=== PATIENT | male | born 1940 | race Caucasian/White ===

== ENCOUNTER 2020-08-26 08:29 | Outpatient (REF) | payer MEDICARE, MEDICAID, SELFPAY ==
[2020-08-26 14:23] LABS: Alanine Aminotransferase 12 U/L (0-40); Albumin Level 4.4 g/dL (3.5-5.0); Alkaline Phosphatase 44 U/L (39-117); Anion Gap 14 (12-20); Aspartate Amino Transferase 12 U/L (5-37); Bilirubin Total 0.4 mg/dL (0.0-1.0); Blood Urea Nitrogen 13 mg/dL (9-16); Calcium 9.4 mg/dL (8.4-10.2); Carbon Dioxide 30 mmol/L (22-29); Chloride 96 mmol/L (96-108); Cholesterol 121 mg/dL; Estimated Glomerular Filt Rate > 60; Glucose Fasting 206 mg/dL (60-99); HDL Cholesterol 38 mg/dL; LDL Cholesterol Calculated 56 mg/dl; Potassium 4.4 mmol/l (3.3-5.1); Sodium 136 mmol/L (135-145); Total Protein 7.2 g/dL (6.5-8.0); Triglycerides 135 mg/dL
[2020-08-26 16:08] LABS: Vitamin B12 258 pg/mL (200-900)
[2020-08-27 18:17] LABS: LDL Cholesterol Direct 61 mg/dL (<100)
== END 2020-08-26 08:30 | disposition home or self-care (01) ==
LOC: CF 08:29
PROVIDERS: PCP Internal Medicine; Referring Provider Internal Medicine; Visit Provider Internal Medicine Endocrinology, Diabetes & Metabolism
DX: E11.65 Type 2 diabetes mellitus with hyperglycemia (principal); E11.42 Type 2 diabetes mellitus with diabetic polyneuropathy; E11.21 Type 2 diabetes mellitus with diabetic nephropathy; E66.9 Obesity, unspecified; E78.5 Hyperlipidemia, unspecified; I10 Essential (primary) hypertension; Z79.4 Long term (current) use of insulin; Z68.32 Body mass index [BMI] 32.0-32.9, adult; Z79.82 Long term (current) use of aspirin; Z79.899 Other long term (current) drug therapy; Z86.73 Personal history of transient ischemic attack (TIA), and cerebral infarction without residual deficits
CPT/HCPCS: 80053; 80061; 82607; 82947; 83721; 99214

== ENCOUNTER → 2020-11-25 08:41 | Outpatient (BNVA) | payer MEDICARE, MEDICAID, SELFPAY | PROVIDERS: PCP Internal Medicine; Visit Provider Internal Medicine Endocrinology, Diabetes & Metabolism | DX: E11.65 Type 2 diabetes mellitus with hyperglycemia (principal); E11.42 Type 2 diabetes mellitus with diabetic polyneuropathy; E11.21 Type 2 diabetes mellitus with diabetic nephropathy; Z79.4 Long term (current) use of insulin; I10 Essential (primary) hypertension; E78.5 Hyperlipidemia, unspecified; E66.9 Obesity, unspecified; B35.3 Tinea pedis | CPT/HCPCS: 82947; 99212 ==

== ENCOUNTER 2021-05-20 08:35 | Outpatient (REF) | payer MEDICARE, MEDICAID, SELFPAY ==
[2021-05-20 10:47] LABS: Creatinine Urine 104.65 mg/dL; Microalbum/Creatinine Ratio Ur 14.3 ug/mg cr
[2021-05-20 10:49] LABS: Alanine Aminotransferase 19 U/L (0-40); Albumin Level 4.1 g/dL (3.5-5.0); Alkaline Phosphatase 41 U/L (39-117); Anion Gap 13 (12-20); Aspartate Amino Transferase 16 U/L (5-37); Bilirubin Total 0.6 mg/dL (0.0-1.0); Blood Urea Nitrogen 11 mg/dL (9-16); Calcium 9.6 mg/dL (8.4-10.2); Carbon Dioxide 29 mmol/L (22-29); Chloride 99 mmol/L (96-108); Cholesterol 136 mg/dL; Estimated Glomerular Filt Rate > 60; Glucose Random 138 mg/dL (60-115); HDL Cholesterol 41 mg/dL; LDL Cholesterol Calculated 67 mg/dl; Potassium 3.5 mmol/L (3.3-5.1); Sodium 137 mmol/L (135-145); Total Protein 6.7 g/dL (6.5-8.0); Triglycerides 141 mg/dL
[2021-05-20 11:16] LABS: Vitamin B12 147 pg/mL (200-900)
[2021-05-22 08:47] LABS: LDL Cholesterol Direct 68 mg/dL (<100)
== END 2021-05-20 08:36 | disposition home or self-care (01) ==
LOC: HO.LAB 08:35
PROVIDERS: PCP Internal Medicine; Visit Provider Internal Medicine Endocrinology, Diabetes & Metabolism
DX: E11.65 Type 2 diabetes mellitus with hyperglycemia (principal); E11.42 Type 2 diabetes mellitus with diabetic polyneuropathy; E11.21 Type 2 diabetes mellitus with diabetic nephropathy; E66.9 Obesity, unspecified; E78.5 Hyperlipidemia, unspecified; I10 Essential (primary) hypertension; Z79.4 Long term (current) use of insulin
CPT/HCPCS: 36415; 80053; 80061; 82043; 82607; 82947; 83721; 99212

== ENCOUNTER → 2022-02-12 09:07 | Outpatient (BNVA) | payer MEDICARE, MEDICAID, SELFPAY | PROVIDERS: Visit Provider Nurse Practitioner Gerontology | DX: E11.65 Type 2 diabetes mellitus with hyperglycemia (principal); E11.42 Type 2 diabetes mellitus with diabetic polyneuropathy; E11.21 Type 2 diabetes mellitus with diabetic nephropathy; I10 Essential (primary) hypertension; E78.5 Hyperlipidemia, unspecified; E53.8 Deficiency of other specified B group vitamins; E66.9 Obesity, unspecified; N40.0 Benign prostatic hyperplasia without lower urinary tract symptoms; K08.109 Complete loss of teeth, unspecified cause, unspecified class; F32.A Depression, unspecified; Z68.31 Body mass index [BMI] 31.0-31.9, adult; Z86.73 Personal history of transient ischemic attack (TIA), and cerebral infarction without residual deficits; Z79.82 Long term (current) use of aspirin; Z79.4 Long term (current) use of insulin; Z79.899 Other long term (current) drug therapy | CPT/HCPCS: 82947; 83036; 95250; 99212 ==

== ENCOUNTER → 2022-03-03 07:36 | Outpatient (BNVA) | payer MEDICARE, MEDICAID, SELFPAY | PROVIDERS: Visit Provider Nurse Practitioner Gerontology | DX: E11.42 Type 2 diabetes mellitus with diabetic polyneuropathy (principal); E11.21 Type 2 diabetes mellitus with diabetic nephropathy; I10 Essential (primary) hypertension; E78.5 Hyperlipidemia, unspecified; E66.9 Obesity, unspecified; Z79.4 Long term (current) use of insulin | CPT/HCPCS: Q3014 ==

== ENCOUNTER 2022-07-02 16:01 | Inpatient (IN) | payer MEDICARE, MEDICAID, SELFPAY ==
[2022-07-02] VITALS (17 sets, daily range): BP systolic 126–187; BP diastolic 70–117; PULSE 53–103; RESP 10–20; TEMP 36.2–36.7; O2SAT 94–98; BMI 27.3; BMI 28.3
--- NOTE | ~2022-07-02 | XR_ITS ---
EXAMINATION: XR chest 1V CLINICAL INFORMATION: Shortness of breath COMPARISON: Prior chest x-ray 07/02/2022 TECHNIQUE: XR chest 1V Tubes and lines: None Lungs and pleura: Diminished lung volume, crowding of lung markings probably poor inspiration. No dense focal consolidation pneumonia. Heart and mediastinum: Prominent aortic knob probably chronic hypertension. Bones/soft tissue: Skeletal structures included are normal for patient's age. XR/XR chest 1V IMPRESSION: No acute change. Crowding of lung markings probably poor inspiration/diminished lung volume. No lobar consolidation pneumonia. No radiologic evidence of harman failure.
--- NOTE | ~2022-07-02 | CT_ITS ---
EXAMINATION: CT ANGIOGRAM HEAD CT ANGIOGRAM NECK CLINICAL INFORMATION: Reason for Exam stroke COMPARISON: Earlier same day noncontrast head CT, CT head without contrast 01/26/2020 TECHNIQUE: Initial noncontrast rag room supervisor imaging of the head and neck was performed. Comparison is made with noncontrast head CT from earlier today. Test bolus sequences followed by intravenous administration 70 mL of Omnipaque 350. Helical imaging was performed in the axial plane from the aortic arch to the skull vertex. Delayed postcontrast imaging of the head was also performed. The data was processed at the aeronautical engineering technologist's workstation for generation of MIP sequences. Angled MIPs and volume rendered reformatted images were also generated at an offline 3D workstation. Stenoses are assessed in accordance with NASCET criteria unless otherwise indicated. DLP: 1419 mGy-cm This CT examination was performed using dose optimization techniques as appropriate, variously including the following: *Automated exposure control. *Adjustment of mA and/or kV according to patient size (this includes techniques or standardized protocols for targeted exams where dose is matched to indication/reason for exam; i.e. extremities or head). *Use of iterative reconstruction technique. FINDINGS: CT Head: There is no evidence of acute intracranial hemorrhage or edematous territorial infarction. Scattered hypoattenuation in the periventricular and deep white matter are consistent with moderate microangiopathy. Chronic lacunar infarct involving the right basal ganglia. Atrophy of the left cerebellar hemisphere. Jacobsen-white matter differentiation is preserved. Proportional prominence of the ventricles and sulcal spaces. There is ex vacuo dilatation of the right frontal horn. No evidence for obstructive hydrocephalus. No abnormal mass effect or midline shift. No extra-axial fluid collections. No pathologic intra-axial enhancement or regional oligemia. No acute soft tissue or osseous abnormalities. The mastoid air cells and paranasal sinuses are clear. CT Neck: The thyroid gland and remaining cervical soft tissues are within normal limits. Multilevel cervical spondylosis. CT Upper Chest: The visualized lung apices and upper mediastinum are within normal limits. Neck CTA: Aortic Arch: Normal contour and caliber. Classic 3 vessel branching pattern of the aortic arch. Great Vessel Origins: No significant stenosis of the branch origins. Right Common Carotid Artery: No focal stenosis or occlusion. Cervical Right Internal Carotid Artery: Mild calcific atherosclerotic disease of the carotid bulb and proximal internal carotid artery without flow-limiting stenosis. Left Common Carotid Artery: No focal stenosis or occlusion. Cervical Left Internal Carotid Artery: Mild calcific atherosclerotic disease of the carotid bulb and proximal internal carotid artery without flow-limiting stenosis. Cervical Right Vertebral Artery: There is moderate to severe stenosis of the vessel origin on the basis of soft atherosclerotic plaque. There is multifocal stenosis of the cervical right vertebral artery which is worst and moderate at the level of the C5 foramen transversarium. Cervical Left Vertebral Artery: No focal stenosis or occlusion. Brain CTA: Intracranial Internal Carotid Arteries: Calcific atherosclerotic disease of the intracranial internal carotid arteries without occlusion or flow-limiting stenosis. Right Anterior Cerebral Artery: Normal A1 segment. There is a severe focal stenosis of the right pericallosal artery (series 6 image 233) with immediate vessel reconstitution. Left Anterior Cerebral Artery: Normal A1 segment. Normal opacification of the distal DINA segments. Anterior Communicating Artery: Normal. Right Middle Cerebral Artery: Normal M1 segment of the MCA without focal stenosis or occlusion. Normal arborization of the distal segments. Left Middle Cerebral Artery: Normal M1 segment of the MCA without focal stenosis or occlusion. Normal arborization of the distal segments. Right Vertebral Artery: Multifocal moderate to severe stenosis on the basis of atherosclerotic disease. Left Vertebral Artery: Normal V4 segment. Basilar Artery: Normal without focal stenosis or occlusion. Normal appearance of the proximal superior cerebellar arteries. Right Posterior Cerebral Artery: Normal P1 segment. Normal opacification of the distal LICENSED DIRECT ENTRY MIDWIFE segments. Left Posterior Cerebral Artery: Normal P1 segment. Normal opacification of the distal LICENSED DIRECT ENTRY MIDWIFE segments. Normal opacification of the superior sagittal, straight, transverse, and sigmoid sinuses. CT/CT angio head neck stroke IMPRESSION: 1. 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 There is normal filling of the basilar artery and posterior circulation via the left vertebral artery. 2. 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 No intracranial large vessel occlusion. Above impression was discussed with Dr. Rivas on 07/02/2022 at 4:55 PM
--- NOTE | ~2022-07-02 | XR_ITS ---
EXAMINATION: XR CHEST CLINICAL INFORMATION: Short of breath COMPARISON: 12/13/2019 TECHNIQUE: Frontal view of the chest was obtained. FINDINGS: Lung volumes are low. No consolidation, edema, or effusion. No pneumothorax. The cardiomediastinal silhouette is normal in size with a tortuous and calcified aorta. No acute osseous abnormality. XR/XR chest 1V IMPRESSION: Low lung volumes with no acute pulmonary finding.
--- NOTE | ~2022-07-02 | MR_ITS ---
EXAMINATION: MR BRAIN WITHOUT CONTRAST CLINICAL INFORMATION: Stroke. Post TPA. COMPARISON: CT from 07/02/2022. TECHNIQUE: Multiplanar, multisequence imaging of the brain was performed without contrast. Limited study with motion artifacts. FINDINGS: There is a small acute infarct in the left harris radiata, not well assessed due to motion artifacts. Moderate diffuse parenchymal volume loss noted with ex vacuo dilatation of the ventricles. Small vessel ischemic changes noted in the aida with moderate volume loss. No mass effect or midline shift is seen. [id number] chronic white matter microangiopathy evident. There is a chronic infarct in the lateral aspect of the left middle cerebellar peduncle and left cerebellar hemisphere in the anterior-inferior cerebellar artery territory. There are small contiguous foci of T1/T2 hyperintensity in the extra-axial fluid spaces overlying the anterior right frontal lobe and both temporal lobes which are suspected to represent areas of small late subacute blood products. No associated mass effect is seen. There is a chronic infarct in the right frontal periventricular white matter involving the right subinsular region with cystic encephalomalacia and hemosiderin staining. There is ex vacuo dilatation of the anterior body and frontal horn of the right lateral ventricle at this site. Small chronic lacunar infarcts are present in the deep alejo matter structures. Scattered punctate foci of susceptibility artifact are present throughout the brain parenchyma in the cerebellum, brainstem, deep alejo matter structures and at the alejo-white matter junction in both cerebral hemispheres, consistent with chronic microhemorrhages. The craniovertebral junction, marrow signal, and midline structures are normal. The major intracranial flow voids at the level of the [place] are preserved. The dural venous sinus flow voids are maintained. The mastoid air cells and paranasal sinuses are well aerated. MR/MR head/brain wo con IMPRESSION: 1. Limited study with extensive motion artifacts. Small acute infarct in the left harris radiata. 2. Extensive chronic white matter microangiopathy and diffuse parenchymal volume loss. Chronic infarcts in the gangliocapsular structures and right subinsular region with hemosiderin staining. Chronic left cerebellar infarct. 3. Numerous chronic microhemorrhages throughout the brain parenchyma which may be due to chronic hypertensive encephalopathy. 4. Trace late subacute subdural hematomas overlying the right frontal lobe and along the left temporal convexities. No mass effect or midline shift.
--- NOTE | ~2022-07-02 | CT_ITS ---
EXAMINATION: CT HEAD WITHOUT CONTRAST (STROKE PROTOCOL) CLINICAL INFORMATION: Stroke protocol. COMPARISON: Previous head CT January 2020 TECHNIQUE: Contiguous axial imaging was performed from the skull base to vertex without intravenous administration of contrast. This CT examination was performed using dose optimization techniques as appropriate, variously including the following: *Automated exposure control *Adjustment of mA and/or kV according to patient size (this includes techniques or standardized protocols for targeted exams where dose is matched to indication/reason for exam; i.e. extremities or head) *Use of iterative reconstruction technique DLP: 687 mGy-cm FINDINGS: There is no evidence of an extra-axial collection. There is no evidence of intra or extra-axial hemorrhage. The ventricles and extra-axial CSF spaces are prominent suggestive of generalized atrophy. There is nonspecific periventricular white matter disease. 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 There is slight ex vacuo dilatation of the frontal horn of the right lateral ventricle that appears unchanged as well. No mass, mass effect or acute infarct is seen there is evidence of atherosclerotic disease. No skull fracture. Visualized paranasal sinuses, mastoid air cells and middle ears are clear. CT/CT head for stroke IMPRESSION: No acute findings. Generalized atrophy, nonspecific periventricular white matter disease and old right basal ganglia/external capsule infarct and moderate to previous exams. This critical result was discussed with Dr Rivas at 1620 hours on 07/02/2022. It was ascertained that the content and urgency of the report was understood at the time of direct communication.
--- NOTE | 2022-07-02 16:06 | ECG_ITS ---
Test Reason : ?STROKE Blood Pressure : / mmHG Vent. Rate : 077 BPM Atrial Rate : 077 BPM P-R Int : 184 ms QRS Dur : 124 ms QT Int : 402 ms P-R-T Axes : 026 -25 058 degrees QTc Int : 454 ms Sinus rhythm with Premature supraventricular complexes and with frequent Premature ventricular complexes Left ventricular hypertrophy with QRS widening and repolarization abnormality ( R in aVL ) Cannot rule out Septal infarct , age undetermined Abnormal ECG When compared with ECG of 03-MAY-2019 13:56, Premature ventricular complexes are now Present Premature supraventricular complexes are now Present Minimal criteria for Septal infarct are now Present Referred By: Ludivina Rivas Electronically Signed By:SAGE ORTEGA
--- NOTE | 2022-07-02 16:07 | PC.NURSE ---
pt on ems stretcher, provider evaluating patient pt direct into ct scan
[2022-07-02 16:10] LABS: Glucose, Whole Blood 89 mg/dL (60-115)
[2022-07-02 16:12] LABS: Prothrombin Time Whole Bld POC 12.9 sec (11.1-13.5); ~PT, ~INR - Anti Coag Clinic 1.1 (0.9-1.1)
[2022-07-02] MEDS: iohexoL 350 MG/ML 100 ML INFUS..BTL IV (16:24)
--- NOTE | 2022-07-02 16:32 | ED_ITS ---
HPI - Neuro Symptoms/Deficit General Chief Complaint: Stroke Stated Complaint: strope alert,starring,drooling armandlkwt 1430 Time Seen by Provider: 07/02/22 16:06 History of Present Illness HPI Narrative: Patient is an 82-year-old male with a history of diabetes, hypertension, high cholesterol, multiple strokes in the past. Patient had stroke x2 which left him with question slight facial droop. Also noted to have left-sided weakness. Presented last being normal at 14:00. Patient had difficulty with saliva. Noted to be drooling. Difficulty with speech. Sent in by family for further evaluation. Patient unable to give detailed history Related Data Home Medications Medication Instructions Recorded Confirmed aspirin 81 mg tablet,delayed 81 mg PO DAILY 08/26/20 03/03/22 release (Adult Aspirin Regimen) finasteride 5 mg tablet 5 mg PO DAILY 08/26/20 03/03/22 sertraline 50 mg tablet 50 mg PO DAILY 08/26/20 03/03/22 tamsulosin 0.4 mg capsule 0.4 mg PO DAILY 08/26/20 03/03/22 alcohol swabs pad topical diabetes mellitus 05/20/21 03/03/22 blood sugar diagnostic #10 ea 05/20/21 03/03/22 lancets 28 gauge #100 ea 05/20/21 03/03/22 atorvastatin 10 mg tablet 10 mg PO BEDTIME 02/12/22 03/03/22 Previous Rx's Medication Instructions Recorded amlodipine 2.5 mg tablet 2.5 mg PO DAILY 90 days #90 tabs 08/26/20 hydrochlorothiazide 25 mg tablet 25 mg PO DAILY 90 days #90 tabs 08/26/20 clotrimazole 1 % topical cream 1 appl topical BID 14 days #30 04/14/21 grams cyanocobalamin (vitamin B-12) 500 500 mcg sublingual DAILY 90 days 05/20/21 mcg sublingual tablet #90 tabs pen needle, diabetic 32 gauge x 1 ea subcut BID 90 days #200 ea 05/20/21 (BD Ultra-Fine Ilene Pen Needle) flash glucose scanning reader #1 ea 02/12/22 (FreeStyle Kristine 2 [employer]) flash glucose sensor (FreeStyle #2 ea 02/12/22 Kristine 2 Sensor kit) metformin 1,000 mg tablet 1,000 mg PO BID #180 tabs 03/02/22 insulin aspar prot-insulin aspart See Rx Instructions subcut QAM 30 03/03/22 100 unit/mL (70-30) subcutaneous days #30 mL pen (Novolog Mix 70-30FlexPen U-100) cholecalciferol (vitamin D3) 50 50 mcg PO DAILY #90 caps 03/04/22 mcg (2,000 unit) capsule lisinopril 20 mg tablet 20 mg PO DAILY 90 days #90 tabs 06/01/22 rosuvastatin 20 mg tablet 20 mg PO DAILY 90 days #90 tabs 06/01/22 Allergies Allergy/AdvReac Type Severity Reaction Status Date / Time No Known Allergies Allergy Verified 03/03/22 07:53 Review of Systems Review of Systems: Yes Unobtainable due to mental status [facility] Past Medical History Attestation statement: The following information was validated with the patient. Medical History (Updated 07/02/22 @ 17:02 by Ludivina Rivas MD) B12 deficiency BPH (benign prostatic hyperplasia) CVA (cerebral vascular accident) Diabetes type 2, uncontrolled Diabetic nephropathy associated with type 2 diabetes mellitus Diabetic polyneuropathy associated with type 2 diabetes mellitus Dyslipidemia Hypertension intermediate (current) use of insulin Obesity (BMI 30-39.9) Tinea pedis of both feet Surgical History No pertinent past surgical history Family History Family History Father No problems noted. Mother No problems noted. Social History Social History Household Members: Family Alcohol intake: current Alcohol intake frequency: does not drink Patient Tobacco Use Status: Never used Tobacco Advance Directives: No Advance Directives Information Provided: Yes Physical Exam Vital Signs: Vital Signs: Last Vital Signs Temp 98.1 F 07/02/22 20:07 Pulse 65 07/02/22 20:07 Resp 17 07/02/22 20:07 BP 152/90 H 07/02/22 20:07 Pulse Ox 96 07/02/22 20:07 O2 Del Method 07/02/22 20:07 BMI result Body Mass Index 27.3 MDM - Neuro Symptoms/Deficit MDM Narrative Medical decision making narrative: Sudden acute onset of change in speech at 02:30. Last witness time to be normal. Patient has a long history of diabetes, hypertension, high cholesterol. Per family baseline is able to speak perfectly. Found drooling at that time unable to speak. CT scan of the head done immediately was grossly negative sugar was in the 80s range no evidence for hypoglycemia. Finding was discussed with Neurology. NIH stroke scale is approximately 5. Risk and benefit of giving tPA was discussed with granddaughter did now Ali who is the power of contract attorney. Daughter is now at bedside. Risk and benefit also discussed with daughter. Both comfortable with plan of tPA. TPA was given after repeat check of blood pressure. The last check was 170/90. TPA was given. There has been no change in patient's neurological conditions. CTA of the head results came back. There is no acute large vessel occlusion. No thrombectomy can be performed. Patient's case discussed with podiatrist assistant for admission. Medical Records Attestation: I reviewed the patient's medical records. Lab Data Attestation: I reviewed the patient's lab results. Result diagrams: 07/02/22 16:43 07/02/22 16:43 Labs: Lab Results 07/02/22 07/02/22 07/02/22 Range/Units 16:05 16:05 16:43 WBC 7.2 (4.8-10.8) X10*3/uL RBC 5.67 (4.60-5.80) X10*6/uL Hgb 12.6 L (14.0-18.0) g/dl Hct 39.1 L (42.0-52.0) % MCV 69.0 L (80.0-98.0) fL MCH 22.2 L (27.0-33.0) pg MCHC 32.2 (31.0-36.0) g/dl RDW 14.9 (11.0-16.0) % Plt Count 238 (160-400) X10*3/uL MPV 11.1 (9.4-12.4) fL Immature Gran % (Auto) 0.4 (0.0-0.4) % Neut % (Auto) 57.2 (45-73) % Lymph % (Auto) 30.5 (20-40) % Isabela % (Auto) 9.6 (2-11) % Eos % (Auto) 1.7 (0-4) % Baso % (Auto) 0.6 (0-2) % Lymph # (Auto) 2.2 (1.2-4.9) X10*3/uL Isabela # (Auto) 0.7 (0.1-1.2) X10*3/uL Eos # (Auto) 0.1 (0.0-0.4) X10*3/uL Baso # (Auto) 0.0 (0.0-0.2) X10*3/uL Abs Immat Gran (auto) 0.03 (0.00-0.03) X10*3/uL Absolute Neuts (auto) 4.1 (2.0-8.3) x10*3/uL Absolute Nucleated RBC 0.000 (0.0-0.012) X10*3/uL Nucleated RBC % (auto) 0.0 (0.0-0.2) /100WBC PT (10.0-13.1) SEC Whole Blood PT 12.9 (11.1-13.5) sec INR (0.9-1.1) Whole Blood INR 1.1 (0.9-1.1) APTT (26.0-36.4) SEC Sodium (135-145) mmol/L Potassium (3.3-5.1) mmol/L Chloride (96-108) mmol/L Carbon Dioxide (22-29) mmol/L Anion Gap (12-20) BUN (9-16) mg/dL Creatinine (0.5-1.4) mg/dL Estim Creat Clear Calc Estimated GFR POC Glucose 89 (60-115) mg/dL Random Glucose (60-115) mg/dL Calcium (8.4-10.2) mg/dL Phosphorus (2.7-4.5) mg/dL Magnesium (1.6-2.6) mg/dL Total Bilirubin (0.0-1.0) mg/dL Direct Bilirubin (0.0-0.5) mg/dL AST (5-37) U/L ALT (0-40) U/L Alkaline Phosphatase (39-117) U/L Total Creatine Kinase (38-174) U/L Troponin I High Sens (<3.5-35.0) ng/L Total Protein (6.5-8.0) g/dL Albumin (3.5-5.0) g/dL Ethyl Alcohol mg/dL COVID-19 (MARIAN) (Negative) COVID-19 Clin Com 07/02/22 07/02/22 07/02/22 Range/Units 16:43 16:43 16:43 WBC (4.8-10.8) X10*3/uL RBC (4.60-5.80) X10*6/uL Hgb (14.0-18.0) g/dl Hct (42.0-52.0) % MCV (80.0-98.0) fL MCH (27.0-33.0) pg MCHC (31.0-36.0) g/dl RDW (11.0-16.0) % Plt Count (160-400) X10*3/uL MPV (9.4-12.4) fL Immature Gran % (Auto) (0.0-0.4) % Neut % (Auto) (45-73) % Lymph % (Auto) (20-40) % Isabela % (Auto) (2-11) % Eos % (Auto) (0-4) % Baso % (Auto) (0-2) % Lymph # (Auto) (1.2-4.9) X10*3/uL Isabela # (Auto) (0.1-1.2) X10*3/uL Eos # (Auto) (0.0-0.4) X10*3/uL Baso # (Auto) (0.0-0.2) X10*3/uL Abs Immat Gran (auto) (0.00-0.03) X10*3/uL Absolute Neuts (auto) (2.0-8.3) x10*3/uL Absolute Nucleated RBC (0.0-0.012) X10*3/uL Nucleated RBC % (auto) (0.0-0.2) /100WBC PT 13.2 H (10.0-13.1) SEC Whole Blood PT (11.1-13.5) sec INR 1.1 (0.9-1.1) Whole Blood INR (0.9-1.1) APTT 30.7 (26.0-36.4) SEC Sodium 137 (135-145) mmol/L Potassium 3.5 (3.3-5.1) mmol/L Chloride 97 (96-108) mmol/L Carbon Dioxide 30 H (22-29) mmol/L Anion Gap 14 (12-20) BUN 16 (9-16) mg/dL Creatinine 0.81 (0.5-1.4) mg/dL Estim Creat Clear Calc 69.8 Estimated GFR > 60 POC Glucose (60-115) mg/dL Random Glucose 83 D (60-115) mg/dL Calcium 8.7 D (8.4-10.2) mg/dL Phosphorus 2.9 (2.7-4.5) mg/dL Magnesium 1.3 L* (1.6-2.6) mg/dL Total Bilirubin 0.6 (0.0-1.0) mg/dL Direct Bilirubin 0.3 (0.0-0.5) mg/dL AST 13 (5-37) U/L ALT 10 (0-40) U/L Alkaline Phosphatase 34 L (39-117) U/L Total Creatine Kinase 31 L (38-174) U/L Troponin I High Sens 11.5 (<3.5-35.0) ng/L Total Protein 6.0 L (6.5-8.0) g/dL Albumin 3.7 (3.5-5.0) g/dL Ethyl Alcohol < 10 mg/dL COVID-19 (MARIAN) (Negative) COVID-19 Clin Com 07/02/22 Range/Units 16:45 WBC (4.8-10.8) X10*3/uL RBC (4.60-5.80) X10*6/uL Hgb (14.0-18.0) g/dl Hct (42.0-52.0) % MCV (80.0-98.0) fL MCH (27.0-33.0) pg MCHC (31.0-36.0) g/dl RDW (11.0-16.0) % Plt Count (160-400) X10*3/uL MPV (9.4-12.4) fL Immature Gran % (Auto) (0.0-0.4) % Neut % (Auto) (45-73) % Lymph % (Auto) (20-40) % Isabela % (Auto) (2-11) % Eos % (Auto) (0-4) % Baso % (Auto) (0-2) % Lymph # (Auto) (1.2-4.9) X10*3/uL Isabela # (Auto) (0.1-1.2) X10*3/uL Eos # (Auto) (0.0-0.4) X10*3/uL Baso # (Auto) (0.0-0.2) X10*3/uL Abs Immat Gran (auto) (0.00-0.03) X10*3/uL Absolute Neuts (auto) (2.0-8.3) x10*3/uL Absolute Nucleated RBC (0.0-0.012) X10*3/uL Nucleated RBC % (auto) (0.0-0.2) /100WBC PT (10.0-13.1) SEC Whole Blood PT (11.1-13.5) sec INR (0.9-1.1) Whole Blood INR (0.9-1.1) APTT (26.0-36.4) SEC Sodium (135-145) mmol/L Potassium (3.3-5.1) mmol/L Chloride (96-108) mmol/L Carbon Dioxide (22-29) mmol/L Anion Gap (12-20) BUN (9-16) mg/dL Creatinine (0.5-1.4) mg/dL Estim Creat Clear Calc Estimated GFR POC Glucose (60-115) mg/dL Random Glucose (60-115) mg/dL Calcium (8.4-10.2) mg/dL Phosphorus (2.7-4.5) mg/dL Magnesium (1.6-2.6) mg/dL Total Bilirubin (0.0-1.0) mg/dL Direct Bilirubin (0.0-0.5) mg/dL AST (5-37) U/L ALT (0-40) U/L Alkaline Phosphatase (39-117) U/L Total Creatine Kinase (38-174) U/L Troponin I High Sens (<3.5-35.0) ng/L Total Protein (6.5-8.0) g/dL Albumin (3.5-5.0) g/dL Ethyl Alcohol mg/dL COVID-19 (MAR[facility]) Negative (Negative) COVID-19 Clin Com See Note NIH Stroke Scale Internal: Initial- Upon Arrival Time: 16:35 Level of Consciousness: Alert Level of Consciousness Questions: Answers both questions correctly Level of Consciousness Commands: Performs both tasks correctly Best Gaze: Normal Visual: No visual loss Facial Palsy: Minor paralyis Motor Arm (Right): No drift Motor Arm (Left): No drift Motor Leg (Right): No drift Motor Leg (Left): No drift Limb Ataxia: Absent Sensory: Normal Best Language: Severe aphasia Dysarthia: Severe dysarthria Extinction and Inattention: No abnormality Score: 5 Critical Care Time Critical Care Time Critical Care Time: Yes Total Critical Care Time: 40 Attestation: I have personally provided 40 minutes of critical care time exclusive of time spent on separately billable procedures. Time includes review of lab data, radiology results, discussion with consultants, and monitoring for potential decompensation. Interventions were performed as documented above Discharge Plan Discharge Clinical Impression: Cerebrovascular accident
[2022-07-02 16:48] LABS: MANUAL DIFF FLAG NO
[2022-07-02 16:50] LABS: Basophils Percent Auto 0.6 % (0-2); Eosinophils Absolute Auto 0.1 X10*3/uL (0.0-0.4); Eosinophils Percent Auto 1.7 % (0-4); Hematocrit 39.1 % (42.0-52.0); Hemoglobin 12.6 g/dl (14.0-18.0); Imm Gran Abs Auto 0.03 X10*3/uL (0.00-0.03); Imm Gran Pct Auto 0.4 % (0.0-0.4); Lymphocytes Absolute Auto 2.2 X10*3/uL (1.2-4.9); Lymphocytes Percent Auto 30.5 % (20-40); Mean Corpuscular HGB Conc 32.2 g/dl (31.0-36.0); Mean Corpuscular Hemoglobin 22.2 pg (27.0-33.0); Mean Platelet Volume 11.1 fL (9.4-12.4); Monocytes Absolute Auto 0.7 X10*3/uL (0.1-1.2); Monocytes Percent Auto 9.6 % (2-11); Neutrophils Absolute Auto 4.1 x10*3/uL (2.0-8.3); Neutrophils Percent Auto 57.2 % (45-73); Platelet Count 238 X10*3/uL (160-400); Red Blood Count 5.67 X10*6/uL (4.60-5.80); Red Cell Distribution Width 14.9 % (11.0-16.0); White Blood Count 7.2 X10*3/uL (4.8-10.8)
[2022-07-02 16:55] LABS: INTERNATIONAL NORM RATIO 1.1 (0.9-1.1); Prothrombin Time 13.2 SEC (10.0-13.1)
[2022-07-02 16:57] LABS: Partial Thromboplastin Time 30.7 SEC (26.0-36.4)
[2022-07-02 17:08] LABS: Alanine Aminotransferase 10 U/L (0-40); Albumin Level 3.7 g/dL (3.5-5.0); Alkaline Phosphatase 34 U/L (39-117); Anion Gap 14 (12-20); Aspartate Amino Transferase 13 U/L (5-37); Bilirubin Direct 0.3 mg/dL (0.0-0.5); Bilirubin Total 0.6 mg/dL (0.0-1.0); Blood Urea Nitrogen 16 mg/dL (9-16); Calcium 8.7 mg/dL (8.4-10.2); Carbon Dioxide 30 mmol/L (22-29); Chloride 97 mmol/L (96-108); Creatinine Clr Calc Pharmacy 69.8; Estimated Glomerular Filt Rate > 60; Ethanol < 10 mg/dL; Glucose Random 83 mg/dL (60-115); Magnesium 1.3 mg/dL (1.6-2.6); Phosphorus 2.9 mg/dL (2.7-4.5); Potassium 3.5 mmol/L (3.3-5.1); Sodium 137 mmol/L (135-145); Troponin-I High Sensitivity 11.5 ng/L (<3.5-35.0)
[2022-07-02 17:08] LABS: COVID-19 Test Negative (Negative); IDNOW Serial# 16C4AD1C
[2022-07-02] MEDS: ondansetron HCL 4 MG/2 ML VIAL IVPUSH (17:11)
--- NOTE | 2022-07-02 17:13 | PC.NURSE ---
patient awake, unable to follow commands, pt slurred speech, air sampling and monitoring applied, sinus mary ann 60s, pt hypertensive given [address] order, TPA bolus and IV began, second IV access obtained, pt medicated for nausea, daughter at bedside states pt has been having increased difficulty swallowing- nursing swallow failed, ekg performed, poc performed, left sided weakness noted-? from old stroke 15 yrs ago. call mensah within reach, will continue to monitor.
--- NOTE | 2022-07-02 17:22 | MHC.STROKE ---
Addendum entered by Jacqueline Wilkerson RN 07/03/22 14:21: RECOMMENDING ASPIRIN IN AFTER 1800 TODAY DUE TO NPO STATUS Addendum entered by Jacqueline Wilkerson RN 07/03/22 14:15: 0930 I MET WITH THE PATIENT AND HIS TWO DAUGHTERS IN THE ROOM WITH THE AIR EXPORT LOGISTICS MANAGER. WE DISCUSSED HIS DIAGNOSIS CVA AND THEY UNDERSTAND. HE HAD A STROKE 15 YEARS AGO IN [place] WHICH LEFT HIM WITH LEFT HEMIPARESIS, HE USES A WALKER AND DOES REQUIRE HELP WITH ADL'S AND WALKING SINCE THAT STROKE, HE IS EXHIBITING EXPRESSIVE APHASIA AND IS ABLE TO RECOGNIZE HIS DAUGHTERS BUT UNABLE TO COMMUNICATE. HE DOES NOT HAVE ANY TEETH, AND FAILED SWALLOW SCREEN, HE WILL BE FOLLOWED BY SPEECH THERAPY. I PROVIDED THEM WITH A AZERI VERSION OF THE STROKE EDUCATION BOOKLET AND OFFERED SUPPORT. I ALSO ANSWERED ALL OF THEIR QUESTIONS. MRI IS PENDING FOR 1700. SHE WAS TRANSFERRED TO TELEMETRY FLOOR. Addendum entered by Jacqueline Wilkerson RN 07/02/22 20:03: TPA ALTEPLASE BOLUS GIVEN AT 1657 VERIFIED WITH RN. Original Note: 1554 EMS PRE-NOTIFIED STROKE ALERT, STROKE TEAM NOTIFIED 1555, PATIENT ARRIVED 1601, EXAMINED BY DR GAMEZ, NIHSS = 5. DIRECT TO CT 1608 AND CTA H/N 1614, NO BLEED, NO LVO (1655). BP ELEVATED AND REQUIRED IV LABETALOL PRIOR TO TPA - ALTEPLASE, FAILED SWALLOW SCREEN. SEE ED MD NOTES. STROKE RISK FACTORS PMH: CVA'S, DM, HTN, HLD. USE TPA GIVEN ORDER SET, ADMIT TO ICU, FOLLOW STROKE TPA GIVEN ORDER SET, FREQUENT VITALS/NEURO'S PER PROTOCOL, NO BLOOD THINNERS OR INVASIVE PROCEDURES, MRI OR CT IN AM, ECHO, ASPIRIN AFTER 24 HOURS FROM TPA, KEEP NPO, IVF INDICATED, PT/OT/SPEECH. I WILL CONTINUE TO FOLLOW.
[2022-07-02] MEDS: Magnesium Sulfate/H2O 2 GM/50 ML PIGGYBACK IV ×2 (17:25→22:12)
--- NOTE | 2022-07-02 17:31 | PC.NURSE ---
iv mag started per order
[2022-07-02 18:19] LABS: Stroke Lab Use COMPLETE
[2022-07-02 19:17] LABS: Glucose, Whole Blood 91 mg/dL (60-115)
--- NOTE | 2022-07-02 19:34 | PC.NURSE ---
patient awake/alert to name, night monitor intact, vss, pt repeat swallow screen pt failed dr. jaimes notified, pt eyes perrla, denies pain/discomfort at this time, lungs clear, poc obtained 91-call mensah within reach, family at bedside, will continue to monitor
--- NOTE | 2022-07-02 20:55 | PHA.MEDREC ---
Pharmacy Consult ? Medication Reconciliation Pharmacy has completed the medication reconciliation. Patients Daughter had a list on her phone at bedside. tester waste disposal leakage used.
[2022-07-02 21:29] LABS: Iron 57 mcg/dL (45-160); Percent Iron Saturation 25 % (15-50); Total Iron Binding Capacity 228 mcg/dL (228-428); Unsaturated Iron Binding 171 ug/dL
[2022-07-02 21:49] LABS: Ferritin 308 ng/mL (20-250)
[2022-07-02] MEDS: 0.9 % Sodium Chloride Flush 3 ML SYRINGE IVFLUSH (22:15)
[2022-07-02 22:17] LABS: Glucose, Whole Blood 92 mg/dL (60-115)
--- NOTE | 2022-07-02 22:17 | PM.CCHP ---
History of Present Illness Date of Service: 07/02/22 Attending physician on admission: Dinh More Chief Complaint: Stroke Source of history: ?Patient's granddaughter who is also her healthcare proxy and caregiver, patient's chart, ED physician ? 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 According to the granddaughter, around 230 this afternoon they noted that the patient was drooling, had trouble swallowing was not able to express himself now he normally does, they also think that he was weaker on the left upper extremity therefore they called 911 and brought him to the emergency room. ?On initial evaluation the patient showed no pronator drift, no facial droop, he did have aphasia within an NIH of 5. ? The neurologist Dr. Palm was consulted and decision to administer tPA was made, this was given at 1642 pm.? Since then, according to family the patient has improved moderately but has not gone back to baseline as he is still not able to speak short sentences or words like he used to, certainly his motor skills have improved and he is perhaps as weak as he was on the left upper and left lower extremity which is his baseline from prior stroke. ?No further events, at this point the patient has been transferred to the ICU for further monitoring treatment. ? In the ER, stroke protocol was followed patient's initial evaluation showed white count 7.2, hemoglobin of 12.6 and hematocrit 39.1, MCV 69, platelets 238.? INR 1.1, sodium 137, potassium 3.5, chloride 97, carbon dioxide 30, anion gap 14, BUN 16, creatinine 0.81, glucose 91, magnesium 1.3, phos 2.9.? Troponin 11.5.? Ethyl alcohol less than 10, COVID negative. ? Head CT No acute findings. Generalized atrophy, nonspecific periventricular white matter disease and old right basal ganglia/external capsule infarct and moderate to previous exams. ?Head and neck CT angiogram 1.? 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 There is normal filling of the basilar artery and posterior circulation via the left vertebral artery. 2.? 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 No intracranial large vessel occlusion. ? ROS:? Unable to obtain ? Past Medical History:? As above Heart murmur B12 deficiency BPH ? Past Surgical History: ?None ? Family history:? Noncontributory ? Social History:? Lives at home with his daughter and granddaughter who take care of him, he is dependent on his ADLs, walks minimally with a walker.? Does have a history of significant alcohol consumption during his younger years perhaps up to 39 years old, no history of tobacco, no history of drug abuse. ? CODE STATUS: FULL CODE ? Allergies: NKDA ? Home Medications: See Med Rec ? PHYSICAL EXAM: VS: 127/77; 62; 11; 94% RA; 98 F General:? Alert oriented to person as he acknowledges when called by his name, he also knows he is in the hospital, with use and no questions but unable to phonate words which is not his baseline.; acute distress. Following basic commands. Skin: ?No facial drooping, Intact, no lesions, edema, erythema, clubbing or cyanosis.? No ulcers. HEENT:? Head is normocephalic, atraumatic, pupils equal round reactive to light accommodation bilaterally.? Extraocular movements appear intact.? Buccal mucosa is moist, Neck is supple without lymphadenopathy. Cardiac:? Clear S1-S2, 2/6 systolic murmur best heard at the left upper sternal border.? No carotid bruits. ? Pulmonary:? Clear to auscultation, no wheezes, rales or rhonchi. Abdomen:? Protuberant, positive bowel sounds in all 4 quadrants.? Soft, nontender, no rebound or guarding.? Musculoskeletal:? Patient is able to lift his arms upon request with some weakness 3+ over 5 of the left upper extremity in comparison to the right without pronator drift.? He is able to move his feet bilaterally upon request as well as flex and extend the bilateral lower extremities at the knee level, unable to lift the legs off the stretcher.? On passive range of motion of all 4 extremities cogwheeling is noted.? There is no leg edema, there is no asymmetry of the calves. Neurologic:? As above, speech difficulty, there is no facial droop, patient unable to stick his tongue out upon request, he does close his eyes upon request and with resistance.? Was not able to follow my commands upon asking him to shrug shoulders or to perform [id number] test, unable to perform [id number] test.? Motor deficits as above. According to the family however his overall status is better than when he came into the hospital and although not back to baseline he shows much improvement. Vascular:? 2+ pulses upper and lower extremities distally. ? SIGNIFICANT LABORATORY DATA:? As above ? REVIEW OF IMAGES: ?As above ? EKG REVIEW: ?To my view disease sinus rhythm with PVCs, 77 beats per minute.? There is no ST elevations, no ST depressions, nonspecific T-wave abnormalities of the septal leads, age-indeterminate changes.? QTC 402. ? ASSESSMENT : 1. Acute ischemic stroke post tPA 2. Aphasia due to the above 3. Stable permissible hypertension 4. History of diabetes appears stable 5. Acute hypomagnesemia 6. Microcytic Anemia NOS r/o Iron deficiency vs occult bleed 7. Dysphagia (new) will need speech therapy ? PLAN OF CARE: Patient will be admitted to ICU, monitor vital signs closely, low liberalized blood pressure, no NSAIDs or aspirin for the next 24 hours, will perform a swallow eval, keep the head of the bed at 45 degree angle, check lipid profile and order statin, MRI 24 hours after tPA administration. ?Insulin sliding scale and if needed will resume his basal insulin. Will give 2 more g of magnesium, order an iron profile and stool guaiac. All given an additional 2 g of magnesium for what was given in the ER I do not think he will be enough to make a full replacement. Patient is having difficulty swallowing, we will hold all p.o. meds and feedings, the patient will need speech therapy. I cannot give him any medications including no statin given that the patient has failed a swallow eval x2. ? Lengthy discussion with family members both the daughter and granddaughter who are the healthcare proxy in regard to this patient current condition as well as future goals of care took place at bedside and they decided at this point the patient will be DNR DNI, they would like to have him receive all possible medical care without invasive procedures, intubation or resuscitation in case something happens or change resulting clinical deterioration. ?Patient's nurse Kenton was at bedside as a witness for this decision. ? GI PROPHYLAXIS: HOB at 45 IV PPI DVT PROPHYLAXIS: Pneumatic stock while in bed. ? Critical care time used for critical evaluation of this patient, diagnosis, treatment and coordination of care, review her records and documentation TOTAL CRITICAL CARE TIME 90 MIN . Patient's care was discussed in detail with Dr. More.? He is aware of all the above as well as the plan of care for this patient. 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 Mother No problems noted. Surgical History Surgical History No pertinent past surgical history Social History Social History Household Members: Other Household Members Other:: daughter Housing: House Do you presently have visiting nurse or other home services: No Alcohol intake: current Alcohol intake frequency: does not drink Patient Tobacco Use Status: Never used Tobacco e-Cigarette/Vaping Use: Never Used Use of substances other than those prescribed or required for medical reasons: No Currently Displaying Signs/Symptoms of Drug Intoxication Withdrawal: No Have you been hit, kicked, punched, or otherwise hurt by someone within the past year? If so, by whom?: No Do you feel safe in your current relationship?: Yes Is there a partner from a previous relationship who is making you feel unsafe now?: No Are you made to feel afraid or neglected: No Spiritual Healthcare Practices: none [facility] Practices: none Cultural Healthcare Practices: none Advance Directives: No Advance Directives Information Provided: Yes Do you have thoughts of harming others: None Do you have a plan to hurt others: No Plan Recently lost weight without trying: Yes Eating poorly because of decreased appetite: Yes Nutrition Risks: Difficulty swallowing and On aspiration precautions Poor oral hygiene: No Meds Allergies Allergy/AdvReac Type Severity Reaction Status Date / Time No Known Allergies Allergy Verified 03/03/22 07:53 Active Medications: Current Medications Dextrose (Dextrose 50 % 25 Gm/50 Ml Syringe) 25 gm IVPUSH Q15M PRN; Protocol PRN Reason: per Hypoglycemia Standing Ord. Glucose (Glucose Gel 15 Gm Gel..Gram.) 15 gm PO Q15M PRN; Protocol PRN Reason: per Hypoglycemia Standing Ord. Insulin Human Lispro (Insulin Lispro 100 Unit/Ml 3 Ml Vial) 0 unit SUBCUT Q6H [facility]; Protocol Last Admin: 07/02/22 22:13 Dose: Not Given Sodium Chloride (0.9 % Sodium Chloride Flush 3 Ml Syringe) 3 ml IVFLUSH QSHIFT [facility] Last Admin: 07/02/22 22:15 Dose: 3 ml Home Medications Medication Instructions Recorded Confirmed Last Taken Type aspirin 81 mg tablet,delayed 81 mg PO DAILY 08/26/20 07/02/22 Unknown History release (Adult Aspirin Regimen) sertraline 50 mg tablet 50 mg PO DAILY 08/26/20 07/02/22 Unknown History tamsulosin 0.4 mg capsule 0.4 mg PO DAILY 08/26/20 07/02/22 Unknown History blood sugar diagnostic #10 ea 05/20/21 03/03/22 Unknown History lancets 28 gauge #100 ea 05/20/21 03/03/22 Unknown History atorvastatin 10 mg tablet 10 mg PO BEDTIME 02/12/22 07/02/22 Unknown History Physical Exam Vital Signs: Vital Signs: Last Vital Signs Temp 98 F 07/02/22 21:30 Pulse 62 07/02/22 21:30 Resp 11 L 07/02/22 21:30 BP 127/77 07/02/22 21:30 Pulse Ox 94 07/02/22 21:30 O2 Del Method 07/02/22 21:30 BMI result Body Mass Index 27.3 Results Labs CBC and Chem 7: 07/02/22 16:43 07/02/22 16:43 Labs: Laboratory Results - last 24 hr 07/02/22 07/02/22 07/02/22 16:05 16:05 16:43 MCV 69.0 L MCH 22.2 L MCHC 32.2 RDW 14.9 Plt Count 238 MPV 11.1 Immature Gran % (Auto) 0.4 Neut % (Auto) 57.2 Lymph % (Auto) 30.5 Maries % (Auto) 9.6 Eos % (Auto) 1.7 Baso % (Auto) 0.6 Lymph # (Auto) 2.2 Maries # (Auto) 0.7 Eos # (Auto) 0.1 Baso # (Auto) 0.0 Abs Immat Gran (auto) 0.03 Absolute Neuts (auto) 4.1 Absolute Nucleated RBC 0.000 Nucleated RBC % (auto) 0.0 PT Whole Blood PT 12.9 INR Whole Blood INR 1.1 APTT Anion Gap Estim Creat Clear Calc Estimated GFR POC Glucose 89 Random Glucose Calcium Phosphorus Magnesium Iron TIBC % Saturation Unsat Iron Binding Ferritin Total Bilirubin Direct Bilirubin AST ALT Alkaline Phosphatase Total Creatine Kinase Total Protein Albumin Ethyl Alcohol COVID-19 ([facility]) COVID-19 Clin Com 07/02/22 07/02/22 07/02/22 16:43 16:43 16:45 MCV MCH MCHC RDW Plt Count MPV Immature Gran % (Auto) Neut % (Auto) Lymph % (Auto) Maries % (Auto) Eos % (Auto) Baso % (Auto) Lymph # (Auto) Maries # (Auto) Eos # (Auto) Baso # (Auto) Abs Immat Gran (auto) Absolute Neuts (auto) Absolute Nucleated RBC Nucleated RBC % (auto) PT 13.2 H Whole Blood PT INR 1.1 Whole Blood INR APTT 30.7 Anion Gap 14 Estim Creat Clear Calc 69.8 Estimated GFR > 60 POC Glucose Random Glucose 83 D Calcium 8.7 D Phosphorus 2.9 Magnesium 1.3 L* Iron 57 TIBC 228 % Saturation 25 Unsat Iron Binding 171 Ferritin 308 H Total Bilirubin 0.6 Direct Bilirubin 0.3 AST 13 ALT 10 Alkaline Phosphatase 34 L Total Creatine Kinase 31 L Total Protein 6.0 L Albumin 3.7 Ethyl Alcohol < 10 COVID-19 ([facility]) Negative COVID-19 Clin Com See Note 07/02/22 19:12 MCV MCH MCHC RDW Plt Count MPV Immature Gran % (Auto) Neut % (Auto) Lymph % (Auto) Maries % (Auto) Eos % (Auto) Baso % (Auto) Lymph # (Auto) Maries # (Auto) Eos # (Auto) Baso # (Auto) Abs Immat Gran (auto) Absolute Neuts (auto) Absolute Nucleated RBC Nucleated RBC % (auto) PT Whole Blood PT INR Whole Blood INR APTT Anion Gap Estim Creat Clear Calc Estimated GFR POC Glucose 91 Random Glucose Calcium Phosphorus Magnesium Iron TIBC % Saturation Unsat Iron Binding Ferritin Total Bilirubin Direct Bilirubin AST ALT Alkaline Phosphatase Total Creatine Kinase Total Protein Albumin Ethyl Alcohol COVID-19 ([facility]) COVID-19 Clin Com Imaging Radiologist's Impressions: Impressions Head CT 07/02/22 16:13 IMPRESSION: No acute findings. Generalized atrophy, nonspecific periventricular white matter disease and old right basal ganglia/external capsule infarct and moderate to previous exams. This critical result was discussed with Dr Rivas at 1620 hours on 07/02/2022. It was ascertained that the content and urgency of the report was understood at the time of direct communication. Head/Neck CTA 07/02/22 16:30 IMPRESSION: 1. 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 There is normal filling of the basilar artery and posterior circulation via the left vertebral artery. 2. 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 No intracranial large vessel occlusion. Above impression was discussed with Dr. Rivas on 07/02/2022 at 4:55 PM Chest X-Ray 07/02/22 16:35 IMPRESSION: Low lung volumes with no acute pulmonary finding.
[2022-07-03] VITALS (19 sets, daily range): BP systolic 139–177; BP diastolic 55–88; PULSE 53–87; RESP 10–18; TEMP 36.6–37.6; O2SAT 82–100; BMI 28.6
[2022-07-03 02:15] LABS: Appearance Urine Clear; Color Urine Yellow; Glucose Urine UA Negative (Negative); Leukocyte Esterase Urine Negative (Negative); Nitrite Urine Negative (Negative); PH 5.5 (5.0-8.0); Specific Gravity - Urine >= 1.030 (1.005-1.025); Urine Blood Negative (Negative); Urine Ketones Negative (Negative); Urine Protein Negative (Neg-Trace)
[2022-07-03] MEDS: Pantoprazole Sodium 40 MG/10 ML VIAL IVPUSH (05:19)
[2022-07-03 05:27] LABS: MANUAL DIFF FLAG NO
[2022-07-03 05:30] LABS: Glucose, Whole Blood 109 mg/dL (60-115)
[2022-07-03 05:32] LABS: Basophils Percent Auto 0.6 % (0-2); Eosinophils Absolute Auto 0.2 X10*3/uL (0.0-0.4); Eosinophils Percent Auto 2.9 % (0-4); Hematocrit 35.7 % (42.0-52.0); Hemoglobin 11.6 g/dl (14.0-18.0); Imm Gran Abs Auto 0.02 X10*3/uL (0.00-0.03); Imm Gran Pct Auto 0.3 % (0.0-0.4); Lymphocytes Percent Auto 30.1 % (20-40); Mean Corpuscular HGB Conc 32.5 g/dl (31.0-36.0); Mean Corpuscular Hemoglobin 22.3 pg (27.0-33.0); Mean Corpuscular Volume 68.5 fL (80.0-98.0); Mean Platelet Volume 10.1 fL (9.4-12.4); Monocytes Absolute Auto 0.6 X10*3/uL (0.1-1.2); Monocytes Percent Auto 9.7 % (2-11); Neutrophils Absolute Auto 3.7 x10*3/uL (2.0-8.3); Neutrophils Percent Auto 56.4 % (45-73); Platelet Count 196 X10*3/uL (160-400); Red Blood Count 5.21 X10*6/uL (4.60-5.80); Red Cell Distribution Width 14.7 % (11.0-16.0); White Blood Count 6.5 X10*3/uL (4.8-10.8)
[2022-07-03 05:48] LABS: Anion Gap 16 (12-20); Blood Urea Nitrogen 14 mg/dL (9-16); Calcium 8.4 mg/dL (8.4-10.2); Carbon Dioxide 26 mmol/L (22-29); Chloride 99 mmol/L (96-108); Cholesterol 122 mg/dL; Creatinine Clr Calc Pharmacy 75.8; Estimated Glomerular Filt Rate > 60; Glucose Random 114 mg/dL (60-115); HDL Cholesterol 32 mg/dL; LDL Cholesterol Calculated 73 mg/dl; Potassium 3.6 mmol/L (3.3-5.1); Sodium 137 mmol/L (135-145); Triglycerides 88 mg/dL
[2022-07-03 06:46] LABS: Magnesium 1.9 mg/dL (1.6-2.6)
--- NOTE | 2022-07-03 07:00 | CA_ITS ---
Transthoracic Echocardiogram Patient (Last, First, Middle): Jeff Brady, Gender: Male Date of : 1940 Age: 82 Procedure Date: 07/03/2022 Procedure Type: Transthoracic Echocardiogram Location: ICU Height: 170.18 cm Weight: 82.56 kg BSA: 1.94 m2 Heart Rate: 56 bpm BP: 166 / 79 mmHg Legal Manager: SB Referring MD: Dinh More MD Symptoms: Stroke Study Quality: Technically Difficult ECG Rhythm: Bradycardia Conclusions: - The left ventricular systolic function is normal. The visually estimated ejection fraction is between 60-65%. - The apical anterior, apical septum, mid inferoseptal, and mid anteroseptal segments are hypokinetic. - There is moderately decreased right ventricular systolic function. Findings Procedure Information Contrast agent, definity, is being given per protocol without apparent complications. Left Ventricle Normal left ventricular cavity size. There is moderately increased left ventricular wall thickness. The left ventricular systolic function is normal. The visually estimated ejection fraction is between 60-65%. E/E prime ratio is between 8 and 15 consistent with indeterminate filling pressures. Evidence suggests grade I (mild) diastolic dysfunction. Wall Motion Rest Echo Findings The apical anterior, apical septum, mid inferoseptal, and mid anteroseptal segments are hypokinetic. Right Ventricle Normal right ventricular cavity size. There is moderately decreased right ventricular systolic function. Atria Both atria are normal in size. Aortic Valve There is mild calcification of the aortic valve. There is no aortic valve stenosis. There is no aortic valve regurgitation. Mitral Valve The mitral valve appears normal. There is no mitral valve regurgitation. There is no mitral valve stenosis. Pulmonic Valve The pulmonic valve was not well visualized. Tricuspid Valve The tricuspid valve was not well visualized. Tricuspid regurgitation envelope is inadequate for calculation of right ventricular systolic pressure. Great Vessels The asc aorta is normal in size. There is mild dilatation of the aortic arch measuring 3.90 cm. Venous The inferior vena cava was not well visualized. Pericardium/Pleural There is no evidence of pericardial effusion. Prior Study Comparison No prior study available for comparison. Recommendations, Care & Conclusions No obvious valvular pathology seen on this study. Measurements 2D Linear Measurements IVSd: 1.35 0.6-0.9/0.6-1.0 cm LVIDd: 4.24 3.9-5.3/4.2-5.9 cm LVIDd Index: 2.19 2.4-3.2/2.2-3.1 cm/m2 LVIDs: 2.71 2.0-3.6 cm LVPWd: 1.25 0.7-1.1 cm LA Diam: 3.90 2.7-3.8/3.0-4.0 cm LAIDs Index: 2.01 1.5-2.3 cm/m2 LV Mass: 253.54 67-162/88-224 g LV Mass Index: 130.69 43-95/49-115 g/m2 LVOT Diam: 2.50 3.0+(-)1.3 cm 2D Systolic Function EF 4C: 63.80 >55% EF 2C: 76.70 >55% EF BiP: 71.90 >55% Mitral Valve MV Pk E: 0.69 MV PK A: 0.69 MV Decel Time: 268.00 E/A: 1.00 E'Lateral: 11.20 E'Medial: 4.35 E/E' Med: 15.90 E/E' Lat: 6.20 PHT: 78.00 MVA PHT: 2.82 Decel Barber: 2.58 Aortic Valve AoV Pk Joo: 1.34 AoV Mn Joo: 0.90 AoV VTI: 0.27 AoV Pk Grad: 7.00 Aov Mn Grad: 4.00 XOCHITL Cont.VTI: 3.95 LVOT LVOT Pk Joo: 0.92 LVOT Mn Joo: 0.64 LVOT VTI: 0.22 LVOT Pk Grad: 3.00 LVOT Mn Grad: 2.00 LVOT Diam: 2.50 LVOT Area: 4.91 Diastolic Function MV Pk E: 0.69 MV Pk A: 0.69 E/A: 1.00 E'Medial: 4.35 E/E' Med: 15.90 E' Laterial: 11.20 E/E' Lat: 6.20 Right Ventricle TAPSE (mm): 10.40 TVS' Joo: 8.50 Great Vessels Aorta Sinus of Valsalva: 3.60 2.0-3.5 cm Ao Asc: 3.60 2.1-3.4 cm Ao Arch: 3.90 Updated in Other Vendor System with Status of Final Ky Conway MD electronically signed on 07/03/2022 3:36:53 PM with status of Final
--- NOTE | 2022-07-03 07:39 | PC.NURSE ---
Addendum entered by Kenton Lloyd RN 07/03/22 07:53: No complications noted w/ TPA - no bowel movement, and no bleeding or excessive bruising noted. Original Note: Shift eval 7p-7a: Admitted from the ER at approx 2130 to ICU 262, post TPA. Patient alert, calm, cooperative. Q1H neuros assessed. Patient only answering simple questions, aphasia noted. Will only answer yes / no to simple questions. Unable to say name when asked. Daughter came to bedside, assisted w/ admission. Patient from home, baseline able to walk short distances with rolling walker. Patient now weak, unable to assess gait at this time r/t bedrest order, but able to move legs weakly. Hand grasps noted to be slightly weaker on the right side. Later in the night minimal right sided facial droop noted. Patient seems to lean to right side. Patient failed swallow eval x2 in ER - kept NPO until speech & hearing sees patient per Sohail LONGORIA. Denies pain. HR lowest 47 SB, otherwise running in the 50's w/ occ PVC's - Sohail LONGORIA made aware of low HR. BP 120's to 170's systolic. Patient noted to be incontinent when admitted in an adult brief. Brief removed, pericare done, [place] cath applied. Patient tolerated and output was approx 300ml yellow urine. Urine sample obtained and sent to lab. Mag replaced. Patient daughter stayed at bedside through night. Camera placed at bedside for safety r/t patient pulling at things intermit, but patient much less anxious once daughter came to bedside. Slate Worker used during admission. Stroke education packet given to daughter in thai. @ approx 0100 02sat dropped to 80 while sleeping. No distress or change in resp status. Applied 2 liters nasal cannula, Sohail LONGORIA made aware. Patient took oxygen off at approx 0600, O2 remained > 90%.
[2022-07-03] MEDS: Nitroglycerin 2 % Oint 1 GM Packet 2 INCH TRANSDERMA (09:00)
[2022-07-03] MEDS: 0.9 % Sodium Chloride Flush 3 ML SYRINGE IVFLUSH ×2 (09:38→21:27)
--- NOTE | 2022-07-03 11:06 | MHC.SL.SWA ---
Speech Pathologist Impression:Severe oropharyngeal dysphagia, severe aphasia Risk of Aspiration Due to: Neurological Condition Dysphasia Diet Status: No change Liquid Consistency and Strategies for Safe Swallow: Liquid Intake Recommendation: NPO Solid Food Consistency: Dietary Recommendations: NPO Additional Modifications to Solid Foods: Recommend continue NPO d/t difficulty managing secretions, significantly delayed at times absent pharyngeal swallow trigger, sign of aspiration. Elevate head of bed at least 30 degrees, continue rigorous oral care routine. Recommend continue speech therapy for dysphagia during hospitalization and at next level of care. Pt may benefit from MBSS if concern persists. Notified MD, RN, RD via Ola Message. Oral Medication Intake: NPO Please contact the pharmacy regarding appropriate crushable or liquid drug formulations that are available whenever modified delivery is recommended. Supervision While Eating and Drinking for Safe Swallow: PO with TENT ASSEMBLER Swallowing Recommended Treatments: Thermal Stimulation Compens. Strategy Educat. Recommendation for Speech: Outpatient Speech Therapy Inpatient Speech Therapy Speech Therapy through [facility] Speech Therapy through Rehab Facility Modified Barium Swallow Study - Inpatient Modified Barium Swallow Study - Outpatient Per family report, pt was previously saying phrases and responding to yes/no questions, now is nonverbal. Family reported pt was previously drooling, but now with increased difficulty managing secretions. Noted secretions pooling and spilling from mouth. Family also reported increasing difficulty swallowing, even before this hospitalization. Family reported that pt was not swallowing. His food was blended in a diamond blender for him, at times he was given crackers with coffee, which he enjoyed, but took him a long time. Family reports coughing and sneezing when eating and drinking. Family also reports pt was only taking his pills when laying down. TENT ASSEMBLER provided education RE: risks of aspiration and choking when pt in supine position for swallowing. Pt is edentulous without dentures. Stock Counter Clinican/Clinical Fellow: No Supervisory Statement: I have reviewed and agree with the student/clinical fellow's documentation: N/A Speech Language Pathologist: Carlee Gonzalez M.A., [facility]-T[facility]SEM[facility]ER
--- NOTE | 2022-07-03 11:29 | P.PNCC_ITS ---
Subjective Subjective Date of Service: 07/03/22 Interval History: Mr. Lion Smyth was admitted to the ICU last night after being given tPA in the ED for a presumed stroke. 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 He is fed and eats enough to sustain himself but according to the granddaughter, if I understand her correctly, his po intake of solid food has been declining, and he?s now getting a substantial portion of his nutrition from Ensure. Yesterday afternoon they noted that the patient was drooling, had trouble swallowing was not able to express himself he normally does, and he seemed to be weaker on the left upper extremity therefore they called 911 and brought him to the emergency room.? On evaluation the patient showed no pronator drift, no facial droop, he did have aphasia within an NIH of 5. Head CT showed generalized atrophy, nonspecific periventricular white matter disease and old right basal ganglia/external capsule infarct, similar to previ ous exams.? Head and neck CT angiogram showed: 1) multifocal moderate to severe stenosis of the cervical and intradural right vertebral artery on the basis of atherosclerotic disease without large vessel occlusion. There is normal filling of the basilar artery and posterior circulation via the left vertebral artery. 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 No intracranial large vessel occlusion. Dr. Palm was consulted and decision to administer tPA was made, this was given at 1642 pm.? By the evening, the patient had improved somewhat, but was not back to baseline.? He was still not able to speak any were like he used to. ?His left upp and lower extrem motor fxn was improved.? The patient was admitted to the ICU for further monitoring and treatment. This morning the patient appears fully awake and alert.? He is not talking at all.? When we asked him to show us two fingers, he is able to do that purposefully with both hands, separately, as directed.? When we asked him to lift up his left leg, he is able to do that, but clearly the strength is not normal.? He is moving his left upper extremity spontaneously with 3-4/5 strength.? The granddaughter says that his left arm is still not back to normal; she can say about his left leg.? The patient failed speech evaluation x2 last night.? We are waiting for speech evaluation this morning. Hemodynamically, the heart rate is 58, sinus rhythm.? BP 156/78.? Breathing easy w Sat up to 98% on room air.? Afebrile.? No JVD lying flat.? Chest is clear to auscultation.? Heart tones are very soft, I heard no murmur or gallops.? Abdomen is benign.? He has no significant peripheral edema. LABORATORY DATA:? Below.? Notably, albumin yesterday was 3.7. IMPRESSION: 1. Old right basal ganglia stroke. 2. New right-sided stroke.? MRI is pending.? Start aspirin tonight. 3. Currently has a swallowing deficit.? It is not sure how that will maldonado out.? He might need a temporary KO feed tube, or a long-term PEG if the family decides to go that route.? ASA will be given rectally. Stable for transfer to [facility] [place].? I will sign out to the hospitalists Critical Care Time (minutes): 0 Physical Exam Vital Signs: Vital Signs: Last Vital Signs Temp 98.8 F 07/03/22 08:00 Pulse 57 07/03/22 11:00 Resp 16 07/03/22 11:00 BP 144/76 H 07/03/22 11:00 Pulse Ox 97 07/03/22 11:00 O2 Del Method 07/03/22 11:00 O2 Flow Rate 2 07/03/22 07:00 BMI result Body Mass Index 28.6 Objective Data Labs CBC & Chem 7: 07/03/22 05:20 07/03/22 05:20 Labs: Laboratory Results - last 24 hr 07/02/22 07/02/22 07/02/22 16:05 16:05 16:43 WBC 7.2 RBC 5.67 Hgb 12.6 L Hct 39.1 L MCV 69.0 L MCH 22.2 L MCHC 32.2 RDW 14.9 Plt Count 238 MPV 11.1 Immature Gran % (Auto) 0.4 Neut % (Auto) 57.2 Lymph % (Auto) 30.5 [place] % (Auto) 9.6 Eos % (Auto) 1.7 Baso % (Auto) 0.6 Lymph # (Auto) 2.2 [place] # (Auto) 0.7 Eos # (Auto) 0.1 Baso # (Auto) 0.0 Abs Immat Gran (auto) 0.03 Absolute Neuts (auto) 4.1 Absolute Nucleated RBC 0.000 Nucleated RBC % (auto) 0.0 PT Whole Blood PT 12.9 INR Whole Blood INR 1.1 APTT Sodium Potassium Chloride Carbon Dioxide Anion Gap BUN Creatinine Estim Creat Clear Calc Estimated GFR POC Glucose 89 Random Glucose Calcium Phosphorus Magnesium Iron TIBC % Saturation Unsat Iron Binding Ferritin Total Bilirubin Direct Bilirubin AST ALT Alkaline Phosphatase Total Creatine Kinase Troponin I High Sens Total Protein Albumin Triglycerides Cholesterol LDL Cholesterol, Calc HDL Cholesterol Urine Color Urine Appearance Urine pH Ur Specific [place] Urine Protein Urine Glucose (UA) Urine Ketones Urine Blood Urine Nitrite Ur Leukocyte Esterase Ethyl Alcohol COVID-19 (MARIAN) COVID-19 Clin Com 07/02/22 07/02/22 07/02/22 16:43 16:43 16:43 WBC RBC Hgb Hct MCV MCH MCHC RDW Plt Count MPV Immature Gran % (Auto) Neut % (Auto) Lymph % (Auto) [place] % (Auto) Eos % (Auto) Baso % (Auto) Lymph # (Auto) [place] # (Auto) Eos # (Auto) Baso # (Auto) Abs Immat Gran (auto) Absolute Neuts (auto) Absolute Nucleated RBC Nucleated RBC % (auto) PT 13.2 H Whole Blood PT INR 1.1 Whole Blood INR APTT 30.7 Sodium 137 Potassium 3.5 Chloride 97 Carbon Dioxide 30 H Anion Gap 14 BUN 16 Creatinine 0.81 Estim Creat Clear Calc 69.8 Estimated GFR > 60 POC Glucose Random Glucose 83 D Calcium 8.7 D Phosphorus 2.9 Magnesium 1.3 L* Iron 57 TIBC 228 % Saturation 25 Unsat Iron Binding 171 Ferritin 308 H Total Bilirubin 0.6 Direct Bilirubin 0.3 AST 13 ALT 10 Alkaline Phosphatase 34 L Total Creatine Kinase 31 L Troponin I High Sens 11.5 Total Protein 6.0 L Albumin 3.7 Triglycerides Cholesterol LDL Cholesterol, Calc HDL Cholesterol Urine Color Urine Appearance Urine pH Ur Specific [place] Urine Protein Urine Glucose (UA) Urine Ketones Urine Blood Urine Nitrite Ur Leukocyte Esterase Ethyl Alcohol < 10 COVID-19 (MARIAN) COVID-19 Clin Com 07/02/22 07/02/22 07/02/22 16:45 19:12 22:13 WBC RBC Hgb Hct MCV MCH MCHC RDW Plt Count MPV Immature Gran % (Auto) Neut % (Auto) Lymph % (Auto) [place] % (Auto) Eos % (Auto) Baso % (Auto) Lymph # (Auto) [place] # (Auto) Eos # (Auto) Baso # (Auto) Abs Immat Gran (auto) Absolute Neuts (auto) Absolute Nucleated RBC Nucleated RBC % (auto) PT Whole Blood PT INR Whole Blood INR APTT Sodium Potassium Chloride Carbon Dioxide Anion Gap BUN Creatinine Estim Creat Clear Calc Estimated GFR POC Glucose 91 92 Random Glucose Calcium Phosphorus Magnesium Iron TIBC % Saturation Unsat Iron Binding Ferritin Total Bilirubin Direct Bilirubin AST ALT Alkaline Phosphatase Total Creatine Kinase Troponin I High Sens Total Protein Albumin Triglycerides Cholesterol LDL Cholesterol, Calc HDL Cholesterol Urine Color Urine Appearance Urine pH Ur Specific [place] Urine Protein Urine Glucose (UA) Urine Ketones Urine Blood Urine Nitrite Ur Leukocyte Esterase Ethyl Alcohol COVID-19 (MARIAN) Negative COVID-19 Clin Com See Note 07/03/22 07/03/22 07/03/22 01:59 05:20 05:20 WBC 6.5 RBC 5.21 Hgb 11.6 L Hct 35.7 L MCV 68.5 L MCH 22.3 L MCHC 32.5 RDW 14.7 Plt Count 196 MPV 10.1 Immature Gran % (Auto) 0.3 Neut % (Auto) 56.4 Lymph % (Auto) 30.1 [place] % (Auto) 9.7 Eos % (Auto) 2.9 Baso % (Auto) 0.6 Lymph # (Auto) 2.0 [place] # (Auto) 0.6 Eos # (Auto) 0.2 Baso # (Auto) 0.0 Abs Immat Gran (auto) 0.02 Absolute Neuts (auto) 3.7 Absolute Nucleated RBC 0.000 Nucleated RBC % (auto) 0.0 PT Whole Blood PT INR Whole Blood INR APTT Sodium 137 Potassium 3.6 Chloride 99 Carbon Dioxide 26 Anion Gap 16 BUN 14 Creatinine 0.76 Estim Creat Clear Calc 75.8 Estimated GFR > 60 POC Glucose Random Glucose 114 D Calcium 8.4 Phosphorus Magnesium 1.9 Iron TIBC % Saturation Unsat Iron Binding Ferritin Total Bilirubin Direct Bilirubin AST ALT Alkaline Phosphatase Total Creatine Kinase Troponin I High Sens Total Protein Albumin Triglycerides 88 Cholesterol 122 LDL Cholesterol, Calc 73 HDL Cholesterol 32 D Urine Color Yellow Urine Appearance Clear Urine pH 5.5 Ur Specific [place] >= 1.030 H Urine Protein Negative Urine Glucose (UA) Negative Urine Ketones Negative Urine Blood Negative Urine Nitrite Negative Ur Leukocyte Esterase Negative Ethyl Alcohol COVID-19 (MARIAN) COVID-19 [employer] Com 07/03/22 05:24 WBC RBC Hgb Hct MCV MCH MCHC RDW Plt Count MPV Immature Gran % (Auto) Neut % (Auto) Lymph % (Auto) [place] % (Auto) Eos % (Auto) Baso % (Auto) Lymph # (Auto) [place] # (Auto) Eos # (Auto) Baso # (Auto) Abs Immat Gran (auto) Absolute Neuts (auto) Absolute Nucleated RBC Nucleated RBC % (auto) PT Whole Blood PT INR Whole Blood INR APTT Sodium Potassium Chloride Carbon Dioxide Anion Gap BUN Creatinine Estim Creat Clear Calc Estimated GFR POC Glucose 109 Random Glucose Calcium Phosphorus Magnesium Iron TIBC % Saturation Unsat Iron Binding Ferritin Total Bilirubin Direct Bilirubin AST ALT Alkaline Phosphatase Total Creatine Kinase Troponin I High Sens Total Protein Albumin Triglycerides Cholesterol LDL Cholesterol, Calc HDL Cholesterol Urine Color Urine Appearance Urine pH Ur Specific [place] Urine Protein Urine Glucose (UA) Urine Ketones Urine Blood Urine Nitrite Ur Leukocyte Esterase Ethyl Alcohol COVID-19 (MARIAN) COVID-19 Clin Com Quality Stroke Does the patient have a stroke diagnosis?: Yes Reason for No Anti-thrombotic by Day Two: N/A - Med Ordered VTE Prior VTE?: No VTE Risk Level:: Medical - moderate - high VTE Device Contraindication: N/A - Device Ordered VTE Drug Contraindication: Treatment Not Indicated
--- NOTE | 2022-07-03 11:31 | P.CNNE_ITS ---
History of Present Illness Data of Consult Service Date: 07/03/22 Primary Care Provider: Unknown Physician HPI Reason for consult: Stroke 82 years old man came to hospital yesterday with new onset of difficulty andra tirado. According to his family he had a stroke 15 years ago. That stroke has affected his left side. This time he was not speaking and had some right-sided weakness. After consultation in emergency room physician with a diagnosis of ischemic stroke he was treated with intravenous tPA transferred to ICU. According to his daughter, who was sitting on his bedside, he was somewhat better but still not talking. There was no headache nausea or vomiting or fall. 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 Mother No problems noted. Surgical History Surgical History No pertinent past surgical history Social History Social History Household Members: Other Household Members Other:: daughter Housing: House Do you presently have visiting nurse or other home services: No Alcohol intake: current Alcohol intake frequency: does not drink Patient Tobacco Use Status: Never used Tobacco e-Cigarette/Vaping Use: Never Used Use of substances other than those prescribed or required for medical reasons: No Currently Displaying Signs/Symptoms of Drug Intoxication Withdrawal: No Have you been hit, kicked, punched, or otherwise hurt by someone within the past year? If so, by whom?: No Do you feel safe in your current relationship?: Yes Is there a partner from a previous relationship who is making you feel unsafe now?: No Are you made to feel afraid or neglected: No Spiritual Healthcare Practices: none Alevism Healthcare Practices: none Cultural Healthcare Practices: none Advance Directives: No Advance Directives Information Provided: Yes Do you have thoughts of harming others: None Do you have a plan to hurt others: No Plan Recently lost weight without trying: Yes Eating poorly because of decreased appetite: Yes Nutrition Risks: Difficulty swallowing and On aspiration precautions Poor oral hygiene: No Meds Allergies Allergy/AdvReac Type Severity Reaction Status Date / Time No Known Allergies Allergy Verified 03/03/22 07:53 Active Medications: Current Medications Dextrose (Dextrose 50 % 25 Gm/50 Ml Syringe) 25 gm IVPUSH Q15M PRN; Protocol PRN Reason: per Hypoglycemia Standing Ord. Glucose (Glucose Gel 15 Gm Gel..Gram.) 15 gm PO Q15M PRN; Protocol PRN Reason: per Hypoglycemia Standing Ord. Insulin Human Lispro (Insulin Lispro 100 Unit/Ml 3 Ml Vial) 0 unit SUBCUT Q6H [facility]; Protocol Last Admin: 07/03/22 05:24 Dose: Not Given Pantoprazole Sodium (Pantoprazole Sodium 40 Mg/10 Ml Vial) 40 mg IVPUSH DAILY @0630 [facility] Last Admin: 07/03/22 05:19 Dose: 40 mg Sodium Chloride (0.9 % Sodium Chloride Flush 3 Ml Syringe) 3 ml IVFLUSH QSHIFT [facility] Last Admin: 07/03/22 09:38 Dose: 3 ml Home Medications Medication Instructions Recorded Confirmed Last Taken Type aspirin 81 mg tablet,delayed 81 mg PO DAILY 08/26/20 07/02/22 Unknown History release (Adult Aspirin Regimen) sertraline 50 mg tablet 50 mg PO DAILY 08/26/20 07/02/22 Unknown History tamsulosin 0.4 mg capsule 0.4 mg PO DAILY 08/26/20 07/02/22 Unknown History blood sugar diagnostic #10 ea 05/20/21 03/03/22 Unknown History lancets 28 gauge #100 ea 05/20/21 03/03/22 Unknown History atorvastatin 10 mg tablet 10 mg PO BEDTIME 02/12/22 07/02/22 Unknown History Physical Exam Vital Signs: Vital Signs: Last Vital Signs Temp 98.8 F 07/03/22 08:00 Pulse 57 07/03/22 11:00 Resp 16 07/03/22 11:00 BP 144/76 H 07/03/22 11:00 Pulse Ox 97 07/03/22 11:00 O2 Del Method 07/03/22 11:00 O2 Flow Rate 2 07/03/22 07:00 BMI result Body Mass Index 28.6 Neuro: Other: He was alert and awake looking around made eye contact but did not answer any questions. He did not speaking lesion but he was also not following any questioning or commands from his daughter. When I tried to talk to him and asked him to show 2 fingers, he showed me 2 fingers. When I asked him to squeeze my hand he did. When asked to take his tongue out, he put his right hand on his tongue. There was mild right-sided facial weakness. He was able to lift his right arm against gravity. Plantars were flat. Results Labs CBC & Chem 7: 07/03/22 05:20 07/03/22 05:20 Labs: Short CBC 07/02/22 07/03/22 Range/Units 16:43 05:20 WBC 7.2 6.5 (4.8-10.8) X10*3/uL Hgb 12.6 L 11.6 L (14.0-18.0) g/dl Hct 39.1 L 35.7 L (42.0-52.0) % Plt Count 238 196 (160-400) X10*3/uL BMP 07/02/22 07/03/22 16:43 05:20 Sodium 137 137 Potassium 3.5 3.6 Chloride 97 99 Carbon Dioxide 30 H 26 BUN 16 14 Creatinine 0.81 0.76 Calcium 8.7 D 8.4 Cardiac Enzymes 07/02/22 Range/Units 16:43 Total Creatine Kinase 31 L (38-174) U/L Liver Function 07/02/22 Range/Units 16:43 Total Bilirubin 0.6 (0.0-1.0) mg/dL Direct Bilirubin 0.3 (0.0-0.5) mg/dL AST 13 (5-37) U/L ALT 10 (0-40) U/L Alkaline Phosphatase 34 L (39-117) U/L Albumin 3.7 (3.5-5.0) g/dL Urine 07/03/22 Range/Units 01:59 Urine Color Yellow Urine Appearance Clear Urine pH 5.5 (5.0-8.0) Ur Specific [place] >= 1.030 H (1.005-1.025) Urine Protein Negative (Neg-Trace) mg/dL Urine Glucose (UA) Negative (Negative) mg/dL His head CT revealed extensive chronic ischemic changes and moderate to severe diffuse cerebral atrophy. CTA did not reveal any carotid or middle cerebral artery stenosis. Right vertebral stenosis was noted. Assessment and Plan (1) Cerebrovascular accident: Status: Acute 82 years old man who presented to hospital with new onset of aphasia and was treated with intravenous tPA. At this point he is left with moderate to severe aphasia with some element of comprehension intact. Underlying, he has extensive is chronic ischemic disease and significant atrophy suggestive of severe multifactorial dementia. I would recommend education of the family about his conditions and would recommend a conservative approach of management. Otherwise anti-platelet agent, blood pressure control, and statins can continue. As far as speech therapy is concerned, because of significant vascular and degenerative brain injury, he might not be the right candidate for formal speech therapy. Procedures Date of Service Date of Service: 07/03/22
[2022-07-03] MEDS: Lactated Ringers 1,000 ML 50 ML IVCONT (11:55)
[2022-07-03 12:01] LABS: Glucose, Whole Blood 112 mg/dL (60-115)
--- NOTE | 2022-07-03 12:22 | MHC.CLN ---
NUTRITION CONSULT DUE TO NPO STATUS. IF UNABLE TO ADVANCE DIET, WILL REQUIRE NUTRITION/HYDRATION VIA TUBE FEEDING. IF PAULINO FEED STARTED, RECOMMEND JEVITY 1.0 AT MAX GOAL RATE OF 70 ML PER HOUR. FREE WATER FLUSH 240 ML Q 8 HOURS. PROVIDES 1781 KCALS (25.1 KCALS/KG CMW); 74 G PROTEIN (1.05 G/KG CMW); 1403 ML FREE WATER FROM FORMULA PLUS 720 ML [id number]=[id number] ML (29.9 ML/KG CMW). START AT 20 ML PER HOUR; INCREASE BY 10 ML EVERY 4 HOURS TO MAX GOAL RATE OF 70 ML PER HOUR. CHECK RESIDUALS EVERY 4 HOURS, HOLD 2 HOURS IF >250[address]. RD TO FOLLOW FOR DIET ADVANCEMENT/TUBE FEEDING/ALTERNATE NUTRITION. SEE CLINICAL NUTRITION ASSESSMENT 07/03/22.
--- NOTE | 2022-07-03 12:46 | MHC.CM.PN ---
Met with pt and dtr Yamile in ICU: pt with past hx of CVA that left him with expressive aphasia: yes/no answers at baseline. Pt resides with Yamile and has compensated MANAGER LATIN care 8 hours daily provided by his granddtr. He is ambulatory short distances with a walker but does need assistance for completion of ADL's. Pt can get in and out of a vehicle: family provides all transportation needs. Yamile unsure of pt's PCP - states is a provider in [place]. CM to place inquiries. HCP from home requested. Pending PT eval, d/c plan is for Pt to return to home with existing family support/MANAGER LATIN care - family can transport. Vax / booster up to date per Yamile. CM to follow for finalization of d/c plan
[2022-07-03 16:19] LABS: Glucose, Whole Blood 96 mg/dL (60-115)
[2022-07-03 19:09] LABS: Glucose, Whole Blood 97 mg/dL (60-115)
[2022-07-03 21:12] LABS: Glucose, Whole Blood 93 mg/dL (60-115)
[2022-07-03 23:27] LABS: Glucose, Whole Blood 97 mg/dL (60-115)
[2022-07-04] VITALS (10 sets, daily range): BP systolic 160–199; BP diastolic 65–90; PULSE 55–76; RESP 18–20; TEMP 36.3–37.4; O2SAT 95–100
[2022-07-04 01:22] LABS: Glucose, Whole Blood 100 mg/dL (60-115)
[2022-07-04] MEDS: Pantoprazole Sodium 40 MG/10 ML VIAL IVPUSH (06:02)
[2022-07-04 07:17] LABS: Glucose, Whole Blood 103 mg/dL (60-115)
[2022-07-04] MEDS: Lactated Ringers 1,000 ML 50 ML IVCONT (08:43)
--- NOTE | 2022-07-04 08:47 | PC.NURSE ---
Patient easily arousalable. at bedside. Patient has garbled speech. Breathing is unlabored. Brief changed, incontinent. left sided weakness although mild. Dose have slight productive cough. HTN SBP 170s consistant with priors. Has not taken PO meds
[2022-07-04 11:39] LABS: Glucose, Whole Blood 104 mg/dL (60-115)
[2022-07-04 11:46] LABS: MANUAL DIFF FLAG NO
[2022-07-04 11:55] LABS: Basophils Percent Auto 0.6 % (0-2); Eosinophils Absolute Auto 0.1 X10*3/uL (0.0-0.4); Eosinophils Percent Auto 2.3 % (0-4); Hematocrit 34.5 % (42.0-52.0); Hemoglobin 11.2 g/dl (14.0-18.0); Imm Gran Abs Auto 0.02 X10*3/uL (0.00-0.03); Imm Gran Pct Auto 0.4 % (0.0-0.4); Lymphocytes Absolute Auto 1.2 X10*3/uL (1.2-4.9); Lymphocytes Percent Auto 22.4 % (20-40); Mean Corpuscular HGB Conc 32.5 g/dl (31.0-36.0); Mean Corpuscular Hemoglobin 22.3 pg (27.0-33.0); Mean Corpuscular Volume 68.7 fL (80.0-98.0); Mean Platelet Volume 11.1 fL (9.4-12.4); Monocytes Absolute Auto 0.5 X10*3/uL (0.1-1.2); Monocytes Percent Auto 8.9 % (2-11); Neutrophils Absolute Auto 3.5 x10*3/uL (2.0-8.3); Neutrophils Percent Auto 65.4 % (45-73); Platelet Count 205 X10*3/uL (160-400); Red Blood Count 5.02 X10*6/uL (4.60-5.80); Red Cell Distribution Width 14.7 % (11.0-16.0); White Blood Count 5.3 X10*3/uL (4.8-10.8)
[2022-07-04 12:02] LABS: Ammonia 17 umol/L (13-55)
[2022-07-04 12:07] LABS: Alanine Aminotransferase 8 U/L (0-40); Albumin Level 3.5 g/dL (3.5-5.0); Alkaline Phosphatase 33 U/L (39-117); Anion Gap 13 (12-20); Aspartate Amino Transferase 11 U/L (5-37); Bilirubin Total 1.1 mg/dL (0.0-1.0); Blood Urea Nitrogen 11 mg/dL (9-16); Calcium 8.4 mg/dL (8.4-10.2); Carbon Dioxide 28 mmol/L (22-29); Chloride 100 mmol/L (96-108); Creatinine Clr Calc Pharmacy 76.8; Estimated Glomerular Filt Rate > 60; Glucose Random 107 mg/dL (60-115); Potassium 3.7 mmol/L (3.3-5.1); Sodium 137 mmol/L (135-145); Total Protein 5.5 g/dL (6.5-8.0)
[2022-07-04 12:42] LABS: Venous Blood Gas Refer to POC result
[2022-07-04 12:42] LABS: VBG Base Excess 4.9 mmol/L; VBG HCO3 29 mmol/L (22-26); VBG pCO2 40 mmHg; VBG pH 7.46 (7.32-7.43); VBG pO2 50 mmHg
--- NOTE | 2022-07-04 13:13 | P.PNIM_ITS ---
Subjective Subjective Date of Service: 07/04/22 Interval History: somnolent but arousable today Review of Systems unable to obtain Physical Exam Vital Signs: Vital Signs: Last Vital Signs Temp 97.3 F 07/04/22 12:00 Pulse 63 07/04/22 12:00 Resp 20 07/04/22 12:00 BP 186/80 H 07/04/22 12:22 Pulse Ox 97 07/04/22 12:00 O2 Del Method 07/04/22 12:00 O2 Flow Rate 2 07/03/22 07:00 BMI result Body Mass Index 28.6 Const: Other: somnolent but arousable Resp: Other: clear to auscultation bilaterally no rales rhonchi or wheezes Cardio: Other: no S4; positive S1-S2; no S3 murmurs rubs gallops GI: Other: soft nontender nondistended with normoactive bowel sounds Neuro: Other: somnolent but arousable. Moving all extremities Objective Data Active Medications Aspirin (Aspirin 300 Mg Supp.Rect) [address] [facility] Dextrose (Dextrose 50 % 25 Gm/50 Ml Syringe) 25 gm IVPUSH Q15M PRN; Protocol PRN Reason: per Hypoglycemia Standing Ord. Glucose (Glucose Gel 15 Gm Gel..Gram.) 15 gm PO Q15M PRN; Protocol PRN Reason: per Hypoglycemia Standing Ord. Lactated Ringer's (Lr) 1,000 mls @ 50 mls/hr IVCONT .Q20H [facility] Last Admin: 07/04/22 08:43 Dose: 50 mls/hr Documented By: RONALDO Insulin Human Lispro (Insulin Lispro 100 Unit/Ml 3 Ml Vial) [address] [facility]; Protocol Last Admin: 07/04/22 12:20 Dose: Not Given Documented By: ZAHRAA Non-Admin Reason: No Insulin Coverage Pantoprazole Sodium (Pantoprazole Sodium 40 Mg/10 Ml Vial) 40 mg IVPUSH DAILY@0630 [facility] Last Admin: 07/04/22 06:02 Dose: 40 mg Documented By: EMERITA Sodium Chloride (0.9 % Sodium Chloride Flush 3 Ml Syringe) [address] [facility] Last Admin: 07/04/22 08:46 Dose: Not Given Documented By: RONALDO Non-Admin Reason: IV Running Labs CBC & Chem 7: 07/04/22 11:39 07/04/22 11:39 Labs: Laboratory Results - last 24 hr 07/03/22 07/03/22 07/03/22 16:16 19:05 21:02 MCV MCH MCHC RDW Plt Count MPV Immature Gran % (Auto) Neut % (Auto) Lymph % (Auto) [place] % (Auto) Eos % (Auto) Baso % (Auto) Lymph # (Auto) [place] # (Auto) Eos # (Auto) Baso # (Auto) Abs Immat Gran (auto) Absolute Neuts (auto) Absolute Nucleated RBC Nucleated RBC % (auto) VBG pH VBG pCO2 VBG pO2 VBG HCO3 VBG O2 Saturation VBG Base Excess Anion Gap Estim Creat Clear Calc Estimated GFR POC Glucose 96 97 93 Random Glucose Calcium Total Bilirubin AST ALT Alkaline Phosphatase Ammonia Total Protein Albumin 07/03/22 07/04/22 07/04/22 23:24 01:18 07:14 MCV MCH MCHC RDW Plt Count MPV Immature Gran % (Auto) Neut % (Auto) Lymph % (Auto) [place] % (Auto) Eos % (Auto) Baso % (Auto) Lymph # (Auto) [place] # (Auto) Eos # (Auto) Baso # (Auto) Abs Immat Gran (auto) Absolute Neuts (auto) Absolute Nucleated RBC Nucleated RBC % (auto) VBG pH VBG pCO2 VBG pO2 VBG HCO3 VBG O2 Saturation VBG Base Excess Anion Gap Estim Creat Clear Calc Estimated GFR POC Glucose 97 100 103 Random Glucose Calcium Total Bilirubin AST ALT Alkaline Phosphatase Ammonia Total Protein Albumin 07/04/22 07/04/22 07/04/22 11:34 11:39 11:39 MCV 68.7 L MCH 22.3 L MCHC 32.5 RDW 14.7 Plt Count 205 MPV 11.1 Immature Gran % (Auto) 0.4 Neut % (Auto) 65.4 Lymph % (Auto) 22.4 [place] % (Auto) 8.9 Eos % (Auto) 2.3 Baso % (Auto) 0.6 Lymph # (Auto) 1.2 [place] # (Auto) 0.5 Eos # (Auto) 0.1 Baso # (Auto) 0.0 Abs Immat Gran (auto) 0.02 Absolute Neuts (auto) 3.5 Absolute Nucleated RBC 0.000 Nucleated RBC % (auto) 0.0 VBG pH VBG pCO2 VBG pO2 VBG HCO3 VBG O2 Saturation VBG Base Excess Anion Gap 13 Estim Creat Clear Calc 76.8 Estimated GFR > 60 POC Glucose 104 Random Glucose 107 Calcium 8.4 Total Bilirubin 1.1 H AST 11 ALT 8 Alkaline Phosphatase 33 L Ammonia Total Protein 5.5 L Albumin 3.5 07/04/22 07/04/22 11:39 11:46 MCV MCH MCHC RDW Plt Count MPV Immature Gran % (Auto) Neut % (Auto) Lymph % (Auto) [place] % (Auto) Eos % (Auto) Baso % (Auto) Lymph # (Auto) [place] # (Auto) Eos # (Auto) Baso # (Auto) Abs Immat Gran (auto) Absolute Neuts (auto) Absolute Nucleated RBC Nucleated RBC % (auto) VBG pH 7.46 H VBG pCO2 40 VBG pO2 50 VBG HCO3 29 H VBG O2 Saturation 79.0 VBG Base Excess 4.9 Anion Gap Estim Creat Clear Calc Estimated GFR POC Glucose Random Glucose Calcium Total Bilirubin AST ALT Alkaline Phosphatase Ammonia 17 Total Protein Albumin Assessment and Plan (1) Cerebrovascular accident: Status: Acute (2) Hypertension: Status: Acute (3) Diabetic nephropathy associated with type 2 diabetes mellitus: Status: Acute Plan 82-year-old male who has an underlying history of hypertension, hyperlipidemia, diabetes, 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 presents with acute onset of aphasia drooling and facial droop. Received tPA with minimal resolutions of symptoms 1. Acute CVA ( in backdrop of extensive chronic ischemic disease ) - continue current therapies including statin and antihypertensive - conservative therapies at this time - NPO pending repeat swallow evaluation. Continue IV fluids 2. Hypertension - remains elevated secondary to permissive hypertension - add back amlodipine 1st and then lisinopril 3.DM II - acceptable control - continue with correctional scale as patient remains NPO - at back orals when intake confirmed DNR DNI pneumatics will require ongoing hospitalization for IV fluid secondary to NPO status Quality Stroke Does the patient have a stroke diagnosis?: Yes Reason for No Anti-thrombotic by Day Two: N/A - Med Ordered VTE Prior VTE?: No VTE Risk Level:: Medical - moderate - high VTE Device Contraindication: N/A - Device Ordered VTE Drug Contraindication: Treatment Not Indicated
[2022-07-04] MEDS: Lactated Ringers 1,000 ML 100 ML IVCONT (13:38)
[2022-07-04] MEDS: hydrALAZINE HCl 20 MG/ML VIAL 5 MG IVPUSH ×2 (15:40→21:16)
[2022-07-04] MEDS: 0.9 % Sodium Chloride Flush 3 ML SYRINGE IVFLUSH (15:40)
[2022-07-04 17:49] LABS: Glucose, Whole Blood 77 mg/dL (60-115)
[2022-07-04] MEDS: Dextrose 5 % and Lactated Ring 1,000 ML 100 ML IVCONT (18:28)
[2022-07-04] MEDS: Aspirin 300 MG SUPP.RECT PR (20:43)
[2022-07-05] VITALS (9 sets, daily range): BP systolic 140–190; BP diastolic 40–90; PULSE 57–70; RESP 16–24; TEMP 36.4–37.2; O2SAT 95–98
[2022-07-05] MEDS: Pantoprazole Sodium 40 MG/10 ML VIAL IVPUSH (05:04)
[2022-07-05] MEDS: hydrALAZINE HCl 20 MG/ML VIAL 5 MG IVPUSH ×3 (05:04→20:22)
[2022-07-05] MEDS: Dextrose 5 % and Lactated Ring 1,000 ML 100 ML IVCONT ×2 (05:04→13:49)
[2022-07-05 06:50] LABS: Glucose, Whole Blood 104 mg/dL (60-115)
[2022-07-05 06:54] LABS: Glucose, Whole Blood 159 mg/dL (60-115)
[2022-07-05 07:07] LABS: MANUAL DIFF FLAG NO
[2022-07-05 07:12] LABS: Basophils Percent Auto 0.3 % (0-2); Eosinophils Absolute Auto 0.2 X10*3/uL (0.0-0.4); Eosinophils Percent Auto 2.8 % (0-4); Hematocrit 35.5 % (42.0-52.0); Hemoglobin 11.5 g/dl (14.0-18.0); Imm Gran Abs Auto 0.02 X10*3/uL (0.00-0.03); Imm Gran Pct Auto 0.3 % (0.0-0.4); Lymphocytes Absolute Auto 1.2 X10*3/uL (1.2-4.9); Lymphocytes Percent Auto 19.6 % (20-40); Mean Corpuscular HGB Conc 32.4 g/dl (31.0-36.0); Mean Corpuscular Hemoglobin 22.2 pg (27.0-33.0); Mean Corpuscular Volume 68.5 fL (80.0-98.0); Mean Platelet Volume 11.1 fL (9.4-12.4); Monocytes Absolute Auto 0.7 X10*3/uL (0.1-1.2); Monocytes Percent Auto 11.1 % (2-11); Neutrophils Absolute Auto 3.9 x10*3/uL (2.0-8.3); Neutrophils Percent Auto 65.9 % (45-73); Platelet Count 211 X10*3/uL (160-400); Red Blood Count 5.18 X10*6/uL (4.60-5.80); Red Cell Distribution Width 14.8 % (11.0-16.0)
[2022-07-05 07:47] LABS: Alanine Aminotransferase 8 U/L (0-40); Albumin Level 3.4 g/dL (3.5-5.0); Alkaline Phosphatase 32 U/L (39-117); Anion Gap 14 (12-20); Aspartate Amino Transferase 10 U/L (5-37); Bilirubin Total 0.9 mg/dL (0.0-1.0); Blood Urea Nitrogen 9 mg/dL (9-16); Calcium 8.5 mg/dL (8.4-10.2); Carbon Dioxide 24 mmol/L (22-29); Chloride 104 mmol/L (96-108); Creatinine Clr Calc Pharmacy 78.9; Estimated Glomerular Filt Rate > 60; Glucose Fasting 155 mg/dL (60-99); Potassium 3.5 mmol/L (3.3-5.1); Sodium 138 mmol/L (135-145); Total Protein 5.5 g/dL (6.5-8.0)
[2022-07-05] MEDS: 0.9 % Sodium Chloride Flush 3 ML SYRINGE IVFLUSH (08:24)
[2022-07-05] MEDS: Aspirin 300 MG SUPP.RECT PR (10:36)
[2022-07-05 11:59] LABS: Glucose, Whole Blood 171 mg/dL (60-115)
--- NOTE | 2022-07-05 12:55 | HO.PM.IMPN ---
Subjective Subjective Date of Service: 07/05/22 Interval History: more alert today however remains confused and Review of Systems unable to obtain Physical Exam Vital Signs: Vital Signs: Last Vital Signs Temp 98.1 F 07/05/22 11:53 Pulse 70 07/05/22 11:53 Resp 20 07/05/22 11:53 BP 160/80 H 07/05/22 12:26 Pulse Ox 95 07/05/22 11:53 O2 Del Method 07/05/22 11:53 O2 Flow Rate 2 07/03/22 07:00 BMI result Body Mass Index 28.6 Const: Other: somnolent but arousable Resp: Other: clear to auscultation bilaterally no rales rhonchi or wheezes Cardio: Other: no S4; positive S1-S2; no S3 murmurs rubs gallops GI: Other: soft nontender nondistended with normoactive bowel sounds Neuro: Other: somnolent but arousable. Moving all extremities Objective Data Active Medications Aspirin (Aspirin 300 Mg Supp.Rect) 300 mg [place] DAILY [facility] Last Admin: 07/05/22 10:36 Dose: 300 mg Documented By: DEVAN Dextrose (Dextrose 50 % 25 Gm/50 Ml Syringe) 25 gm IVPUSH Q15M PRN; Protocol PRN Reason: per Hypoglycemia Standing Ord. Glucose (Glucose Gel 15 Gm Gel..Gram.) 15 gm PO Q15M PRN; Protocol PRN Reason: per Hypoglycemia Standing Ord. Hydralazine HCl (Hydralazine Hcl 20 Mg/Ml Vial) 5 mg IVPUSH Q6H PRN; Protocol PRN Reason: SBP >180 Last Admin: 07/05/22 12:02 Dose: 5 mg Documented By: DEVAN Dextrose/Lactated Ringer's (D5lr) 1,000 mls @ 100 mls/hr IVCONT .Q10H [facility] Last Admin: 07/05/22 05:04 Dose: 100 mls/hr Documented By: DARIAN Insulin Human Lispro (Insulin Lispro 100 Unit/Ml 3 Ml Vial) 0 unit SUBCUT Q6H [facility]; Protocol Last Admin: 07/05/22 12:00 Dose: Not Given Documented By: DEVAN Non-Admin Reason: NPO Pantoprazole Sodium (Pantoprazole Sodium 40 Mg/10 Ml Vial) 40 mg IVPUSH DAILY@0630 [facility] Last Admin: 07/05/22 05:04 Dose: 40 mg Documented By: DARIAN Sodium Chloride (0.9 % Sodium Chloride Flush 3 Ml Syringe) 3 ml IVFLUSH QSHIFT [facility] Last Admin: 07/05/22 08:24 Dose: 3 ml Documented By: DEVAN Labs CBC & Chem 7: 07/05/22 06:48 07/05/22 06:48 Labs: Laboratory Results - last 24 hr 07/04/22 07/04/22 07/05/22 17:45 23:29 06:48 MCV 68.5 L MCH 22.2 L MCHC 32.4 RDW 14.8 Plt Count 211 MPV 11.1 Immature Gran % (Auto) 0.3 Neut % (Auto) 65.9 Lymph % (Auto) 19.6 L [place] % (Auto) 11.1 H Eos % (Auto) 2.8 Baso % (Auto) 0.3 Lymph # (Auto) 1.2 [place] # (Auto) 0.7 Eos # (Auto) 0.2 Baso # (Auto) 0.0 Abs Immat Gran (auto) 0.02 Absolute Neuts (auto) 3.9 Absolute Nucleated RBC 0.000 Nucleated RBC % (auto) 0.0 Anion Gap Estim Creat Clear Calc Estimated GFR POC Glucose 77 104 Fasting Glucose Calcium Total Bilirubin AST ALT Alkaline Phosphatase Total Protein Albumin 07/05/22 07/05/22 07/05/22 06:48 06:50 11:53 MCV MCH MCHC RDW Plt Count MPV Immature Gran % (Auto) Neut % (Auto) Lymph % (Auto) [place] % (Auto) Eos % (Auto) Baso % (Auto) Lymph # (Auto) [place] # (Auto) Eos # (Auto) Baso # (Auto) Abs Immat Gran (auto) Absolute Neuts (auto) Absolute Nucleated RBC Nucleated RBC % (auto) Anion Gap 14 Estim Creat Clear Calc 78.9 Estimated GFR > 60 POC Glucose 159 H 171 H Fasting Glucose 155 H Calcium 8.5 Total Bilirubin 0.9 AST 10 ALT 8 Alkaline Phosphatase 32 L Total Protein 5.5 L Albumin 3.4 L Assessment and Plan (1) Cerebrovascular accident: Status: Acute (2) Hypertension: Status: Acute (3) Diabetic polyneuropathy associated with type 2 diabetes mellitus: Status: Acute Plan 82-year-old male who has an underlying history of hypertension, hyperlipidemia, diabetes, 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 presents with acute onset of aphasia drooling and facial droop. Received tPA with minimal resolutions of symptoms 1. Acute CVA ( in backdrop of extensive chronic ischemic disease ) - continue current therapies - conservative therapies at this time - failed nursing bedside swallow. Reconsult speech in a.m.. Continue IV fluids - will consult GI for PEG 2. Hypertension - remains elevated secondary to permissive hypertension - treat with IV as indicated 3.DM II - acceptable control - continue with correctional scale as patient remains NPO - at back orals when intake confirmed DNR DNI pneumatics will require ongoing hospitalization for IV fluid secondary to NPO status Quality Stroke Does the patient have a stroke diagnosis?: Yes Reason for No Anti-thrombotic by Day Two: N/A - Med Ordered VTE Prior VTE?: No VTE Risk Level:: Medical - moderate - high VTE Device Contraindication: N/A - Device Ordered VTE Drug Contraindication: Treatment Not Indicated
[2022-07-05 18:07] LABS: Glucose, Whole Blood 149 mg/dL (60-115)
[2022-07-06] MEDS: Dextrose 5 % and Lactated Ring 1,000 ML 100 ML IVCONT ×3 (00:14→21:11)
[2022-07-06] MEDS: 0.9 % Sodium Chloride Flush 3 ML SYRINGE IVFLUSH ×2 (00:14→21:12)
[2022-07-06] MEDS: Insulin Lispro 100 UNIT/ML 3 ML VIAL SUBCUT (00:18)
[2022-07-06 00:19] LABS: Glucose, Whole Blood 151 mg/dL (60-115)
[2022-07-06 04:00] VITALS: BP 140/80; PULSE 59; RESP 16; TEMP 37.1; O2SAT 97
[2022-07-06 05:51] LABS: MANUAL DIFF FLAG NO
[2022-07-06 06:03] LABS: Basophils Percent Auto 0.3 % (0-2); Eosinophils Absolute Auto 0.2 X10*3/uL (0.0-0.4); Eosinophils Percent Auto 2.9 % (0-4); Hematocrit 35.5 % (42.0-52.0); Hemoglobin 11.3 g/dl (14.0-18.0); Imm Gran Abs Auto 0.02 X10*3/uL (0.00-0.03); Imm Gran Pct Auto 0.3 % (0.0-0.4); Lymphocytes Absolute Auto 1.2 X10*3/uL (1.2-4.9); Lymphocytes Percent Auto 18.7 % (20-40); Mean Corpuscular HGB Conc 31.8 g/dl (31.0-36.0); Mean Corpuscular Hemoglobin 22.2 pg (27.0-33.0); Mean Corpuscular Volume 69.6 fL (80.0-98.0); Mean Platelet Volume 10.5 fL (9.4-12.4); Monocytes Absolute Auto 0.7 X10*3/uL (0.1-1.2); Neutrophils Absolute Auto 4.2 x10*3/uL (2.0-8.3); Neutrophils Percent Auto 66.8 % (45-73); Platelet Count 203 X10*3/uL (160-400); Red Cell Distribution Width 14.9 % (11.0-16.0); White Blood Count 6.3 X10*3/uL (4.8-10.8)
[2022-07-06 06:11] LABS: Glucose, Whole Blood 141 mg/dL (60-115)
[2022-07-06] MEDS: Pantoprazole Sodium 40 MG/10 ML VIAL IVPUSH (06:11)
[2022-07-06 06:15] LABS: Alanine Aminotransferase 8 U/L (0-40); Albumin Level 3.2 g/dL (3.5-5.0); Alkaline Phosphatase 31 U/L (39-117); Anion Gap 11 (12-20); Aspartate Amino Transferase 9 U/L (5-37); Blood Urea Nitrogen 8 mg/dL (9-16); Calcium 8.3 mg/dL (8.4-10.2); Carbon Dioxide 23 mmol/L (22-29); Chloride 107 mmol/L (96-108); Creatinine Clr Calc Pharmacy 81.1; Estimated Glomerular Filt Rate > 60; Glucose Fasting 167 mg/dL (60-99); Potassium 3.3 mmol/L (3.3-5.1); Sodium 138 mmol/L (135-145); Total Protein 5.3 g/dL (6.5-8.0)
[2022-07-06 07:24] VITALS: BP 154/92; PULSE 57; RESP 20; TEMP 36.7; O2SAT 97
[2022-07-06] MEDS: Aspirin 300 MG SUPP.RECT PR (08:20)
[2022-07-06 08:49] VITALS: BP 154/92; PULSE 57; O2SAT 97
--- NOTE | 2022-07-06 09:08 | MHC.CM.PN ---
MALE 82 DX CVA PATIENT CONTINUES NPO A SWALLOW EVAL IS NEEDED. MEDICATION CHANGES FOR HTN. DP [facility] WITH FAMILY TRANSPORT. CM WILL FOLLOW TO ADDRESS CHANGES IN PT NEEDS @ DC.
--- NOTE | 2022-07-06 11:10 | MHC.SL.SWA ---
Speech Pathologist Impression: Oropharyngeal dysphagia Risk of Aspiration Due to: Neurological Condition Dysphasia Diet Status: No Change Liquid Consistency and Strategies for Safe Swallow: Liquid Intake Recommendation: NPO Solid Food Consistency: Dietary Recommendations: NPO Additional Modifications to Solid Foods: Overt s/s of aspiration w/ PO trials this date when re-evaluated- Continue to recommend NPO at this time. Discussed with granddaughter at bedside. Sent update to , RN, RD via [place] [employer] Message. Family reported increasing difficulty swallowing, even before this hospitalization. Family reported that pt was not swallowing. His food was blended in a meal grinder tender for him, at times he was given crackers with coffee, which he enjoyed, but took him a long time. Family reports coughing and sneezing when eating and drinking. Family also reports pt was only taking his pills when laying down. CAMPUS MONITOR provided education RE: risks of aspiration and choking when pt in supine position for swallowing. Pt is edentulous without dentures. Oral Medication Intake: NPO Please contact the pharmacy regarding appropriate crushable or liquid drug formulations that are available whenever modified delivery is recommended. Supervision While Eating and Drinking for Safe Swallow: PO with CAMPUS MONITOR Recommendation for Speech: Outpatient Speech Therapy Inpatient Speech Therapy Speech Therapy through [facility] Speech Therapy through Rehab Facility Modified Barium Swallow Study - Inpatient Modified Barium Swallow Study - Outpatient Adjunct Political Science Instructor Clinican/Clinical Fellow: No Supervisory Statement: I have reviewed and agree with the student/clinical fellow's documentation: N/A Speech Language Pathologist: Carlee Gonzalez M.A., [facility]
[2022-07-06 11:57] VITALS: BP 140/64; PULSE 58; RESP 20; TEMP 37.4; O2SAT 97
[2022-07-06 12:08] LABS: Glucose, Whole Blood 140 mg/dL (60-115)
--- NOTE | 2022-07-06 14:21 | HO.PM.IMPN ---
Subjective Subjective Date of Service: 07/06/22 Interval History: no acute issues overnight. Speech notes reviewed Review of Systems unable to obtain Physical Exam Vital Signs: Vital Signs: Last Vital Signs Temp 99.4 F 07/06/22 11:57 Pulse 58 07/06/22 11:57 Resp 20 07/06/22 11:57 BP 140/64 H 07/06/22 11:57 Pulse Ox 97 07/06/22 11:57 O2 Del Method 07/06/22 11:57 O2 Flow Rate 97 07/06/22 04:00 BMI result Body Mass Index 28.6 Const: Other: somnolent but arousable Resp: Other: clear to auscultation bilaterally no rales rhonchi or wheezes Cardio: Other: no S4; positive S1-S2; no S3 murmurs rubs gallops GI: Other: soft nontender nondistended with normoactive bowel sounds Neuro: Other: somnolent but arousable. Moving all extremities Objective Data Active Medications Aspirin (Aspirin 300 Mg Supp.Rect) 300 mg [place] DAILY [facility] Last Admin: 07/06/22 08:20 Dose: 300 mg Documented By: GETACHEW Dextrose (Dextrose 50 % 25 Gm/50 Ml Syringe) 25 gm IVPUSH Q15M PRN; Protocol PRN Reason: per Hypoglycemia Standing Ord. Glucose (Glucose Gel 15 Gm Gel..Gram.) 15 gm PO Q15M PRN; Protocol PRN Reason: per Hypoglycemia Standing Ord. Hydralazine HCl (Hydralazine Hcl 20 Mg/Ml Vial) 5 mg IVPUSH Q6H PRN; Protocol PRN Reason: SBP >180 Last Admin: 07/05/22 20:22 Dose: 5 mg Documented By: AMIRAH Dextrose/Lactated Ringer's (D5lr) 1,000 mls @ 100 mls/hr IVCONT .Q10H [facility] Last Admin: 07/06/22 10:05 Dose: 100 mls/hr Documented By: GETACHEW Insulin Human Lispro (Insulin Lispro 100 Unit/Ml 3 Ml Vial) 0 unit SUBCUT Q6H [facility]; Protocol Last Admin: 07/06/22 12:11 Dose: Not Given Documented By: GETACHEW Non-Admin Reason: No Insulin Coverage Sodium Chloride (0.9 % Sodium Chloride Flush 3 Ml Syringe) 3 ml IVFLUSH QSHIFT [facility] Last Admin: 07/06/22 08:19 Dose: Not Given Documented By: GETACHEW Non-Admin Reason: IV Running Labs CBC & Chem 7: 07/06/22 05:44 07/06/22 05:44 Labs: Laboratory Results - last 24 hr 07/05/22 07/06/22 07/06/22 18:04 00:14 05:44 MCV 69.6 L MCH 22.2 L MCHC 31.8 RDW 14.9 Plt Count 203 MPV 10.5 Immature Gran % (Auto) 0.3 Neut % (Auto) 66.8 Lymph % (Auto) 18.7 L [place] % (Auto) 11.0 Eos % (Auto) 2.9 Baso % (Auto) 0.3 Lymph # (Auto) 1.2 [place] # (Auto) 0.7 Eos # (Auto) 0.2 Baso # (Auto) 0.0 Abs Immat Gran (auto) 0.02 Absolute Neuts (auto) 4.2 Absolute Nucleated RBC 0.000 Nucleated RBC % (auto) 0.0 Anion Gap Estim Creat Clear Calc Estimated GFR POC Glucose 149 H 151 H Fasting Glucose Calcium Total Bilirubin AST ALT Alkaline Phosphatase Total Protein Albumin 07/06/22 07/06/22 07/06/22 05:44 06:07 11:59 MCV MCH MCHC RDW Plt Count MPV Immature Gran % (Auto) Neut % (Auto) Lymph % (Auto) [place] % (Auto) Eos % (Auto) Baso % (Auto) Lymph # (Auto) [place] # (Auto) Eos # (Auto) Baso # (Auto) Abs Immat Gran (auto) Absolute Neuts (auto) Absolute Nucleated RBC Nucleated RBC % (auto) Anion Gap 11 L Estim Creat Clear Calc 81.1 Estimated GFR > 60 POC Glucose 141 H 140 H Fasting Glucose 167 H Calcium 8.3 L Total Bilirubin 1.0 AST 9 ALT 8 Alkaline Phosphatase 31 L Total Protein 5.3 L Albumin 3.2 L Assessment and Plan (1) Cerebrovascular accident: Status: Acute (2) Diabetic nephropathy associated with type 2 diabetes mellitus: Status: Acute (3) Hypertension: Status: Acute Plan 82-year-old male who has an underlying history of hypertension, hyperlipidemia, diabetes, 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 presents with acute onset of aphasia drooling and facial droop. Received tPA with minimal resolutions of symptoms 1. Acute CVA ( in backdrop of extensive chronic ischemic disease ) - continue current therapies - conservative therapies at this time - failed nursing bedside swallow... speech eval reviewed Continue IV fluids - will consult GI for PEG 2. Hypertension - remains elevated secondary to permissive hypertension - treat with IV as indicated 3.DM II - acceptable control - continue with correctional scale as patient remains NPO - at back orals when intake confirmed DNR DNI pneumatics will require ongoing hospitalization for IV fluid secondary to NPO status Quality Stroke Does the patient have a stroke diagnosis?: Yes Reason for No Anti-thrombotic by Day Two: N/A - Med Ordered VTE Prior VTE?: No VTE Risk Level:: Medical - moderate - high VTE Device Contraindication: N/A - Device Ordered VTE Drug Contraindication: Treatment Not Indicated
--- NOTE | 2022-07-06 14:24 | MHC.CLN ---
F/U PT AWAITING GI CONSULT FOR PEG PLACEMENT IF TF TO START; RECOMMEND JEVITY 1.0 AT MAX GOAL RATE OF 70 ML PER HOUR WITH 240ML FREE WATER FLUSH Q 8 HOURS TO PROVIDE 1781 KCALS (25.1 KCALS/KG CMW); 74 G PROTEIN (1.05 G/KG CMW); 2123 ML TOTAL WATER FROM FORMULA AND FLUSH(29.9 ML/KG CMW). START TF AT 20 ML PER HOUR AND INCREASE BY 10 ML EVERY 4 HOURS UNTIL MAX GOAL MAX GOAL RATE ACHIEVED CHECK RESIDUALS EVERY 4 HOURS, HOLD 2 HOURS IF >250ML. RD TO FOLLOW FOR DIET ADVANCEMENT/TUBE FEEDING/ALTERNATE NUTRITION
[2022-07-06 14:26] LABS: Transferrin 172 mg/dL (188-341)
[2022-07-06 15:12] VITALS: BP 170/72; PULSE 64; RESP 18; TEMP 36.7; O2SAT 99
--- NOTE | 2022-07-06 15:42 | PM.EVENT ---
Event Note Date of Service: 07/06/22 Event Note: GI consult dictated feeding tube placement to be arranged for tomorrow. risks and benefits discussed with patient and granddaughter.
[2022-07-06] MEDS: ceFAZolin Sodium/Dextrose,Iso 2 GM/50 ML PIGGYBACK IV (16:51)
[2022-07-06 17:47] LABS: Glucose, Whole Blood 134 mg/dL (60-115)
[2022-07-06 19:08] VITALS: BP 184/76; PULSE 57; RESP 18; TEMP 36.3; O2SAT 96
[2022-07-07] VITALS (17 sets, daily range): BP systolic 120–194; BP diastolic 58–94; PULSE 51–84; RESP 11–24; TEMP 36.1–37.2; O2SAT 96–99
[2022-07-07] MEDS: hydrALAZINE HCl 20 MG/ML VIAL 5 MG IVPUSH ×3 (00:26→17:01)
[2022-07-07 00:28] LABS: Glucose, Whole Blood 141 mg/dL (60-115)
--- NOTE | 2022-07-07 03:17 | CONS_ITS ---
DATE OF SERVICE: 07/06/2022 REFERRING PHYSICIAN: Dash Hernandez DO REASON FOR CONSULTATION: Dysphagia and feeding tube placement. HISTORY OF PRESENT ILLNESS: The patient is an 82-year-old man, who was admitted to the hospital on July 02. He has a history of hypertension and was diagnosed with an ischemic stroke at the time of admission, for which he received tPA. Since that time, he has been unable to swallow, feeding tube placement has been requested. PAST MEDICAL HISTORY: 1. CVA. 2. Hypertension. 3. Hyperlipidemia. 4. Diabetes. 5. Heart murmur. 6. B12 deficiency. 7. BPH. CURRENT MEDICATIONS: His current medication list is reviewed in the chart. ALLERGIES: THERE ARE NONE REPORTED. FAMILY HISTORY: This is reviewed in the electronic medical record and is noncontributory. SOCIAL HISTORY: He does have a history of alcohol use in the past, but not recently. REVIEW OF SYSTEMS: This is not reliably obtainable. PHYSICAL EXAMINATION: GENERAL: Shows an elderly male, who responds to voice. VITAL SIGNS: Reviewed in electronic medical record and are stable. SKIN: Anicteric. HEENT: Shows no scleral icterus. He does have some drooling. NECK: Without lymphadenopathy or thyromegaly. LUNGS: Clear. HEART: Shows S1, S2 with a 2/6 systolic murmur. ABDOMEN: Soft without focal masses, tenderness, guarding, or rebound. There appears to be no prior abdominal wall surgery. EXTREMITIES: Show some left-sided edema. LABORATORY DATA: Reviewed. IMPRESSION: Cerebrovascular accident with dysphagia. I discussed feeding tube placement with the patient and his granddaughter. They appear to understand risks and benefits and agreed to proceed. This will be arranged for tomorrow. Thanks for asking me to see him. I will follow him in the hospital as needed. MD LAURA Dunlap/SILVIA / [phone]
[2022-07-07 05:53] LABS: MANUAL DIFF FLAG NO
[2022-07-07 06:19] LABS: Basophils Percent Auto 0.4 % (0-2); Eosinophils Absolute Auto 0.2 X10*3/uL (0.0-0.4); Eosinophils Percent Auto 2.9 % (0-4); Hematocrit 33.9 % (42.0-52.0); Imm Gran Abs Auto 0.02 X10*3/uL (0.00-0.03); Imm Gran Pct Auto 0.4 % (0.0-0.4); Lymphocytes Absolute Auto 1.2 X10*3/uL (1.2-4.9); Lymphocytes Percent Auto 21.3 % (20-40); Mean Corpuscular HGB Conc 32.4 g/dl (31.0-36.0); Mean Corpuscular Hemoglobin 22.1 pg (27.0-33.0); Mean Corpuscular Volume 68.2 fL (80.0-98.0); Mean Platelet Volume 11.1 fL (9.4-12.4); Monocytes Absolute Auto 0.6 X10*3/uL (0.1-1.2); Monocytes Percent Auto 10.8 % (2-11); Neutrophils Absolute Auto 3.6 x10*3/uL (2.0-8.3); Neutrophils Percent Auto 64.2 % (45-73); Platelet Count 219 X10*3/uL (160-400); Red Blood Count 4.97 X10*6/uL (4.60-5.80); White Blood Count 5.6 X10*3/uL (4.8-10.8)
[2022-07-07 06:21] LABS: Alanine Aminotransferase 8 U/L (0-40); Albumin Level 3.2 g/dL (3.5-5.0); Alkaline Phosphatase 32 U/L (39-117); Anion Gap 12 (12-20); Aspartate Amino Transferase 9 U/L (5-37); Bilirubin Total 0.9 mg/dL (0.0-1.0); Blood Urea Nitrogen 7 mg/dL (9-16); Calcium 8.2 mg/dL (8.4-10.2); Carbon Dioxide 22 mmol/L (22-29); Chloride 108 mmol/L (96-108); Estimated Glomerular Filt Rate > 60; Glucose Fasting 170 mg/dL (60-99); Potassium 3.2 mmol/L (3.3-5.1); Sodium 139 mmol/L (135-145); Total Protein 5.2 g/dL (6.5-8.0)
[2022-07-07] MEDS: Dextrose 5 % and Lactated Ring 1,000 ML 100 ML IVCONT ×3 (06:49→20:40)
[2022-07-07 08:03] LABS: Glucose, Whole Blood 153 mg/dL (60-115)
[2022-07-07] MEDS: Insulin Lispro 100 UNIT/ML 3 ML VIAL SUBCUT (08:04)
[2022-07-07] MEDS: 0.9 % Sodium Chloride Flush 3 ML SYRINGE IVFLUSH ×2 (08:05→15:54)
[2022-07-07] MEDS: Aspirin 300 MG SUPP.RECT PR (08:05)
--- NOTE | 2022-07-07 09:58 | MHC.SLORD ---
Speech Language Pathology Order Status: Pt pending surgery for PEG placement today, NPO. Will continue to follow.
--- NOTE | 2022-07-07 10:45 | MHC.CLN ---
F/U PEG PLACEMENT PENDING PROCEDURE TODAY IF TF TO START; RECOMMEND JEVITY 1.0 AT MAX GOAL RATE OF 70 ML/HR WITH 240ML FREE WATER FLUSH Q 8 HOURS TO PROVIDE 1781 KCALS (25KCALS/KG BASED ON CMW); 74 G PROTEIN (1.0 G/KG); 2123 ML TOTAL WATER FROM FORMULA AND FLUSHES(29.9 ML/KG) START TF AT 20 ML/HR AND INCREASE BY 10 ML Q 4 HOURS UNTIL MAX GOAL RATE IS ACHIEVED CHECK RESIDUALS EVERY 4 HOURS, HOLD 2 HOURS IF >250ML MONITOR TOLERANCE, RESIDUALS AND LYTES
--- NOTE | 2022-07-07 10:49 | HO.PM.IMPN ---
Subjective Subjective Date of Service: 07/07/22 Interval History: no acute issues overnight. Speech notes reviewed. Daughter there and no new issues Review of Systems unable to obtain Physical Exam Vital Signs: Vital Signs: Last Vital Signs Temp 98.2 F 07/07/22 07:28 Pulse 58 07/07/22 07:28 Resp 17 07/07/22 07:28 BP 152/79 H 07/07/22 07:28 Pulse Ox 97 07/07/22 07:28 O2 Del Method 07/07/22 07:28 O2 Flow Rate 97 07/06/22 04:00 BMI result Body Mass Index 28.6 Const: Other: somnolent but arousable Resp: Other: clear to auscultation bilaterally no rales rhonchi or wheezes Cardio: Other: no S4; positive S1-S2; no S3 murmurs rubs gallops GI: Other: soft nontender nondistended with normoactive bowel sounds Neuro: Other: somnolent but arousable. Moving all extremities Plantar Reflex Responses: downgoing: bilateral Objective Data Active Medications Aspirin (Aspirin 300 Mg Supp.Rect) 300 mg [place] DAILY [facility] Last Admin: 07/07/22 08:05 Dose: 300 mg Documented By: MOUNIKA Dextrose (Dextrose 50 % 25 Gm/50 Ml Syringe) 25 gm IVPUSH Q15M PRN; Protocol PRN Reason: per Hypoglycemia Standing Ord. Glucose (Glucose Gel 15 Gm Gel..Gram.) 15 gm PO Q15M PRN; Protocol PRN Reason: per Hypoglycemia Standing Ord. Hydralazine HCl (Hydralazine Hcl 20 Mg/Ml Vial) 5 mg IVPUSH Q6H PRN; Protocol PRN Reason: SBP >180 Last Admin: 07/07/22 03:20 Dose: 5 mg Documented By: DARIAN Comments: extra dose per Dextrose/Lactated Ringer's (D5lr) 1,000 mls @ 100 mls/hr IVCONT .Q10H [facility] Last Admin: 07/07/22 06:49 Dose: 100 mls/hr Documented By: DARIAN Insulin Human Lispro (Insulin Lispro 100 Unit/Ml 3 Ml Vial) 0 unit SUBCUT Q6H [facility]; Protocol Last Admin: 07/07/22 08:04 Dose: 2 unit Documented By: MOUNIKA Sodium Chloride (0.9 % Sodium Chloride Flush 3 Ml Syringe) 3 ml IVFLUSH QSHIFT [facility] Last Admin: 07/07/22 08:05 Dose: 3 ml Documented By: MOUNIKA Labs CBC & Chem 7: 07/07/22 05:44 07/07/22 05:44 Labs: Laboratory Results - last 24 hr 07/02/22 07/06/22 07/06/22 16:43 11:59 17:45 MCV MCH MCHC RDW Plt Count MPV Immature Gran % (Auto) Neut % (Auto) Lymph % (Auto) [place] % (Auto) Eos % (Auto) Baso % (Auto) Lymph # (Auto) [place] # (Auto) Eos # (Auto) Baso # (Auto) Abs Immat Gran (auto) Absolute Neuts (auto) Absolute Nucleated RBC Nucleated RBC % (auto) Anion Gap Estim Creat Clear Calc Estimated GFR POC Glucose 140 H 134 H Fasting Glucose Calcium Transferrin 172 L Total Bilirubin AST ALT Alkaline Phosphatase Total Protein Albumin 07/07/22 07/07/22 07/07/22 00:22 05:44 05:44 MCV 68.2 L MCH 22.1 L MCHC 32.4 RDW 15.0 Plt Count 219 MPV 11.1 Immature Gran % (Auto) 0.4 Neut % (Auto) 64.2 Lymph % (Auto) 21.3 [place] % (Auto) 10.8 Eos % (Auto) 2.9 Baso % (Auto) 0.4 Lymph # (Auto) 1.2 [place] # (Auto) 0.6 Eos # (Auto) 0.2 Baso # (Auto) 0.0 Abs Immat Gran (auto) 0.02 Absolute Neuts (auto) 3.6 Absolute Nucleated RBC 0.000 Nucleated RBC % (auto) 0.0 Anion Gap 12 Estim Creat Clear Calc 80.0 Estimated GFR > 60 POC Glucose 141 H Fasting Glucose 170 H Calcium 8.2 L Transferrin Total Bilirubin 0.9 AST 9 ALT 8 Alkaline Phosphatase 32 L Total Protein 5.2 L Albumin 3.2 L 07/07/22 07:59 MCV MCH MCHC RDW Plt Count MPV Immature Gran % (Auto) Neut % (Auto) Lymph % (Auto) [place] % (Auto) Eos % (Auto) Baso % (Auto) Lymph # (Auto) [place] # (Auto) Eos # (Auto) Baso # (Auto) Abs Immat Gran (auto) Absolute Neuts (auto) Absolute Nucleated RBC Nucleated RBC % (auto) Anion Gap Estim Creat Clear Calc Estimated GFR POC Glucose 153 H Fasting Glucose Calcium Transferrin Total Bilirubin AST ALT Alkaline Phosphatase Total Protein Albumin Assessment and Plan (1) Cerebrovascular accident: Status: Acute (2) Diabetic nephropathy associated with type 2 diabetes mellitus: Status: Acute (3) Hypertension: Status: Acute Plan 82-year-old male who has an underlying history of hypertension, hyperlipidemia, diabetes, 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 presents with acute onset of aphasia drooling and facial droop. Received tPA with minimal resolutions of symptoms 1. Acute CVA ( in backdrop of extensive chronic ischemic disease ) - continue current therapies - conservative therapies at this time - failed nursing bedside swallow... speech eval reviewed Continue IV fluids GI for PEG today 2. Hypertension---BP over all better, will continue to adjust meds 3.DM II - acceptable control - continue with correctional scale as patient remains NPO - at back orals when intake confirmed DNR DNI pneumatics will require ongoing hospitalization for IV fluid secondary to NPO status Quality Stroke Does the patient have a stroke diagnosis?: Yes Reason for No Anti-thrombotic by Day Two: N/A - Med Ordered VTE Prior VTE?: No VTE Risk Level:: Medical - moderate - high VTE Device Contraindication: N/A - Device Ordered VTE Drug Contraindication: Treatment Not Indicated
[2022-07-07 11:20] LABS: Glucose, Whole Blood 112 mg/dL (60-115)
--- NOTE | 2022-07-07 13:04 | HO.ANESPROP2 ---
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) Diabetic nephropathy associated with type 2 diabetes mellitus (Acute) Diabetic polyneuropathy associated with type 2 diabetes mellitus (Acute) Diabetes type 2, uncontrolled (Acute) Past Medical History Medical History B12 deficiency BPH (benign prostatic hyperplasia) CVA (cerebral vascular accident) Diabetes type 2, uncontrolled Diabetic nephropathy associated with type 2 diabetes mellitus Diabetic polyneuropathy associated with type 2 diabetes mellitus Dyslipidemia Hypertension 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 Mother No problems noted. Family history of problems with anesthesia: No Surgical History Surgical History No pertinent past surgical history History of Problems with Anesthesia: No Social History Social History Household Members: Other Household Members Other:: daughter Housing: House Do you presently have visiting nurse or other home services: No Alcohol intake: current Alcohol intake frequency: does not drink Patient Tobacco Use Status: Never used Tobacco e-Cigarette/Vaping Use: Never Used Use of substances other than those prescribed or required for medical reasons: No Currently Displaying Signs/Symptoms of Drug Intoxication Withdrawal: No Have you been hit, kicked, punched, or otherwise hurt by someone within the past year? If so, by whom?: No Do you feel safe in your current relationship?: Yes Is there a partner from a previous relationship who is making you feel unsafe now?: No Are you made to feel afraid or neglected: No Spiritual Healthcare Practices: none Mosque Healthcare Practices: none Cultural Healthcare Practices: none Are you DNR?: Yes Advance Directives: No Advance Directives Information Provided: Yes Advance Directives on File: No Do you have thoughts of harming others: None Do you have a plan to hurt others: No Plan Recently lost weight without trying: Yes Eating poorly because of decreased appetite: Yes Nutrition Risks: Difficulty swallowing and On aspiration precautions Poor oral hygiene: No service: No Current occupational status: retired [employer] Allergies Allergy/AdvReac Type Severity Reaction Status Date / Time No Known Allergies Allergy Verified 03/03/22 07:53 Active Medications: Current Medications Aspirin (Aspirin 300 Mg Supp.Rect) 300 mg [place] DAILY [facility] Last Admin: 07/07/22 08:05 Dose: 300 mg Dextrose (Dextrose 50 % 25 Gm/50 Ml Syringe) 25 gm IVPUSH Q15M PRN; Protocol PRN Reason: per Hypoglycemia Standing Ord. Glucose (Glucose Gel 15 Gm Gel..Gram.) 15 gm PO Q15M PRN; Protocol PRN Reason: per Hypoglycemia Standing Ord. Hydralazine HCl (Hydralazine Hcl 20 Mg/Ml Vial) 5 mg IVPUSH Q6H PRN; Protocol PRN Reason: SBP >180 Last Admin: 07/07/22 03:20 Dose: 5 mg Dextrose/Lactated Ringer's (D5lr) 1,000 mls @ 100 mls/hr IVCONT .Q10H [facility] Last Infusion: 07/07/22 12:57 Dose: 0 mls/hr Insulin Human Lispro (Insulin Lispro 100 Unit/Ml 3 Ml Vial) 0 unit SUBCUT Q6H C[facility]; Protocol Last Admin: 07/07/22 11:47 Dose: Not Given Sodium Chloride (0.9 % Sodium Chloride Flush 3 Ml Syringe) 3 ml IVFLUSH QSHIFT [facility] Last Admin: 07/07/22 08:05 Dose: 3 ml Home Medications Medication Instructions Recorded Confirmed Last Taken Type aspirin 81 mg tablet,delayed 81 mg PO DAILY 08/26/20 07/02/22 Unknown History release (Adult Aspirin Regimen) sertraline 50 mg tablet 50 mg PO DAILY 08/26/20 07/02/22 Unknown History tamsulosin 0.4 mg capsule 0.4 mg PO DAILY 08/26/20 07/02/22 Unknown History blood sugar diagnostic #10 ea 05/20/21 03/03/22 Unknown History lancets 28 gauge #100 ea 05/20/21 03/03/22 Unknown History atorvastatin 10 mg tablet 10 mg PO BEDTIME 02/12/22 07/02/22 Unknown History Exam Exam Date and Time: July 07, 2022 1304 Height,Weight and Vital Signs: Height 5 ft 7 in Weight 82.9 kg Last Vital Signs Temp 98.6 F 07/07/22 11:00 Pulse 56 07/07/22 11:00 Resp 18 07/07/22 11:00 BP 170/78 H 07/07/22 11:00 Pulse Ox 97 07/07/22 11:00 O2 Del Method 07/07/22 11:00 O2 Flow Rate 97 07/06/22 04:00 Pertinent Lab Results Pertinent Lab Results: Laboratory Tests 07/02/22 07/02/22 07/02/22 16:05 16:05 16:43 WBC 7.2 RBC 5.67 Hgb 12.6 L Hct 39.1 L MCV 69.0 L MCH 22.2 L MCHC 32.2 RDW 14.9 Plt Count 238 MPV 11.1 Immature Gran % (Auto) 0.4 Neut % (Auto) 57.2 Lymph % (Auto) 30.5 [place] % (Auto) 9.6 Eos % (Auto) 1.7 Baso % (Auto) 0.6 Lymph # (Auto) 2.2 [place] # (Auto) 0.7 Eos # (Auto) 0.1 Baso # (Auto) 0.0 Abs Immat Gran (auto) 0.03 Absolute Neuts (auto) 4.1 Absolute Nucleated RBC 0.000 Nucleated RBC % (auto) 0.0 PT Whole Blood PT 12.9 INR Whole Blood INR 1.1 APTT VBG pH VBG pCO2 VBG pO2 VBG HCO3 VBG O2 Saturation VBG Base Excess Sodium Potassium Chloride Carbon Dioxide Anion Gap BUN Creatinine Estim Creat Clear Calc Estimated GFR POC Glucose 89 Random Glucose Fasting Glucose Calcium Phosphorus Magnesium Iron TIBC % Saturation Unsat Iron Binding Transferrin Ferritin Total Bilirubin Direct Bilirubin AST ALT Alkaline Phosphatase Ammonia Total Creatine Kinase Troponin I High Sens Total Protein Albumin Triglycerides Cholesterol LDL Cholesterol, Calc HDL Cholesterol Urine Color Urine Appearance Urine pH Ur Specific [place] Urine Protein Urine Glucose (UA) Urine Ketones Urine Blood Urine Nitrite Ur Leukocyte Esterase Ethyl Alcohol COVID-19 ([facility]) COVID-19 Clin Com 07/02/22 07/02/22 07/02/22 16:43 16:43 16:43 WBC RBC Hgb Hct MCV MCH MCHC RDW Plt Count MPV Immature Gran % (Auto) Neut % (Auto) Lymph % (Auto) [place] % (Auto) Eos % (Auto) Baso % (Auto) Lymph # (Auto) [place] # (Auto) Eos # (Auto) Baso # (Auto) Abs Immat Gran (auto) Absolute Neuts (auto) Absolute Nucleated RBC Nucleated RBC % (auto) PT 13.2 H Whole Blood PT INR 1.1 Whole Blood INR APTT 30.7 VBG pH VBG pCO2 VBG pO2 VBG HCO3 VBG O2 Saturation VBG Base Excess Sodium 137 Potassium 3.5 Chloride 97 Carbon Dioxide 30 H Anion Gap 14 BUN 16 Creatinine 0.81 Estim Creat Clear Calc 69.8 Estimated GFR > 60 POC Glucose Random Glucose 83 D Fasting Glucose Calcium 8.7 D Phosphorus 2.9 Magnesium 1.3 L* Iron 57 TIBC 228 % Saturation 25 Unsat Iron Binding 171 Transferrin Ferritin 308 H Total Bilirubin 0.6 Direct Bilirubin 0.3 AST 13 ALT 10 Alkaline Phosphatase 34 L Ammonia Total Creatine Kinase 31 L Troponin I High Sens 11.5 Total Protein 6.0 L Albumin 3.7 Triglycerides Cholesterol LDL Cholesterol, Calc HDL Cholesterol Urine Color Urine Appearance Urine pH Ur Specific [place] Urine Protein Urine Glucose (UA) Urine Ketones Urine Blood Urine Nitrite Ur Leukocyte Esterase Ethyl Alcohol < 10 COVID-19 ([facility]) COVID-19 Clin Com 07/02/22 07/02/22 07/02/22 16:43 16:45 19:12 WBC RBC Hgb Hct MCV MCH MCHC RDW Plt Count MPV Immature Gran % (Auto) Neut % (Auto) Lymph % (Auto) [place] % (Auto) Eos % (Auto) Baso % (Auto) Lymph # (Auto) [place] # (Auto) Eos # (Auto) Baso # (Auto) Abs Immat Gran (auto) Absolute Neuts (auto) Absolute Nucleated RBC Nucleated RBC % (auto) PT Whole Blood PT INR Whole Blood INR APTT VBG pH VBG pCO2 VBG pO2 VBG HCO3 VBG O2 Saturation VBG Base Excess Sodium Potassium Chloride Carbon Dioxide Anion Gap BUN Creatinine Estim Creat Clear Calc Estimated GFR POC Glucose 91 Random Glucose Fasting Glucose Calcium Phosphorus Magnesium Iron TIBC % Saturation Unsat Iron Binding Transferrin 172 L Ferritin Total Bilirubin Direct Bilirubin AST ALT Alkaline Phosphatase Ammonia Total Creatine Kinase Troponin I High Sens Total Protein Albumin Triglycerides Cholesterol LDL Cholesterol, Calc HDL Cholesterol Urine Color Urine Appearance Urine pH Ur Specific [place] Urine Protein Urine Glucose (UA) Urine Ketones Urine Blood Urine Nitrite Ur Leukocyte Esterase Ethyl Alcohol COVID-19 ([facility]) Negative COVID-19 Clin Com See Note 07/02/22 07/03/22 07/03/22 22:13 01:59 05:20 WBC 6.5 RBC 5.21 Hgb 11.6 L Hct 35.7 L MCV 68.5 L MCH 22.3 L MCHC 32.5 RDW 14.7 Plt Count 196 MPV 10.1 Immature Gran % (Auto) 0.3 Neut % (Auto) 56.4 Lymph % (Auto) 30.1 [place] % (Auto) 9.7 Eos % (Auto) 2.9 Baso % (Auto) 0.6 Lymph # (Auto) 2.0 [place] # (Auto) 0.6 Eos # (Auto) 0.2 Baso # (Auto) 0.0 Abs Immat Gran (auto) 0.02 Absolute Neuts (auto) 3.7 Absolute Nucleated RBC 0.000 Nucleated RBC % (auto) 0.0 PT Whole Blood PT INR Whole Blood INR APTT VBG pH VBG pCO2 VBG pO2 VBG HCO3 VBG O2 Saturation VBG Base Excess Sodium Potassium Chloride Carbon Dioxide Anion Gap BUN Creatinine Estim Creat Clear Calc Estimated GFR POC Glucose 92 Random Glucose Fasting Glucose Calcium Phosphorus Magnesium Iron TIBC % Saturation Unsat Iron Binding Transferrin Ferritin Total Bilirubin Direct Bilirubin AST ALT Alkaline Phosphatase Ammonia Total Creatine Kinase Troponin I High Sens Total Protein Albumin Triglycerides Cholesterol LDL Cholesterol, Calc HDL Cholesterol Urine Color Yellow Urine Appearance Clear Urine pH 5.5 Ur Specific [place] >= 1.030 H Urine Protein Negative Urine Glucose (UA) Negative Urine Ketones Negative Urine Blood Negative Urine Nitrite Negative Ur Leukocyte Esterase Negative Ethyl Alcohol COVID-19 ([facility]) COVID-19 Clin Com 07/03/22 07/03/22 07/03/22 05:20 05:24 11:58 WBC RBC Hgb Hct MCV MCH MCHC RDW Plt Count MPV Immature Gran % (Auto) Neut % (Auto) Lymph % (Auto) [place] % (Auto) Eos % (Auto) Baso % (Auto) Lymph # (Auto) [place] # (Auto) Eos # (Auto) Baso # (Auto) Abs Immat Gran (auto) Absolute Neuts (auto) Absolute Nucleated RBC Nucleated RBC % (auto) PT Whole Blood PT INR Whole Blood INR APTT VBG pH VBG pCO2 VBG pO2 VBG HCO3 VBG O2 Saturation VBG Base Excess Sodium 137 Potassium 3.6 Chloride 99 Carbon Dioxide 26 Anion Gap 16 BUN 14 Creatinine 0.76 Estim Creat Clear Calc 75.8 Estimated GFR > 60 POC Glucose 109 112 Random Glucose 114 D Fasting Glucose Calcium 8.4 Phosphorus Magnesium 1.9 Iron TIBC % Saturation Unsat Iron Binding Transferrin Ferritin Total Bilirubin Direct Bilirubin AST ALT Alkaline Phosphatase Ammonia Total Creatine Kinase Troponin I High Sens Total Protein Albumin Triglycerides 88 Cholesterol 122 LDL Cholesterol, Calc 73 HDL Cholesterol 32 D Urine Color Urine Appearance Urine pH Ur Specific [place] Urine Protein Urine Glucose (UA) Urine Ketones Urine Blood Urine Nitrite Ur Leukocyte Esterase Ethyl Alcohol COVID-19 ([facility]) COVID-19 Naurex 07/03/22 07/03/22 07/03/22 16:16 19:05 21:02 WBC RBC Hgb Hct MCV MCH MCHC RDW Plt Count MPV Immature Gran % (Auto) Neut % (Auto) Lymph % (Auto) [place] % (Auto) Eos % (Auto) Baso % (Auto) Lymph # (Auto) [place] # (Auto) Eos # (Auto) Baso # (Auto) Abs Immat Gran (auto) Absolute Neuts (auto) Absolute Nucleated RBC Nucleated RBC % (auto) PT Whole Blood PT INR Whole Blood INR APTT VBG pH VBG pCO2 VBG pO2 VBG HCO3 VBG O2 Saturation VBG Base Excess Sodium Potassium Chloride Carbon Dioxide Anion Gap BUN Creatinine Estim Creat Clear Calc Estimated GFR POC Glucose 96 97 93 Random Glucose Fasting Glucose Calcium Phosphorus Magnesium Iron TIBC % Saturation Unsat Iron Binding Transferrin Ferritin Total Bilirubin Direct Bilirubin AST ALT Alkaline Phosphatase Ammonia Total Creatine Kinase Troponin I High Sens Total Protein Albumin Triglycerides Cholesterol LDL Cholesterol, Calc HDL Cholesterol Urine Color Urine Appearance Urine pH Ur Specific [place] Urine Protein Urine Glucose (UA) Urine Ketones Urine Blood Urine Nitrite Ur Leukocyte Esterase Ethyl Alcohol COVID-19 ([facility]) COVID-19 Naurex 07/03/22 07/04/22 07/04/22 23:24 01:18 07:14 WBC RBC Hgb Hct MCV MCH MCHC RDW Plt Count MPV Immature Gran % (Auto) Neut % (Auto) Lymph % (Auto) [place] % (Auto) Eos % (Auto) Baso % (Auto) Lymph # (Auto) [place] # (Auto) Eos # (Auto) Baso # (Auto) Abs Immat Gran (auto) Absolute Neuts (auto) Absolute Nucleated RBC Nucleated RBC % (auto) PT Whole Blood PT INR Whole Blood INR APTT VBG pH VBG pCO2 VBG pO2 VBG HCO3 VBG O2 Saturation VBG Base Excess Sodium Potassium Chloride Carbon Dioxide Anion Gap BUN Creatinine Estim Creat Clear Calc Estimated GFR POC Glucose 97 100 103 Random Glucose Fasting Glucose Calcium Phosphorus Magnesium Iron TIBC % Saturation Unsat Iron Binding Transferrin Ferritin Total Bilirubin Direct Bilirubin AST ALT Alkaline Phosphatase Ammonia Total Creatine Kinase Troponin I High Sens Total Protein Albumin Triglycerides Cholesterol LDL Cholesterol, Calc HDL Cholesterol Urine Color Urine Appearance Urine pH Ur Specific [place] Urine Protein Urine Glucose (UA) Urine Ketones Urine Blood Urine Nitrite Ur Leukocyte Esterase Ethyl Alcohol COVID-19 ([facility]) COVID-19 Clin Com 07/04/22 07/04/22 07/04/22 11:34 11:39 11:39 WBC 5.3 RBC 5.02 Hgb 11.2 L Hct 34.5 L MCV 68.7 L MCH 22.3 L MCHC 32.5 RDW 14.7 Plt Count 205 MPV 11.1 Immature Gran % (Auto) 0.4 Neut % (Auto) 65.4 Lymph % (Auto) 22.4 [place] % (Auto) 8.9 Eos % (Auto) 2.3 Baso % (Auto) 0.6 Lymph # (Auto) 1.2 [place] # (Auto) 0.5 Eos # (Auto) 0.1 Baso # (Auto) 0.0 Abs Immat Gran (auto) 0.02 Absolute Neuts (auto) 3.5 Absolute Nucleated RBC 0.000 Nucleated RBC % (auto) 0.0 PT Whole Blood PT INR Whole Blood INR APTT VBG pH VBG pCO2 VBG pO2 VBG HCO3 VBG O2 Saturation VBG Base Excess Sodium 137 Potassium 3.7 Chloride 100 Carbon Dioxide 28 Anion Gap 13 BUN 11 Creatinine 0.75 Estim Creat Clear Calc 76.8 Estimated GFR > 60 POC Glucose 104 Random Glucose 107 Fasting Glucose Calcium 8.4 Phosphorus Magnesium Iron TIBC % Saturation Unsat Iron Binding Transferrin Ferritin Total Bilirubin 1.1 H Direct Bilirubin AST 11 ALT 8 Alkaline Phosphatase 33 L Ammonia Total Creatine Kinase Troponin I High Sens Total Protein 5.5 L Albumin 3.5 Triglycerides Cholesterol LDL Cholesterol, Calc HDL Cholesterol Urine Color Urine Appearance Urine pH Ur Specific [place] Urine Protein Urine Glucose (UA) Urine Ketones Urine Blood Urine Nitrite Ur Leukocyte Esterase Ethyl Alcohol COVID-19 ([facility]) COVID-19 Clin Com 07/04/22 07/04/22 07/04/22 11:39 11:46 17:45 WBC RBC Hgb Hct MCV MCH MCHC RDW Plt Count MPV Immature Gran % (Auto) Neut % (Auto) Lymph % (Auto) [place] % (Auto) Eos % (Auto) Baso % (Auto) Lymph # (Auto) [place] # (Auto) Eos # (Auto) Baso # (Auto) Abs Immat Gran (auto) Absolute Neuts (auto) Absolute Nucleated RBC Nucleated RBC % (auto) PT Whole Blood PT INR Whole Blood INR APTT VBG pH 7.46 H VBG pCO2 40 VBG pO2 50 VBG HCO3 29 H VBG O2 Saturation 79.0 VBG Base Excess 4.9 Sodium Potassium Chloride Carbon Dioxide Anion Gap BUN Creatinine Estim Creat Clear Calc Estimated GFR POC Glucose 77 Random Glucose Fasting Glucose Calcium Phosphorus Magnesium Iron TIBC % Saturation Unsat Iron Binding Transferrin Ferritin Total Bilirubin Direct Bilirubin AST ALT Alkaline Phosphatase Ammonia 17 Total Creatine Kinase Troponin I High Sens Total Protein Albumin Triglycerides Cholesterol LDL Cholesterol, Calc HDL Cholesterol Urine Color Urine Appearance Urine pH Ur Specific [place] Urine Protein Urine Glucose (UA) Urine Ketones Urine Blood Urine Nitrite Ur Leukocyte Esterase Ethyl Alcohol COVID-19 ([facility]) COVID-19 Clin Com 07/04/22 07/05/22 07/05/22 23:29 06:48 06:48 WBC 6.0 RBC 5.18 Hgb 11.5 L Hct 35.5 L MCV 68.5 L MCH 22.2 L MCHC 32.4 RDW 14.8 Plt Count 211 MPV 11.1 Immature Gran % (Auto) 0.3 Neut % (Auto) 65.9 Lymph % (Auto) 19.6 L [place] % (Auto) 11.1 H Eos % (Auto) 2.8 Baso % (Auto) 0.3 Lymph # (Auto) 1.2 [place] # (Auto) 0.7 Eos # (Auto) 0.2 Baso # (Auto) 0.0 Abs Immat Gran (auto) 0.02 Absolute Neuts (auto) 3.9 Absolute Nucleated RBC 0.000 Nucleated RBC % (auto) 0.0 PT Whole Blood PT INR Whole Blood INR APTT VBG pH VBG pCO2 VBG pO2 VBG HCO3 VBG O2 Saturation VBG Base Excess Sodium 138 Potassium 3.5 Chloride 104 Carbon Dioxide 24 Anion Gap 14 BUN 9 Creatinine 0.73 Estim Creat Clear Calc 78.9 Estimated GFR > 60 POC Glucose 104 Random Glucose Fasting Glucose 155 H Calcium 8.5 Phosphorus Magnesium Iron TIBC % Saturation Unsat Iron Binding Transferrin Ferritin Total Bilirubin 0.9 Direct Bilirubin AST 10 ALT 8 Alkaline Phosphatase 32 L Ammonia Total Creatine Kinase Troponin I High Sens Total Protein 5.5 L Albumin 3.4 L Triglycerides Cholesterol LDL Cholesterol, Calc HDL Cholesterol Urine Color Urine Appearance Urine pH Ur Specific [place] Urine Protein Urine Glucose (UA) Urine Ketones Urine Blood Urine Nitrite Ur Leukocyte Esterase Ethyl Alcohol COVID-19 ([facility]) COVID-19 Clin Com 07/05/22 07/05/22 07/05/22 06:50 11:53 18:04 WBC RBC Hgb Hct MCV MCH MCHC RDW Plt Count MPV Immature Gran % (Auto) Neut % (Auto) Lymph % (Auto) [place] % (Auto) Eos % (Auto) Baso % (Auto) Lymph # (Auto) [place] # (Auto) Eos # (Auto) Baso # (Auto) Abs Immat Gran (auto) Absolute Neuts (auto) Absolute Nucleated RBC Nucleated RBC % (auto) PT Whole Blood PT INR Whole Blood INR APTT VBG pH VBG pCO2 VBG pO2 VBG HCO3 VBG O2 Saturation VBG Base Excess Sodium Potassium Chloride Carbon Dioxide Anion Gap BUN Creatinine Estim Creat Clear Calc Estimated GFR POC Glucose 159 H 171 H 149 H Random Glucose Fasting Glucose Calcium Phosphorus Magnesium Iron TIBC % Saturation Unsat Iron Binding Transferrin Ferritin Total Bilirubin Direct Bilirubin AST ALT Alkaline Phosphatase Ammonia Total Creatine Kinase Troponin I High Sens Total Protein Albumin Triglycerides Cholesterol LDL Cholesterol, Calc HDL Cholesterol Urine Color Urine Appearance Urine pH Ur Specific [place] Urine Protein Urine Glucose (UA) Urine Ketones Urine Blood Urine Nitrite Ur Leukocyte Esterase Ethyl Alcohol COVID-19 ([facility]) COVID-19 Clin Com 07/06/22 07/06/22 07/06/22 00:14 05:44 05:44 WBC 6.3 RBC 5.10 Hgb 11.3 L Hct 35.5 L MCV 69.6 L MCH 22.2 L MCHC 31.8 RDW 14.9 Plt Count 203 MPV 10.5 Immature Gran % (Auto) 0.3 Neut % (Auto) 66.8 Lymph % (Auto) 18.7 L [place] % (Auto) 11.0 Eos % (Auto) 2.9 Baso % (Auto) 0.3 Lymph # (Auto) 1.2 [place] # (Auto) 0.7 Eos # (Auto) 0.2 Baso # (Auto) 0.0 Abs Immat Gran (auto) 0.02 Absolute Neuts (auto) 4.2 Absolute Nucleated RBC 0.000 Nucleated RBC % (auto) 0.0 PT Whole Blood PT INR Whole Blood INR APTT VBG pH VBG pCO2 VBG pO2 VBG HCO3 VBG O2 Saturation VBG Base Excess Sodium 138 Potassium 3.3 Chloride 107 Carbon Dioxide 23 Anion Gap 11 L BUN 8 L Creatinine 0.71 Estim Creat Clear Calc 81.1 Estimated GFR > 60 POC Glucose 151 H Random Glucose Fasting Glucose 167 H Calcium 8.3 L Phosphorus Magnesium Iron TIBC % Saturation Unsat Iron Binding Transferrin Ferritin Total Bilirubin 1.0 Direct Bilirubin AST 9 ALT 8 Alkaline Phosphatase 31 L Ammonia Total Creatine Kinase Troponin I High Sens Total Protein 5.3 L Albumin 3.2 L Triglycerides Cholesterol LDL Cholesterol, Calc HDL Cholesterol Urine Color Urine Appearance Urine pH Ur Specific [place] Urine Protein Urine Glucose (UA) Urine Ketones Urine Blood Urine Nitrite Ur Leukocyte Esterase Ethyl Alcohol COVID-19 ([facility]) COVID-19 Clin Com 07/06/22 07/06/22 07/06/22 06:07 11:59 17:45 WBC RBC Hgb Hct MCV MCH MCHC RDW Plt Count MPV Immature Gran % (Auto) Neut % (Auto) Lymph % (Auto) [place] % (Auto) Eos % (Auto) Baso % (Auto) Lymph # (Auto) [place] # (Auto) Eos # (Auto) Baso # (Auto) Abs Immat Gran (auto) Absolute Neuts (auto) Absolute Nucleated RBC Nucleated RBC % (auto) PT Whole Blood PT INR Whole Blood INR APTT VBG pH VBG pCO2 VBG pO2 VBG HCO3 VBG O2 Saturation VBG Base Excess Sodium Potassium Chloride Carbon Dioxide Anion Gap BUN Creatinine Estim Creat Clear Calc Estimated GFR POC Glucose 141 H 140 H 134 H Random Glucose Fasting Glucose Calcium Phosphorus Magnesium Iron TIBC % Saturation Unsat Iron Binding Transferrin Ferritin Total Bilirubin Direct Bilirubin AST ALT Alkaline Phosphatase Ammonia Total Creatine Kinase Troponin I High Sens Total Protein Albumin Triglycerides Cholesterol LDL Cholesterol, Calc HDL Cholesterol Urine Color Urine Appearance Urine pH Ur Specific [place] Urine Protein Urine Glucose (UA) Urine Ketones Urine Blood Urine Nitrite Ur Leukocyte Esterase Ethyl Alcohol COVID-19 ([facility]) COVID-19 Clin Com 07/07/22 07/07/22 07/07/22 00:22 05:44 05:44 WBC 5.6 RBC 4.97 Hgb 11.0 L Hct 33.9 L MCV 68.2 L MCH 22.1 L MCHC 32.4 RDW 15.0 Plt Count 219 MPV 11.1 Immature Gran % (Auto) 0.4 Neut % (Auto) 64.2 Lymph % (Auto) 21.3 [place] % (Auto) 10.8 Eos % (Auto) 2.9 Baso % (Auto) 0.4 Lymph # (Auto) 1.2 [place] # (Auto) 0.6 Eos # (Auto) 0.2 Baso # (Auto) 0.0 Abs Immat Gran (auto) 0.02 Absolute Neuts (auto) 3.6 Absolute Nucleated RBC 0.000 Nucleated RBC % (auto) 0.0 PT Whole Blood PT INR Whole Blood INR APTT VBG pH VBG pCO2 VBG pO2 VBG HCO3 VBG O2 Saturation VBG Base Excess Sodium 139 Potassium 3.2 L Chloride 108 Carbon Dioxide 22 Anion Gap 12 BUN 7 L Creatinine 0.72 Estim Creat Clear Calc 80.0 Estimated GFR > 60 POC Glucose 141 H Random Glucose Fasting Glucose 170 H Calcium 8.2 L Phosphorus Magnesium Iron TIBC % Saturation Unsat Iron Binding Transferrin Ferritin Total Bilirubin 0.9 Direct Bilirubin AST 9 ALT 8 Alkaline Phosphatase 32 L Ammonia Total Creatine Kinase Troponin I High Sens Total Protein 5.2 L Albumin 3.2 L Triglycerides Cholesterol LDL Cholesterol, Calc HDL Cholesterol Urine Color Urine Appearance Urine pH Ur Specific [place] Urine Protein Urine Glucose (UA) Urine Ketones Urine Blood Urine Nitrite Ur Leukocyte Esterase Ethyl Alcohol COVID-19 ([facility]) COVID-19 Clin Com 07/07/22 07/07/22 07:59 11:04 WBC RBC Hgb Hct MCV MCH MCHC RDW Plt Count MPV Immature Gran % (Auto) Neut % (Auto) Lymph % (Auto) [place] % (Auto) Eos % (Auto) Baso % (Auto) Lymph # (Auto) [place] # (Auto) Eos # (Auto) Baso # (Auto) Abs Immat Gran (auto) Absolute Neuts (auto) Absolute Nucleated RBC Nucleated RBC % (auto) PT Whole Blood PT INR Whole Blood INR APTT VBG pH VBG pCO2 VBG pO2 VBG HCO3 VBG O2 Saturation VBG Base Excess Sodium Potassium Chloride Carbon Dioxide Anion Gap BUN Creatinine Estim Creat Clear Calc Estimated GFR POC Glucose 153 H 112 Random Glucose Fasting Glucose Calcium Phosphorus Magnesium Iron TIBC % Saturation Unsat Iron Binding Transferrin Ferritin Total Bilirubin Direct Bilirubin AST ALT Alkaline Phosphatase Ammonia Total Creatine Kinase Troponin I High Sens Total Protein Albumin Triglycerides Cholesterol LDL Cholesterol, Calc HDL Cholesterol Urine Color Urine Appearance Urine pH Ur Specific [place] Urine Protein Urine Glucose (UA) Urine Ketones Urine Blood Urine Nitrite Ur Leukocyte Esterase Ethyl Alcohol COVID-19 ([facility]) COVID-19 Clin Com Airway Mallampati Class: III TM Dist: >3cm Neck ROM: Full Loose/Missing/Broken Teeth: Yes, Upper and Lower Assessment and Plan Assessment Anesthesia Assessment: Anesthesia Plan Discussed Final Anesthetic Review Family History of Problems with Anesthesia: No History of Problems with Anesthesia: No NPO: Yes ASA Class: III and Emergency Final Preanesthetic Review: No Changes in Pt Med Stat, Meds/Allgs Chart Reviewed, Anes Risks/Benef Reviewed and DNR Form (If Appl.) Patient Risk: Intermediate Procedure Risk: Low Anesthetic Plan Anesthetic Plan: MAC: Disposition: Standard PACU
--- NOTE | 2022-07-07 13:19 | MHC.SHP ---
Pre-Procedural Eval Section A Date of Service: 07/07/22 The patient is an INPATIENT: Yes Changes since office visit: No Cold of Flu in the past 2 weeks, No New Medical Problems, No Changes in Medication and No Patient answered all questions The History & Physical has been completed within 30 days and I have reviewed it.: Yes Section B Chief Complaint: Stroke Allergies: Allergies Allergy/AdvReac Type Severity Reaction Status Date / Time No Known Allergies Allergy Verified 03/03/22 07:53 Plan I have reviewed the history and physical and performed a pertinent physical examination on my patient. No changes have occurred unless specified.
--- NOTE | 2022-07-07 13:40 | PC.NURSE ---
pt arrived to [facility] for scheduled EGD/Peg with Dr. Alvares. Left arm reddness and warm to touch, non tender to touch.
--- NOTE | 2022-07-07 14:31 | PM.EVENT ---
Event Note Date of Service: 07/07/22 Event Note: EGD/PEG EGD shows duodenitis. 20 F traction removable G tube placed without difficulty. Rec: Continue NPO ok to use g-tube for meds start tube feedings in AM Omeprazole 20 mg daily per g-tube for duodenitis.
[2022-07-07 16:55] LABS: Glucose, Whole Blood 113 mg/dL (60-115)
[2022-07-07 18:07] LABS: Glucose, Whole Blood 114 mg/dL (60-115)
[2022-07-07] MEDS: Acetaminophen Oral Liquid 650 MG/20.3 ML SOLUTION G-TUBE (18:16)
[2022-07-07 23:37] LABS: Glucose, Whole Blood 129 mg/dL (60-115)
--- NOTE | 2022-07-08 00:47 | OP_ITS ---
SURGEON: Clayton Alvares MD INDICATIONS: Dysphagia status post cerebrovascular accident. PREOPERATIVE DIAGNOSIS: POSTOPERATIVE DIAGNOSIS: PROCEDURE PERFORMED: ESTIMATED BLOOD LOSS: COMPLICATIONS: ANESTHESIA: ASSISTANTS: SPECIMENS: PROCEDURE: Upper endoscopy with placement of percutaneous endoscopic gastrostomy tube. MEDICATIONS: Monitored anesthesia care. DESCRIPTION OF PROCEDURE: History and physical performed. The risks and benefits of the procedure were explained to the patient's daughter and informed consent was obtained. The patient was placed supine with the head of the bed elevated slightly. The Olympus video gastroscope was introduced into the esophagus, stomach, and duodenum. Examination was performed. The scope was removed. He tolerated the procedure well and was returned to recovery area in stable condition. FINDINGS: Esophagus: The esophagus was normal. Stomach: The stomach showed no evidence of masses, ulcers, or polyps. Duodenum: There was duodenitis involving the bulb and proximal 2nd portion. No ulcer was seen. A suitable site was localized on the anterior abdominal wall using transillumination of the endoscopic light source and endoscopic verification of digital impression. The site was sterilely prepped and draped and infiltrated with 1% Xylocaine. Next, a small incision was made with a scalpel and the stomach was accessed directly on the first pass by the angio catheter. The needle was removed leaving the catheter in place and a guidewire was passed into the stomach. The guidewire was grasped with a snare, passed through the endoscope, and the endoscope and snare were removed from the patient, leaving the guidewire in position. Next, the 20-Moldovan traction removable gastrostomy tube was attached to the guidewire and placed in good position using the pull technique. The feeding tube was trimmed to length and a Y adapter was applied. The site was secured with povidone ointment and a zip tie, which was located at the 3 cm vangie. The endoscope was reinserted to the patient and verification was made that the feeding tube was in good position intragastrically. A drain sponge was applied externally and the feeding tube was taped to the abdominal wall. IMPRESSION: 1. Duodenitis. 2. Feeding tube placement. 3. The feeding tube may be used for medications today. Tube feedings may be started in the morning. MD LAURA Dunlap/SILVIA / [id number] TATIANNA
[2022-07-08 03:07] VITALS: BP 146/66; PULSE 67; RESP 17; TEMP 36.7; O2SAT 97
[2022-07-08] MEDS: Acetaminophen Oral Liquid 650 MG/20.3 ML SOLUTION G-TUBE ×3 (03:19→16:19)
[2022-07-08 05:35] LABS: Glucose, Whole Blood 157 mg/dL (60-115)
[2022-07-08] MEDS: Insulin Lispro 100 UNIT/ML 3 ML VIAL SUBCUT (06:32)
[2022-07-08] MEDS: Dextrose 5 % and Lactated Ring 1,000 ML 100 ML IVCONT (06:33)
[2022-07-08 06:48] LABS: Hematocrit 31.8 % (42.0-52.0); Hemoglobin 10.2 g/dl (14.0-18.0); Mean Corpuscular HGB Conc 32.1 g/dl (31.0-36.0); Mean Corpuscular Hemoglobin 22.1 pg (27.0-33.0); Mean Platelet Volume 11.9 fL (9.4-12.4); Platelet Count 206 X10*3/uL (160-400); Red Blood Count 4.61 X10*6/uL (4.60-5.80); Red Cell Distribution Width 14.7 % (11.0-16.0); White Blood Count 6.8 X10*3/uL (4.8-10.8)
--- NOTE | 2022-07-08 07:02 | HO.POSTANES ---
Post Anesthesia Evaluation Post Anesthesia Evaluation Vital Signs: Vital Signs Temp Pulse Resp BP Pulse Ox O2 Del Method 07/08/22 03:07 98.1 F 67 17 146/66 H 97 Room Air 07/07/22 23:30 98.5 F 59 17 120/60 99 Room Air 07/07/22 19:41 98.4 F 74 17 140/58 H 97 Room Air Anesthesia: Monitored Mental Status: Awake Pain Control: Satisfactory Nausea/Vomiting: None Hydration: Adequate Anesthesia-Related Issues: No Anes. Related Issues
[2022-07-08 07:19] VITALS: BP 145/70; PULSE 58; RESP 17; TEMP 37.1; O2SAT 95
[2022-07-08 09:55] VITALS: BP 145/70; PULSE 58; O2SAT 95
[2022-07-08 11:21] LABS: Glucose, Whole Blood 122 mg/dL (60-115)
--- NOTE | 2022-07-08 11:22 | P.PNIM_ITS ---
Subjective Subjective Date of Service: 07/08/22 Interval History: no acute issues overnight. Tolerated PEG placement yesterday Daughter there and no new issues Review of Systems unable to obtain Physical Exam Vital Signs: Vital Signs: Last Vital Signs Temp 98.8 F 07/08/22 07:19 Pulse 58 07/08/22 09:55 Resp 17 07/08/22 07:19 BP 145/70 H 07/08/22 09:55 Pulse Ox 95 07/08/22 09:55 O2 Del Method 07/08/22 07:19 O2 Flow Rate 97 07/06/22 04:00 BMI result Body Mass Index 28.6 Const: Other: somnolent but arousable Resp: Other: clear to auscultation bilaterally no rales rhonchi or wheezes Cardio: Other: no S4; positive S1-S2; no S3 murmurs rubs gallops GI: Other: soft nontender nondistended with normoactive bowel sounds Neuro: Other: somnolent but arousable. Moving all extremities Plantar Reflex Responses: downgoing: bilateral Objective Data Active Medications Acetaminophen (Acetaminophen Oral Liquid 650 Mg/20.3 Ml Solution) 650 mg G-TUBE Q4H PRN PRN Reason: Pain, Mild (Pain Scale 1-3) Last Admin: 07/08/22 08:18 Dose: 650 mg Documented By: CANDACE Aspirin (Aspirin 300 Mg Supp.Rect) 300 mg MI DAILY [facility] Last Admin: 07/08/22 08:27 Dose: Not Given Documented By: CANDACE Non-Admin Reason: Patient Refused Dextrose (Dextrose 50 % 25 Gm/50 Ml Syringe) 25 gm IVPUSH Q15M PRN; Protocol PRN Reason: per Hypoglycemia Standing Ord. Glucose (Glucose Gel 15 Gm Gel..Gram.) 15 gm PO Q15M PRN; Protocol PRN Reason: per Hypoglycemia Standing Ord. Hydralazine HCl (Hydralazine Hcl 20 Mg/Ml Vial) 5 mg IVPUSH Q6H PRN; Protocol PRN Reason: SBP >180 Last Admin: 07/07/22 17:01 Dose: 5 mg Documented By: MOUNIKA Dextrose/Lactated Ringer's (D5lr) 1,000 mls @ 100 mls/hr IVCONT .Q10H [facility] Last Admin: 07/08/22 06:33 Dose: 100 mls/hr Documented By: DARIAN Insulin Human Lispro (Insulin Lispro 100 Unit/Ml 3 Ml Vial) 0 unit SUBCUT Q6H [facility]; Protocol Last Admin: 07/08/22 06:32 Dose: 2 unit Documented By: DARIAN Omeprazole (Omeprazole 20 Mg/10 Ml Susp.Recon) 20 mg G-TUBE DAILY@0630 [facility] Last Admin: 07/08/22 06:32 Dose: 20 mg Documented By: DARIAN Sodium Chloride (0.9 % Sodium Chloride Flush 3 Ml Syringe) 3 ml IVFLUSH QSHIFT [facility] Last Admin: 07/08/22 08:26 Dose: Not Given Documented By: CANDACE Non-Admin Reason: IV Running Labs CBC & Chem 7: 07/08/22 05:50 07/07/22 05:44 Labs: Laboratory Results - last 24 hr 07/07/22 07/07/22 07/07/22 16:48 18:00 23:33 MCV MCH MCHC RDW Plt Count MPV Absolute Nucleated RBC Nucleated RBC % (auto) POC Glucose 113 114 129 H 07/08/22 07/08/22 07/08/22 05:30 05:50 11:08 MCV 69.0 L MCH 22.1 L MCHC 32.1 RDW 14.7 Plt Count 206 MPV 11.9 Absolute Nucleated RBC 0.000 Nucleated RBC % (auto) 0.0 POC Glucose 157 H 122 H Assessment and Plan (1) Cerebrovascular accident: Status: Acute Plan 82-year-old male who has an underlying history of hypertension, hyperlipidemia, diabetes, 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 presents with acute onset of aphasia drooling and facial droop. Received tPA with minimal resolutions of symptoms 1. Acute CVA ( in backdrop of extensive chronic ischemic disease ) - continue current therapies - conservative therapies at this time - failed nursing bedside swallow... speech eval reviewed Continue IV fluids GI put a PEG yesterday, starting tube feed today 2. Hypertension---BP over all better, will continue to adjust meds 3.DM II - acceptable control - continue with correctional scale as patient remains NPO - at back orals when intake confirmed DNR DNI pneumatics need for inpatient: has been NPO for dysphagia from stroke, starting tube feed and if tolerate today will be considetered for dc tomorrow Quality Stroke Does the patient have a stroke diagnosis?: Yes Reason for No Anti-thrombotic by Day Two: N/A - Med Ordered VTE Prior VTE?: No VTE Risk Level:: Medical - moderate - high VTE Device Contraindication: N/A - Device Ordered VTE Drug Contraindication: Treatment Not Indicated
--- NOTE | 2022-07-08 11:28 | MHC.CLN ---
F/U PEG PLACED -TF STARTED TODAY RECOMMEND GLUCERNA 1.0 AT MAX GOAL RATE OF 75 ML/HR WITH 240ML FREE WATER FLUSH Q 8 HOURS TO PROVIDE 1800 KCALS (25KCALS/KG BASED ON CMW); 75G PROTEIN (1.06 G/KG); 2255ML TOTAL WATER FROM FORMULA AND FLUSHES(32 ML/KG) START TF AT 20 ML/HR AND INCREASE BY 10 ML Q 4 HOURS UNTIL MAX GOAL RATE IS ACHIEVED CHECK RESIDUALS EVERY 4 HOURS, HOLD 2 HOURS IF >250ML MONITOR TOLERANCE, RESIDUALS AND LYTES
[2022-07-08 11:30] VITALS: BP 168/83; PULSE 60; RESP 18; TEMP 37.1; O2SAT 95
--- NOTE | 2022-07-08 12:01 | MHC.CM.PN ---
Patient had a peg insertion yesterday. Per MD round feeds will start today. Patient will discharge to home with [facility]. Discharge is anticipated tomorrow. Family will provide transportation home.
--- NOTE | 2022-07-08 13:46 | MHC.SLORD ---
Speech Language Pathology Order Status: Pt failed nursing swallow screening x2 times. DRUG DISCOVERY INFORMATICS SPECIALIST was consulted for bedside swallow evaluation while pt was in the ICU. Pt was evaluated by DRUG DISCOVERY INFORMATICS SPECIALIST x2 times, in ICU 07/03 and in IMC 07/06, recommended NPO each time. Although pt's management of secretions improved slightly, pt demonstrated significantly delayed and at times absent swallow trigger; s/s of aspiration immediate wet cough consistently w/ PO intake, unable to clear lingual residue and pocketing on his own. Subsequently MD placed consult for PEG (per MD, family opted for PEG). Pt has been placed w/ PEG and is starting tube feeds. DRUG DISCOVERY INFORMATICS SPECIALIST continues to recommend pt have MBSS when appropriate either during inpatient stay or on an outpatient basis. Recommend continue speech therapy at next level of care/through [facility] for dysphagia.
[2022-07-08 16:00] VITALS: BP 149/60; PULSE 70; RESP 18; TEMP 36.9; O2SAT 97
[2022-07-08 18:15] LABS: Glucose, Whole Blood 107 mg/dL (60-115)
[2022-07-08 19:58] LABS: Glucose, Whole Blood 95 mg/dL (60-115)
[2022-07-08 20:00] VITALS: BP 191/71; PULSE 54; RESP 20; TEMP 37.3; O2SAT 97
[2022-07-09] VITALS: BP 186/78; PULSE 54; RESP 16; TEMP 36.8; O2SAT 97
[2022-07-09 03:28] VITALS: BP 180/82; PULSE 62; RESP 20; TEMP 37.1; O2SAT 99
[2022-07-09 06:03] LABS: Glucose, Whole Blood 120 mg/dL (60-115)
[2022-07-09] MEDS: Acetaminophen Oral Liquid 650 MG/20.3 ML SOLUTION G-TUBE (06:47)
[2022-07-09 07:25] VITALS: BP 160/52; PULSE 65; RESP 17; TEMP 37.1; O2SAT 98
[2022-07-09] MEDS: 0.9 % Sodium Chloride Flush 3 ML SYRINGE IVFLUSH (09:03)
[2022-07-09] MEDS: Aspirin 300 MG SUPP.RECT PR (09:15)
--- NOTE | 2022-07-09 10:07 | MHC.CLN ---
RE: CONSULT FOR BOLUS TF PT RECEIVING GLUCERNA 1.0 AT MAX GOAL RATE OF 75 ML/HR CONT. WITH 240ML FREE WATER FLUSH Q 8 HOURS PROVIDES 1800 KCALS (25KCALS/KG BASED ON CMW); 75G PROTEIN (1.06 G/KG); 2255ML TOTAL WATER FROM FORMULA AND FLUSHES(32 ML/KG) CAN SWITCH TO BOLUS UPON DISCHARGE: GLUCERNA BOLUS 300ML Q 4HRS OR (6XPER DAY) WITH 240ML FREE WATER FLUSHES TID PROVIDES SAME NUTRITION NOTED ABOVE CHECK RESIDUALS EVERY 4 HOURS, HOLD 2 HOURS IF >250ML MONITOR TOLERANCE, RESIDUALS AND LYTES
[2022-07-09 10:46] VITALS: BP 160/52; PULSE 65; O2SAT 98
--- NOTE | 2022-07-09 10:56 | P.DS_ITS ---
DS: Providers Provider Date of Service: 07/09/22 Date of admission: 07/02/22 18:54 Primary care physician: Unknown Physician Consults: 07/02/22 18:54 Consult to Neurology Routine Consulting Provider: Sabrina Palm Reason for consultation: Stroke Has provider been notified: Yes 07/05/22 13:04 Consult to Gastroenterology Routine Consulting Provider: Collin Shea Reason for consultation: PEG tube Has provider been notified: Yes DS: Diagnosis Discharge Diagnosis (1) Cerebrovascular accident: Status: Acute DS: Summary Hospital Course Hospital Course: Source of history: ?Patient's granddaughter who is also her healthcare proxy and caregiver, patient's chart, ED physician ? 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 According to the granddaughter, around 230 this afternoon they noted that the patient was drooling, had trouble swallowing was not able to express himself now he normally does, they also think that he was weaker on the left upper extremity therefore they called 911 and brought him to the emergency room. ?On initial evaluation the patient showed no pronator drift, no facial droop, he did have aphasia within an NIH of 5. ? The neurologist Dr. Palm was consulted and decision to administer tPA was made, this was given at 1642 pm.? Since then, according to family the patient has improved moderately but has not gone back to baseline as he is still not able to speak short sentences or words like he used to, certainly his motor skills have improved and he is perhaps as weak as he was on the left upper and left lower extremity which is his baseline from prior stroke. ?No further events, at this point the patient has been transferred to the ICU for further monitoring treatment. ? In the ER, stroke protocol was followed patient's initial evaluation showed white count 7.2, hemoglobin of 12.6 and hematocrit 39.1, MCV 69, platelets 238.? INR 1.1, sodium 137, potassium 3.5, chloride 97, carbon dioxide 30, anion gap 14, BUN 16, creatinine 0.81, glucose 91, magnesium 1.3, phos 2.9.? Troponin 11.5.? Ethyl alcohol less than 10, COVID negative. ? Head CT No acute findings. Generalized atrophy, nonspecific periventricular white matter disease and old right basal ganglia/external capsule infarct and moderate to previous exams.??Head and neck CT angiogram 1.? 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 There is normal filling of the basilar artery and posterior circulation via the left vertebral artery. 2.? 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 No intracranial large vessel occlusion. Hospital course: 1. Acute CVA with severe dyphagia and Aphasia, was given tPA but without reversal and is being managed medically and up to this time has not made meaningful recovery and therefore and PEG was inserted for feed on 07/07/22 and will get bolus feed--see instruction. To continue medical management with resumption of BP meds, aspirin, statin, speech therapy on outpatient basis 2. Hypertension--resume home meds. But hold HCTZ 3.DM II--continue insulin, lantus and sliding scale. No metformin. Time Spent with Patient Time attestation: Total time spent providing and/or coordinating discharge services: Discharge coordination time: Greater than 30 minutes Quality: Safe Use of Opioids Does Pt have an Active Cancer Diagnosis on the Problem List?: No Quality: Stroke Does the patient have a stroke diagnosis?: No Physical Exam Vital Signs: Vital Signs: Last Vital Signs Temp 98.7 F 07/09/22 07:25 Pulse 65 07/09/22 10:46 Resp 17 07/09/22 07:25 BP 160/52 H 07/09/22 10:46 Pulse Ox 98 07/09/22 10:46 O2 Del Method 07/09/22 07:25 O2 Flow Rate 97 07/06/22 04:00 BMI result Body Mass Index 28.6 DS: Data Data Completed and Pending Labs on day of discharge: Laboratory Results - last 24 hr 07/08/22 07/08/22 07/08/22 11:08 18:12 19:49 POC Glucose 122 H 107 95 07/09/22 05:58 POC Glucose 120 H Discharge Plan Discharge Anticipated Discharge Date/Time: 07/09/22 10:42 Patient Disposition: Home Health Service Discharge Diagnosis: Acute stroke Referrals: Physician,Unknown J [Primary Care Provider] - 1 Week Discharge Medications: Continued cyanocobalamin (vitamin B-12) 500 mcg tablet, sublingual 500 mcg sublingual DAILY 90 Days Qty: 90 1RF cholecalciferol (vitamin D3) 50 mcg (2,000 unit) capsule 50 mcg PO DAILY Qty: 90 1RF rosuvastatin 20 mg tablet 20 mg PO DAILY 90 Days Qty: 90 1RF lisinopril 20 mg tablet 20 mg PO DAILY 90 Days Qty: 90 1RF sertraline 50 mg tablet 50 mg PO DAILY tamsulosin 0.4 mg capsule 0.4 mg PO DAILY aspirin [Adult Aspirin Regimen] 81 mg tablet,delayed release (DR/EC) 81 mg PO DAILY hydrochlorothiazide 25 mg tablet 25 mg PO DAILY 90 Days Qty: 90 2RF amlodipine 2.5 mg tablet 2.5 mg PO DAILY 90 Days Qty: 90 2RF (DME) lancets 28 gauge misc See Rx Instructions Not Applicable TID Qty: 100 Rx Instructions: As directed (DME) FreeStyle Lite Strips Strip See Rx Instructions Not Applicable TID Qty: 10 Rx Instructions: As directed atorvastatin 10 mg tablet 10 mg PO BEDTIME (DME) FreeStyle Kristine 2 [place] Misc See Rx Instructions .ROUTE .MEDSUPPLY Qty: 1 0RF Rx Instructions: As directed (DME) FreeStyle Kristine 2 Sensor Kit See Rx Instructions .ROUTE .MEDSUPPLY Qty: 2 11RF Rx Instructions: As directed every 2 weeks insulin asp prt-insulin aspart [Novolog Mix 70-30FlexPen U-100] 100 unit/mL (70-30) insulin pen See Rx Instructions subcut QAM 30 Days Qty: 30 6RF Rx Instructions: 13 units qam and 10units qpm subcut every morning; Discontinued metformin 1,000 mg tablet 1,000 mg PO BID Qty: 180 2RF Discharge Orders: Discharge Order (Routine); Ordered 07/09/22 Ordered By: Max Feldman Diet: Tube Feed Activity on Discharge: As tolerated Stand Alone Forms: Patient Portal Discharge page Care Plan Goals: Recovery from stroke Health Concerns: Stroke, diabetes, High blood pressure Plan of Treatment: Take all medications as directed follow instruction for tube feed: GLUCERNA BOLUS 300ML Q 4HRS OR (6XPER DAY) WITH 240ML FREE WATER FLUSHES TID PROVIDES SAME NUTRITION NOTED ABOVE Check sugars before meals and at bedtime Assessment: As above
[2022-07-09 11:16] VITALS: BP 178/83; PULSE 58; RESP 18; TEMP 36.8; O2SAT 98
--- NOTE | 2022-07-09 11:32 | P.F2F_ITS ---
Service Date Service Date: 07/09/22 Encounter Date of encounter: 07/09/22 Reasons for Services Signs and symptoms assessed: Stroke with weakness and dysphagia Reason for group home: medication treatment and teach disease management Reason for physical therapy: home safety and mobility, therapeutic exercises, restore joint function and ADL training Reason for occupational therapy: home safety and mobility, restore joint function and gait/transfer training Reason for speech therapy: swallowing impairment and speech impairment Homebound: Leaving the home is medically contraindicated at this time without the asist of a device and/or another person due th the listed conditions above and below. Reason homebound: unsteady gait / fall risk and leg weakness Homebound supporting statement: Homebound Certification: Based on the above findings, I certify that this patient is confined to the home and needs intermittent group home care, physical therapy and/or speech therapy, or continues to need occupational therapy. The patient is under my care, and I have initiated the establishment of the plan of care. The patient will be followed by a physician who will periodically review the plan of care.
[2022-07-09 11:35] LABS: Glucose, Whole Blood 135 mg/dL (60-115)
[2022-07-09] MEDS: lisinopriL 20 MG TABLET PO (12:06)
[2022-07-09] MEDS: amLODIPine Besylate 2.5 MG TABLET PO (12:06)
[2022-07-09 14:00] VITALS: O2SAT 92
--- NOTE | 2022-07-09 14:31 | MHC.CM.PN ---
Patient will be d/c'd today home with family, [facility] and [facility] for TF/supplies. -[facility] requested all orders changed from PO to via PEG or liquid- MD aware -[facility] requesting duration of TF- MD aware -Enteral order form sent to [facility] - Spoke with daughter via phone and granddaughter @ bedside who will be doing the feeds. ARN will attempt to do teaching @ bedside with granddaughter for her to start to become familiar with process.
--- NOTE | 2022-07-09 15:57 | MHC.CM.PN ---
CM met with Patient and his Granddaughter at bedside and addressed IMM with them, providing them with the original and placing a copy on the chart.
--- NOTE | 2022-07-09 16:26 | MHC.CM.PN ---
This CM and fellow DMITRIY/Marilee, met with Patient at bedside. Patient explains that [facility] and then here. Patient was in touch with Nayeli Sanchez, but is not yet medically clear for dc. Patient expresses his intense interest in getting better and CM offered reassurance and encouragement. Care Team is also involved to assist Patient. CM will follow.
--- NOTE | 2022-07-09 16:33 | PC.NURSE ---
Alert. VSS, afebrile, no acute resp. distress noted. PEG tube intact, no residual, flushed well. Tolerated continuous feeding well. Diet changed to bolus every 4 hrs, next feed is due at 1840. New order to discharge patient home with [facility] services. Taught grand-daughter how to administered bolus, return demonstration successful. Went over discharge instructions, follow up apt. medication administrations with grand-daughter, verbalized understanding back. Staff transported patient to the [facility] via w/c and assist with transfer. left via car with granddaughter.
== END 2022-07-09 16:20 | disposition home health service (06) | DRG 62 ==
LOC: HO.ED 17:29 → HO.EDOVER 19:23 → HO.ICU 19:30 → HO.IMC 07-03 11:42
PROVIDERS: Hospitalist; Internal Medicine Gastroenterology; Physician Assistant Medical; Admitting Provider Anesthesiology; Emergency Provider Emergency Medicine Emergency Medical Services; PCP Internal Medicine; Visit Provider Internal Medicine
PROC: 0DH63UZ Insertion of Feeding Device into Stomach, Percutaneous Approach (ICD-10-PCS; CPT 43246; principal; 2022-07-07 15:00)
PROC: 0DJ08ZZ Inspection of Upper Intestinal Tract, Via Natural or Artificial Opening Endoscopic (ICD-10-PCS; CPT 43235; 2022-07-07 15:00)
DX: I63.9 Cerebral infarction, unspecified (principal); I69.354 Hemiplegia and hemiparesis following cerebral infarction affecting left non-dominant side; N40.0 Benign prostatic hyperplasia without lower urinary tract symptoms; R47.01 Aphasia; Z66 Do not resuscitate; R13.10 Dysphagia, unspecified; E53.8 Deficiency of other specified B group vitamins; K29.80 Duodenitis without bleeding; E11.21 Type 2 diabetes mellitus with diabetic nephropathy; I65.01 Occlusion and stenosis of right vertebral artery; D50.9 Iron deficiency anemia, unspecified; E83.42 Hypomagnesemia; E78.5 Hyperlipidemia, unspecified; R29.705 NIHSS score 5; Z20.822 Contact with and (suspected) exposure to COVID-19; Z79.4 Long term (current) use of insulin; Z79.82 Long term (current) use of aspirin; Z79.899 Other long term (current) drug therapy
CPT/HCPCS: 36415; 70450; 70496; 70498; 70551; 71045; 80048; 80053; 80061; 80076; 81003; 82077; 82140; 82550; 82728; 82803; 82947; 83540; 83735; 84100; 84466; 84484; 85025; 85027; 85610; 85730; 87635; 92526; 92610; 93005; 93306; 97110; 97162; 97166; 97530; 99285; J0690; J2405; J2997; J3475; Q9967

== ENCOUNTER → 2022-08-05 10:59 | Outpatient (BNVA) | payer MEDICARE, MEDICAID, SELFPAY | PROVIDERS: PCP Internal Medicine; Visit Provider Internal Medicine Endocrinology, Diabetes & Metabolism | DX: E11.65 Type 2 diabetes mellitus with hyperglycemia (principal); Z79.4 Long term (current) use of insulin | CPT/HCPCS: 82947; 83036; 99212 ==

== ENCOUNTER 2022-12-20 17:52 | Emergency (ER) | payer MEDICARE, MEDICAID, SELFPAY ==
--- NOTE | ~2022-12-20 | CT_ITS ---
EXAMINATION: CT HEAD WITHOUT CONTRAST CLINICAL INFORMATION: Drooling, similar to prior CVA in 2021 COMPARISON: Brain MRI 07/03/2022, head CT 07/02/2022 TECHNIQUE: Imaging was performed from the skull base to vertex without intravenous administration of contrast. This CT examination was performed using dose optimization techniques as appropriate, variously including the following: *Automated exposure control *Adjustment of mA and/or kV according to patient size (this includes techniques or standardized protocols for targeted exams where dose is matched to indication/reason for exam; i.e. extremities or head) *Use of iterative reconstruction technique Total exam dose length product: 589 mGy-cm FINDINGS: No intra or extra-axial fluid collection, hemorrhage, or mass. No ventriculomegaly. No midline shift or herniation. Basal cisterns are patent. Jacobsen-white matter differentiation is maintained. Small area of encephalomalacia in the region of the right lentiform nucleus and harris radiata consistent with remote prior infarct with mild ex vacuo dilation of the adjacent right lateral ventricle, unchanged. Proportional prominence of the ventricles and sulcal spaces is consistent with moderate volume loss. Patchy periventricular and deep white matter hypoattenuation is consistent with moderate small vessel ischemic changes, overall similar to prior. No calvarial fracture or soft tissue abnormality. Moderate mucosal thickening in the ethmoid sinuses and milder mucosal thickening along the right frontal sinus drainage pathway and right sphenoid sinus. Mastoid air cells are normally aerated. Status post bilateral lens extractions. CT/CT head/brain wo IV con IMPRESSION: 1. No intracranial hemorrhage or acute edematous territorial infarct identified. If continued high clinical concern for acute infarct, suggest MRI of the brain for more sensitive assessment. 2. Cerebral atrophy and chronic small vessel ischemic white matter change, similar to prior. 3. Unchanged prior infarct in the right gangliocapsular region and harris radiata.
--- NOTE | ~2022-12-20 | XR_ITS ---
EXAMINATION: PORTABLE CHEST 1 VIEW CLINICAL INFORMATION: r/o pna . COMPARISON: 07/04/2022. TECHNIQUE: Portable frontal view of the chest was obtained. FINDINGS: Lungs are mildly hypoexpanded and slightly rotated to the right. No superimposed focal infiltrate, effusion, edema, or pneumothorax. Mild peribronchial cuffing may be related to degree of decompression and rotation. Cardiac silhouette within normal limits for size with a tortuous aorta with no acute bony abnormality. XR/XR chest 1V IMPRESSION: Chronic appearing changes similar to the prior study. Hypoexpanded. No acute superimposed airspace disease.
--- NOTE | ~2022-12-20 | CT_ITS ---
EXAMINATION: CT ABDOMEN AND PELVIS WITHOUT CONTRAST CLINICAL INFORMATION: pt nonverbal, diffuse abd pain . COMPARISON: No pertinent prior studies are available for comparison. TECHNIQUE: Multidetector volumetric imaging was performed from the superior aspect of the liver through the pubic symphysis without contrast per request. Sagittal and coronal reformatted images were obtained on the technologist workstation. This CT examination was performed using dose optimization techniques as appropriate, variously including the following: *Automated exposure control *Adjustment of mA and/or kV according to patient size (this includes techniques or standardized protocols for targeted exams where dose is matched to indication/reason for exam; i.e. extremities or head) *Use of iterative reconstruction technique DLP: 1281 mGy-cm. FINDINGS: LUNG BASES: Minimal bibasilar dependent atelectasis. LIVER, GALLBLADDER, BILIARY TREE: The non-contrast liver is normal in size, shape, and attenuation. No focal hepatic lesion or biliary ductal dilatation is present. The gallbladder is unremarkable with no evidence of radiopaque gallstones, gallbladder wall thickening, or obvious pericholecystic inflammatory changes. PANCREAS: Atrophic SPLEEN: Unremarkable. ADRENAL GLANDS: Unremarkable. KIDNEYS AND URETERS: The kidneys are normal in size, shape, and attenuation. No hydronephrosis, hydroureter, or calculi seen. No perinephric stranding. BLADDER: Unremarkable. GASTROINTESTINAL TRACT: Colon is redundant. I do not appreciate any focal colonic wall thickening or pericolonic inflammatory changes to suggest diverticulitis. Normal-appearing appendix in the right lower quadrant. Minimal presacral fat stranding of uncertain significance or etiology percutaneous gastrostomy tube tip in the stomach ABDOMINAL WALL: No significant hernia is appreciated. LYMPHOVASCULAR STRUCTURES: Vascular calcification within the aorta iliac system. No bulky adenopathy.. PELVIC VISCERA: Unremarkable. OSSEUS STRUCTURES: Multilevel degenerative changes in the spine. Mild compression deformities of the superior endplates of T12 and L1. CT/CT abdomen pelvis wo IV con IMPRESSION: Chronic appearing changes as described above. I do not appreciate any acute intra-abdominal process.
[2022-12-20 18:02] VITALS: BP 142/81; BP 152/88; PULSE 100; PULSE 98; RESP 22; TEMP 37.3; O2SAT 94; O2SAT 95; BMI 28.2
--- NOTE | 2022-12-20 18:19 | PC.NURSE ---
patient alert, monitor technician on. will continue to monitor
--- NOTE | 2022-12-20 19:35 | ECG_ITS ---
Test Reason : WEAKNESS Blood Pressure : / mmHG Vent. Rate : 091 BPM Atrial Rate : 091 BPM P-R Int : 210 ms QRS Dur : 104 ms QT Int : 356 ms P-R-T Axes : 025 -34 141 degrees QTc Int : 437 ms Sinus rhythm with 1st degree A-V block Left axis deviation Septal infarct (cited on or before 02-JUL-2022) Nonspecifci ST-T changes Abnormal ECG When compared with ECG of 02-JUL-2022 16:25, Premature ventricular complexes are no longer Present Premature supraventricular complexes are no longer Present Referred By: Li Arenas Electronically Signed By:Cr العلي
--- NOTE | 2022-12-20 19:41 | ED.GENADULT ---
HPI - General Adult General Chief complaint: General Medical Stated complaint: ETOH INTOXICATION,AGGRESSIVE PER EMS Time Seen by Provider: 12/20/22 18:00 Source: family (Patient's daughter) and EMS Mode of arrival: EMS Limitations: other (Nonverbal, old CVA) History of Present Illness HPI narrative: Patient comes to the emergency room via EMS from home. Patient's family have noticed that over last 24 hours, patient has been weaker than usual, generalized. Also, patient has been having diarrhea starting today. The patient's daughter noticed that the patient has been drooling quite a bit since early this morning. Patient does not seem to have any trouble swallowing. However, the patient's daughter states that back in 2021, patient was found to be drooling same as today, then in the afternoon patient had a CVA. Patient is unable to verbalize his needs. Related Data Home Medications Medication Instructions Recorded Confirmed aspirin 81 mg tablet,delayed 81 mg PO DAILY 08/26/20 07/02/22 release (Adult Aspirin Regimen) sertraline 50 mg tablet 50 mg PO DAILY 08/26/20 07/02/22 tamsulosin 0.4 mg capsule 0.4 mg PO DAILY 08/26/20 07/02/22 blood sugar diagnostic #10 ea 05/20/21 03/03/22 lancets 28 gauge #100 ea 05/20/21 03/03/22 atorvastatin 10 mg tablet 10 mg PO BEDTIME 02/12/22 07/02/22 blood sugar diagnostic (FreeStyle 08/05/22 Lite Strips) blood-glucose meter (FreeStyle 08/05/22 Lite Meter kit) lancets 28 gauge (FreeStyle 08/05/22 Lancets) Previous Rx's Medication Instructions Recorded amlodipine 2.5 mg tablet 2.5 mg PO DAILY 90 days #90 tabs 08/26/20 hydrochlorothiazide 25 mg tablet 25 mg PO DAILY 90 days #90 tabs 08/26/20 cyanocobalamin (vitamin B-12) 500 500 mcg sublingual DAILY 90 days 05/20/21 mcg sublingual tablet #90 tabs flash glucose scanning reader #1 ea 02/12/22 (FreeStyle Kristine 2 [place]) flash glucose sensor (FreeStyle #2 ea 02/12/22 Kristine 2 Sensor kit) insulin aspar prot-insulin aspart See Rx Instructions subcut QAM 30 03/03/22 100 unit/mL (70-30) subcutaneous days #30 mL pen (Novolog Mix 70-30FlexPen U-100) lisinopril 20 mg tablet 20 mg PO DAILY 90 days #90 tabs 06/01/22 cholecalciferol (vitamin D3) 50 50 mcg PO DAILY #90 caps 08/26/22 mcg (2,000 unit) capsule cefuroxime axetil 500 mg tablet 500 mg PO BID 7 days #14 tabs 12/21/22 dextromethorphan HBr 10 mg/5 mL 10 mg (5 mL) PO Q4-6H PRN cough 12/21/22 oral liquid #118 mL loperamide 2 mg capsule 2 mg PO Q4H PRN loose stool #14 12/21/22 caps Allergies Allergy/AdvReac Type Severity Reaction Status Date / Time No Known Allergies Allergy Verified 12/20/22 18:02 Review of Systems Review of Systems: Yes Unobtainable due to mental condition PMFSH Past Medical History Medical History B12 deficiency BPH (benign prostatic hyperplasia) CVA (cerebral vascular accident) Diabetes type 2, uncontrolled Diabetic nephropathy associated with type 2 diabetes mellitus Diabetic polyneuropathy associated with type 2 diabetes mellitus Dyslipidemia 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 Mother No problems noted. Social History Social History Household Members: Other Household Members Other:: daughter Housing: House Do you presently have visiting nurse or other home services: No Alcohol intake: never Patient Tobacco Use Status: Never used Tobacco Smoked in Last 30 Days: No e-Cigarette/Vaping Use: Never Used Use of substances other than those prescribed or required for medical reasons: No Advance Directives: No Advance Directives Information Provided: No service: No Current occupational status: retired Physical Exam ED Vital Signs: Vital Signs - 24 hr 12/20/22 18:02 12/20/22 20:36 12/20/22 21:49 Temperature 99.2 F 99.1 F Pulse Rate 100 95 81 Respiratory Rate 22 H 25 H 20 Blood Pressure 142/81 H 134/80 139/75 Pulse Oximetry 95 100 95 Oxygen Delivery Method Room Air Room Air Room Air BMI result Body Mass Index 28.2 Const Other: Appearance: Alert. No acute distress Eyes: Pupils equal, round and reactive to light. ENT: Pharynx normal. Neck: Normal inspection. Neck supple. No lymph nodes noted. No crepitus CVS: Normal heart rate and rhythm. Pulses normal. Normal S1 and S2 Respiratory: No respiratory distress. Breath sounds normal. No Wheezing. No rales Abdomen: Soft and nontender. No rigidity. No distention. Skin: Skin warm and dry. Normal skin color. Normal skin turgor. Extremities: No lower extremity edema. No Lacerations. 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 All of patient's labs and imaging pending. Medications Administered Discontinued Medications Generic Name Dose Route Start Last Admin Trade Name Freq PRN Reason Stop Dose Admin Sodium Chloride 1,000 mls @ 999 mls/hr 12/20/22 19:35 12/20/22 22:30 Ns IVCONT 12/20/22 20:35 Infused .Q1H1M ONE Infusion Loperamide HCl 2 mg 12/20/22 21:49 12/20/22 22:30 Loperamide Hcl 2 Mg Capsule PO 12/20/22 21:50 2 mg ONCE ONE Administration Medical Decision Making Medical Decision Making [facility] Narrative: -patient's CT scan of the head shows no acute abnormalities. Abdominal head CT scans do not show any acute abnormalities either. -patient's hematology unremarkable, white blood cell count 4.7, COVID negative -patient has not had any episodes of diarrhea in the emergency room. Patient being given IV fluids, will recheck labs afterwards. -urinalysis positive for UTI, patient given 1 dose of IV ceftriaxone, patient may return home with p.o. antibiotics. -patient's labs and vitals are fairly stable, discussed the above-mention with the patient's daughter, who states that she can not take care of him at home. Patient will be sent home with several prescriptions. Differential Diagnosis Differential Diagnoses: The differential diagnosis associated with the presentation includes (UTI, COVID, viral syndrome, gastroenteritis) Lab Data MDM Lab Attestation statement: I reviewed the patient's lab results. 12/20/22 20:23 12/20/22 20:23 Labs: Lab Results 12/20/22 12/20/22 12/20/22 Range/Units 20:16 20:16 20:22 WBC (4.8-10.8) X10*3/uL RBC (4.60-5.80) X10*6/uL Hgb (14.0-18.0) g/dl Hct (42.0-52.0) % MCV (80.0-98.0) fL MCH (27.0-33.0) pg MCHC (31.0-36.0) g/dl RDW (11.0-16.0) % Plt Count (160-400) X10*3/uL MPV (9.4-12.4) fL Immature Gran % (Auto) (0.0-0.4) % Neut % (Auto) (45-73) % Lymph % (Auto) (20-40) % [place] % (Auto) (2-11) % Eos % (Auto) (0-4) % Baso % (Auto) (0-2) % Lymph # (Auto) (1.2-4.9) X10*3/uL [place] # (Auto) (0.1-1.2) X10*3/uL Eos # (Auto) (0.0-0.4) X10*3/uL Baso # (Auto) (0.0-0.2) X10*3/uL Abs Immat Gran (auto) (0.00-0.03) X10*3/uL Absolute Neuts (auto) (2.0-8.3) x10*3/uL Absolute Nucleated RBC (0.0-0.012) X10*3/uL Nucleated RBC % (auto) (0.0-0.2) /100WBC Sodium (135-145) mmol/L Potassium (3.3-5.1) mmol/L Chloride (96-108) mmol/L Carbon Dioxide (22-29) mmol/L Anion Gap (12-20) BUN (9-16) mg/dL Creatinine (0.5-1.4) mg/dL Estim Creat Clear Calc Estimated GFR Random Glucose (60-115) mg/dL Lactic Acid 1.2 (0.5-2.0) mmol/L Calcium (8.4-10.2) mg/dL Magnesium (1.6-2.6) mg/dL Total Bilirubin (0.0-1.0) mg/dL Direct Bilirubin (0.0-0.5) mg/dL AST (5-37) U/L ALT (0-40) U/L Alkaline Phosphatase (39-117) U/L Troponin I High Sens (<3.5-35.0) ng/L Total Protein (6.5-8.0) g/dL Albumin (3.5-5.0) g/dL Lipase (8-78) U/L Urine Color Urine Appearance Urine pH (5.0-9.0) Ur Specific [place] (1.005-1.025) Urine Protein (Neg-Trace) mg/dL Urine Glucose (UA) (Negative) mg/dL Urine Ketones (Negative) mg/dL Urine Blood (Negative) Urine Nitrite (Negative) Ur Leukocyte Esterase (Negative) Urine RBC (0-2) /HPF Urine WBC (0-5) /HPF Ur Squamous Epith Cells (0-2) /HPF Urine Bacteria (None Seen) Hyaline Casts (0-2) /LPF COVID-19 (MARIAN) Negative (Negative) COVID-19 Clin Com See Note Influenza Type A (VIRIDIANA) Negative (Negative) Influenza Type B (VIRIDIANA) Negative (Negative) Influenza A & B Note See Note 12/20/22 12/20/22 12/20/22 Range/Units 20:23 20:23 :23 WBC 4.7 L (4.8-10.8) X10*3/uL RBC 6.15 H D (4.60-5.80) X10*6/uL Hgb 13.7 L D (14.0-18.0) g/dl Hct 42.8 D (42.0-52.0) % MCV 69.6 L (80.0-98.0) fL MCH 22.3 L (27.0-33.0) pg MCHC 32.0 (31.0-36.0) g/dl RDW 15.5 (11.0-16.0) % Plt Count 153 L D (160-400) X10*3/uL MPV 10.3 (9.4-12.4) fL Immature Gran % (Auto) 0.4 (0.0-0.4) % Neut % (Auto) 74.5 H (45-73) % Lymph % (Auto) 13.0 L (20-40) % [place] % (Auto) 10.4 (2-11) % Eos % (Auto) 1.1 (0-4) % Baso % (Auto) 0.6 (0-2) % Lymph # (Auto) 0.6 L (1.2-4.9) X10*3/uL [place] # (Auto) 0.5 (0.1-1.2) X10*3/uL Eos # (Auto) 0.1 (0.0-0.4) X10*3/uL Baso # (Auto) 0.0 (0.0-0.2) X10*3/uL Abs Immat Gran (auto) 0.02 (0.00-0.03) X10*3/uL Absolute Neuts (auto) 3.5 (2.0-8.3) x10*3/uL Absolute Nucleated RBC 0.000 (0.0-0.012) X10*3/uL Nucleated RBC % (auto) 0.0 (0.0-0.2) /100WBC Sodium 133 L (135-145) mmol/L Potassium 4.0 D (3.3-5.1) mmol/L Chloride 100 (96-108) mmol/L Carbon Dioxide 26 (22-29) mmol/L Anion Gap 11 L (12-20) BUN 21 H (9-16) mg/dL Creatinine 0.78 (0.5-1.4) mg/dL Estim Creat Clear Calc 68.7 Estimated GFR > 60 Random Glucose 172 H (60-115) mg/dL Lactic Acid (0.5-2.0) mmol/L Calcium 8.6 (8.4-10.2) mg/dL Magnesium 2.1 (1.6-2.6) mg/dL Total Bilirubin 0.9 (0.0-1.0) mg/dL Direct Bilirubin 0.3 (0.0-0.5) mg/dL AST 25 (5-37) U/L ALT 32 (0-40) U/L Alkaline Phosphatase 46 (39-117) U/L Troponin I High Sens 11.4 (<3.5-35.0) ng/L Total Protein 5.9 L (6.5-8.0) g/dL Albumin 3.6 (3.5-5.0) g/dL Lipase 26 (8-78) U/L Urine Color Urine Appearance Urine pH (5.0-9.0) Ur Specific [place] (1.005-1.025) Urine Protein (Neg-Trace) mg/dL Urine Glucose (UA) (Negative) mg/dL Urine Ketones (Negative) mg/dL Urine Blood (Negative) Urine Nitrite (Negative) Ur Leukocyte Esterase (Negative) Urine RBC (0-2) /HPF Urine WBC (0-5) /HPF Ur Squamous Epith Cells (0-2) /HPF Urine Bacteria (None Seen) Hyaline Casts (0-2) /LPF COVID-19 (MARIAN) (Negative) COVID-19 Clin Com Influenza Type A (VIRIDIANA) (Negative) Influenza Type B (VIRIDIANA) (Negative) Influenza A & B Note 12/20/22 12/20/22 Range/Units 21:53 23:50 WBC (4.8-10.8) X10*3/uL RBC (4.60-5.80) X10*6/uL Hgb (14.0-18.0) g/dl Hct (42.0-52.0) % MCV (80.0-98.0) fL MCH (27.0-33.0) pg MCHC (31.0-36.0) g/dl RDW (11.0-16.0) % Plt Count (160-400) X10*3/uL MPV (9.4-12.4) fL Immature Gran % (Auto) (0.0-0.4) % Neut % (Auto) (45-73) % Lymph % (Auto) (20-40) % [place] % (Auto) (2-11) % Eos % (Auto) (0-4) % Baso % (Auto) (0-2) % Lymph # (Auto) (1.2-4.9) X10*3/uL [place] # (Auto) (0.1-1.2) X10*3/uL Eos # (Auto) (0.0-0.4) X10*3/uL Baso # (Auto) (0.0-0.2) X10*3/uL Abs Immat Gran (auto) (0.00-0.03) X10*3/uL Absolute Neuts (auto) (2.0-8.3) x10*3/uL Absolute Nucleated RBC (0.0-0.012) X10*3/uL Nucleated RBC % (auto) (0.0-0.2) /100WBC Sodium 134 L (135-145) mmol/L Potassium 3.7 (3.3-5.1) mmol/L Chloride 102 (96-108) mmol/L Carbon Dioxide 25 (22-29) mmol/L Anion Gap 11 L (12-20) BUN 19 H (9-16) mg/dL Creatinine 0.75 (0.5-1.4) mg/dL Estim Creat Clear Calc 71.4 Estimated GFR > 60 Random Glucose 141 H (60-115) mg/dL Lactic Acid (0.5-2.0) mmol/L Calcium 8.1 L (8.4-10.2) mg/dL Magnesium (1.6-2.6) mg/dL Total Bilirubin (0.0-1.0) mg/dL Direct Bilirubin (0.0-0.5) mg/dL AST (5-37) U/L ALT (0-40) U/L Alkaline Phosphatase (39-117) U/L Troponin I High Sens (<3.5-35.0) ng/L Total Protein (6.5-8.0) g/dL Albumin (3.5-5.0) g/dL Lipase (8-78) U/L Urine Color Dark Yellow Urine Appearance Clear Urine pH 5.5 (5.0-9.0) Ur Specific [place] 1.025 (1.005-1.025) Urine Protein Trace (Neg-Trace) mg/dL Urine Glucose (UA) Negative (Negative) mg/dL Urine Ketones Negative (Negative) mg/dL Urine Blood Negative (Negative) Urine Nitrite Negative (Negative) Ur Leukocyte Esterase Trace H (Negative) Urine RBC 3-5 H (0-2) /HPF Urine WBC 0-5 (0-5) /HPF Ur Squamous Epith Cells 0-2 (0-2) /HPF Urine Bacteria Trace (None Seen) Hyaline Casts 3-5 (0-2) /LPF COVID-19 (MARIAN) (Negative) COVID-19 Clin Com Influenza Type A (VIRIDIANA) (Negative) Influenza Type B (VIRIDIANA) (Negative) Influenza A & B Note Independent Interpretation I performed an independent interpretation of an: CT Scan (My CT scan interpretation of the head: No acute abnormalities, no bleed. My interpretation of CT scan of the abdomen and pelvis, no obstruction) Radiology Impression Discussion of test interpretation with radiology: I have reviewed the radiologist's reading. Radiologist Impression: FINDINGS: No intra or extra-axial fluid collection, hemorrhage, or mass. No ventriculomegaly. No midline shift or herniation. Basal cisterns are patent. Jacobsen-white matter differentiation is maintained. Small area of encephalomalacia in the region of the right lentiform nucleus and harris radiata consistent with remote prior infarct with mild ex vacuo dilation of the adjacent right lateral ventricle, unchanged. Proportional prominence of the ventricles and sulcal spaces is consistent with moderate volume loss. Patchy periventricular and deep white matter hypoattenuation is consistent with moderate small vessel ischemic changes, overall similar to prior. No calvarial fracture or soft tissue abnormality.? Moderate mucosal thickening in the ethmoid sinuses and milder mucosal thickening along the right frontal sinus drainage pathway and right sphenoid sinus. Mastoid air cells are normally aerated. Status post bilateral lens extractions. CT/CT head/brain wo IV con IMPRESSION: 1.? No intracranial hemorrhage or acute edematous territorial infarct identified. If continued high clinical concern for acute infarct, suggest MRI of the brain for more sensitive assessment. 2.? Cerebral atrophy and chronic small vessel ischemic white matter change, similar to prior. 3.? Unchanged prior infarct in the right gangliocapsular region and harris radiata. FINDINGS: LUNG BASES: Minimal bibasilar dependent atelectasis. LIVER, GALLBLADDER, BILIARY TREE: The non-contrast liver is normal in size, shape, and attenuation. No focal hepatic lesion or biliary ductal dilatation is present.? The gallbladder is unremarkable with no evidence of radiopaque gallstones, gallbladder wall thickening, or obvious pericholecystic inflammatory changes. PANCREAS: Atrophic SPLEEN: Unremarkable. ADRENAL GLANDS: Unremarkable. KIDNEYS AND URETERS: The kidneys are normal in size, shape, and attenuation. No hydronephrosis, hydroureter, or calculi seen. No perinephric stranding. BLADDER: Unremarkable. GASTROINTESTINAL TRACT: Colon is redundant. I do not appreciate any focal colonic wall thickening or pericolonic inflammatory changes to suggest diverticulitis. Normal-appearing appendix in the right lower quadrant. Minimal presacral fat stranding of uncertain significance or etiology percutaneous gastrostomy tube tip in the stomach ABDOMINAL WALL: No significant hernia is appreciated. LYMPHOVASCULAR STRUCTURES: Vascular calcification within the aorta iliac system. No bulky adenopathy.. PELVIC VISCERA: Unremarkable. OSSEUS STRUCTURES: Multilevel degenerative changes in the spine. Mild compression deformities of the superior endplates of T12 and L1. CT/CT abdomen pelvis wo IV con IMPRESSION: Chronic appearing changes as described above. I do not appreciate any acute intra-abdominal process. ? Discharge Plan Discharge Clinical Impression: Urinary tract infection, Weakness, Dry cough, Diarrhea Patient Disposition: Home, Self-Care Instructions: Acute Cough (ED), Urinary Tract Infection in Older Adults (ED) Additional Instructions: Please follow-up with your primary care physician tomorrow. If you have any worsening or new symptoms, please return to the emergency room or call 911 Prescriptions: New cefuroxime axetil 500 mg tablet 500 mg PO BID 7 Days Qty: 14 0RF loperamide 2 mg capsule 2 mg PO Q4H PRN (Reason: loose stool) Qty: 14 0RF Rx Instructions: administer after each loose stool until symptoms controlled; do not exceed 8 mg per 24 hrs dextromethorphan HBr 10 mg/5 mL liquid 10 mg PO Q4-6H PRN (Reason: cough) Qty: 118 0RF No Action cyanocobalamin (vitamin B-12) 500 mcg tablet, sublingual 500 mcg sublingual DAILY 90 Days Qty: 90 1RF lisinopril 20 mg tablet 20 mg PO DAILY 90 Days Qty: 90 1RF cholecalciferol (vitamin D3) 50 mcg (2,000 unit) capsule 50 mcg PO DAILY Qty: 90 0RF sertraline 50 mg tablet 50 mg PO DAILY tamsulosin 0.4 mg capsule 0.4 mg PO DAILY aspirin [Adult Aspirin Regimen] 81 mg tablet,delayed release (DR/EC) 81 mg PO DAILY hydrochlorothiazide 25 mg tablet 25 mg PO DAILY 90 Days Qty: 90 2RF amlodipine 2.5 mg tablet 2.5 mg PO DAILY 90 Days Qty: 90 2RF (DME) lancets 28 gauge misc See Rx Instructions Not Applicable TID Qty: 100 Rx Instructions: As directed (DME) blood sugar diagnostic Strip See Rx Instructions Not Applicable TID Qty: 10 Rx Instructions: As directed atorvastatin 10 mg tablet 10 mg PO BEDTIME (DME) FreeStyle Kristine 2 [place] Misc See Rx Instructions .ROUTE .MEDSUPPLY Qty: 1 0RF Rx Instructions: As directed (DME) FreeStyle Kristine 2 Sensor Kit See Rx Instructions .ROUTE .MEDSUPPLY Qty: 2 11RF Rx Instructions: As directed every 2 weeks insulin asp prt-insulin aspart [Novolog Mix 70-30FlexPen U-100] 100 unit/mL (70-30) insulin pen See Rx Instructions subcut QAM 30 Days Qty: 30 6RF Rx Instructions: 13 units qam and 10units qpm subcut every morning; (DME) blood-glucose meter [FreeStyle Lite Meter] Kit See Rx Instructions .ROUTE Rx Instructions: As directed (DME) FreeStyle Lite Strips Strip See Rx Instructions .ROUTE Rx Instructions: As directed (DME) lancets [FreeStyle Lancets] 28 gauge misc See Rx Instructions .ROUTE Rx Instructions: As directed
[2022-12-20 20:28] LABS: MANUAL DIFF FLAG NO
[2022-12-20 20:36] VITALS: BP 134/80; PULSE 95; RESP 25; O2SAT 100
[2022-12-20 20:40] LABS: Lactic Acid 1.2 mmol/L (0.5-2.0)
[2022-12-20 20:46] LABS: COVID-19 Test Negative (Negative); IDNOW Serial# 55D5AD1C
[2022-12-20 20:47] LABS: IDNOW Serial# 6674DD1D; Influenza A Negative (Negative); Influenza B2 Negative (Negative)
[2022-12-20 20:48] LABS: Alanine Aminotransferase 32 U/L (0-40); Albumin Level 3.6 g/dL (3.5-5.0); Alkaline Phosphatase 46 U/L (39-117); Anion Gap 11 (12-20); Aspartate Amino Transferase 25 U/L (5-37); Bilirubin Direct 0.3 mg/dL (0.0-0.5); Bilirubin Total 0.9 mg/dL (0.0-1.0); Blood Urea Nitrogen 21 mg/dL (9-16); Calcium 8.6 mg/dL (8.4-10.2); Carbon Dioxide 26 mmol/L (22-29); Chloride 100 mmol/L (96-108); Creatinine Clr Calc Pharmacy 68.7; Estimated Glomerular Filt Rate > 60; Glucose Random 172 mg/dL (60-115); Lipase 26 U/L (8-78); Magnesium 2.1 mg/dL (1.6-2.6); Sodium 133 mmol/L (135-145); Total Protein 5.9 g/dL (6.5-8.0)
[2022-12-20 20:51] LABS: Troponin-I High Sensitivity 11.4 ng/L (<3.5-35.0)
[2022-12-20 20:56] LABS: Basophils Percent Auto 0.6 % (0-2); Eosinophils Absolute Auto 0.1 X10*3/uL (0.0-0.4); Eosinophils Percent Auto 1.1 % (0-4); Hematocrit 42.8 % (42.0-52.0); Hemoglobin 13.7 g/dl (14.0-18.0); Imm Gran Abs Auto 0.02 X10*3/uL (0.00-0.03); Imm Gran Pct Auto 0.4 % (0.0-0.4); Lymphocytes Absolute Auto 0.6 X10*3/uL (1.2-4.9); Mean Corpuscular Hemoglobin 22.3 pg (27.0-33.0); Mean Corpuscular Volume 69.6 fL (80.0-98.0); Mean Platelet Volume 10.3 fL (9.4-12.4); Monocytes Absolute Auto 0.5 X10*3/uL (0.1-1.2); Monocytes Percent Auto 10.4 % (2-11); Neutrophils Absolute Auto 3.5 x10*3/uL (2.0-8.3); Neutrophils Percent Auto 74.5 % (45-73); Platelet Count 153 X10*3/uL (160-400); Red Blood Count 6.15 X10*6/uL (4.60-5.80); Red Cell Distribution Width 15.5 % (11.0-16.0); White Blood Count 4.7 X10*3/uL (4.8-10.8)
[2022-12-20] MEDS: 0.9 % Sodium Chloride 1,000 ML 999 ML IVCONT (21:00)
--- NOTE | 2022-12-20 21:45 | PC.NURSE ---
Straight cath performed. 100cc of clear yellow urine collected and sent to the lab. Pt tolerated well.
[2022-12-20 21:49] VITALS: BP 139/75; PULSE 81; RESP 20; TEMP 37.3; O2SAT 95
[2022-12-20 22:00] LABS: Appearance Urine Clear; Color Urine Dark Yellow; Glucose Urine UA Negative (Negative); Leukocyte Esterase Urine Trace (Negative); Nitrite Urine Negative (Negative); PH 5.5 (5.0-9.0); Specific Gravity - Urine 1.025 (1.005-1.025); UMIC TRIGGER UACC YES; Urine Blood Negative (Negative); Urine Ketones Negative (Negative); Urine Protein Trace mg/dL (Neg-Trace)
[2022-12-20 22:23] LABS: Squamous Epithelial Cell Urine 0-2 /HPF (0-2); WBC Urine 0-5 /HPF (0-5)
[2022-12-20 22:24] LABS: Bacteria Urine Trace (None Seen)
[2022-12-20] MEDS: Loperamide HCl 2 MG CAPSULE PO (22:30)
[2022-12-21 00:18] LABS: Anion Gap 11 (12-20); Blood Urea Nitrogen 19 mg/dL (9-16); Calcium 8.1 mg/dL (8.4-10.2); Carbon Dioxide 25 mmol/L (22-29); Chloride 102 mmol/L (96-108); Creatinine Clr Calc Pharmacy 71.4; Estimated Glomerular Filt Rate > 60; Glucose Random 141 mg/dL (60-115); Potassium 3.7 mmol/L (3.3-5.1); Sodium 134 mmol/L (135-145)
[2022-12-21 01:37] VITALS: BP 133/72; PULSE 81; RESP 15; O2SAT 95
[2022-12-21] MEDS: cefTRIAXone sodium 1 GM in 0.9 % Sodium Chloride 50 ML IV (01:49)
== END 2022-12-21 02:24 | disposition home or self-care (01) ==
PROVIDERS: Emergency Provider Emergency Medicine
DX: F10.129 Alcohol abuse with intoxication, unspecified (principal); N39.0 Urinary tract infection, site not specified; R05.9 Cough, unspecified; R19.7 Diarrhea, unspecified; Y90.9 Presence of alcohol in blood, level not specified
CPT/HCPCS: 36415; 70450; 71045; 74176; 80048; 80076; 81001; 81003; 83605; 83690; 83735; 84484; 85025; 87040; 87077; 87147; 87205; 87502; 87635; 93005; 99285; J0696

== ENCOUNTER 2022-12-21 20:32 | Inpatient (IN) | payer MEDICARE, MEDICAID, SELFPAY ==
--- NOTE | ~2022-12-21 | XR_ITS ---
EXAMINATION: XR CHEST CLINICAL INFORMATION: Cough. COMPARISON: Chest x-ray 12/20/2012, 8:12 PM TECHNIQUE: 2 views of the chest were obtained. FINDINGS: Asymmetric elevation of right diaphragm above the left. Air in bowel loops under the right diaphragm. Lung volume is low. Prominence of bronchovascular markings accentuated by low inspiratory effort. No overt pulmonary edema. No focal consolidation, no pleural effusion pneumothorax. Heart size is normal. Cardiac mediastinal contours are normal. There are vascular calcifications of aorta. Compared to prior study no substantial change. XR/XR chest 2V IMPRESSION: No acute abnormality of chest. No focal consolidation. Prominence of bronchovascular markings accentuated by low inspiratory effort.
--- NOTE | ~2022-12-21 | CT_ITS ---
EXAMINATION: CT CHEST WITHOUT CONTRAST CLINICAL INFORMATION: Question pneumonia/aspiration. Cough. COMPARISON: Radiograph from today. TECHNIQUE: Multidetector volumetric CT imaging of the chest was done. Axial MIP volume rendering provided. Sagittal and coronal reformatted images were obtained. This CT examination was performed using dose optimization techniques as appropriate, variously including the following: *Automated exposure control *Adjustment of mA and/or kV according to patient size (this includes techniques or standardized protocols for targeted exams where dose is matched to indication/reason for exam; i.e. extremities or head) *Use of iterative reconstruction technique DLP: 375 mGy-cm FINDINGS: STEEPLE JACK: Gastrostomy tube noted. LUNGS: Central airways are patent. Mild bronchiectasis in the lower lobes with diffuse bronchial wall thickening. Bronchial filling defects are present. No dense consolidation. Motion limits evaluation of the lungs, particularly at the lower lungs. No pneumothorax. MEDIASTINUM: Normal heart size. Moderate coronary artery calcification. No pericardial effusion. No mediastinal lymphadenopathy. CORONARY ARTERY CALCIFICATION: Present. PLEURA: There is no pleural effusion. No pleural mass or thickening. AXILLA: No lymphadenopathy. UPPER ABDOMEN: No acute abnormality identified. OSSEOUS STRUCTURES: No acute or suspicious osseous abnormality. Mild degenerative change of the spine. CT/CT chest wo IV con IMPRESSION: Motion limited study. Bronchial wall thickening with bronchial filling defects in the lower lobes. This could be associated with bronchitis. Aspiration possible. No dense consolidation. Fleischner guidelines were followed.
[2022-12-21 20:33] VITALS: BP 148/90; PULSE 77; O2SAT 96
[2022-12-21 20:36] VITALS: BP 169/81; PULSE 72; RESP 18; TEMP 37; O2SAT 94; BMI 31.3
--- NOTE | 2022-12-21 20:43 | ED.GENADULT ---
HPI - General Adult General Chief complaint: General Medical Stated complaint: Abnormal Labs Source: family Mode of arrival: wheelchair Limitations: no limitations History of Present Illness HPI narrative: patient was seen here yesterday for weakness and cough for last 2-3 days workup was negative blood culture showed Gram-positive cocci patient was called to come back to the ER for further evaluation patient was prescribed Ceftin for bronchitis/UTI. for patient daughter patient still coughing and feeling weak but no fever patient blood pressure 169/80 Related Data Home Medications Medication Instructions Recorded Confirmed aspirin 81 mg tablet,delayed 81 mg PO DAILY 08/26/20 07/02/22 release (Adult Aspirin Regimen) sertraline 50 mg tablet 50 mg PO DAILY 08/26/20 07/02/22 tamsulosin 0.4 mg capsule 0.4 mg PO DAILY 08/26/20 07/02/22 blood sugar diagnostic #10 ea 05/20/21 03/03/22 lancets 28 gauge #100 ea 05/20/21 03/03/22 atorvastatin 10 mg tablet 10 mg PO BEDTIME 02/12/22 07/02/22 blood sugar diagnostic (FreeStyle 08/05/22 Lite Strips) blood-glucose meter (FreeStyle 08/05/22 Lite Meter kit) lancets 28 gauge (FreeStyle 08/05/22 Lancets) Previous Rx's Medication Instructions Recorded amlodipine 2.5 mg tablet 2.5 mg PO DAILY 90 days #90 tabs 08/26/20 hydrochlorothiazide 25 mg tablet 25 mg PO DAILY 90 days #90 tabs 08/26/20 cyanocobalamin (vitamin B-12) 500 500 mcg sublingual DAILY 90 days 05/20/21 mcg sublingual tablet #90 tabs flash glucose scanning reader #1 ea 02/12/22 (FreeStyle Kristine 2 Carlton) flash glucose sensor (FreeStyle #2 ea 02/12/22 Kristine 2 Sensor kit) insulin aspar prot-insulin aspart See Rx Instructions subcut QAM 30 03/03/22 100 unit/mL (70-30) subcutaneous days #30 mL pen (Novolog Mix 70-30FlexPen U-100) lisinopril 20 mg tablet 20 mg PO DAILY 90 days #90 tabs 06/01/22 cholecalciferol (vitamin D3) 50 50 mcg PO DAILY #90 caps 08/26/22 mcg (2,000 unit) capsule cefuroxime axetil 500 mg tablet 500 mg PO BID 7 days #14 tabs 12/21/22 dextromethorphan HBr 10 mg/5 mL 10 mg (5 mL) PO Q4-6H PRN cough 12/21/22 oral liquid #118 mL loperamide 2 mg capsule 2 mg PO Q4H PRN loose stool #14 12/21/22 caps Allergies Allergy/AdvReac Type Severity Reaction Status Date / Time No Known Allergies Allergy Verified 12/20/22 18:02 Review of Systems Review of Systems: Yes all other systems are reviewed and are negative [facility] Past Medical History Medical History B12 deficiency BPH (benign prostatic hyperplasia) CVA (cerebral vascular accident) Diabetes type 2, uncontrolled Diabetic nephropathy associated with type 2 diabetes mellitus Diabetic polyneuropathy associated with type 2 diabetes mellitus Dyslipidemia Hypertension correction (current) use of insulin Obesity (BMI 30-39.9) Tinea pedis of both feet Surgical History History of surgery Family History Family History Father No problems noted. Mother No problems noted. Social History Social History Household Members: Other Household Members Other:: daughter Housing: House Do you presently have visiting nurse or other home services: No Alcohol intake: never Patient Tobacco Use Status: Never used Tobacco e-Cigarette/Vaping Use: Never Used Advance Directives: No Advance Directives Information Provided: No service: No Current occupational status: retired Physical Exam ED Vital Signs: Vital Signs - 24 hr 12/21/22 20:36 12/21/22 22:53 Temperature 98.6 F 98.4 F Pulse Rate 72 82 Respiratory Rate 18 18 Blood Pressure 169/81 H 154/73 H Pulse Oximetry 94 92 Oxygen Delivery Method Room Air Room Air BMI result Body Mass Index 31.3 Appearance: Alert. Oriented X2. No acute distress. Eyes: PERRLA, No Nystagmus ENT: Pharynx normal. Oral Mucosa moist Neck: Normal inspection. Neck supple. CVS: Normal heart rate and rhythm. Pulses normal. Respiratory: No respiratory distress. Equal air entry bilateral, no wheezing/rales/rhonchi Abdomen: Soft and nontender. Bowel sounds are present, no mass palpable, no CVA tenderness Skin: Skin warm and dry. Normal skin color. Normal skin turgor. Extremities: No lower extremity edema. No calf tenderness no facial asymmetry neuro: left hemiparesis alert and awake x2 Medications Administered Generic Name Dose Route Start Last Admin Trade Name Freq PRN Reason Stop Dose Admin Enoxaparin Sodium 40 mg 12/21/22 23:15 12/22/22 00:40 Enoxaparin Sodium 40 Mg/0.4 Ml Syringe SUBCUT 40 mg BEDTIME CECILE Administration Sodium Chloride 3 ml 12/22/22 00:00 12/22/22 00:40 0.9 % Sodium Chloride Flush 3 Ml Syringe IVFLUSH 3 ml QSHIFT CECILE Administration Discontinued Medications Generic Name Dose Route Start Last Admin Trade Name Freq PRN Reason Stop Dose Admin Albuterol Sulfate 2.5 mg/ 0 mg 12/21/22 20:51 12/21/22 21:03 Albuterol/Ipratropium 3 ml INHALE 12/21/22 20:52 1 each ONCE ONE Administration Vancomycin HCl 2,000 mg in 520 mls @ 260 mls/hr 12/21/22 21:15 12/21/22 22:26 Vancomycin/Ns IV 12/21/22 23:14 260 mls/hr ONCE ONE Administration Medical Decision Making Medical Decision Making [facility] Narrative: patient been feeling weak for last 2-3 days blood culture showed Gram-positive cocci no murmur noticed no source of infection noticed no open wound limited HPI will admit patient for further evaluation including repeat blood culture patient's lactic acid is normal WBC counts normal Consult Healthcare Provider Management of the patient was discussed with: Hospitalist Lab Data 12/21/22 21:31 12/21/22 21:31 Labs: Lab Results 12/21/22 12/21/22 12/21/22 Range/Units 21:31 21:31 21:48 WBC 5.7 (4.8-10.8) X10*3/uL RBC 5.54 (4.60-5.80) X10*6/uL Hgb 12.4 L (14.0-18.0) g/dl Hct 38.8 L (42.0-52.0) % MCV 70.0 L (80.0-98.0) fL MCH 22.4 L (27.0-33.0) pg MCHC 32.0 (31.0-36.0) g/dl RDW 15.2 (11.0-16.0) % Plt Count 138 L (160-400) X10*3/uL MPV 11.2 (9.4-12.4) fL Immature Gran % (Auto) 0.3 (0.0-0.4) % Neut % (Auto) 49.8 (45-73) % Lymph % (Auto) 33.3 (20-40) % [place] % (Auto) 13.9 H (2-11) % Eos % (Auto) 2.4 (0-4) % Baso % (Auto) 0.3 (0-2) % Lymph # (Auto) 1.9 (1.2-4.9) X10*3/uL [place] # (Auto) 0.8 (0.1-1.2) X10*3/uL Eos # (Auto) 0.1 (0.0-0.4) X10*3/uL Baso # (Auto) 0.0 (0.0-0.2) X10*3/uL Abs Immat Gran (auto) 0.02 (0.00-0.03) X10*3/uL Absolute Neuts (auto) 2.9 (2.0-8.3) x10*3/uL Absolute Nucleated RBC 0.000 (0.0-0.012) X10*3/uL Nucleated RBC % (auto) 0.0 (0.0-0.2) /100WBC Smear Tech's Comments VERIFIED Sodium 135 (135-145) mmol/L Potassium 3.4 (3.3-5.1) mmol/L Chloride 101 (96-108) mmol/L Carbon Dioxide 23 (22-29) mmol/L Anion Gap 14 (12-20) BUN 20 H (9-16) mg/dL Creatinine 0.69 (0.5-1.4) mg/dL Estim Creat Clear Calc 87.1 Estimated GFR > 60 Random Glucose 169 H (60-115) mg/dL Lactic Acid 1.7 (0.5-2.0) mmol/L Calcium 8.4 (8.4-10.2) mg/dL COVID-19 (MARIAN) (Negative) COVID-19 Clin Com 12/21/22 Range/Units 23:04 WBC (4.8-10.8) X10*3/uL RBC (4.60-5.80) X10*6/uL Hgb (14.0-18.0) g/dl Hct (42.0-52.0) % MCV (80.0-98.0) fL MCH (27.0-33.0) pg MCHC (31.0-36.0) g/dl RDW (11.0-16.0) % Plt Count (160-400) X10*3/uL MPV (9.4-12.4) fL Immature Gran % (Auto) (0.0-0.4) % Neut % (Auto) (45-73) % Lymph % (Auto) (20-40) % [place] % (Auto) (2-11) % Eos % (Auto) (0-4) % Baso % (Auto) (0-2) % Lymph # (Auto) (1.2-4.9) X10*3/uL [place] # (Auto) (0.1-1.2) X10*3/uL Eos # (Auto) (0.0-0.4) X10*3/uL Baso # (Auto) (0.0-0.2) X10*3/uL Abs Immat Gran (auto) (0.00-0.03) X10*3/uL Absolute Neuts (auto) (2.0-8.3) x10*3/uL Absolute Nucleated RBC (0.0-0.012) X10*3/uL Nucleated RBC % (auto) (0.0-0.2) /100WBC Smear Tech's Comments Sodium (135-145) mmol/L Potassium (3.3-5.1) mmol/L Chloride (96-108) mmol/L Carbon Dioxide (22-29) mmol/L Anion Gap (12-20) BUN (9-16) mg/dL Creatinine (0.5-1.4) mg/dL Estim Creat Clear Calc Estimated GFR Random Glucose (60-115) mg/dL Lactic Acid (0.5-2.0) mmol/L Calcium (8.4-10.2) mg/dL COVID-19 (MARIAN) Negative (Negative) COVID-19 Clin Com See Note Discharge Plan Discharge Clinical Impression: Bacteremia Patient Disposition: Admitted As Inpatient
[2022-12-21 21:38] LABS: Eosinophils Absolute Auto 0.1 X10*3/uL (0.0-0.4); Eosinophils Percent Auto 2.4 % (0-4); Hemoglobin 12.4 g/dl (14.0-18.0); Imm Gran Abs Auto 0.02 X10*3/uL (0.00-0.03); Imm Gran Pct Auto 0.3 % (0.0-0.4); MANUAL DIFF FLAG SCAN; SCAN SMEAR FLAG 1
[2022-12-21 21:39] LABS: Basophils Percent Auto 0.3 % (0-2); Hematocrit 38.8 % (42.0-52.0); Lymphocytes Absolute Auto 1.9 X10*3/uL (1.2-4.9); Lymphocytes Percent Auto 33.3 % (20-40); Mean Corpuscular Hemoglobin 22.4 pg (27.0-33.0); Mean Platelet Volume 11.2 fL (9.4-12.4); Monocytes Absolute Auto 0.8 X10*3/uL (0.1-1.2); Monocytes Percent Auto 13.9 % (2-11); Neutrophils Absolute Auto 2.9 x10*3/uL (2.0-8.3); Neutrophils Percent Auto 49.8 % (45-73); Platelet Count 138 X10*3/uL (160-400); Red Blood Count 5.54 X10*6/uL (4.60-5.80); Red Cell Distribution Width 15.2 % (11.0-16.0); White Blood Count 5.7 X10*3/uL (4.8-10.8)
[2022-12-21 21:54] LABS: PLT ABN DIST 1
[2022-12-21 21:57] LABS: Anion Gap 14 (12-20); Blood Urea Nitrogen 20 mg/dL (9-16); Calcium 8.4 mg/dL (8.4-10.2); Carbon Dioxide 23 mmol/L (22-29); Chloride 101 mmol/L (96-108); Creatinine Clr Calc Pharmacy 87.1; Estimated Glomerular Filt Rate > 60; Glucose Random 169 mg/dL (60-115); Potassium 3.4 mmol/L (3.3-5.1); Sodium 135 mmol/L (135-145)
[2022-12-21 21:59] LABS: SLIDE REVIEW VERIFIED
[2022-12-21 22:03] LABS: Lactic Acid 1.7 mmol/L (0.5-2.0)
[2022-12-21 22:53] VITALS: BP 154/73; PULSE 82; RESP 18; TEMP 36.9; O2SAT 92
--- NOTE | 2022-12-21 23:08 | P.HPHOSP_ITS ---
History of Present Illness Date of Service: 12/21/22 Chief Complaint: Bacteremia This is a 82-year-old male with pertinent history of CVA status post PEG tube placement, insulin-dependent diabetes mellitus, essential hypertension, mixed hyperlipidemia was called to the emergency department for positive blood cultu res. Patient was seen in the ER on 12/20 for generalized weakness and cough. He was discharged with oral antibiotics. He was called to the ER as blood culture showed Gram-positive cocci in both bottles. The daughter at bedside states that the patient have been coughing and feeling weak. No fever or chills. Unable to obtain review of systems. 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 Mother No problems noted. Surgical History History of surgery Social History Household Members: Other Household Members Other:: daughter Housing: House Do you presently have visiting nurse or other home services: No Alcohol intake: never Patient Tobacco Use Status: Never used Tobacco e-Cigarette/Vaping Use: Never Used Advance Directives: No Advance Directives Information Provided: No service: No Current occupational status: retired Meds Allergies Allergy/AdvReac Type Severity Reaction Status Date / Time No Known Allergies Allergy Verified 12/20/22 18:02 Active Medications: Current Medications Vancomycin HCl (Vancomycin/Ns) 2,000 mg in 520 mls @ 260 mls/hr IV ONCE ONE Stop: 12/21/22 23:14 Last Admin: 12/21/22 22:26 Dose: 260 mls/hr Pharmacy Consult (Consult Rx Perform Med Rec) 1 each MISCELLANE ONCE PRN PRN Reason: Consult order Home Medications Medication Instructions Recorded Confirmed Last Taken Type aspirin 81 mg tablet,delayed 81 mg PO DAILY 08/26/20 07/02/22 Unknown History release (Adult Aspirin Regimen) sertraline 50 mg tablet 50 mg PO DAILY 08/26/20 07/02/22 Unknown History tamsulosin 0.4 mg capsule 0.4 mg PO DAILY 08/26/20 07/02/22 Unknown History blood sugar diagnostic #10 ea 05/20/21 03/03/22 Unknown History lancets 28 gauge #100 ea 05/20/21 03/03/22 Unknown History atorvastatin 10 mg tablet 10 mg PO BEDTIME 02/12/22 07/02/22 Unknown History blood sugar diagnostic (FreeStyle 08/05/22 Unknown History Lite Strips) blood-glucose meter (FreeStyle 08/05/22 Unknown History Lite Meter kit) lancets 28 gauge (FreeStyle 08/05/22 Unknown History Lancets) Physical Exam Vital Signs and Narrative: Vital Signs: Last Vital Signs Temp 98.4 F 12/21/22 22:53 Pulse 82 12/21/22 22:53 Resp 18 12/21/22 22:53 BP 154/73 H 12/21/22 22:53 Pulse Ox 92 12/21/22 22:53 O2 Del Method 12/21/22 22:53 BMI result Body Mass Index 31.3 Middle-aged male lying in bed in no distress Neck supple, no JVD Regular rate and rhythm, S1-S2 heard decreased breath sounds at bases, no wheezing Abdomen soft nontender, no guarding, no rigidity, peg tube in place with surrounding skin clean Patient is awake, alert and disoriented, non conversation Psych: Normal mood No pedal edema Results Labs 12/21/22 21:31 12/21/22 21:31 Labs: Laboratory Results - last 24 hr 12/21/22 12/21/22 12/21/22 21:31 21:31 21:48 MCV 70.0 L MCH 22.4 L MCHC 32.0 RDW 15.2 Plt Count 138 L MPV 11.2 Immature Gran % (Auto) 0.3 Neut % (Auto) 49.8 Lymph % (Auto) 33.3 [place] % (Auto) 13.9 H Eos % (Auto) 2.4 Baso % (Auto) 0.3 Lymph # (Auto) 1.9 [place] # (Auto) 0.8 Eos # (Auto) 0.1 Baso # (Auto) 0.0 Abs Immat Gran (auto) 0.02 Absolute Neuts (auto) 2.9 Absolute Nucleated RBC 0.000 Nucleated RBC % (auto) 0.0 Smear Tech's Comments VERIFIED Anion Gap 14 Estim Creat Clear Calc 87.1 Estimated GFR > 60 Random Glucose 169 H Lactic Acid 1.7 Calcium 8.4 Imaging Radiologist's Impressions: Impressions Chest X-Ray 12/21/22 22:15 IMPRESSION: No acute abnormality of chest. No focal consolidation. Prominence of bronchovascular markings accentuated by low inspiratory effort. Assessment and Plan (1) Gram-positive bacteremia: Status: Acute Plan This is a 82-year-old male with pertinent history of CVA status post PEG tube placement, insulin-dependent diabetes mellitus, essential hypertension, mixed hyperlipidemia was called to the emergency department for positive blood cultures. #. Gram-positive bacteremia: Unclear etiology. Patient does have imaging concerning for aspiration pneumonia. Will initiate empiric IV antibiotics. Co nsulted infectious disease. Follow blood cultures. #. essential hypertension: Continue home medications through PEG tube #. insulin-dependent diabetes mellitus: Initiating Accu-Cheks with sliding scale insulin every 6 hours #. history of CVA: On aspirin and statin med rec pending DVT prophylaxis: Lovenox 40 mg daily DNR/ DNI NPO. On tube feeding Admit as inpatient and will require two night minimum hospital stay for IV antibiotics Time Spent With Patient Time: Total time managing care of this patient today ____ minutes. Quality Stroke Does the patient have a stroke diagnosis?: No VTE Prior VTE?: No VTE Risk Level:: Medical - moderate - high VTE Device Contraindication: Treatment Not Indicated VTE Drug Contraindication: N/A - Med Ordered
--- OUTSIDE RECORDS SUMMARY | 2022-12-21 23:29 | XMS_ITS | Continuity of Care Document ---
:1940 Author Organization [facility] Address [address] [place] [id number]- Care Team Providers Name Role Phone Carrol Mtz DO Primary Care Physician Encounter [facility] Date(s): 05/06/20 - 06/29/[address] [address]- [facility] Attending Physician: Antoine Holt MD Admitting Physician: Antoine Holt MD Referring Physician: Antoine Holt MD
--- OUTSIDE RECORDS SUMMARY | 2022-12-21 23:29 | XMS_ITS | Continuity of Care Document ---
:1940 Author Organization [facility] Address [address] [place] [address]- Care Team Providers Name Role Phone Joy Carrol Maya DO Primary Care Physician Encounter [facility] Date(s): 07/11/20 - 07/11/[address] [address]- [facility] Discharge Disposition: A-D/C Home Attending Physician: Addy Hughes MD Admitting Physician: Addy Hughes MD Referring Physician: Not on Staff, Referring MD Allergies, Adverse Reactions, Alerts Substance Reaction Severity Status NKA Active Immunizations Given and Recorded Vaccine Date Status Refusal Reason tetanus/diphtheria/pertussis, acel(Tdap) 07/11/20 Given Results Radiology Reports Exam Date Time Procedure Performing Provider Status 07/11/20 1:34 PM Shoulder Min 2 Views Left Babs Valentine; Omid (Verified) Notes:(Shoulder Min 2 Views Left) Reason For Exam: with Pain;TraumaRESULT: Shoulder Min 2 Views Left Shoulder Min 2 Views Left, 3 views Hx of Present Illness: fall approx 14 steps, no LOC, c/o neck and right hip pain. Reason: Trauma, Pain; Clinical Question(s): Fracture COMPARISON: None. FINDINGS: No fracture or dislocation. No arthritic change of the glenohumeral joint. Normal AC joint and portions of the clavicle included on the exam. No calcification of the rotator cuff. IMPRESSION: No acute displaced fracture. I have personally reviewed the images and I agree with this report. WSN: [id number] Ordering Physician: Babs Bah Dictated By: Chuy Avila DO Dictated Date/Time: 07/11/20 2:41 pm Reviewed By: Nolvia Moreno MD Signed By: Nolvia Moreno MD Signed Date/Time: 07/11/20 2:46 pm Transcribed By: BRIANNA Transcribed Date/Time: 07/11/20 1:43 pm Exam Date Time Procedure Performing Provider Status 07/11/20 1:34 PM XR Hip Comp 2 Views Right Babs Valentine; Oimd (Verified) Notes:(XR Hip Comp 2 Views Right) Reason For Exam: TraumaRESULT: Hip Comp 2 Views Right Hip Comp 2 Views Right Hx of Present Illness: comes from home, unsteady gait, fall approx 14 steps, no LOC, C-collar in place, on ASA, c o neck and right hip pain.; Reason: Trauma; Clinical Question(s): Fracture COMPARISON: None. FINDINGS: No fracture or dislocation. Well preserved joint space. Normal femoral head contour without evidence of AVN. Normal soft tissues. IMPRESSION: Normal. WSN: [id number] Ordering Physician: Babs Bah Dictated By: Felisha Leblanc MD Dictated Date/Time: 07/11/20 1:39 pm Reviewed By: Felisha Leblanc MD Signed By: Felisha Leblanc MD Signed Date/Time: 07/11/20 1:39 pm Transcribed By: BRIANNA Transcribed Date/Time: 07/11/20 1:38 pm Vital Signs Most recent to oldest [Reference 1 2 3 Range]: Oxygen Saturation [94-100 %] 98 % 98 % 95 % (07/11/20 4:18 PM) (07/11/20 2:53 PM) (07/11/20 12:13 PM) Pulse Rate [55-90 bpm] 80 bpm 79 bpm 82 bpm (07/11/20 4:18 PM) (07/11/20 2:53 PM) (07/11/20 12:13 PM) Blood Pressure [90-138/55-84 mm 164/87 mm Hg 170/96 mm Hg 192/87 mm Hg Hg] *H* *H* *H* (07/11/20 4:18 PM) (07/11/20 2:53 PM) (07/11/20 12:13 PM) Respiratory Rate [16-30 br/min] 18 br/min 18 br/min 24 br/min (07/11/20 4:18 PM) (07/11/20 2:53 PM) (07/11/20 12:55 PM) Temperature [96.8-100.4 DegF] 97.7 DegF 97.6 DegF 97 .6 DegF (07/11/20 4:18 PM) (07/11/20 2:53 PM) (07/11/20 10:25 AM) Liters per Minute 2 L/min (07/11/20 10:25 AM) Mode of Delivery (Oxygen) Room air Room air Room a ir (07/11/20 4:18 PM) (07/11/20 2:53 PM) (07/11/20 12:13 PM) Blood pressure sites Arm, right Arm, left Arm, left (07/11/20 4:18 PM) (07/11/20 2:53 PM) (07/11/20 12:13 PM) Temperature Route Oral Oral Oral (07/11/20 4:18 PM) (07/11/20 2:53 PM) (07/11/20 10:25 AM)
--- OUTSIDE RECORDS SUMMARY | 2022-12-21 23:29 | XMS_ITS | Continuity of Care Document ---
:1940 Author Organization [facility] Address [address] [place] [address], [address] Floor, [address] [place] [address]- Care Team Providers Name Role Phone Carrol Mtz DO Primary Care Physician Encounter [facility] Date(s): 01/13/21 - 01/20/21 [facility] [address] [place] [address], [address] Floor, [address] [place] [id number] Attending Physician: Marta Licea MD Referring Physician: Carrol Mtz DO
--- OUTSIDE RECORDS SUMMARY | 2022-12-21 23:29 | XMS_ITS | Continuity of Care Document ---
:1940 Author Organization [facility] Address [address] [facility], 3rd Floor, [address] [place] [address]- Care Team Providers Name Role Phone Carrol Mtz DO Primary Care Physician Encounter [facility] Date(s): 01/13/21 - 02/12/21 [facility] [address] [facility], 3rd Floor, [address] [place] [address] Attending Physician: Jamari Brown Admitting Physician: Jamari Brown Referring Physician: Jamari Brown
--- OUTSIDE RECORDS SUMMARY | 2022-12-21 23:29 | XMS_ITS ---
:1940 Author Organization [facility] Address [address] [place] [address] Care Team Providers Name Role Phone Giorgio AbrahamFlipClayton Unavailable Unavailable PROBLEMS Type Condition ICD9-CM SET73-GH Onset Condition SNOMED Cod e Code Code Dates Status Problem Dysphagia R13.10 Active 55754821 Problem Gastrojejunostomy Z93.4 Active tube status ALLERGIES No Known Allergies ENCOUNTERS Encounter Location Date Diagnosis [address] Oct, [facility] [address] [place] [address] Oct, Dysphagi a R13.10 and [facility] [address] [place], [place] Gastrojeju nostomy tube status [id number] Jul, [facility] [address] [place] [address] [facility] [address] [facility] Jun, [place], [place] [id number] IMMUNIZATIONS Vaccine Route Administration Date Status Influenza Unknown Oct 08, 2022 Administered SOCIAL HISTORY Qualifiers Date Never Smoker REASON FOR REFERRAL FUNCTIONAL STATUS PLAN OF CARE Activity Details Follow Up prn Reason: VITAL SIGNS Weight 165 lbs 2022-10-28 Height 64 in 2022-10-28 BMI 28.32 kg/m2 2022-10-28 Temperature 97.9 degrees Fahrenheit 2022-10-28 Blood pressure systolic 000 mm Hg 2022-10-28 Blood pressure diastolic 00 mm Hg 2022-10-28 MEDICATIONS Medication Instructions Dosage Frequency Start End Duration Statu s Date Date Tamsulosin HCl 0.4 MG TAKE 1 90 Ac tive CAPSULE BY MOUTH DAILY. TAKE 30 MINS AFTER SAME MEAL EVERY DAY. Vitamin B-12 500 MCG TAKE 1 30 Act august TABLET BY MOUTH EVERY DAY Sertraline HCl 50 MG 90 Act august amLODIPine Besylate 90 Acti ve 2.5 MG Vitamin B 12 500 MCG Orally Once a 1 tablet 24h 30 d ay(s) Active day Lisinopril 10 MG Orally Once a 1 tablet 24h 30 day(s ) Active day FreeStyle Lancets - USE TO 90 Acti ve TEST BLOOD SUGAR 3 TIMES DAILY NovoLOG FlexPen 100 as Acti ve UNIT/ML directed Finasteride 5 MG Orally Once a 1 tablet 24h 30 day(s ) Active day Aspirin Low Dose 81 TAKE 1 90 Acti ve MG TABLET BY MOUTH EVERY DAY Vitamin D-3 25 MCG Orally Once a 1 capsule 24h 30 da y(s) Active (1000 UT) day hydroCHLOROthiazide TAKE 1 90 Acti ve 25 MG TABLET BY MOUTH EVERY DAY Atorvastatin Calcium 90 Act august 10 MG PROCEDURES Procedure Date Ordered Result Body Site PATIENT NOT ELIG D/T ACTIVE DX HTN Oct 28, 2022 Pt scrn tbco id as non user Oct 28, 2022 DOC MEDS VERIFIED W/PT OR RE Oct 28, [address] GA[address] TUBE Jul 06, 2022 RESULTS Name Result Date Reference Range Complete Blood Count no Diff 2022-07-08 White Blood Count 6.8 4.8-10.8 Red Blood Count 4.61 4.60-5.80 Hemoglobin 10.2 14.0-18.0 Hematocrit 31.8 42.0-52.0 Mean Corpuscular Volume 69.0 80.0-98. 0 Mean Corpuscular Hemoglobin 22.1 27.0 -33.0 Mean Corpuscular HGB Conc 32.1 31.0-3 6.0 Red Cell Distribution Width 14.7 11.0 -16.0 Platelet Count 206 160-400 Mean Platelet Volume 11.9 9.4-12.4 NRBC Pct Auto 0.0 0.0-0.2 NRBC Abs Auto 0.000 0.0-0.012 REASON FOR VISIT 07/08 EGD report, Patient presents today for dysphagia & g-tube, ? on 2 meds, DYSPHAGIA Insurance Providers [facility] Member Patient Patient Patient Patient Patient Subscriber Subscriber Subscriber Group Insurance Plan Plan Plan Plan ID Relationship Address Phone Name Date of ID Name Date of No Type Insurance Insurance Insurance Coverage to Subscriber Address Phone Name Dates MEDICAID [address] MEDICAID self [place] [id number] [facility] [id number] OF [facility] [place] [address] [facility] [address] MEDICARE [address] MEDICARE self [place]AD [id number] [place] [address] [place] [phone]
[2022-12-21 23:34] LABS: COVID-19 Test Negative (Negative); IDNOW Serial# 6674DD1D
--- NOTE | 2022-12-21 23:42 | PC.NURSE ---
assumed care of pt at this time pt resting quietly while watching tv with at bedside, no apparent distress
[2022-12-22] MEDS: 0.9 % Sodium Chloride Flush 3 ML SYRINGE IVFLUSH ×4 (00:40→22:23)
[2022-12-22] MEDS: Enoxaparin Sodium 40 MG/0.4 ML SYRINGE SUBCUT ×2 (00:40→22:25)
--- NOTE | 2022-12-22 00:48 | PC.NURSE ---
called pharmacy to verify meds
[2022-12-22] MEDS: Ampicillin Sodium/Sulbactam Na 3 GM VIAL IV ×4 (01:45→19:40)
[2022-12-22 02:14] VITALS: BP 155/77; PULSE 75; RESP 20; TEMP 36.9; O2SAT 94
[2022-12-22 02:16] LABS: Glucose, Whole Blood 135 mg/dL (60-115)
--- NOTE | 2022-12-22 02:26 | PC.NURSE ---
per protocol Humalog held- no insulin coverage for POC 135
--- NOTE | 2022-12-22 04:02 | PC.NURSE ---
pt resting quietly while watching tv, while family member at bedside
[2022-12-22 05:41] LABS: Glucose, Whole Blood 109 mg/dL (60-115)
[2022-12-22 05:42] LABS: MANUAL DIFF FLAG NO
[2022-12-22 05:52] LABS: Basophils Percent Auto 0.6 % (0-2); Eosinophils Absolute Auto 0.2 X10*3/uL (0.0-0.4); Eosinophils Percent Auto 3.1 % (0-4); Hematocrit 35.2 % (42.0-52.0); Hemoglobin 11.6 g/dl (14.0-18.0); Imm Gran Abs Auto 0.01 X10*3/uL (0.00-0.03); Imm Gran Pct Auto 0.2 % (0.0-0.4); Lymphocytes Absolute Auto 1.4 X10*3/uL (1.2-4.9); Mean Corpuscular Hemoglobin 22.9 pg (27.0-33.0); Mean Corpuscular Volume 69.6 fL (80.0-98.0); Mean Platelet Volume 11.6 fL (9.4-12.4); Monocytes Absolute Auto 0.6 X10*3/uL (0.1-1.2); Monocytes Percent Auto 12.9 % (2-11); Neutrophils Absolute Auto 2.6 x10*3/uL (2.0-8.3); Neutrophils Percent Auto 54.2 % (45-73); Platelet Count 126 X10*3/uL (160-400); Red Blood Count 5.06 X10*6/uL (4.60-5.80); White Blood Count 4.8 X10*3/uL (4.8-10.8)
[2022-12-22 06:04] LABS: Anion Gap 12 (12-20); Blood Urea Nitrogen 17 mg/dL (9-16); Carbon Dioxide 23 mmol/L (22-29); Chloride 103 mmol/L (96-108); Creatinine Clr Calc Pharmacy 95.4; Estimated Glomerular Filt Rate > 60; Glucose Random 116 mg/dL (60-115); Potassium 3.1 mmol/L (3.3-5.1); Sodium 135 mmol/L (135-145)
[2022-12-22 07:10] LABS: Glucose, Whole Blood 112 mg/dL (60-115)
[2022-12-22 07:19] VITALS: BP 152/76; PULSE 70; RESP 16; TEMP 36.9; O2SAT 94
--- NOTE | 2022-12-22 07:19 | PHA.PROG ---
Admission Date/Time: December 21, 2022 23:10 Indication: BACTEREMIA Weight in k.718 kg Serum Creatinine - Last 168 Hours 12/21/22 12/22/22 21:31 05:29 Creatinine 0.69 0.63 Estimated CrCl and GFR - Last 168 Hours 12/21/22 12/22/22 21:31 05:29 Estim Creat Clear Calc 87.1 95.4 Estimated GFR > 60 > 60 Vancomycin Loading Dose:1999 Current Vancomycin Dosing Regimen: 1500 Vancomycin Monitoring using AUC goal of 400 - 600 range with trough as surrogate marker: 498 Date and Time for next Vancomycin Level to be drawn: 12/23 @ 1999 Pharmacist Comments on Vancomycin Plan: Vancomycin dosing will take advantage of [employer] as a clinical decision support tool that uses Bayesian modeling to calculate individual patient's pharmacokinetic parameters and forecast the patient's drug concentration time course with the target goal AUC 24 range of 400 - 600 mg/L/hr.
--- NOTE | 2022-12-22 07:51 | PHA.MEDREC ---
Pharmacy Consult ? Medication Reconciliation Pharmacy has completed the medication reconciliation. Pharmacy has reviewed med rec.
--- NOTE | 2022-12-22 07:55 | MHC.EDTECH ---
Helped family change linens, had new pad placed under patient.
--- NOTE | 2022-12-22 08:29 | PC.NURSE ---
pt is alert to verbal stimuli. daughter at bedside, pt primary language is senegalese. lungs - upper lobes - cta, christine lower lobes - diminished. heart sounds - regular. abd soft and non-tender. pt has a g-tube which is patent. no edema noted. pt/daughter aware of plan of care.
--- NOTE | 2022-12-22 10:30 | PC.NURSE ---
pt's daughter states that pt's g-tube is leaking, this rn assessed pt's g-tube has a pin hole at the top of the g-tube near the red rubber stopper. g-tube is usable and no significant drainage from the pin hole. hosp aware
--- NOTE | 2022-12-22 11:29 | MHC.CM.PN ---
Addendum entered by Marilee Delgadillo 12/22/22 11:33: HCP COMPLETED AND ON FILE Original Note: CM MET WITH PT AND DAUGHTER, MANUEL, AT BEDSIDE WITH THE ASSISTANCE OF A POLYETHYLENE COMBINER PT LIVES WITH MANUEL AND HAS KITCHEN WORKER SERVICES DAILY PT HAS A WALKER FOR DME HE GOES TO [facility] IN [place] FOR PRIMARY CARE, DOES NOT KNOW THE NAME PT IS COVID VAX PT IS APHASIC, BUT ABLE TO ANSWER Y/N QUESTIONS PT INDICATES HE DOES WANT TO COMPLETE A HCP NAMING MANUEL HIS AGENT HE IS UNABLE TO SIGN, CM WILL RETURN WITH WITNESSES IMM DELIVERED, COPY SENT TO [facility] CURRENT DC PLAN IS HOME WITH RESUMPTION OF KITCHEN WORKER SERVICES DAUGHTER TO TRANSPORT
--- NOTE | 2022-12-22 12:30 | PC.NURSE ---
pt's daughter at bedside (along with manufacturing intern) daughter is irate/very upset because she states that her father has not had anything to eat since yesterday and wants her father to eat/drink is po glucerna via g-tube now even though the pt is npo. daughter is also stating that she does not know who her father's rn nor is md is when this rn has been using A[facility] from first encounter this am. this rn along with pct has had multiple encounters with this pt/daughter today.
[2022-12-22 12:53] LABS: Glucose, Whole Blood 119 mg/dL (60-115)
--- NOTE | 2022-12-22 13:11 | HO.PM.IMPN ---
Subjective Subjective Date of Service: 12/22/22 Interval History: f/u bacteremia interval history: additional blood cultures pending Physical Exam Vital Signs: Vital Signs: Last Vital Signs Temp 98.4 F 12/22/22 07:19 Pulse 70 12/22/22 07:19 Resp 16 12/22/22 07:19 BP 152/76 H 12/22/22 07:19 Pulse Ox 94 12/22/22 07:19 O2 Del Method 12/22/22 07:19 BMI result Body Mass Index 31.3 Const: Other: Middle-aged male lying in bed in no distress Neck supple, no JVD Regular rate and rhythm, S1-S2 heard ?decreased breath sounds at bases, no wheezing Abdomen soft nontender, no guarding, no rigidity, peg tube in place with surrounding skin clean Patient is awake, alert and disoriented, non conversation Psych: Normal mood No pedal edema Objective Data Active Medications Acetaminophen (Acetaminophen 325 Mg Tablet) 650 mg PO Q6H PRN PRN Reason: Pain, Mild (Pain Scale 1-3) Amlodipine Besylate (Amlodipine Besylate 2.5 Mg Tablet) 2.5 mg PO DAILY [facility]; Protocol Ampicillin Sodium/Sulbactam Sodium (Ampicillin Sodium/Sulbactam Na 3 Gm Vial) 3 gm IV 0000,0600,1200,1800 [facility] Last Admin: 12/22/22 06:15 Dose: 3 gm Documented By: JESÚS Aspirin (Aspirin Enteric Coated 81 Mg Tablet.) 81 mg PO DAILY [facility] Atorvastatin Calcium (Atorvastatin Calcium 10 Mg Tablet) 10 mg PO BEDTIME [facility] Cyanocobalamin (Cyanocobalamin (Vitamin B-12) 500 Mcg Tablet) 500 mcg G-TUBE DAILY [facility] Dextrose (Dextrose 50 % 25 Gm/50 Ml Syringe) 25 gm IVPUSH Q15M PRN; Protocol PRN Reason: per Hypoglycemia Standing Ord. Enoxaparin Sodium (Enoxaparin Sodium 40 Mg/0.4 Ml Syringe) 40 mg SUBCUT BEDTIME [facility] Last Admin: 12/22/22 00:40 Dose: 40 mg Documented By: JESÚS Glucose (Glucose Gel 15 Gm Gel..Gram.) 15 gm PO Q15M PRN; Protocol PRN Reason: per Hypoglycemia Standing Ord. Hydrochlorothiazide (Hydrochlorothiazide 25 Mg Tablet) 25 mg PO DAILY [facility]; Protocol Vancomycin HCl 1,500 mg/ (Sodium Chloride) 500 mls @ 333.333 mls/hr IV Q24H [facility] Insulin Human Lispro (Insulin Lispro 100 Unit/Ml 3 Ml Vial) 0 unit SUBCUT 0000,0600,1200,1800 [facility]; Protocol Last Admin: 12/22/22 05:39 Dose: Not Given Documented By: JESÚS Non-Admin Reason: No Insulin Coverage Lisinopril (Lisinopril 20 Mg Tablet) 20 mg PO DAILY [facility]; Protocol Melatonin (Melatonin 3 Mg Tablet) 6 mg PO BEDTIME PRN PRN Reason: Insomnia Ondansetron HCl (Ondansetron Hcl 4 Mg/2 Ml Vial) 4 mg IVPUSH Q8H PRN PRN Reason: Nausea and Vomiting Pharmacy Consult (Consult Rx Perform Med Rec) 1 each MISCELLANE ONCE PRN PRN Reason: Consult order Pharmacy Consult (Consult Rx Vancomycin Dosing) 1 each MISCELLANE DAILY PRN PRN Reason: Consult order Sertraline HCl (Sertraline Hcl 50 Mg Tablet) 50 mg PO DAILY [facility] Sodium Chloride (0.9 % Sodium Chloride Flush 3 Ml Syringe) 3 ml IVFLUSH QSHIFT [facility] Last Admin: 12/22/22 08:24 Dose: 3 ml Documented By: JOSEY Tamsulosin HCl (Tamsulosin Hcl 0.4 Mg Capsule) 0.4 mg PO DAILY [facility] Vitamin D (Cholecalciferol (Vitamin D3) 25 Mcg Tablet) 50 mcg PO DAILY [facility] Labs 12/22/22 05:29 12/22/22 05:29 Labs: Laboratory Results - last 24 hr 12/21/22 12/21/22 12/21/22 21:31 21:31 21:48 MCV 70.0 L MCH 22.4 L MCHC 32.0 RDW 15.2 Plt Count 138 L MPV 11.2 Immature Gran % (Auto) 0.3 Neut % (Auto) 49.8 Lymph % (Auto) 33.3 [place] % (Auto) 13.9 H Eos % (Auto) 2.4 Baso % (Auto) 0.3 Lymph # (Auto) 1.9 [place] # (Auto) 0.8 Eos # (Auto) 0.1 Baso # (Auto) 0.0 Abs Immat Gran (auto) 0.02 Absolute Neuts (auto) 2.9 Absolute Nucleated RBC 0.000 Nucleated RBC % (auto) 0.0 Smear Tech's Comments VERIFIED Anion Gap 14 Estim Creat Clear Calc 87.1 Estimated GFR > 60 POC Glucose Random Glucose 169 H Lactic Acid 1.7 Calcium 8.4 COVID-19 (MARIAN) [employer] 12/21/22 12/22/22 12/22/22 23:04 02:09 05:29 MCV 69.6 L MCH 22.9 L MCHC 33.0 RDW 15.0 Plt Count 126 L MPV 11.6 Immature Gran % (Auto) 0.2 Neut % (Auto) 54.2 Lymph % (Auto) 29.0 [place] % (Auto) 12.9 H Eos % (Auto) 3.1 Baso % (Auto) 0.6 Lymph # (Auto) 1.4 [place] # (Auto) 0.6 Eos # (Auto) 0.2 Baso # (Auto) 0.0 Abs Immat Gran (auto) 0.01 Absolute Neuts (auto) 2.6 Absolute Nucleated RBC 0.000 Nucleated RBC % (auto) 0.0 Smear Tech's Comments Anion Gap Estim Creat Clear Calc Estimated GFR POC Glucose 135 H Random Glucose Lactic Acid Calcium COVID-19 (MARIAN) Negative [employer] See Note 12/22/22 12/22/22 12/22/22 05:29 05:35 06:59 MCV MCH MCHC RDW Plt Count MPV Immature Gran % (Auto) Neut % (Auto) Lymph % (Auto) [place] % (Auto) Eos % (Auto) Baso % (Auto) Lymph # (Auto) [place] # (Auto) Eos # (Auto) Baso # (Auto) Abs Immat Gran (auto) Absolute Neuts (auto) Absolute Nucleated RBC Nucleated RBC % (auto) Smear Tech's Comments Anion Gap 12 Estim Creat Clear Calc 95.4 Estimated GFR > 60 POC Glucose 109 112 Random Glucose 116 H Lactic Acid Calcium 8.0 L COVID-19 (MARIAN) COVID-[employer] 12/22/22 12:41 MCV MCH MCHC RDW Plt Count MPV Immature Gran % (Auto) Neut % (Auto) Lymph % (Auto) [place] % (Auto) Eos % (Auto) Baso % (Auto) Lymph # (Auto) [place] # (Auto) Eos # (Auto) Baso # (Auto) Abs Immat Gran (auto) Absolute Neuts (auto) Absolute Nucleated RBC Nucleated RBC % (auto) Smear Tech's Comments Anion Gap Estim Creat Clear Calc Estimated GFR POC Glucose 119 H Random Glucose Lactic Acid Calcium COVID-19 (MARIAN) COVID-19 Clin Com Assessment and Plan (1) Gram-positive bacteremia: Status: Acute Plan This is a 82-year-old male with pertinent history of CVA status post PEG tube placement, insulin-dependent diabetes mellitus, essential hypertension, mixed hyperlipidemia was called to the emergency department for positive blood cultures. #. Gram-positive bacteremia: Unclear etiology. Patient does have imaging concerning for aspiration pneumonia. Will initiate empiric IV vancomycin. Consulted infectious disease. Follow blood cultures. #. essential hypertension: Continue home medications through PEG tube #. insulin-dependent diabetes mellitus: Initiating Accu-Cheks with sliding scale insulin every 6 hours #. history of CVA: On aspirin and statin med rec completed order tube feed DVT prophylaxis: Lovenox 40 mg daily DNR/ DNI NPO. On tube feeding Admit as inpatient and will require two night minimum hospital stay for IV antibiotics Time Spent With Patient Time: Total time managing care of this patient today ____ minutes. Quality Stroke Does the patient have a stroke diagnosis?: No VTE Prior VTE?: No VTE Risk Level:: Medical - moderate - high VTE Device Contraindication: Treatment Not Indicated VTE Drug Contraindication: N/A - Med Ordered
--- NOTE | 2022-12-22 13:20 | PC.NURSE ---
dr. moser along with this rn is at bedside, plan of care is reiterated to the pt/daughter again at this time.
[2022-12-22 13:31] VITALS: BP 163/77; PULSE 77; RESP 16; TEMP 36.7; O2SAT 96
[2022-12-22] MEDS: amLODIPine Besylate 2.5 MG TABLET PO (13:33)
--- NOTE | 2022-12-22 14:16 | MHC.EDTECH ---
patient was incontinent of urine, patient was washed up, turned and given new linens. patient resting comfortably with visitor at bedside
[2022-12-22 15:59] VITALS: BP 135/75; PULSE 59; RESP 18; O2SAT 94
--- NOTE | 2022-12-22 16:04 | W.PM.IDCN ---
History of Present Illness Data of Consult Service Date: 12/22/22 Requesting physician: Max Feldman Primary Care Provider: Unknown Physician HPI Reason for consult: bacteremia He presented with one week cough and weakness. He went to emergency room and did get script reported for cefuroxime. He has no chills at this time. 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 Mother No problems noted. Family history: reviewed and not pertinent Surgical History Surgical History History of surgery Social History Social History Household Members: Other Household Members Other:: daughter Housing: House Do you presently have visiting nurse or other home services: No Alcohol intake: never Patient Tobacco Use Status: Never used Tobacco e-Cigarette/Vaping Use: Never Used Advance Directives: No Advance Directives Information Provided: No Nutrition Risks: Receiving home tube feeding or CPN service: No Current occupational status: retired [employer] Allergies Allergy/AdvReac Type Severity Reaction Status Date / Time No Known Allergies Allergy Verified 12/20/22 18:02 Active Medications: Current Medications Acetaminophen (Acetaminophen 325 Mg Tablet) 650 mg PO Q6H PRN PRN Reason: Pain, Mild (Pain Scale 1-3) Amlodipine Besylate (Amlodipine Besylate 2.5 Mg Tablet) 2.5 mg PO DAILY [facility]; Protocol Last Admin: 12/22/22 13:33 Dose: 2.5 mg Ampicillin Sodium/Sulbactam Sodium (Ampicillin Sodium/Sulbactam Na 3 Gm Vial) 3 gm IV 0000,0600,1200,1800 [facility] Last Admin: 12/22/22 13:33 Dose: 3 gm Aspirin (Aspirin Enteric Coated 81 Mg Tablet.Dr) 81 mg PO DAILY [facility] Atorvastatin Calcium (Atorvastatin Calcium 10 Mg Tablet) 10 mg PO BEDTIME [facility] Cyanocobalamin (Cyanocobalamin (Vitamin B-12) 500 Mcg Tablet) 500 mcg G-TUBE DAILY [facility] Dextrose (Dextrose 50 % 25 Gm/50 Ml Syringe) 25 gm IVPUSH Q15M PRN; Protocol PRN Reason: per Hypoglycemia Standing Ord. Enoxaparin Sodium (Enoxaparin Sodium 40 Mg/0.4 Ml Syringe) 40 mg SUBCUT BEDTIME [facility] Last Admin: 12/22/22 00:40 Dose: 40 mg Glucose (Glucose Gel 15 Gm Gel..Gram.) 15 gm PO Q15M PRN; Protocol PRN Reason: per Hypoglycemia Standing Ord. Hydrochlorothiazide (Hydrochlorothiazide 25 Mg Tablet) 25 mg PO DAILY [facility]; Protocol Vancomycin HCl 1,500 mg/ (Sodium Chloride) 500 mls @ 333.333 mls/hr IV Q24H [facility] Insulin Human Lispro (Insulin Lispro 100 Unit/Ml 3 Ml Vial) 0 unit SUBCUT 0000,0600,1200,1800 [facility]; Protocol Last Admin: 12/22/22 13:33 Dose: Not Given Lisinopril (Lisinopril 20 Mg Tablet) 20 mg PO DAILY [facility]; Protocol Melatonin (Melatonin 3 Mg Tablet) 6 mg PO BEDTIME PRN PRN Reason: Insomnia Ondansetron HCl (Ondansetron Hcl 4 Mg/2 Ml Vial) 4 mg IVPUSH Q8H PRN PRN Reason: Nausea and Vomiting Pharmacy Consult (Consult Rx Perform Med Rec) 1 each MISCELLANE ONCE PRN PRN Reason: Consult order Pharmacy Consult (Consult Rx Vancomycin Dosing) 1 each MISCELLANE DAILY PRN PRN Reason: Consult order Sertraline HCl (Sertraline Hcl 50 Mg Tablet) 50 mg PO DAILY [facility] Sodium Chloride (0.9 % Sodium Chloride Flush 3 Ml Syringe) 3 ml IVFLUSH QSHIFT [facility] Last Admin: 12/22/22 16:03 Dose: 3 ml Tamsulosin HCl (Tamsulosin Hcl 0.4 Mg Capsule) 0.4 mg PO DAILY [facility] Vitamin D (Cholecalciferol (Vitamin D3) 25 Mcg Tablet) 50 mcg PO DAILY [facility] Home Medications Medication Instructions Recorded Confirmed Last Taken Type aspirin 81 mg tablet,delayed 81 mg PO DAILY 08/26/20 12/22/22 Unknown History release (Adult Aspirin Regimen) sertraline 50 mg tablet 50 mg PO DAILY 08/26/20 12/22/22 Unknown History tamsulosin 0.4 mg capsule 0.4 mg PO DAILY 08/26/20 12/22/22 Unknown History blood sugar diagnostic #10 ea 05/20/21 03/03/22 Unknown History lancets 28 gauge #100 ea 05/20/21 03/03/22 Unknown History atorvastatin 10 mg tablet 10 mg PO BEDTIME 02/12/22 12/22/22 Unknown History blood sugar diagnostic (FreeStyle 08/05/22 Unknown History Lite Strips) blood-glucose meter (FreeStyle 08/05/22 Unknown History Lite Meter kit) lancets 28 gauge (FreeStyle 08/05/22 Unknown History Lancets) Physical Exam Vital Signs: Vital Signs: Last Vital Signs Temp 98.0 F 12/22/22 13:31 Pulse 59 12/22/22 15:59 Resp 18 12/22/22 15:59 BP 135/75 12/22/22 15:59 Pulse Ox 94 12/22/22 15:59 O2 Del Method 12/22/22 15:59 BMI result Body Mass Index 31.3 Const: General: cooperative HEENT: Head: Yes normal to inspection Face and sinus: Yes normal facial exam Mouth: Normal oral and palatal mucosa present Teeth and gingiva: dentition normal Eyes: General: appearance normal, both eyes and all related structures Pupils: Equal, round and reactive pupils present Resp: Effort & Inspection: normal respiratory effort Cardio: Rate: regular rate Rhythm: regular rhythm GI: Palpation (GI): Soft to palpation and nontender : General: Yes no CVA tenderness Back/Spine/Pelvis: Back: no CVA tenderness Skin: General skin exam: no rashes or lesions noted Neuro: General: moves all extremities Cranial nerves: Yes Equal, round and reactive pupils present Extrem: General: Yes normal to inspection Psych: Other: not able to give good history chronic encephalopathy Results Labs 12/22/22 05:29 12/22/22 05:29 Labs: Short CBC 12/21/22 12/22/22 Range/Units 21:31 05:29 WBC 5.7 4.8 (4.8-10.8) X10*3/uL Hgb 12.4 L 11.6 L (14.0-18.0) g/dl Hct 38.8 L 35.2 L (42.0-52.0) % Plt Count 138 L 126 L (160-400) X10*3/uL BMP 12/21/22 12/22/22 21:31 05:29 Sodium 135 135 Potassium 3.4 3.1 L Chloride 101 103 Carbon Dioxide 23 23 BUN 20 H 17 H Creatinine 0.69 0.63 Calcium 8.4 8.0 L Assessment and Plan (1) Bacteremia: Status: Acute He has possible staph aureus There is possible endocarditis There is no specific source seen at this time (2) Gram-positive bacteremia: Status: Acute (3) Cerebrovascular accident: Status: Acute Plan Continue Vancomycin Await cultures. Check echo evaluate endocarditis. Time Spent With Patient Time: Total time managing care of this patient today ____ minutes.
[2022-12-22 19:50] LABS: Glucose, Whole Blood 109 mg/dL (60-115)
--- NOTE | 2022-12-22 20:47 | PC.NURSE ---
RN to RN report given. PT will be transported to room 380. PT and family member aware of plan.
[2022-12-22 21:39] VITALS: BP 179/79; PULSE 56; RESP 18; TEMP 37.1; O2SAT 97
[2022-12-22] MEDS: vancomycin HCL 1,500 MG in 0.9 % Sodium Chloride 500 ML 333.33 MG IV (22:26)
[2022-12-22 22:27] VITALS: BMI 26.4
[2022-12-23 00:14] LABS: Glucose, Whole Blood 91 mg/dL (60-115)
[2022-12-23] MEDS: Ampicillin Sodium/Sulbactam Na 3 GM VIAL IV ×3 (00:18→12:48)
[2022-12-23 03:48] VITALS: BP 170/74; PULSE 56; RESP 16; TEMP 36.3; O2SAT 94
[2022-12-23 05:53] LABS: Glucose, Whole Blood 99 mg/dL (60-115)
[2022-12-23 07:21] VITALS: BP 161/73; PULSE 54; RESP 18; TEMP 36.6; O2SAT 92
--- NOTE | 2022-12-23 07:22 | CA_ITS ---
Transthoracic Echocardiogram Patient (Last, First, Middle): Jeff Brady, Gender: Male Date of : 1940 Age: 82 Procedure Date: 12/23/2022 Procedure Type: Transthoracic Echocardiogram Location: S3E Height: 170.18 cm Weight: 76.2 kg BSA: 1.88 m2 Heart Rate: 56 bpm BP: 161 / 73 mmHg Tourist Home Keeper: SB Referring MD: Max Feldman MD Symptoms: bacteremia,assess for endocarditis Study Quality: Fair w contrast ECG Rhythm: Bradycardia Conclusions: - Technically difficult study. - Poor Visualization of left and right ventricle. Overall the function appears normal. Right ventricle is not well visualized. - Limited 2D assessment of the valves. Findings Procedure Information Contrast agent, definity, is being given per protocol without apparent complications. The quality of the study was technically difficult. Left Ventricle The left ventricle was not well visualized. Normal left ventricular cavity size. The left ventricular systolic function is hyperdynamic. The visually estimated ejection fraction is >70%. There is no evidence of regional wall motion abnormalities. Abnormal diastolic function is noted. Spectral Doppler is indicative of an impaired relaxation filling pattern. E/E prime ratio is between 8 and 15 consistent with indeterminate filling pressures. There is moderate septal asymmetric hypertrophy. Right Ventricle The right ventricle was not well visualized. Atria The left atrium is normal in size. Aortic Valve The aortic valve was not well visualized. Mitral Valve The mitral valve was not well visualized. There is no mitral valve regurgitation. There is no mitral valve stenosis. Pulmonic Valve The pulmonic valve was not well visualized. Tricuspid Valve The tricuspid valve was not well visualized. Great Vessels All visible segments of the aorta are normal in size. The pulmonary artery was not well visualized. Venous The inferior vena cava was not well visualized. Pericardium/Pleural There is no evidence of pericardial effusion. Prior Study Comparison No significant change compared to prior study dated: 07/03/2022. Technically very limited study. Recommendations, Care & Conclusions Consider a GIO if clinically appropriate. Measurements 2D Linear Measurements IVSd: 1.46 0.6-0.9/0.6-1.0 cm LVIDd: 4.22 3.9-5.3/4.2-5.9 cm LVIDd Index: 2.24 2.4-3.2/2.2-3.1 cm/m2 LVPWd: 1.02 0.7-1.1 cm LA Diam: 3.70 2.7-3.8/3.0-4.0 cm LAIDs Index: 1.97 1.5-2.3 cm/m2 LV Mass: 234.64 67-162/88-224 g LV Mass Index: 124.81 43-95/49-115 g/m2 LVOT Diam: 2.30 3.0+(-)1.3 cm 2D Systolic Function EF 4C: 73.80 >55% EF 2C: 77.20 >55% EF BiP: 75.10 >55% Mitral Valve MV Pk E: 0.62 MV PK A: 0.95 MV Decel Time: 293.00 E/A: 0.70 E'Lateral: 6.74 E'Medial: 4.46 E/E' Med: 14.00 E/E' Lat: 9.20 PHT: 86.00 MVA PHT: 2.56 Decel Wells: 2.12 LVOT LVOT Pk Joo: 0.85 LVOT Mn Joo: 0.58 LVOT VTI: 0.19 LVOT Pk Grad: 3.00 LVOT Mn Grad: 2.00 LVOT Diam: 2.30 LVOT Area: 4.15 Diastolic Function MV Pk E: 0.62 MV Pk A: 0.95 E/A: 0.70 E'Medial: 4.46 E/E' Med: 14.00 E' Laterial: 6.74 E/E' Lat: 9.20 Right Ventricle TVS' Joo: 12.70 Great Vessels Aorta Sinus of Valsalva: 3.50 2.0-3.5 cm Updated in Other Vendor System with Status of Final Cr العلي MD electronically signed on 12/23/2022 4:37:25 PM with status of Final
[2022-12-23 07:34] LABS: Glucose, Whole Blood 90 mg/dL (60-115)
[2022-12-23 09:10] LABS: Creatinine Clr Calc Pharmacy 93.4; Estimated Glomerular Filt Rate > 60
[2022-12-23] MEDS: Cholecalciferol (Vitamin D3) 25 MCG TABLET 50 MCG PO (10:17)
[2022-12-23] MEDS: Tamsulosin HCL 0.4 MG CAPSULE PO (10:17)
[2022-12-23] MEDS: hydroCHLOROthiazide 25 MG TABLET PO (10:17)
[2022-12-23] MEDS: amLODIPine Besylate 2.5 MG TABLET PO (10:18)
[2022-12-23] MEDS: Sertraline HCL 50 MG TABLET PO (10:18)
[2022-12-23] MEDS: lisinopriL 20 MG TABLET PO (10:18)
[2022-12-23] MEDS: 0.9 % Sodium Chloride Flush 3 ML SYRINGE IVFLUSH ×3 (10:18→21:28)
[2022-12-23] MEDS: Cyanocobalamin (Vitamin B-12) 500 MCG TABLET G-TUBE (10:18)
[2022-12-23 10:21] VITALS: BMI 26.4
--- NOTE | 2022-12-23 10:37 | MHC.CLN ---
NUTRITION TUBE FEED ORDER REVIEWED. ADDED FREE WATER FLUSH 240 ML Q SHIFT. CONTINUE CURRENT TF ORDER. GLUCERNA 1.0 BOLUS FEED 350 ML SIX TIMES DAILY. FLUSH 240 ML WATER Q SHIFT. PROVIDES 2100 KCALS (27.4 KCALS/KG); 87.8 G PROTEIN (1.15 G/KG); 2510 ML FREE WATER FROM FORMULA AND FLUSH (32.8 ML/KG). SEE CLINICAL NUTRITION ASSESSMENT 12/23/22.
--- NOTE | 2022-12-23 11:09 | HO.PM.IMPN ---
Subjective Subjective Date of Service: 12/23/22 Interval History: follow-up on bacteremia No new issue overnight pain blood cultures negative over 24 hours. Physical Exam Vital Signs: Vital Signs: Last Vital Signs Temp 97.8 F 12/23/22 07:21 Pulse 54 12/23/22 07:21 Resp 18 12/23/22 07:21 BP 161/73 H 12/23/22 07:21 Pulse Ox 92 12/23/22 07:21 O2 Del Method 12/23/22 07:21 BMI result Body Mass Index 26.4 Const: Other: Middle-aged male lying in bed in no distress Neck supple, no JVD Regular rate and rhythm, S1-S2 heard ?decreased breath sounds at bases, no wheezing Abdomen soft nontender, no guarding, no rigidity, peg tube in place with surrounding skin clean Patient is awake, alert and disoriented, non conversation Psych: Normal mood No pedal edema Objective Data Active Medications Acetaminophen (Acetaminophen 325 Mg Tablet) 650 mg PO Q6H PRN PRN Reason: Pain, Mild (Pain Scale 1-3) Amlodipine Besylate (Amlodipine Besylate 2.5 Mg Tablet) 2.5 mg PO DAILY [facility]; Protocol Last Admin: 12/23/22 10:18 Dose: 2.5 mg Documented By: MARCELA Ampicillin Sodium/Sulbactam Sodium (Ampicillin Sodium/Sulbactam Na 3 Gm Vial) 3 gm IV 0000,0600,1200,1800 [facility] Last Admin: 12/23/22 05:10 Dose: 3 gm Documented By: DIVYA Atorvastatin Calcium (Atorvastatin Calcium 10 Mg Tablet) 10 mg PO BEDTIME [facility] Last Admin: 12/22/22 22:26 Dose: Not Given Documented By: ANNA Non-Admin Reason: NPO Cyanocobalamin (Cyanocobalamin (Vitamin B-12) 500 Mcg Tablet) 500 mcg G-TUBE DAILY [facility] Last Admin: 12/23/22 10:18 Dose: 500 mcg Documented By: MARCELA Dextrose (Dextrose 50 % 25 Gm/50 Ml Syringe) 25 gm IVPUSH Q15M PRN; Protocol PRN Reason: per Hypoglycemia Standing Ord. Enoxaparin Sodium (Enoxaparin Sodium 40 Mg/0.4 Ml Syringe) 40 mg SUBCUT BEDTIME [facility] Last Admin: 12/22/22 22:25 Dose: 40 mg Documented By: ANNA Glucose (Glucose Gel 15 Gm Gel..Gram.) 15 gm PO Q15M PRN; Protocol PRN Reason: per Hypoglycemia Standing Ord. Hydrochlorothiazide (Hydrochlorothiazide 25 Mg Tablet) 25 mg PO DAILY [facility]; Protocol Last Admin: 12/23/22 10:17 Dose: 25 mg Documented By: MARCELA Vancomycin HCl 1,500 mg/ (Sodium Chloride) 500 mls @ 333.333 mls/hr IV Q24H [facility] Last Infusion: 12/23/22 00:04 Dose: 0 mls/hr Documented By: ANNA Insulin Human Lispro (Insulin Lispro 100 Unit/Ml 3 Ml Vial) 0 unit SUBCUT 0000,0600,1200,1800 [facility]; Protocol Last Admin: 12/23/22 05:51 Dose: Not Given Documented By: DIVYA Non-Admin Reason: No Insulin Coverage Lisinopril (Lisinopril 20 Mg Tablet) 20 mg PO DAILY [facility]; Protocol Last Admin: 12/23/22 10:18 Dose: 20 mg Documented By: MARCELA Melatonin (Melatonin 3 Mg Tablet) 6 mg PO BEDTIME PRN PRN Reason: Insomnia Ondansetron HCl (Ondansetron Hcl 4 Mg/2 Ml Vial) 4 mg IVPUSH Q8H PRN PRN Reason: Nausea and Vomiting Pharmacy Consult (Consult Rx Perform Med Rec) 1 each MISCELLANE ONCE PRN PRN Reason: Consult order Pharmacy Consult (Consult Rx Vancomycin Dosing) 1 each MISCELLANE DAILY PRN PRN Reason: Consult order Sertraline HCl (Sertraline Hcl 50 Mg Tablet) 50 mg PO DAILY [facility] Last Admin: 12/23/22 10:18 Dose: 50 mg Documented By: MARCELA Sodium Chloride (0.9 % Sodium Chloride Flush 3 Ml Syringe) 3 ml IVFLUSH QSHIFT [facility] Last Admin: 12/23/22 10:18 Dose: 3 ml Documented By: MARCELA Tamsulosin HCl (Tamsulosin Hcl 0.4 Mg Capsule) 0.4 mg PO DAILY [facility] Last Admin: 12/23/22 10:17 Dose: 0.4 mg Documented By: MARCELA Vitamin D (Cholecalciferol (Vitamin D3) 25 Mcg Tablet) 50 mcg PO DAILY [facility] Last Admin: 12/23/22 10:17 Dose: 50 mcg Documented By: MARCELA Labs 12/22/22 05:29 12/23/22 08:37 Labs: Laboratory Results - last 24 hr 12/22/22 12/22/22 12/23/22 12:41 19:36 00:10 Estim Creat Clear Calc Estimated GFR POC Glucose 119 H 109 91 12/23/22 12/23/22 12/23/22 05:50 07:19 08:37 Estim Creat Clear Calc 93.4 Estimated GFR > 60 POC Glucose 99 90 Microbiology Microbiology Results: Microbiology 12/21/22 21:49 Blood Culture - Preliminary Blood - Venous No growth after 24 hours. 12/21/22 21:31 Blood Culture - Preliminary Blood - Venous No growth after 24 hours. Assessment and Plan (1) Gram-positive bacteremia: Status: Acute Plan 82-year-old male with pertinent history of CVA status post PEG tube placement, insulin-dependent diabetes mellitus, essential hypertension, mixed hyperlipidemia was called to the emergency department for positive blood cultures. #. Gram-positive bacteremia: Unclear etiology. Patient does have imaging concerning for aspiration pneumonia. Culture shows Staph species. Repeat culture negative at 24 hours. For now continue vancomycin. #. essential hypertension: Continue home medications through PEG tube #. insulin-dependent diabetes mellitus: Initiating Accu-Cheks with sliding scale insulin every 6 hours #. history of CVA: On aspirin and statin med rec completed order tube feed DVT prophylaxis: Lovenox 40 mg daily DNR/ DNI NPO. On tube feeding Need for inpatient: Bacteremia requiring IV antibiotics and the endocarditis workup and awaiting final cultures. Time Spent With Patient Time: Total time managing care of this patient today ____ minutes. Quality Stroke Does the patient have a stroke diagnosis?: No VTE Prior VTE?: No VTE Risk Level:: Medical - moderate - high VTE Device Contraindication: Treatment Not Indicated VTE Drug Contraindication: N/A - Med Ordered
[2022-12-23 11:47] LABS: Glucose, Whole Blood 108 mg/dL (60-115)
--- NOTE | 2022-12-23 13:00 | PC.NURSE ---
Unasyn ordered for 1200, rate confirmed with Pina Billingsley
[2022-12-23 16:00] VITALS: BP 166/77; PULSE 54; RESP 16; TEMP 36.6; O2SAT 94
[2022-12-23 16:13] LABS: Glucose, Whole Blood 133 mg/dL (60-115)
[2022-12-23 19:26] VITALS: BP 180/82; PULSE 52; RESP 16; TEMP 37.1; O2SAT 94
[2022-12-23 20:10] LABS: Vancomycin Random 10.8 mcg/mL (15-20)
[2022-12-23 20:14] LABS: Glucose, Whole Blood 107 mg/dL (60-115)
--- NOTE | 2022-12-23 20:15 | HE.PHANOTE ---
Vancomcyin Dosing Random level is 10.8 today, only after 2 doses. Patient is not at steady state yet therefore we will continue current regimen. Next level is scheduled for 12/25. Pharmacy will continue to monitor renal function. Gianna Benson, PinaD
[2022-12-23] MEDS: Enoxaparin Sodium 40 MG/0.4 ML SYRINGE SUBCUT (21:28)
[2022-12-23] MEDS: Atorvastatin Calcium 10 MG TABLET PO (21:28)
[2022-12-23] MEDS: vancomycin HCL 1,500 MG in 0.9 % Sodium Chloride 500 ML 333.33 MG IV (21:29)
[2022-12-23 23:31] LABS: Glucose, Whole Blood 131 mg/dL (60-115)
--- NOTE | 2022-12-24 03:00 | PC.NURSE ---
pt's daughter showed me where is the tube broke, end of tube before Y connector has hole.
[2022-12-24 03:59] VITALS: BP 166/81; PULSE 51; RESP 16; TEMP 36.2; O2SAT 93
[2022-12-24 06:08] LABS: Glucose, Whole Blood 115 mg/dL (60-115)
[2022-12-24 06:46] LABS: Creatinine Clr Calc Pharmacy 84.4; Estimated Glomerular Filt Rate > 60
[2022-12-24 07:47] VITALS: BP 170/80; PULSE 57; RESP 16; TEMP 36.6; O2SAT 93
--- NOTE | 2022-12-24 09:15 | PM.DS ---
DS: Providers Provider Date of Service: 12/24/22 Date of admission: 12/21/22 23:10 Primary care physician: Carrol Maya DO Consults: 12/21/22 23:16 Consult to Infectious Diseases Routine Consulting Provider: Lelia Millan Reason for consultation: gram positive bacteremia DS: Diagnosis Discharge Diagnosis (1) Gram-positive bacteremia: Status: Acute DS: Summary Hospital Course Hospital Course: Chief Complaint: Bacteremia This is a 82-year-old male with pertinent history of CVA status post PEG tube placement, insulin-dependent diabetes mellitus, essential hypertension, mixed hyperlipidemia was called to the emergency department for positive blood cultures.? Patient was seen in the ER on 12/20 for generalized weakness and cough.? He was discharged with oral antibiotics.? He was called to the ER as blood culture showed Gram-positive cocci in both bottles.? The daughter at bedside states that the patient have been coughing and feeling weak.? No fever or chills.? Unable to obtain review of systems. Hospital course: Patient was called to ED d/t positive blood cultures and was initiaated on Vanco and additional blood cultures were drawn. The earlier blood cultures turned out to be coag negative staph and likely skin contamination especially in light of repeat blood cultures negative and patient wihtout any other symptoms of bacteremia.. Therefore no indication for antibiotics at this time. Time Spent with Patient Time attestation: Total time managing care of this patient today ____ minutes. Discharge coordination time: Greater than 30 minutes Quality: Safe Use of Opioids Does Pt have an Active Cancer Diagnosis on the Problem List?: No Quality: Stroke Does the patient have a stroke diagnosis?: No Physical Exam Vital Signs: Vital Signs: Last Vital Signs Temp 97.8 F 12/24/22 07:47 Pulse 57 12/24/22 07:47 Resp 16 12/24/22 07:47 BP 170/80 H 12/24/22 07:47 Pulse Ox 93 12/24/22 07:47 O2 Del Method 12/24/22 07:47 BMI result Body Mass Index 26.4 DS: Data Data Completed and Pending Completed studies during hospitalization [Text1]: Procedures Insertion of Feeding Device into Stomach, Via Natural or Artificial Opening Endoscopic (07/02/22) Introduction of Other Thrombolytic into Peripheral Vein, Percutaneous Approach (07/02/22) Labs on day of discharge: Laboratory Results - last 24 hr 12/23/22 12/23/22 12/23/22 11:39 16:02 19:37 Creatinine Estim Creat Clear Calc Estimated GFR POC Glucose 108 133 H 107 Random Vancomycin 12/23/22 12/23/22 12/24/22 19:49 23:28 06:00 Creatinine 0.62 Estim Creat Clear Calc 84.4 Estimated GFR > 60 POC Glucose 131 H Random Vancomycin 10.8 L 12/24/22 06:02 Creatinine Estim Creat Clear Calc Estimated GFR POC Glucose 115 Random Vancomycin Preliminary micro results at discharge 12/21/22 21:49 Blood Culture - Preliminary Blood - Venous No growth after 48 hours. 12/21/22 21:31 Blood Culture - Preliminary Blood - Venous No growth after 48 hours. Discharge Plan Discharge Anticipated Discharge Date/Time: 12/24/22 09:06 Patient Disposition: Home, Self-Care Discharge Diagnosis: positive blood Referrals: Carrol Mtz DO [Primary Care Provider] - 1 Week Discharge Medications: Continued cyanocobalamin (vitamin B-12) 500 mcg tablet, sublingual 500 mcg sublingual DAILY 90 Days Qty: 90 1RF lisinopril 20 mg tablet 20 mg PO DAILY 90 Days Qty: 90 1RF cholecalciferol (vitamin D3) 50 mcg (2,000 unit) capsule 50 mcg PO DAILY Qty: 90 0RF sertraline 50 mg tablet 50 mg PO DAILY tamsulosin 0.4 mg capsule 0.4 mg PO DAILY aspirin [Adult Aspirin Regimen] 81 mg tablet,delayed release (DR/EC) 81 mg PO DAILY hydrochlorothiazide 25 mg tablet 25 mg PO DAILY 90 Days Qty: 90 2RF amlodipine 2.5 mg tablet 2.5 mg PO DAILY 90 Days Qty: 90 2RF (DME) lancets 28 gauge misc See Rx Instructions Not Applicable TID Qty: 100 Rx Instructions: As directed (DME) blood sugar diagnostic Strip See Rx Instructions Not Applicable TID Qty: 10 Rx Instructions: As directed atorvastatin 10 mg tablet 10 mg PO BEDTIME (DME) FreeStyle Kristine 2 [place] Misc See Rx Instructions .ROUTE .MEDSUPPLY Qty: 1 0RF Rx Instructions: As directed (DME) FreeStyle Kristine 2 Sensor Kit See Rx Instructions .ROUTE .MEDSUPPLY Qty: 2 11RF Rx Instructions: As directed every 2 weeks insulin asp prt-insulin aspart [Novolog Mix 70-30FlexPen U-100] 100 unit/mL (70-30) insulin pen See Rx Instructions subcut QAM 30 Days Qty: 30 6RF Rx Instructions: 13 units qam and 10units qpm subcut every morning; (DME) blood-glucose meter [FreeStyle Lite Meter] Kit See Rx Instructions .ROUTE Rx Instructions: As directed (DME) FreeStyle Lite Strips Strip See Rx Instructions .ROUTE Rx Instructions: As directed (DME) lancets [FreeStyle Lancets] 28 gauge misc See Rx Instructions .ROUTE Rx Instructions: As directed Discharge Orders: Discharge Order (Routine); Ordered 12/24/22 Ordered By: Max Feldman Diet: Advance to usual diet Activity on Discharge: As tolerated Stand Alone Forms: Patient Portal Discharge page Care Plan Goals: Exclude bacteremia Health Concerns: history of debilitating stroke Plan of Treatment: REsume prior care at home you do not need anymore antibiotics because the positive blood cultures turned out to be skin contamination Assessment: as above
[2022-12-24] MEDS: Cholecalciferol (Vitamin D3) 25 MCG TABLET 50 MCG PO (09:23)
[2022-12-24] MEDS: lisinopriL 20 MG TABLET PO (09:24)
[2022-12-24] MEDS: Sertraline HCL 50 MG TABLET PO (09:24)
[2022-12-24] MEDS: Tamsulosin HCL 0.4 MG CAPSULE PO (09:24)
[2022-12-24] MEDS: amLODIPine Besylate 2.5 MG TABLET PO (09:24)
[2022-12-24] MEDS: 0.9 % Sodium Chloride Flush 3 ML SYRINGE IVFLUSH (09:24)
[2022-12-24] MEDS: Cyanocobalamin (Vitamin B-12) 500 MCG TABLET G-TUBE (09:24)
[2022-12-24] MEDS: hydroCHLOROthiazide 25 MG TABLET PO (09:24)
--- NOTE | 2022-12-24 11:10 | MHC.CM.PN ---
PT WILL DC HOME TODAY WITH RESUMPTION OF [employer] DAUGHTER TO TRANSPORT
[2022-12-24 12:36] LABS: Glucose, Whole Blood 121 mg/dL (60-115)
--- NOTE | 2022-12-30 09:41 | P.CDIR_ITS ---
Retrospective Query PHYSICIAN'S DOCUMENTATION REQUEST Date of Query: 12/30/22 0942 Patient Name: Jeff Smyth Admit Date: 12/21/22 Dear Doctor, A review of the medical record indicates additional documentation may be needed. Please review below and update the documentation accordingly. Clinical Indicators: The diagnosis of Aspiration pneumonia was documented on 12/23/22 but is not consistently noted in the Discharge Summary Risk Factors/Clinical Indicators/Treatments Per MD progress note 12/23/22: Patient does have imaging concerning for aspiration pneumonia. Treated with IV Vancomycin Please clarify the following: * Aspiration pneumonia was present on admission and is now resolved * Aspiration pneumonia was ruled out * Aspiration pneumonia is still a likely, suspected, probable diagnosis * Other (please specify) * Unable to determine Use of terms such as suspected, likely, concern for, or probable (associated with a specific diagnosis that is being evaluated, monitored, or treated as if it exists) are acceptable and can be coded in the inpatient setting, when documented at the time of discharge. Thank you, Audrey Fernandez RN Extension: [phone] Please use your independent medical judgment in providing your response. THIS QUERY IS PART OF THE PERMANENT MEDICAL RECORD
== END 2022-12-24 13:29 | disposition home or self-care (01) | DRG 204 ==
LOC: HO.ED 21:25 → HO.EDOVER 23:27 → HO.S3 12-22 20:22
PROVIDERS: Admitting Provider Student in an Organized Health Care Education/Training Program; Emergency Provider Internal Medicine; PCP Internal Medicine; Visit Provider Internal Medicine
DX: R05.9 Cough, unspecified (principal); N40.0 Benign prostatic hyperplasia without lower urinary tract symptoms; Z66 Do not resuscitate; E11.40 Type 2 diabetes mellitus with diabetic neuropathy, unspecified; I10 Essential (primary) hypertension; E78.2 Mixed hyperlipidemia; Z20.822 Contact with and (suspected) exposure to COVID-19; Z93.1 Gastrostomy status; Z79.4 Long term (current) use of insulin; Z79.82 Long term (current) use of aspirin; Z79.899 Other long term (current) drug therapy
CPT/HCPCS: 36415; 70450; 71045; 71046; 71250; 74176; 80048; 80076; 80202; 81001; 82565; 82947; 83605; 83690; 83735; 84484; 85025; 87040; 87077; 87147; 87205; 87502; 87635; 93005; 93306; 96365; 99285; J0295; J0696; J1650; J3370; J3371; Q9957

== ENCOUNTER 2023-01-15 11:51 | Outpatient (REF) | payer MEDICARE, MEDICAID, SELFPAY ==
[2023-01-15 12:23] VITALS: BP 127/76; PULSE 73; RESP 16; TEMP 36.4; O2SAT 98; BMI 25.2
--- NOTE | 2023-01-15 21:28 | OP_ITS ---
SURGEON: Clayton Alvares MD INDICATIONS: Malfunctioning G-tube. PREOPERATIVE DIAGNOSIS: POSTOPERATIVE DIAGNOSIS: PROCEDURE PERFORMED: G-tube replacement. ESTIMATED BLOOD LOSS: COMPLICATIONS: ANESTHESIA: ASSISTANTS: SPECIMENS: MEDICATIONS: None. DESCRIPTION OF PROCEDURE: Date: 01/15/23. The history and physical was performed. The risks and benefits of the procedure were explained to the patient, and informed consent was obtained. The patient was placed in the supine position. The previously placed G-tube was removed with traction and a 20-Lao replacement G-tube was inserted into the tract. The balloon was inflated with 10 mL of water. The tube was tested and flushed well. The external bolster was adjusted to 3 cm and a dry sterile dressing was applied. He tolerated the procedure well and was discharged in stable condition. IMPRESSION: G-tube replacement. RECOMMENDATION: Follow up as needed. MD LAURA Dunlap/TORRIEL / [id number] MTDD
== END 2023-01-15 11:52 | disposition home or self-care (01) ==
LOC: HO.MS 11:51
PROVIDERS: PCP Internal Medicine; Visit Provider Internal Medicine Gastroenterology
PROC: (CPT 43762; principal; 2023-01-15 13:00)
DX: K94.23 Gastrostomy malfunction (principal)
CPT/HCPCS: 43762

== ENCOUNTER 2023-01-22 19:37 | Emergency (ER) | payer MEDICARE, MEDICAID, SELFPAY ==
--- NOTE | ~2023-01-22 | CT_ITS ---
EXAMINATION: CT ABDOMEN AND PELVIS WITHOUT CONTRAST CLINICAL INFORMATION: Status post G-tube. Pain. COMPARISON: 12/20/2022 TECHNIQUE: Multidetector volumetric imaging was performed from the superior aspect of the liver through the pubic symphysis. Sagittal and coronal reformatted images were obtained on the technologist's workstation. This CT examination was performed using dose optimization techniques as appropriate, variously including the following: *Automated exposure control *Adjustment of mA and/or kV according to patient size (this includes techniques or standardized protocols for targeted exams where dose is matched to indication/reason for exam; i.e. extremities or head) *Use of iterative reconstruction technique DLP: 876 mGy-cm FINDINGS: LUNG BASES: Right basilar atelectasis. Coronary artery calcifications. LIVER, GALLBLADDER, AND BILIARY TREE: The liver is normal in size, shape, and attenuation. No focal hepatic lesion or biliary ductal dilatation is present. The gallbladder is unremarkable with no evidence of radiopaque gallstones, gallbladder wall thickening, or obvious pericholecystic inflammatory changes. PANCREAS: Unremarkable. SPLEEN: Unremarkable. ADRENAL GLANDS: Unremarkable. KIDNEYS AND URETERS: The kidneys are normal in size, shape, and attenuation. No hydronephrosis, hydroureter, or calculi seen. No perinephric stranding. BLADDER: Unremarkable. GASTROINTESTINAL TRACT: The stomach is unremarkable. Gastrostomy tube in place, in appropriate position. Normal caliber small bowel. No obstruction. Normal appendix. Moderate volume of stool throughout the colon. Mild wall thickening with adjacent inflammation in the region of the rectum. ABDOMINAL WALL: Small fat-containing hernia along the lateral lower left abdominal wall. LYMPH NODES: Normal. VASCULAR: Normal caliber aorta with mild atherosclerotic calcification. PELVIC VISCERA: The prostate and seminal vesicles are unremarkable. OSSEOUS STRUCTURES: No acute fracture or subluxation. Vertebral body height loss at the lower thoracic and upper lumbar spine. Endplate osteophytes throughout. Facet arthropathy throughout. CT/CT abdomen pelvis wo IV con IMPRESSION: Mild wall thickening with adjacent inflammation in the region of the rectum. This could represent proctitis. Moderate volume of stool throughout the colon. Fleischner guidelines were followed.
[2023-01-22 19:42] VITALS: BP 153/91; BP 174/90; PULSE 88; PULSE 94; RESP 18; TEMP 37.2; O2SAT 96; BMI 25.7
--- OUTSIDE RECORDS SUMMARY | 2023-01-22 20:08 | XMS_ITS ---
:1940 Author Organization [facility] Address [address] [place] [address] Care Team Providers Name Role Phone Giorgio AbrahamClayton Unavailable Unavailable PROBLEMS Type Condition ICD9-CM [id number] Onset Condition SNOMED Cod e Code Code Dates Status Problem Dysphagia R13.10 Active 31291781 Problem Gastrojejunostomy Z93.4 Active tube status ALLERGIES No Known Allergies ENCOUNTERS Encounter Location Date Diagnosis [facility] Outpatient [address] [facility] 10 Jan, 2023 Gastrostomy mal function [place], [place] [id number] K94.[address] [place] [address] Jan, [facility] [address] [place] [address] Oct, [facility] [address] [place] [address] Oct, Dysphagi a R13.10 and [facility] [address] [place], [place] Gastrojeju nostomy tube status [id number] Jul, [facility] [address] [place] [address] [facility] Inpatient [address] [facility] Jun, [place], [place] [id number] IMMUNIZATIONS Vaccine Route Administration Date Status Influenza [...] [address]BE Jul 06, 2022 percutaneous gastrostomy tube placement including January 15, 2023 removal without imaging or endoscopic guidance not requiring revision of the gastrostomy RESULTS Name Result Date Reference Range Complete [...] Abs Auto 0.000 0.0-0.012 REASON FOR VISIT G-tube replacement, G-tube question, 07/08 EGD report, Patient presents today for dysphagia & g-tube, ? on 2 meds, DYSPHAGIA Insurance Providers [facility] Member Patient Patient Patient Patient Patient Subscriber Subscriber Subscriber Group Insurance Plan Plan Plan Plan ID Relationship Address Phone Name Date of ID Name Date of No Type Insurance Insurance Insurance Coverage to Subscriber Address Phone Name Dates MEDICAID [phone] MEDICAID self [place] [id number] OF [facility] [id number] [facility] [place] [address] [facility] [address] MEDICARE [phone] MEDICARE self [place] [id number] [place] [address] [place] [facility] [id number]
[2023-01-22 20:28] LABS: MANUAL DIFF FLAG NO
[2023-01-22 20:38] LABS: Alanine Aminotransferase 42 U/L (0-40); Albumin Level 3.8 g/dL (3.5-5.0); Alkaline Phosphatase 55 U/L (39-117); Anion Gap 13 (12-20); Aspartate Amino Transferase 34 U/L (5-37); Bilirubin Total 0.5 mg/dL (0.0-1.0); Blood Urea Nitrogen 17 mg/dL (9-16); Calcium 9.4 mg/dL (8.4-10.2); Carbon Dioxide 29 mmol/L (22-29); Chloride 95 mmol/L (96-108); Creatinine Clr Calc Pharmacy 67.6; Estimated Glomerular Filt Rate > 60; Glucose Random 181 mg/dL (60-115); Potassium 4.2 mmol/L (3.3-5.1); Sodium 133 mmol/L (135-145); Total Protein 6.5 g/dL (6.5-8.0)
[2023-01-22 20:39] LABS: Basophils Percent Auto 0.4 % (0-2); Eosinophils Absolute Auto 0.1 X10*3/uL (0.0-0.4); Eosinophils Percent Auto 0.9 % (0-4); Hematocrit 42.7 % (42.0-52.0); Hemoglobin 13.9 g/dl (14.0-18.0); Imm Gran Abs Auto 0.03 X10*3/uL (0.00-0.03); Imm Gran Pct Auto 0.3 % (0.0-0.4); Lymphocytes Absolute Auto 1.1 X10*3/uL (1.2-4.9); Lymphocytes Percent Auto 11.9 % (20-40); Mean Corpuscular HGB Conc 32.6 g/dl (31.0-36.0); Mean Corpuscular Hemoglobin 22.6 pg (27.0-33.0); Mean Corpuscular Volume 69.3 fL (80.0-98.0); Mean Platelet Volume 11.7 fL (9.4-12.4); Monocytes Absolute Auto 0.6 X10*3/uL (0.1-1.2); Monocytes Percent Auto 6.4 % (2-11); Neutrophils Absolute Auto 7.3 x10*3/uL (2.0-8.3); Neutrophils Percent Auto 80.1 % (45-73); Platelet Count 169 X10*3/uL (160-400); Red Blood Count 6.16 X10*6/uL (4.60-5.80); Red Cell Distribution Width 14.9 % (11.0-16.0); White Blood Count 9.2 X10*3/uL (4.8-10.8)
--- NOTE | 2023-01-22 21:40 | ED.ABDPAIN ---
HPI - Abdominal Pain General Chief Complaint: Abdominal Pain Stated Complaint: Abd Pain Time Seen by Provider: 01/22/23 21:13 Source: family Mode of arrival: EMS Limitations: no limitations History of Present Illness HPI narrative: Patient status post CVA with left-sided weakness aphasic diabetic just had a G-tube placed last week which is working fine for last 2 days patient complaining of diffuse abdominal pain no vomiting no diarrhea patient pain does not increase is after feedings. Per daughter patient having loose stools and was started on loperamide few days ago does move only once or twice loose bowel Related Data Home Medications Medication Instructions Recorded Confirmed aspirin 81 mg tablet,delayed 81 mg PO DAILY 08/26/20 12/22/22 release (Adult Aspirin Regimen) sertraline 50 mg tablet 50 mg PO DAILY 08/26/20 12/22/22 tamsulosin 0.4 mg capsule 0.4 mg PO DAILY 08/26/20 12/22/22 blood sugar diagnostic #10 ea 05/20/21 03/03/22 lancets 28 gauge #100 ea 05/20/21 03/03/22 atorvastatin 10 mg tablet 10 mg PO BEDTIME 02/12/22 12/22/22 blood sugar diagnostic (FreeStyle 08/05/22 Lite Strips) blood-glucose meter (FreeStyle 08/05/22 Lite Meter kit) lancets 28 gauge (FreeStyle 08/05/22 Lancets) Previous Rx's Medication Instructions Recorded amlodipine 2.5 mg tablet 2.5 mg PO DAILY 90 days #90 tabs 08/26/20 hydrochlorothiazide 25 mg tablet 25 mg PO DAILY 90 days #90 tabs 08/26/20 cyanocobalamin (vitamin B-12) 500 500 mcg sublingual DAILY 90 days 05/20/21 mcg sublingual tablet #90 tabs flash glucose scanning reader #1 ea 02/12/22 (FreeStyle Kristine 2 [place]) flash glucose sensor (FreeStyle #2 ea 02/12/22 Kristine 2 Sensor kit) insulin aspar prot-insulin aspart See Rx Instructions subcut QAM 30 03/03/22 100 unit/mL (70-30) subcutaneous days #30 mL pen (Novolog Mix 70-30FlexPen U-100) lisinopril 20 mg tablet 20 mg PO DAILY 90 days #90 tabs 06/01/22 cholecalciferol (vitamin D3) 50 50 mcg PO DAILY #90 caps 08/26/22 mcg (2,000 unit) capsule polyethylene glycol 3350 17 17 g PO DAILY PRN Constipation 01/23/23 gram/dose oral powder (Miralax) #510 grams Allergies Allergy/AdvReac Type Severity Reaction Status Date / Time No Known Allergies Allergy Verified 01/22/23 20:08 Review of Systems Review of Systems Yes Unobtainable due to mental condition (Aphasic) [facility] Past Medical History Medical History B12 deficiency BPH (benign prostatic hyperplasia) Cerebrovascular accident CVA (cerebral vascular accident) Diabetes type 2, uncontrolled Diabetic nephropathy associated with type 2 diabetes mellitus Diabetic polyneuropathy associated with type 2 diabetes mellitus Dyslipidemia Hypertension FDC (current) use of insulin Obesity (BMI 30-39.9) Tinea pedis of both feet Surgical History History of surgery Family History Family History Father No problems noted. Mother No problems noted. Social History Social History Household Members: Family Household Members Other:: 3 Housing: Apartment Do you presently have visiting nurse or other home services: No Alcohol intake: never Patient Tobacco Use Status: Never used Tobacco Smoked in Last 30 Days: No e-Cigarette/Vaping Use: Never Used Second Hand Smoke Exposure: No Use of substances other than those prescribed or required for medical reasons: No Advance Directives: No Advance Directives Information Provided: Yes service: No Current occupational status: retired Physical Exam ED Vital Signs: Vital Signs - 24 hr 01/22/23 19:42 01/23/23 01:24 Temperature 98.9 F Pulse Rate 94 76 Respiratory Rate 18 16 Blood Pressure 153/91 H 160/81 H Pulse Oximetry 96 96 Oxygen Delivery Method Room Air Room Air BMI result Body Mass Index 25.7 Appearance: Alert. And await. No acute distress. Eyes: PERRLA, ENT: Pharynx normal. Oral Mucosa moist Neck: Normal inspection. Neck supple. CVS: Normal heart rate and rhythm. Pulses normal. Respiratory: No respiratory distress. Equal air entry bilateral, Abdomen: Soft mild diffuse tenderness Bowel sounds are present, no mass palpable, G-tube in place rectum: Soft stool in rectum Skin: Skin warm and dry. Normal skin color. Normal skin turgor. Extremities: No lower extremity edema. No calf tenderness Neuro: Alert and awake left-sided weakness patient aphasic Medical Decision Making Medical Decision Making [facility] Narrative: Patient with nontoxic look with nonspecific abdominal pain CT scan was done which showed moderate amount of constipation likely the cause of pain patient taking loperamide making it worse. Patient was given a dose of milk of magnesium in the ER discharge patient home on Lab Data [facility] Lab Attestation statement: I reviewed the patient's lab results. 01/22/23 20:17 01/22/23 20:17 Labs: Lab Results 01/22/23 01/22/23 Range/Units 20:17 20:17 WBC 9.2 (4.8-10.8) X10*3/uL RBC 6.16 H D (4.60-5.80) X10*6/uL Hgb 13.9 L (14.0-18.0) g/dl Hct 42.7 D (42.0-52.0) % MCV 69.3 L (80.0-98.0) fL MCH 22.6 L (27.0-33.0) pg MCHC 32.6 (31.0-36.0) g/dl RDW 14.9 (11.0-16.0) % Plt Count 169 D (160-400) X10*3/uL MPV 11.7 (9.4-12.4) fL Immature Gran % (Auto) 0.3 (0.0-0.4) % Neut % (Auto) 80.1 H (45-73) % Lymph % (Auto) 11.9 L (20-40) % [place] % (Auto) 6.4 (2-11) % Eos % (Auto) 0.9 (0-4) % Baso % (Auto) 0.4 (0-2) % Lymph # (Auto) 1.1 L (1.2-4.9) X10*3/uL [place] # (Auto) 0.6 (0.1-1.2) X10*3/uL Eos # (Auto) 0.1 (0.0-0.4) X10*3/uL Baso # (Auto) 0.0 (0.0-0.2) X10*3/uL Abs Immat Gran (auto) 0.03 (0.00-0.03) X10*3/uL Absolute Neuts (auto) 7.3 (2.0-8.3) x10*3/uL Absolute Nucleated RBC 0.000 (0.0-0.012) X10*3/uL Nucleated RBC % (auto) 0.0 (0.0-0.2) /100WBC Sodium 133 L (135-145) mmol/L Potassium 4.2 D (3.3-5.1) mmol/L Chloride 95 L (96-108) mmol/L Carbon Dioxide 29 (22-29) mmol/L Anion Gap 13 (12-20) BUN 17 H (9-16) mg/dL Creatinine 0.80 (0.5-1.4) mg/dL Estim Creat Clear Calc 67.6 Estimated GFR > 60 Random Glucose 181 H (60-115) mg/dL Calcium 9.4 D (8.4-10.2) mg/dL Magnesium 2.0 (1.6-2.6) mg/dL Total Bilirubin 0.5 (0.0-1.0) mg/dL AST 34 (5-37) U/L ALT 42 H (0-40) U/L Alkaline Phosphatase 55 (39-117) U/L Total Protein 6.5 (6.5-8.0) g/dL Albumin 3.8 (3.5-5.0) g/dL Lipase 30 (8-78) U/L Medications Administered Discontinued Medications Generic Name Dose Route Start Last Admin Trade Name Freq PRN Reason Stop Dose Admin Diatrizoate Meglum/Diatrizoate Sod 30 ml 01/22/23 22:21 01/22/23 22:21 Diatrizoate Meglumine, Sodium 30 Ml Solution PO 01/22/23 22:22 30 ml ONCE ONE Administration Magnesium Hydroxide 30 ml 01/23/23 00:57 01/23/23 01:17 Milk Of Magnesia 30 Ml Oral.Susp G-TUBE 01/23/23 00:58 30 ml ONCE ONE Administration Discharge Plan Discharge Clinical Impression: Constipation Patient Disposition: Home, Self-Care Instructions: Constipation (ED) Additional Instructions: Stop using loperamide MiraLax daily as needed via G-tube Follow with PCP as needed Prescriptions: New polyethylene glycol 3350 [Miralax] 17 gram/dose powder 17 g PO DAILY PRN (Reason: Constipation) Qty: 510 0RF No Action cyanocobalamin (vitamin B-12) 500 mcg tablet, sublingual 500 mcg sublingual DAILY 90 Days Qty: 90 1RF lisinopril 20 mg tablet 20 mg PO DAILY 90 Days Qty: 90 1RF cholecalciferol (vitamin D3) 50 mcg (2,000 unit) capsule 50 mcg PO DAILY Qty: 90 0RF sertraline 50 mg tablet 50 mg PO DAILY tamsulosin 0.4 mg capsule 0.4 mg PO DAILY aspirin [Adult Aspirin Regimen] 81 mg tablet,delayed release (DR/EC) 81 mg PO DAILY hydrochlorothiazide 25 mg tablet 25 mg PO DAILY 90 Days Qty: 90 2RF amlodipine 2.5 mg tablet 2.5 mg PO DAILY 90 Days Qty: 90 2RF (DME) lancets 28 gauge misc See Rx Instructions Not Applicable TID Qty: 100 Rx Instructions: As directed (DME) blood sugar diagnostic Strip See Rx Instructions Not Applicable TID Qty: 10 Rx Instructions: As directed atorvastatin 10 mg tablet 10 mg PO BEDTIME (DME) FreeStyle Kristine 2 [place] Misc See Rx Instructions .ROUTE .MEDSUPPLY Qty: 1 0RF Rx Instructions: As directed (DME) FreeStyle Kristine 2 Sensor Kit See Rx Instructions .ROUTE .MEDSUPPLY Qty: 2 11RF Rx Instructions: As directed every 2 weeks insulin asp prt-insulin aspart [Novolog Mix 70-30FlexPen U-100] 100 unit/mL (70-30) insulin pen See Rx Instructions subcut QAM 30 Days Qty: 30 6RF Rx Instructions: 13 units qam and 10units qpm subcut every morning; (DME) blood-glucose meter [FreeStyle Lite Meter] Kit See Rx Instructions .ROUTE Rx Instructions: As directed (DME) FreeStyle Lite Strips Strip See Rx Instructions .ROUTE Rx Instructions: As directed (DME) lancets [FreeStyle Lancets] 28 gauge misc See Rx Instructions .ROUTE Rx Instructions: As directed Interventions: ED Discharge Assessment Last Done: 03/18/23 02:29 Discharge Date/Time: 01/23/23 02:30
[2023-01-22] MEDS: Diatrizoate Meglumine, Sodium 30 ML SOLUTION PO (22:21)
[2023-01-22 23:02] LABS: Lipase 30 U/L (8-78)
[2023-01-23] MEDS: Milk of Magnesia 30 ML ORAL.SUSP G-TUBE (01:17)
--- NOTE | 2023-01-23 01:22 | MHC.EDTECH ---
pt was incontinent of large amount of bowel movement ,care given bedding change ,pt daughter at bedside .
[2023-01-23 01:24] VITALS: BP 160/81; PULSE 76; RESP 16; O2SAT 96
== END 2023-01-23 02:30 | disposition home or self-care (01) ==
PROVIDERS: Physician Assistant Medical; Emergency Provider Internal Medicine; PCP Internal Medicine
DX: K59.00 Constipation, unspecified (principal); R10.13 Epigastric pain; Z79.899 Other long term (current) drug therapy
CPT/HCPCS: 36415; 74176; 80053; 83690; 83735; 85025; 99284

== ENCOUNTER 2023-09-17 15:23 | Emergency (ER) | payer MEDICARE, MEDICAID, SELFPAY ==
--- NOTE | 2023-09-17 15:24 | ED_ITS ---
HPI - General Adult General Chief complaint: General Medical Stated complaint: g tube blocked Time Seen by Provider: 09/17/23 15:24 Source: family ( daughter), EMS and RN notes reviewed Mode of arrival: EMS Limitations: language barrier History of Present Illness HPI narrative: Patient is an 83-year-old Nepalese-speaking male with history of T2DM, HTN, BPH, CVA presenting to the emergency department with family who report that patient's G-tube is clogged. Daughter states that the tube has been working intermittently for the past several weeks and is very positional but when she calls patient's doctor she is told that the tube does not need to be replaced. Patient states today they were unable to flush the tube at all. Patient denies any complaints or pain. Family denies any fevers, nausea or vomiting. MD complaint: clogged G tube Onset (ago): hour(s) Location: abdomen Associated symptoms: denies other symptoms Treatments prior to arrival: none Related Data Home Medications Medication Instructions Recorded Confirmed aspirin 81 mg tablet,delayed 81 mg PO DAILY 08/26/20 12/22/22 release (Adult Aspirin Regimen) sertraline 50 mg tablet 50 mg PO DAILY 08/26/20 12/22/22 tamsulosin 0.4 mg capsule 0.4 mg PO DAILY 08/26/20 12/22/22 blood sugar diagnostic #10 ea 05/20/21 03/03/22 lancets 28 gauge #100 ea 05/20/21 03/03/22 atorvastatin 10 mg tablet 10 mg PO BEDTIME 02/12/22 12/22/22 blood sugar diagnostic (FreeStyle 08/05/22 Lite Strips) blood-glucose meter (FreeStyle 08/05/22 Lite Meter kit) lancets 28 gauge (FreeStyle 08/05/22 Lancets) Previous Rx's Medication Instructions Recorded amlodipine 2.5 mg tablet 2.5 mg PO DAILY 90 days #90 tabs 08/26/20 hydrochlorothiazide 25 mg tablet 25 mg PO DAILY 90 days #90 tabs 08/26/20 cyanocobalamin (vitamin B-12) 500 500 mcg sublingual DAILY 90 days 05/20/21 mcg sublingual tablet #90 tabs flash glucose scanning reader #1 ea 02/12/22 (FreeStyle Kristine 2 [place]) flash glucose sensor (FreeStyle #2 ea 02/12/22 Kristine 2 Sensor kit) insulin aspar prot-insulin aspart See Rx Instructions subcut QAM 30 03/03/22 100 unit/mL (70-30) subcutaneous days #30 mL pen (Novolog Mix 70-30FlexPen U-100) lisinopril 20 mg tablet 20 mg PO DAILY 90 days #90 tabs 06/01/22 cholecalciferol (vitamin D3) 50 50 mcg PO DAILY #90 caps 08/26/22 mcg (2,000 unit) capsule polyethylene glycol 3350 17 17 g PO DAILY PRN Constipation 01/23/23 gram/dose oral powder (Miralax) #510 grams Allergies Allergy/AdvReac Type Severity Reaction Status Date / Time No Known Allergies Allergy Verified 01/22/23 20:08 Review of Systems Review of Systems: As per HPI Yes all other systems are reviewed and are negative [facility] Past Medical History Medical History B12 deficiency BPH (benign prostatic hyperplasia) Cerebrovascular accident CVA (cerebral vascular accident) Diabetes type 2, uncontrolled Diabetic nephropathy associated with type 2 diabetes mellitus Diabetic polyneuropathy associated with type 2 diabetes mellitus Dyslipidemia 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 Mother No problems noted. Social History Social History Household Members: Family Household Members Other:: 3 Housing: Apartment Do you presently have visiting nurse or other home services: No Alcohol intake: never Patient Tobacco Use Status: Never used Tobacco e-Cigarette/Vaping Use: Never Used Second Hand Smoke Exposure: No Advance Directives: Yes Advance Directives on File: Yes Advance Directives Date on File: 12/22/22 service: No Current occupational status: retired Physical Exam ED Vital Signs: Vital Signs - 24 hr 09/17/23 15:28 Temperature 98.2 F Pulse Rate 89 Respiratory Rate 16 Pulse Oximetry 95 Oxygen Delivery Method Room Air BMI result Body Mass Index 26.1 Vital signs have been reviewed and appear to be correct. Blood pressure normal. Heart rate normal. Respiratory rate normal. Temperature normal. Oxygen saturation normal. Const General: cooperative, no acute distress, alert and awake HENVT Head: Yes normocephalic Throat: Yes posterior oropharynx normal Eyes Pupils: Equal, round and reactive pupils present Neck Neck: Yes normal visual inspection, Yes full ROM and Yes supple Resp Effort & Inspection: normal respiratory effort Auscultation: clear to auscultation bilaterally Cardio Rate: regular rate Rhythm: regular rhythm Heart sounds: S1 normal heart sound present and S2 normal heart sound present GI Inspection: Yes normal to inspection and Yes G-tube present Palpation (GI): Soft to palpation and nontender Auscultation: normoactive bowel sounds Skin General skin exam: elasticity normal and turgor normal Neuro Other: aphasic at baseline Cranial nerves: Yes Equal, round and reactive pupils present Extrem General: Yes no pedal edema and Yes no calf tenderness Procedures Feeding Tube Replacement Type of Tube: gastrostomy Insertion Site Prior to Procedure: clean Tube Used for Reinsertion: other (gastrostomy tube) [place]yr[place] Tube Size (F): 20 Balloon size (mL): 10 Verification of Placement: auscultation Tube Secured by: tape/dressing (dressing only, no tape) Patient Tolerated Procedure: well and no complications Medical Decision Making Medical Decision Making MDM Narrative: Patient is an 83-year-old Nepalese-speaking male with history of T2DM, HTN, BPH, CVA presenting to the emergency department with family who report that patient's G-tube is clogged. On exam patient is awake, alert, VS WNL, afebrile, normal neurological exam without focal deficits, physical exam findings as above. Given reported symptoms and physical exam findings, initial differential includes G-tube malfunction. Review of EMR shows that the G-tube was placed initially by GI in August of 2022. Daughter states has not been changed since that time. Attempted to flush tube at bedside without success. Tube replaced with Dr. Johnston as per procedure note. Instructed patient and daughter to follow-up with intervention nurse to discuss when tube should be changed in the future. Return precautions discussed at bedside. Daughter verbalized understanding of and agreement with plan. Differential Diagnosis Differential Diagnoses: The differential diagnosis associated with the presentation includes As per MDM. Consult Healthcare Provider Dr. Johnston Independent Historian Clinical information obtained from an independent historian. History obtained from or confirmed by: Other (daughter) External Record Review External record reviewed: Inpatient record, Office record and Outpatient record Discharge Plan Discharge Clinical Impression: Gastrostomy tube dysfunction Patient Disposition: Home, Self-Care Instructions: How to Use and Care for Your PEG Tube (ED) Additional Instructions: Lo atendieron hoy en el departamento de emergencias por un problema con cesar tubo G. Cesar tubo G fue reemplazado hoy en el servicio de urgencias. Caty un seguimiento con cesar gastroenter?logo para un tratamiento adicional. Regrese al departamento de emergencias si presenta dolor abdominal, v?mitos o si no se puede sheila la sonda. Prescriptions: No Action cyanocobalamin (vitamin B-12) 500 mcg tablet, sublingual 500 mcg sublingual DAILY 90 Days Qty: 90 1RF lisinopril 20 mg tablet 20 mg PO DAILY 90 Days Qty: 90 1RF cholecalciferol (vitamin D3) 50 mcg (2,000 unit) capsule 50 mcg PO DAILY Qty: 90 0RF polyethylene glycol 3350 [Miralax] 17 gram/dose powder 17 g PO DAILY PRN (Reason: Constipation) Qty: 510 0RF sertraline 50 mg tablet 50 mg PO DAILY tamsulosin 0.4 mg capsule 0.4 mg PO DAILY aspirin [Adult Aspirin Regimen] 81 mg tablet,delayed release (DR/EC) 81 mg PO DAILY hydrochlorothiazide 25 mg tablet 25 mg PO DAILY 90 Days Qty: 90 2RF amlodipine 2.5 mg tablet 2.5 mg PO DAILY 90 Days Qty: 90 2RF (DME) lancets 28 gauge misc See Rx Instructions Not Applicable TID Qty: 100 Rx Instructions: As directed (DME) blood sugar diagnostic Strip See Rx Instructions Not Applicable TID Qty: 10 Rx Instructions: As directed atorvastatin 10 mg tablet 10 mg PO BEDTIME (DME) FreeStyle Kristine 2 [place] Misc See Rx Instructions .ROUTE .MEDSUPPLY Qty: 1 0RF Rx Instructions: As directed (DME) FreeStyle Kristine 2 Sensor Kit See Rx Instructions .ROUTE .MEDSUPPLY Qty: 2 11RF Rx Instructions: As directed every 2 weeks insulin asp prt-insulin aspart [Novolog Mix 70-30FlexPen U-100] 100 unit/mL (70-30) insulin pen See Rx Instructions subcut QAM 30 Days Qty: 30 6RF Rx Instructions: 13 units qam and 10units qpm subcut every morning; (DME) blood-glucose meter [FreeStyle Lite Meter] Kit See Rx Instructions .ROUTE Rx Instructions: As directed (DME) FreeStyle Lite Strips Strip See Rx Instructions .ROUTE Rx Instructions: As directed (DME) lancets [FreeStyle Lancets] 28 gauge misc See Rx Instructions .ROUTE Rx Instructions: As directed Print Language: Nepalese
[2023-09-17 15:28] VITALS: PULSE 82; PULSE 89; RESP 16; TEMP 36.8; O2SAT 95; BMI 26.1
== END 2023-09-17 18:31 | disposition home or self-care (01) ==
PROVIDERS: Emergency Provider Emergency Medicine
DX: K94.20 Gastrostomy complication, unspecified (principal); Z79.899 Other long term (current) drug therapy
CPT/HCPCS: 43762; 99282; 99284

== ENCOUNTER 2023-10-02 23:38 | Inpatient (IN) | payer MEDICARE, MEDICAID, SELFPAY ==
--- NOTE | ~2023-10-02 | CT_ITS ---
EXAMINATION: CT HEAD WITHOUT CONTRAST CLINICAL INFORMATION: New onset seizure COMPARISON: 12/20/2022 TECHNIQUE: Contiguous axial imaging was performed from the skull base to vertex without intravenous administration of contrast. This CT examination was performed using dose optimization techniques as appropriate, variously including the following: *Automated exposure control *Adjustment of mA and/or kV according to patient size (this includes techniques or standardized protocols for targeted exams where dose is matched to indication/reason for exam; i.e. extremities or head) *Use of iterative reconstruction technique DLP: 562 mGy-cm FINDINGS: There is no evidence of acute intracranial hemorrhage or territorial infarction. No abnormal mass-effect or midline shift is seen. Jacobsen to white matter differentiation is well preserved. No extra-axial fluid collections are identified. The ventricles are normal in size. There is moderate periventricular white matter hypoattenuation consistent with chronic small vessel ischemic disease. Redemonstrated region of chronic infarct along the right external capsule. Moderate volume loss is noted. The osseous structures and soft tissues are normal. The mastoid air cells and visualized portions of the paranasal sinuses are well-aerated. CT/CT head/brain wo IV con IMPRESSION: No acute intracranial pathology. Chronic changes including small vessel ischemic disease and volume loss.
--- NOTE | ~2023-10-02 | XR_ITS ---
EXAMINATION: XR CHEST CLINICAL INFORMATION: New onset seizure COMPARISON: Chest radiograph 12/21/2022 TECHNIQUE: Frontal view of the chest was obtained. FINDINGS: Again seen is an elevated left hemidiaphragm with gaseous distention of colon beneath. Heart size within normal limits. Again noted are prominent bronchovascular markings, slightly improved when compared to prior. No focal consolidations, pleural effusions or lung masses are seen. XR/XR chest 1V IMPRESSION: No acute intrathoracic disease.
[2023-10-02 23:43] VITALS: BP 165/112; PULSE 102; O2SAT 97
[2023-10-02 23:47] VITALS: BMI 27.3
[2023-10-02 23:54] VITALS: BP 170/99; PULSE 99; RESP 15; O2SAT 94
[2023-10-02 23:59] VITALS: BP 145/94; PULSE 100; RESP 18; O2SAT 93
--- NOTE | 2023-10-02 23:59 | ED_ITS ---
HPI - Seizure General Chief Complaint: Seizure Stated Complaint: SEIZURE Time Seen by Provider: 10/02/23 23:59 Source: patient, family and EMS Mode of arrival: EMS Limitations: physical limitation History of Present Illness HPI Narrative: 83-year-old male with pertinent history of CVA s/p PEG tube placed, insulin- dependent DM, essential HTN, came in by ambulance after was witnessed by his family having a seizure activity with postictal period of confusion and disorientation, patient had a history of CVA but never had a history of seizure. EMS reported blood sugar was 162. No head injury or trauma. No nausea, no vomiting, no fever. Seizure History: No Place: Home Related Data Home Medications Medication Instructions Recorded Confirmed aspirin 81 mg tablet,delayed 81 mg PO DAILY 08/26/20 12/22/22 release (Adult Aspirin Regimen) sertraline 50 mg tablet 50 mg PO DAILY 08/26/20 12/22/22 tamsulosin 0.4 mg capsule 0.4 mg PO DAILY 08/26/20 12/22/22 blood sugar diagnostic #10 ea 05/20/21 03/03/22 lancets 28 gauge #100 ea 05/20/21 03/03/22 atorvastatin 10 mg tablet 10 mg PO BEDTIME 02/12/22 12/22/22 blood sugar diagnostic (FreeStyle 08/05/22 Lite Strips) blood-glucose meter (FreeStyle 08/05/22 Lite Meter kit) lancets 28 gauge (FreeStyle 08/05/22 Lancets) Previous Rx's Medication Instructions Recorded amlodipine 2.5 mg tablet 2.5 mg PO DAILY 90 days #90 tabs 08/26/20 hydrochlorothiazide 25 mg tablet 25 mg PO DAILY 90 days #90 tabs 08/26/20 cyanocobalamin (vitamin B-12) 500 500 mcg sublingual DAILY 90 days 05/20/21 mcg sublingual tablet #90 tabs flash glucose scanning reader #1 ea 02/12/22 (FreeStyle Kristine 2 Laquey) flash glucose sensor (FreeStyle #2 ea 02/12/22 Kristine 2 Sensor kit) insulin aspar prot-insulin aspart See Rx Instructions subcut QAM 30 03/03/22 100 unit/mL (70-30) subcutaneous days #30 mL pen (Novolog Mix 70-30FlexPen U-100) lisinopril 20 mg tablet 20 mg PO DAILY 90 days #90 tabs 06/01/22 cholecalciferol (vitamin D3) 50 50 mcg PO DAILY #90 caps 08/26/22 mcg (2,000 unit) capsule polyethylene glycol 3350 17 17 g PO DAILY PRN Constipation 01/23/23 gram/dose oral powder (Miralax) #510 grams Allergies Allergy/AdvReac Type Severity Reaction Status Date / Time No Known Allergies Allergy Verified 01/22/23 20:08 Review of Systems 2 Review of Systems: All other systems are reviewed and are negative Constitutional: Reports as per HPI and Reports no additional constitutional complaints Eyes: Reports as per HPI and Reports no additional eye complaints Reports system reviewed and no additional complaints, except as documented Cardiovascular: Reports as per HPI and Reports no additional cardiovascular complaints Respiratory: Reports as per HPI and Reports no additional respiratory complaints Gastrointestinal: Reports as per HPI and Reports no additional gastrointestinal complaints Genitourinary: Reports no additional female genitourinary complaints Musculoskeletal: Reports no additional musculoskeletal complaints Skin/Breast: Reports system reviewed and no additional complaints, except as docu Psychiatric: Reports no additional psychiatric complaints Endocrine: Reports no additional endocrine complaints Hematologic/Lymphatic: Reports no additional hematologic/lymphatic complaints Allergic/Immunologic: Reports no additional allergic/immunologic complaints Reports system reviewed and no additional complaints, except as documented and Reports Abnormal speech present Yes Unobtainable due to mental condition [facility] Past Medical History Medical History Cerebrovascular accident CVA (cerebral vascular accident) B12 deficiency Tinea pedis of both feet BPH (benign prostatic hyperplasia) Obesity (BMI 30-39.9) Dyslipidemia Hypertension emt intermediate (current) use of insulin Diabetic nephropathy associated with type 2 diabetes mellitus Diabetic polyneuropathy associated with type 2 diabetes mellitus Diabetes type 2, uncontrolled Surgical History History of surgery Family History Family History Father No problems noted. Mother No problems noted. Social History Household Members: Family Household Members Other:: 3 Housing: Apartment Do you presently have visiting nurse or other home services: No Alcohol intake: never Patient Tobacco Use Status: Never used Tobacco e-Cigarette/Vaping Use: Never Used Second Hand Smoke Exposure: No Advance Directives: Yes Advance Directives on File: Yes Advance Directives Date on File: 12/22/22 service: No Current occupational status: retired Physical Exam 2 Vital Signs: Vital Signs: Last Vital Signs Pulse 89 10/03/23 01:59 Resp 16 10/03/23 01:59 BP 125/74 10/03/23 01:59 Pulse Ox 98 10/03/23 01:59 O2 Del Method Nasal Cannula 10/03/23 01:59 O2 Flow Rate 2 10/03/23 01:59 BMI result Body Mass Index 27.3 Vital signs have been reviewed and appear to be correct. Blood pressure elevated. Heart rate normal. Respiratory rate normal. Temperature normal. Oxygen saturation normal. Appearance: Alert. Oriented X1 only person. No acute distress. Head: Normal external exam. Normocephalic. Atraumatic. No Villar signs noted. No raccoon eyes noted Eyes: PERRLA. EOMI. Conjunctiva and sclera normal. Eyelids normal. ENT: TM's Normal. Pharynx normal. Uvula midline. Moist mucous membranes. No trismus noted. No drooling noted. No muffled voice noted. Neck: Normal inspection. Neck supple. FROM. No adenopathy. Thyroid Normal. No meningeal signs. No neck mass noted. CVS: Normal heart rate and rhythm. Heart sound normal. No murmurs noted. Pulses normal throughout. Respiratory: No respiratory distress. Painless inspiration. Breath sounds normal. No wheezes/rales/rhonchi noted. Chest nontender. No accessory muscle usage noted or decreased air movement noted. Abdomen: Soft and nontender. Bowel sounds normal in all 4 quadrants. No distention noted. No organomegaly noted. No visible injury noted. Back: No CVA tenderness. Full range of motion noted. Skin: Skin warm and dry. Normal skin color. Normal skin turgor. No rashes/lesions/lacerations noted. Extremities: No lower extremity edema. Extremities exhibit normal range of motion. Extremities nontender. Neuro: Oriented x1 Cranial nerve exam: II-XII are grossly intact No motor deficit. No sensory deficit. Reflexes normal. Course Reevaluation(s) Reevaluation #1: New onset of tonic-clonic seizure witnessed by the family, negative head CT, patient was given Keppra in the emergency department. Hypokalemia potassium was repleted. Admit the patient for further new onset seizure workup and neurology consultation. Time: 02:09 Medications Administered Generic Name Dose Route Start Last Admin Trade Name Freq PRN Reason Stop Dose Admin Magnesium Sulfate 2 gm in 50 mls @ 25 mls/hr 10/03/23 00:47 10/03/23 01:18 Magnesium Sulfate/H2o IV 10/03/23 02:46 25 mls/hr ONCE ONE Administration Discontinued Medications Generic Name Dose Route Start Last Admin Trade Name Freq PRN Reason Stop Dose Admin Levetiracetam 750 mg/ Sodium 107.5 mls @ 430 mls/hr 10/03/23 00:12 10/03/23 00:45 Chloride IV 10/03/23 00:26 Infused ONCE ONE Infusion Potassium Chloride 10 meq in 100 mls @ 100 mls/hr 10/03/23 00:51 10/03/23 01:18 Potassium Chloride/H20 IV 10/03/23 01:50 100 mls/hr ONCE ONE Administration Potassium Chloride 40 meq 10/03/23 00:51 10/03/23 01:18 Potassium Chloride Packet 20 Meq Packet PO 10/03/23 00:52 40 meq ONCE ONE Administration Medical Decision Making Differential Diagnosis Differential Diagnoses: The differential diagnosis associated with the presentation includes (New onset seizure, intracranial mass, intracranial bleed, electrolyte abnormality, severe anemia.) Admission/Observation Consideration of admission/observation: Escalation of care including admission/observation considered Consult Healthcare Provider Management of the patient was discussed with: Hospitalist (Dr. Alejo) Lab Data MDM Lab Attestation statement: I reviewed the patient's lab results. 10/03/23 00:17 10/03/23 00:17 Labs: Lab Results 10/03/23 Range/Units 00:17 WBC 9.9 (4.8-10.8) X10*3/uL RBC 6.47 H (4.60-5.80) X10*6/uL Hgb 14.8 (14.0-18.0) g/dl Hct 45.7 (42.0-52.0) % MCV 70.6 L (80.0-98.0) fL MCH 22.9 L (27.0-33.0) pg MCHC 32.4 (31.0-36.0) g/dl RDW 14.1 (11.0-16.0) % Plt Count 252 D (160-400) X10*3/uL MPV 11.0 (9.4-12.4) fL Immature Gran % (Auto) 0.4 (0.0-0.4) % Neut % (Auto) 64.5 (45-73) % Lymph % (Auto) 25.0 (20-40) % [place] % (Auto) 8.2 (2-11) % Eos % (Auto) 1.5 (0-4) % Baso % (Auto) 0.4 (0-2) % Lymph # (Auto) 2.5 (1.2-4.9) X10*3/uL [place] # (Auto) 0.8 (0.1-1.2) X10*3/uL Eos # (Auto) 0.2 (0.0-0.4) X10*3/uL Baso # (Auto) 0.0 (0.0-0.2) X10*3/uL Abs Immat Gran (auto) 0.04 H (0.00-0.03) X10*3/uL Absolute Neuts (auto) 6.4 (2.0-8.3) x10*3/uL Absolute Nucleated RBC 0.000 (0.0-0.012) X10*3/uL Nucleated RBC % (auto) 0.0 (0.0-0.2) /100WBC Hold Purple Top SEE NOTE Hold Blue Top SEE NOTE Sodium 133 L (135-145) mmol/L Potassium 2.5 L* D (3.3-5.1) mmol/L Chloride 97 (96-108) mmol/L Carbon Dioxide 25 (22-29) mmol/L Anion Gap 14 (12-20) BUN 24 H (9-16) mg/dL Creatinine 0.73 (0.5-1.4) mg/dL Estim Creat Clear Calc 68.6 Estimated GFR > 60 Random Glucose 194 H (60-115) mg/dL Calcium 8.9 (8.4-10.2) mg/dL Total Bilirubin 0.5 (0.0-1.0) mg/dL Direct Bilirubin 0.2 (0.0-0.5) mg/dL AST 22 (5-37) U/L ALT 19 (0-40) U/L Alkaline Phosphatase 45 (39-117) U/L Troponin I High Sens 4.0 D (<3.5-35.0) ng/L Total Protein 7.1 (6.5-8.0) g/dL Albumin 3.8 (3.5-5.0) g/dL Lipase 29 (8-78) U/L Independent Interpretation I performed an independent interpretation of an: Plain X-Ray (Chest: No acute intrathoracic disease.) and CT Scan (Head: No acute intracranial pathology) Radiology Impression Discussion of test interpretation with radiology: I have reviewed the radiologist's reading. Chronic Conditions Patient?s care impacted by: Other (CVA) Discharge Plan Discharge Clinical Impression: New onset seizure Patient Disposition: Admitted As Inpatient
[2023-10-03] VITALS (8 sets, daily range): BP systolic 114–168; BP diastolic 61–82; PULSE 53–105; RESP 16–20; TEMP 36.2–37.1; O2SAT 97–100; BMI 26.8
--- NOTE | 2023-10-03 | EEG_ITS ---
This is a 16-channel EEG with an EKG lead. The patient is reported awake, confused, and drowsy during the tracing. Background EEG rhythm is 6 to 8 hertz 5 to 20 microvolt posteriorly and lower amplitude fast anteriorly. Photic stimulation does not produce any significant abnormality. Hyperventilation is not performed. Cardiac lead does not reveal any significant abnormality. No definite sharp wave spikes or paroxysmal tendency or asymmetry noted. IMPRESSION: Mild generalized slowing with no evidence of seizure disorder. MD BRENNON Loredo/SILVIA / [phone]
--- NOTE | 2023-10-03 00:01 | PC.NURSE ---
iv via ems. seizure precautions in place. pt sats 89% on RA placed on 2 L NC. sats 93%. pt placed on heart monitor and changed into hospital gown. ekg obtained. dr. vega at bedside now.
--- NOTE | 2023-10-03 00:02 | PC.NURSE ---
axox2 which is baseline for pt. per family pt not at baseline for alertness; appears more sleepy. vitals as documented. neuros otherwise at baseline; L. sided weakness baseline per family from previous stroke 1 year ago. family at bedside.
--- NOTE | 2023-10-03 00:15 | ECG_ITS ---
Test Reason : SEIZURE Blood Pressure : / mmHG Vent. Rate : 101 BPM Atrial Rate : 101 BPM P-R Int : 206 ms QRS Dur : 130 ms QT Int : 378 ms P-R-T Axes : 075 -29 081 degrees QTc Int : 490 ms Sinus tachycardia with Premature atrial complexes Non-specific intra-ventricular conduction block Left anterior fascicular block Minimal voltage criteria for LVH, may be normal variant ( Justice product ) T wave abnormality, consider lateral ischemia Abnormal ECG When compared with ECG of 20-DEC-2022 20:34, Significant changes have occurred Referred By: Brennan Meng Electronically Signed By:TYSON GARCIA MD
[2023-10-03 00:22] LABS: MANUAL DIFF FLAG NO
[2023-10-03] MEDS: levETIRAcetam 750 MG in 0.9 % Sodium Chloride 100 ML 430 MG IV (00:25)
[2023-10-03 00:29] LABS: Basophils Percent Auto 0.4 % (0-2); Eosinophils Absolute Auto 0.2 X10*3/uL (0.0-0.4); Eosinophils Percent Auto 1.5 % (0-4); Hematocrit 45.7 % (42.0-52.0); Hemoglobin 14.8 g/dl (14.0-18.0); Imm Gran Abs Auto 0.04 X10*3/uL (0.00-0.03); Imm Gran Pct Auto 0.4 % (0.0-0.4); Lymphocytes Absolute Auto 2.5 X10*3/uL (1.2-4.9); Mean Corpuscular HGB Conc 32.4 g/dl (31.0-36.0); Mean Corpuscular Hemoglobin 22.9 pg (27.0-33.0); Mean Corpuscular Volume 70.6 fL (80.0-98.0); Monocytes Absolute Auto 0.8 X10*3/uL (0.1-1.2); Monocytes Percent Auto 8.2 % (2-11); Neutrophils Absolute Auto 6.4 x10*3/uL (2.0-8.3); Neutrophils Percent Auto 64.5 % (45-73); Platelet Count 252 X10*3/uL (160-400); Red Blood Count 6.47 X10*6/uL (4.60-5.80); Red Cell Distribution Width 14.1 % (11.0-16.0); White Blood Count 9.9 X10*3/uL (4.8-10.8)
--- NOTE | 2023-10-03 00:39 | PC.NURSE ---
iv alex infusing.
[2023-10-03 00:50] LABS: Alanine Aminotransferase 19 U/L (0-40); Albumin Level 3.8 g/dL (3.5-5.0); Alkaline Phosphatase 45 U/L (39-117); Anion Gap 14 (12-20); Aspartate Amino Transferase 22 U/L (5-37); Bilirubin Direct 0.2 mg/dL (0.0-0.5); Bilirubin Total 0.5 mg/dL (0.0-1.0); Blood Urea Nitrogen 24 mg/dL (9-16); Calcium 8.9 mg/dL (8.4-10.2); Carbon Dioxide 25 mmol/L (22-29); Chloride 97 mmol/L (96-108); Creatinine Clr Calc Pharmacy 68.6; Estimated Glomerular Filt Rate > 60; Glucose Random 194 mg/dL (60-115); Lipase 29 U/L (8-78); Potassium 2.5 mmol/L (3.3-5.1); Sodium 133 mmol/L (135-145); Total Protein 7.1 g/dL (6.5-8.0)
[2023-10-03] MEDS: Potassium Chloride Packet 20 MEQ PACKET 40 MEQ PO (01:18)
[2023-10-03] MEDS: Potassium Chloride/H20 10 MEQ/100 ML PIGGYBACK 100 MEQ IV (01:18)
[2023-10-03] MEDS: Magnesium Sulfate/H2O 2 GM/50 ML PIGGYBACK IV (01:18)
--- NOTE | 2023-10-03 02:35 | PC.NURSE ---
pt straight cathed approx 200 mL output. urine sent to lab. pt repositioned in bed. potassium infused. potassium packets previously administered via gtube. gtube flushes easily dressing dry and intact. family at bedside. no changes to previous assessment by this RN.
[2023-10-03 02:40] LABS: Appearance Urine Cloudy; Color Urine Yellow; Glucose Urine UA Negative (Negative); Leukocyte Esterase Urine Negative (Negative); Nitrite Urine Negative (Negative); PH 6.5 (5.0-9.0); Specific Gravity - Urine 1.015 (1.005-1.025); Urine Blood Negative (Negative); Urine Ketones Trace mg/dL (Negative); Urine Protein Trace mg/dL (Neg-Trace)
--- NOTE | 2023-10-03 04:49 | P.HPHOSP_ITS ---
History of Present Illness Date of Service: 10/03/23 Chief Complaint: seizure like activity 83-year-old male with past medical history of CVA with residual aphasia, bedbound, HTN, diabetes, BPH, status post G-tube, comes into the hospital after family noticed a seizure-like activity. Patient's family state that they were all gathered at home with a for suddenly noticed him having tonic clonic like seizure activity, this lasted about 1-2 minutes and patient was postictal immediately after. At baseline patient has significant aphasia and he does not communicate well. I am unable to obtain any review of system from the patient but his family at bedside have reported no acute changes to his health and no similar episode in the past On arrival to the ED patient hemodynamically stable Labs are significant for WBC count of 9.9, the ostium of 2.2, sodium 133, labs otherwise unremarkable UA negative, chest x-ray shows no intrathoracic abnormality Head CT shows no acute intracranial pathology, chronic changes including small vessel ischemic disease and volume loss Patient loaded with Keppra and will be admitted for further management Review of Systems 2 Review of Systems: Yes Unobtainable due to mental condition and Unobtainable due to mental status [facility] Medical History Cerebrovascular accident CVA (cerebral vascular accident) B12 deficiency Tinea pedis of both feet BPH (benign prostatic hyperplasia) Obesity (BMI 30-39.9) Dyslipidemia Hypertension MCFP (current) use of insulin Diabetic nephropathy associated with type 2 diabetes mellitus Diabetic polyneuropathy associated with type 2 diabetes mellitus Diabetes type 2, uncontrolled Family History Father No problems noted. Mother No problems noted. Surgical History History of surgery Household Members: Family Household Members Other:: 3 Housing: Apartment Do you presently have visiting nurse or other home services: No Alcohol intake: never Patient Tobacco Use Status: Never used Tobacco e-Cigarette/Vaping Use: Never Used Second Hand Smoke Exposure: No Advance Directives: Yes Advance Directives on File: Yes Advance Directives Date on File: 12/22/22 service: No Current occupational status: retired Meds Allergies Allergy/AdvReac Type Severity Reaction Status Date / Time No Known Allergies Allergy Verified 01/22/23 20:08 Active Medications: Current Medications Acetaminophen (Acetaminophen 325 Mg Tablet) 650 mg G-TUBE Q6H PRN PRN Reason: Pain, Mild (Pain Scale 1-3) Heparin Sodium (Porcine) (Heparin Sodium,Porcine 5,000 Unit/Ml Vial) 5,000 unit SUBCUT Q12H CECILE Levetiracetam (Levetiracetam 500 Mg Tablet) 500 mg G-TUBE BID CECILE Ondansetron HCl (Ondansetron Hcl 4 Mg/2 Ml Vial) 4 mg IVPUSH Q8H PRN PRN Reason: Nausea and Vomiting Potassium Chloride (Potassium Chloride Packet 20 Meq Packet) 40 meq G-TUBE Q2H CECILE Stop: 10/03/23 07:01 Sodium Chloride (0.9 % Sodium Chloride Flush 3 Ml Syringe) 3 ml IVFLUSH QSHIFT CECILE Home Medications Medication Instructions Recorded Confirmed Last Taken Type aspirin 81 mg tablet,delayed 81 mg PO DAILY 08/26/20 10/03/23 Unknown History release (Adult Aspirin Regimen) sertraline 50 mg tablet 50 mg PO DAILY 08/26/20 10/03/23 Unknown History tamsulosin 0.4 mg capsule 0.4 mg PO DAILY 08/26/20 10/03/23 Unknown History blood sugar diagnostic #10 ea 05/20/21 03/03/22 Unknown History lancets 28 gauge #100 ea 05/20/21 03/03/22 Unknown History atorvastatin 10 mg tablet 10 mg PO BEDTIME 02/12/22 10/03/23 Unknown History blood sugar diagnostic (FreeStyle 08/05/22 Unknown History Lite Strips) blood-glucose meter (FreeStyle 08/05/22 Unknown History Lite Meter kit) lancets 28 gauge (FreeStyle 08/05/22 Unknown History Lancets) finasteride 5 mg tablet 5 mg PO DAILY 10/03/23 10/03/23 Unknown History Physical Exam 2 Vital Signs and Narrative: Vital Signs: Last Vital Signs Pulse 80 10/03/23 04:05 Resp 17 10/03/23 04:05 BP 114/74 10/03/23 04:05 Pulse Ox 97 10/03/23 04:05 O2 Del Method Nasal Cannula 10/03/23 04:05 O2 Flow Rate 2 10/03/23 04:05 BMI result Body Mass Index 27.3 Const: Other: Has aphasia, does not appear in distress General: cooperative Eyes: General: appearance normal, both eyes and all related structures Resp: Effort & Inspection: normal respiratory effort Auscultation: clear to auscultation bilaterally Cardio: Rate: regular rate Rhythm: regular rhythm GI: Palpation (GI): Soft to palpation Auscultation: normal bowel sounds Skin: General skin exam: no rashes or lesions noted Neuro: Other: Does not follow neurological exam Extrem: General: Yes no pedal edema Results Labs 10/03/23 00:17 10/03/23 00:17 Labs: Laboratory Results - last 24 hr 10/03/23 10/03/23 00:17 02:34 MCV 70.6 L MCH 22.9 L MCHC 32.4 RDW 14.1 Plt Count 252 D MPV 11.0 Immature Gran % (Auto) 0.4 Neut % (Auto) 64.5 Lymph % (Auto) 25.0 [place] % (Auto) 8.2 Eos % (Auto) 1.5 Baso % (Auto) 0.4 Lymph # (Auto) 2.5 [place] # (Auto) 0.8 Eos # (Auto) 0.2 Baso # (Auto) 0.0 Abs Immat Gran (auto) 0.04 H Absolute Neuts (auto) 6.4 Absolute Nucleated RBC 0.000 Nucleated RBC % (auto) 0.0 Hold Purple Top SEE NOTE Hold Blue Top SEE NOTE Anion Gap 14 Estim Creat Clear Calc 68.6 Estimated GFR > 60 Random Glucose 194 H Calcium 8.9 Total Bilirubin 0.5 Direct Bilirubin 0.2 AST 22 ALT 19 Alkaline Phosphatase 45 Total Protein 7.1 Albumin 3.8 Lipase 29 Urine Color Yellow Urine Appearance Cloudy Urine pH 6.5 Ur Specific [place] 1.015 Urine Protein Trace Urine Glucose (UA) Negative Urine Ketones Trace Urine Blood Negative Urine Nitrite Negative Ur Leukocyte Esterase Negative Imaging Radiologist's Impressions: Impressions Chest X-Ray 10/03/23 00:45 IMPRESSION: No acute intrathoracic disease. Head CT 10/03/23 01:00 IMPRESSION: No acute intracranial pathology. Chronic changes including small vessel ischemic disease and volume loss. Assessment and Plan (1) New onset seizure: Status: Acute Plan 83-year-old male with past medical history of CVA hypertension, diabetes comes into the hospital after seizure-like activity witnessed by family. # seizure-like activity - had tonic clonic appearing seizure per family - has underlying volume loss per head CT and history of CVA - will obtain EEG - neurology consulted - admit to telemetry # hypokalemia - repleted - follow BMP # G-tube in place - start medication per G-tube # history of CVA - continue statin, aspirin # history of BPH - continue finasteride # diabetes - continue home insulin - add low-dose sliding scale insulin - diabetic diet # hypertension - stable - continue antihypertensives DVT prophylaxis: Heparin subQ Quality Stroke Does the patient have a stroke diagnosis?: No VTE Prior VTE?: No VTE Risk Level:: Medical - moderate - high VTE Device Contraindication: Treatment Not Indicated VTE Drug Contraindication: N/A - Med Ordered
[2023-10-03] MEDS: Potassium Chloride Packet 20 MEQ PACKET 40 MEQ G-TUBE ×2 (05:49→08:04)
[2023-10-03] MEDS: Heparin Sodium,Porcine 5,000 UNIT/ML VIAL 5000 UNIT SUBCUT ×2 (06:22→17:46)
[2023-10-03 07:28] LABS: MANUAL DIFF FLAG NO
[2023-10-03 07:39] LABS: Basophils Percent Auto 0.3 % (0-2); Eosinophils Percent Auto 0.4 % (0-4); Hematocrit 41.8 % (42.0-52.0); Hemoglobin 13.4 g/dl (14.0-18.0); Imm Gran Abs Auto 0.05 X10*3/uL (0.00-0.03); Imm Gran Pct Auto 0.5 % (0.0-0.4); Lymphocytes Absolute Auto 1.2 X10*3/uL (1.2-4.9); Lymphocytes Percent Auto 11.6 % (20-40); Mean Corpuscular HGB Conc 32.1 g/dl (31.0-36.0); Mean Corpuscular Volume 71.7 fL (80.0-98.0); Monocytes Absolute Auto 0.6 X10*3/uL (0.1-1.2); Monocytes Percent Auto 6.4 % (2-11); Neutrophils Percent Auto 80.8 % (45-73); Platelet Count 229 X10*3/uL (160-400); Red Blood Count 5.83 X10*6/uL (4.60-5.80); Red Cell Distribution Width 13.8 % (11.0-16.0)
[2023-10-03 08:02] LABS: Alanine Aminotransferase 19 U/L (0-40); Albumin Level 3.6 g/dL (3.5-5.0); Alkaline Phosphatase 42 U/L (39-117); Anion Gap 10 (12-20); Aspartate Amino Transferase 21 U/L (5-37); Bilirubin Total 0.5 mg/dL (0.0-1.0); Blood Urea Nitrogen 23 mg/dL (9-16); Calcium 9.2 mg/dL (8.4-10.2); Carbon Dioxide 31 mmol/L (22-29); Chloride 95 mmol/L (96-108); Creatinine Clr Calc Pharmacy 59.7; Estimated Glomerular Filt Rate > 60; Glucose Random 160 mg/dL (60-115); Sodium 132 mmol/L (135-145); Total Protein 6.5 g/dL (6.5-8.0)
[2023-10-03 08:02] LABS: Glucose, Whole Blood 146 mg/dL (60-115)
[2023-10-03] MEDS: Cholecalciferol (Vitamin D3) 25 MCG TABLET 50 MCG G-TUBE (08:03)
[2023-10-03] MEDS: Sertraline HCL 50 MG TABLET G-TUBE (08:03)
[2023-10-03] MEDS: levETIRAcetam Oral Soln 500 MG/5 ML G-TUBE (08:03)
[2023-10-03] MEDS: Tamsulosin HCL 0.4 MG CAPSULE PO (08:03)
[2023-10-03] MEDS: Finasteride 5 MG TABLET PO (08:03)
[2023-10-03] MEDS: lisinopriL 20 MG TABLET G-TUBE (08:03)
[2023-10-03] MEDS: amLODIPine Besylate 2.5 MG TABLET G-TUBE (08:03)
[2023-10-03] MEDS: Cyanocobalamin (Vitamin B-12) 500 MCG TABLET G-TUBE (08:04)
[2023-10-03] MEDS: hydroCHLOROthiazide 25 MG TABLET G-TUBE (08:04)
[2023-10-03] MEDS: Aspirin Enteric Coated 81 MG TABLET.DR PO (08:05)
[2023-10-03] MEDS: 0.9 % Sodium Chloride Flush 3 ML SYRINGE IVFLUSH ×3 (08:05→21:41)
--- NOTE | 2023-10-03 09:22 | PM.NEUROCN ---
History of Present Illness Data of Consult Service Date: 10/03/23 Primary Care Provider: Unknown Physician HPI Reason for consult: Seizure 83 years old man with underlying aphasia related to a stroke and significant dementia, unable to communicate, cared by family. He was brought to hospital after he was noted to have a generalized convulsion. There was no recent cold or flu-like illness or trauma. There was no exposure to any new medicine. Review of Systems Review of Systems: Could not be done with him PMFSH Past Medical History Medical History Cerebrovascular accident CVA (cerebral vascular accident) B12 deficiency Tinea pedis of both feet BPH (benign prostatic hyperplasia) Obesity (BMI 30-39.9) Dyslipidemia Hypertension halfway (current) use of insulin Diabetic nephropathy associated with type 2 diabetes mellitus Diabetic polyneuropathy associated with type 2 diabetes mellitus Diabetes type 2, uncontrolled Family History Family History Father No problems noted. Mother No problems noted. Surgical History Surgical History History of surgery Social History Household Members: Family Household Members Other:: 3 Housing: Apartment Do you presently have visiting nurse or other home services: No Alcohol intake: never Patient Tobacco Use Status: Never used Tobacco e-Cigarette/Vaping Use: Never Used Second Hand Smoke Exposure: No Advance Directives Date on File: 12/22/22 service: No Current occupational status: retired Meds Allergies Allergy/AdvReac Type Severity Reaction Status Date / Time No Known Allergies Allergy Verified 01/22/23 20:08 Active Medications: Current Medications Acetaminophen (Acetaminophen 325 Mg Tablet) 650 mg G-TUBE Q6H PRN PRN Reason: Pain, Mild (Pain Scale 1-3) Amlodipine Besylate (Amlodipine Besylate 2.5 Mg Tablet) 2.5 mg G-TUBE DAILY [facility]; Protocol Last Admin: 10/03/23 08:03 Dose: 2.5 mg Aspirin (Aspirin Enteric Coated 81 Mg Tablet.) 81 mg PO DAILY [facility] Last Admin: 10/03/23 08:05 Dose: 81 mg Atorvastatin Calcium (Atorvastatin Calcium 10 Mg Tablet) 10 mg G-TUBE BEDTIME [facility] Cyanocobalamin (Cyanocobalamin (Vitamin B-12) 500 Mcg Tablet) 500 mcg G-TUBE DAILY [facility] Last Admin: 10/03/23 08:04 Dose: 500 mcg Dextrose (Dextrose 50 % 25 Gm/50 Ml Syringe) 25 gm IVPUSH Q15M PRN; Protocol PRN Reason: per Hypoglycemia Standing Ord. Finasteride (Finasteride 5 Mg Tablet) 5 mg PO DAILY [facility] Last Admin: 10/03/23 08:03 Dose: 5 mg Glucose (Glucose Gel 15 Gm Gel..Gram.) 15 gm PO Q15M PRN; Protocol PRN Reason: per Hypoglycemia Standing Ord. Heparin Sodium (Porcine) (Heparin Sodium,Porcine 5,000 Unit/Ml Vial) 5,000 unit SUBCUT Q12H [facility] Last Admin: 10/03/23 06:22 Dose: 5,000 unit Hydrochlorothiazide (Hydrochlorothiazide 25 Mg Tablet) 25 mg G-TUBE DAILY [facility]; Protocol Last Admin: 10/03/23 08:04 Dose: 25 mg Insulin Human Lispro (Insulin Lispro 100 Unit/Ml 3 Ml Vial) 0 unit SUBCUT QIDACHS [facility]; Protocol Last Admin: 10/03/23 08:04 Dose: Not Given Levetiracetam (Levetiracetam Oral Soln 500 Mg/5 Ml) 500 mg G-TUBE BID [facility] Last Admin: 10/03/23 08:03 Dose: 500 mg Lisinopril (Lisinopril 20 Mg Tablet) 20 mg G-TUBE DAILY [facility]; Protocol Last Admin: 10/03/23 08:03 Dose: 20 mg Ondansetron HCl (Ondansetron Hcl 4 Mg/2 Ml Vial) 4 mg IVPUSH Q8H PRN PRN Reason: Nausea and Vomiting Pharmacy Consult (Consult Rx Parenteral Nutrition Ordering) 1 each MISCELLANE DAILY PRN PRN Reason: Consult order Sertraline HCl (Sertraline Hcl 50 Mg Tablet) 50 mg G-TUBE DAILY [facility] Last Admin: 10/03/23 08:03 Dose: 50 mg Sodium Chloride (0.9 % Sodium Chloride Flush 3 Ml Syringe) 3 ml IVFLUSH QSHIFT [facility] Last Admin: 10/03/23 08:05 Dose: 3 ml Tamsulosin HCl (Tamsulosin Hcl 0.4 Mg Capsule) 0.4 mg PO DAILY [facility] Last Admin: 10/03/23 08:03 Dose: 0.4 mg Vitamin D (Cholecalciferol (Vitamin D3) 25 Mcg Tablet) 50 mcg G-TUBE DAILY [facility] Last Admin: 10/03/23 08:03 Dose: 50 mcg Home Medications Medication Instructions Recorded Confirmed Last Taken Type aspirin 81 mg tablet,delayed 81 mg PO DAILY 08/26/20 10/03/23 10/02/23 History release (Adult Aspirin Regimen) sertraline 50 mg tablet 50 mg PO DAILY 08/26/20 10/03/23 10/02/23 History tamsulosin 0.4 mg capsule 0.4 mg PO DAILY 08/26/20 10/03/23 10/02/23 History blood sugar diagnostic #10 ea 05/20/21 03/03/22 10/02/23 History lancets 28 gauge #100 ea 05/20/21 03/03/22 10/02/23 History atorvastatin 10 mg tablet 10 mg PO DAILY 02/12/22 10/03/23 10/02/23 History blood sugar diagnostic (FreeStyle 08/05/22 10/02/23 History Lite Strips) blood-glucose meter (FreeStyle 08/05/22 10/02/23 History Lite Meter kit) lancets 28 gauge (FreeStyle 08/05/22 10/02/23 History Lancets) finasteride 5 mg tablet 5 mg PO DAILY 10/03/23 10/03/23 10/02/23 History insulin NPH-regular 70-30 U-100 10 unit subcut BEDTIME 10/03/23 10/03/23 10/02/23 History insulin 100 unit/mL subcutaneous pen (Novolin 70-30 FlexPen U-100 Insulin) insulin aspar prot-insulin aspart 13 unit subcut DAILY 10/03/23 10/03/23 10/02/23 History 100 unit/mL (70-30) subcutaneous pen (Novolog Mix 70-30FlexPen U-100) lisinopril 10 mg tablet 10 mg PO DAILY 10/03/23 10/03/23 10/02/23 History Physical Exam Vital Signs: Vital Signs: Last Vital Signs Temp 97.6 F 10/03/23 07:39 Pulse 55 10/03/23 07:39 Resp 20 10/03/23 07:39 BP 165/82 H 10/03/23 07:39 Pulse Ox 99 11/26/23 07:39 O2 Del Method Nasal Cannula 10/03/23 07:39 O2 Flow Rate 2 10/03/23 07:39 BMI result Body Mass Index 26.8 Neuro: Other: He is quite drowsy. He does not respond to verbal commands and does not speak. He was coughing with some phlegm. There was mild left-sided weakness but examination was limited and difficult to perform. Plantars were bilaterally extensor. He was not responsive to examination. There was no obvious twitching or convulsion or eye deviation or nystagmus. Results Labs 10/03/23 07:03 10/03/23 07:03 Labs: Short CBC 10/03/23 10/03/23 Range/Units 00:17 07:03 WBC 9.9 10.0 (4.8-10.8) X10*3/uL Hgb 14.8 13.4 L (14.0-18.0) g/dl Hct 45.7 41.8 L (42.0-52.0) % Plt Count 252 D 229 (160-400) X10*3/uL BMP 10/03/23 10/03/23 00:17 07:03 Sodium 133 L 132 L Potassium 2.5 L* D 4.0 D Chloride 97 95 L Carbon Dioxide 25 31 H BUN 24 H 23 H Creatinine 0.73 0.77 Calcium 8.9 9.2 Liver Function 10/03/23 10/03/23 Range/Units 00:17 07:03 Total Bilirubin 0.5 0.5 (0.0-1.0) mg/dL Direct Bilirubin 0.2 (0.0-0.5) mg/dL AST 22 21 (5-37) U/L ALT 19 19 (0-40) U/L Alkaline Phosphatase 45 42 (39-117) U/L Albumin 3.8 3.6 (3.5-5.0) g/dL Urine 10/03/23 Range/Units 02:34 Urine Color Yellow Urine Appearance Cloudy Urine pH 6.5 (5.0-9.0) Ur Specific [place] 1.015 (1.005-1.025) Urine Protein Trace (Neg-Trace) mg/dL Urine Glucose (UA) Negative (Negative) mg/dL Head CT revealed moderate to severe diffuse cerebral atrophy and severe chronic microvascular ischemic changes. 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 My recommendation is to rule out any common infection, start him on levetiracetam 250 mg twice a day, and adjust his medicines to avoid hyponatremia. Maybe some adjustment of diuretics is needed. Hyponatremia can put him at risk for seizures. Otherwise I have discussed his situation with family. Because of significant underlying dementia, conservative approach is recommended and he could be discharged home. Procedures Date of Service Date of Service: 10/03/23
--- NOTE | 2023-10-03 09:26 | PHA.MEDREC ---
Pharmacy Consult ? Medication Reconciliation Pharmacy has completed the medication reconciliation. Spoke with marcel who had a list of patients medications. Marcel reports patient being on lisinopril 10 mg daily ( which is same as claim hx). Lisinopril continued off med rec originally as 20 mg daily , Hailey ferro notified.
--- NOTE | 2023-10-03 10:48 | HO.PM.IMPN ---
Subjective Subjective Date of Service: 10/03/23 Review of Systems Follow up seizure hx of stroke, mostly nonverbal Physical Exam Vital Signs: Vital Signs: Last Vital Signs Temp 97.6 F 10/03/23 07:39 Pulse 55 10/03/23 07:39 Resp 20 10/03/23 07:39 BP 165/82 H 10/03/23 07:39 Pulse Ox 99 10/03/23 07:39 O2 Del Method Nasal Cannula 10/03/23 07:39 O2 Flow Rate 2 10/03/23 07:39 BMI result Body Mass Index 26.8 Appearing in no acute distress lung sounds are clear to auscultation heart regular rate rhythm, clear S1, S2 positive bowel sounds, abdomen is soft, nontender neuro patient is alert, nonverbal Objective Data Active Medications Acetaminophen (Acetaminophen 325 Mg Tablet) 650 mg G-TUBE Q6H PRN PRN Reason: Pain, Mild (Pain Scale 1-3) Amlodipine Besylate (Amlodipine Besylate 2.5 Mg Tablet) 2.5 mg G-TUBE DAILY [facility]; Protocol Last Admin: 10/03/23 08:03 Dose: 2.5 mg Documented By: SHERIF Aspirin (Aspirin Enteric Coated 81 Mg Tablet.) 81 mg PO DAILY [facility] Last Admin: 10/03/23 08:05 Dose: 81 mg Documented By: SHERIF Atorvastatin Calcium (Atorvastatin Calcium 10 Mg Tablet) 10 mg G-TUBE BEDTIME [facility] Cyanocobalamin (Cyanocobalamin (Vitamin B-12) 500 Mcg Tablet) 500 mcg G-TUBE DAILY [facility] Last Admin: 10/03/23 08:04 Dose: 500 mcg Documented By: SHERIF Dextrose (Dextrose 50 % 25 Gm/50 Ml Syringe) 25 gm IVPUSH Q15M PRN; Protocol PRN Reason: per Hypoglycemia Standing Ord. Finasteride (Finasteride 5 Mg Tablet) 5 mg PO DAILY [facility] Last Admin: 10/03/23 08:03 Dose: 5 mg Documented By: SHERIF Glucose (Glucose Gel 15 Gm Gel..Gram.) 15 gm PO Q15M PRN; Protocol PRN Reason: per Hypoglycemia Standing Ord. Heparin Sodium (Porcine) (Heparin Sodium,Porcine 5,000 Unit/Ml Vial) 5,000 unit SUBCUT Q12H [facility] Last Admin: 10/03/23 06:22 Dose: 5,000 unit Documented By: GIANFRANCO Insulin Human Lispro (Insulin Lispro 100 Unit/Ml 3 Ml Vial) 0 unit SUBCUT QIDACHS [facility]; Protocol Last Admin: 10/03/23 08:04 Dose: Not Given Documented By: SHERIF Non-Admin Reason: No Insulin Coverage Levetiracetam (Levetiracetam Oral Soln 500 Mg/5 Ml) 250 mg G-TUBE BID [facility] Lisinopril (Lisinopril 20 Mg Tablet) 20 mg G-TUBE DAILY [facility]; Protocol Last Admin: 10/03/23 08:03 Dose: 20 mg Documented By: SHERIF Ondansetron HCl (Ondansetron Hcl 4 Mg/2 Ml Vial) 4 mg IVPUSH Q8H PRN PRN Reason: Nausea and Vomiting Sertraline HCl (Sertraline Hcl 50 Mg Tablet) 50 mg G-TUBE DAILY [facility] Last Admin: 10/03/23 08:03 Dose: 50 mg Documented By: SHERIF Sodium Chloride (0.9 % Sodium Chloride Flush 3 Ml Syringe) 3 ml IVFLUSH QSHIFT [facility] Last Admin: 10/03/23 08:05 Dose: 3 ml Documented By: SHERIF Tamsulosin HCl (Tamsulosin Hcl 0.4 Mg Capsule) 0.4 mg PO DAILY [facility] Last Admin: 10/03/23 08:03 Dose: 0.4 mg Documented By: SHERIF Vitamin D (Cholecalciferol (Vitamin D3) 25 Mcg Tablet) 50 mcg G-TUBE DAILY [facility] Last Admin: 10/03/23 08:03 Dose: 50 mcg Documented By: SHERIF Labs 10/03/23 07:03 10/03/23 07:03 Labs: Laboratory Results - last 24 hr 10/03/23 10/03/23 10/03/23 00:17 02:34 07:03 MCV 70.6 L 71.7 L MCH 22.9 L 23.0 L MCHC 32.4 32.1 RDW 14.1 13.8 Plt Count 252 D 229 MPV 11.0 11.0 Immature Gran % (Auto) 0.4 0.5 H Neut % (Auto) 64.5 80.8 H Lymph % (Auto) 25.0 11.6 L [place] % (Auto) 8.2 6.4 Eos % (Auto) 1.5 0.4 Baso % (Auto) 0.4 0.3 Lymph # (Auto) 2.5 1.2 [place] # (Auto) 0.8 0.6 Eos # (Auto) 0.2 0.0 Baso # (Auto) 0.0 0.0 Abs Immat Gran (auto) 0.04 H 0.05 H Absolute Neuts (auto) 6.4 8.0 Absolute Nucleated RBC 0.000 0.000 Nucleated RBC % (auto) 0.0 0.0 Hold Purple Top SEE NOTE Hold Blue Top SEE NOTE Anion Gap 14 10 L Estim Creat Clear Calc 68.6 59.7 Estimated GFR > 60 > 60 POC Glucose Random Glucose 194 H 160 H Calcium 8.9 9.2 Phosphorus 2.0 L Magnesium 2.0 Total Bilirubin 0.5 0.5 Direct Bilirubin 0.2 AST 22 21 ALT 19 19 Alkaline Phosphatase 45 42 Total Protein 7.1 6.5 Albumin 3.8 3.6 Lipase 29 Urine Color Yellow Urine Appearance Cloudy Urine pH 6.5 Ur Specific [place] 1.015 Urine Protein Trace Urine Glucose (UA) Negative Urine Ketones Trace Urine Blood Negative Urine Nitrite Negative Ur Leukocyte Esterase Negative 10/03/23 07:46 MCV MCH MCHC RDW Plt Count MPV Immature Gran % (Auto) Neut % (Auto) Lymph % (Auto) [place] % (Auto) Eos % (Auto) Baso % (Auto) Lymph # (Auto) [place] # (Auto) Eos # (Auto) Baso # (Auto) Abs Immat Gran (auto) Absolute Neuts (auto) Absolute Nucleated RBC Nucleated RBC % (auto) Hold Purple Top Hold Blue Top Anion Gap Estim Creat Clear Calc Estimated GFR POC Glucose 146 H Random Glucose Calcium Phosphorus Magnesium Total Bilirubin Direct Bilirubin AST ALT Alkaline Phosphatase Total Protein Albumin Lipase Urine Color Urine Appearance Urine pH Ur Specific [place] Urine Protein Urine Glucose (UA) Urine Ketones Urine Blood Urine Nitrite Ur Leukocyte Esterase Assessment and Plan (1) New onset seizure: Status: Acute Plan 83-year-old male with past medical history of CVA hypertension, diabetes comes into the hospital after seizure-like activity witnessed by family. Seizure-like activity had tonic clonic appearing seizure per family has underlying volume loss per head CT and history of CVA will obtain EEG neurology consulted> keppra 250mg BID, hx of degeneration and vascular disease conservative management at this time, correct sodium Seizure precautions Hypokalemia. Resolved repleted Hyponatremia mild hold hctz for now G-tube in place start medication per G-tube tube feed diet history of CVA continue statin, aspirin history of BPH continue finasteride diabetes 2 continue home insulin add low-dose sliding scale insulin diabetic diet hypertension hold HCTZ due to hyponatremia continue lisinopril 10mg daily and increased amlodipine to 5 mg daily DVT prophylaxis: Heparin subQ Attending Dr. Feldman Quality Stroke Does the patient have a stroke diagnosis?: No VTE Prior VTE?: No VTE Risk Level:: Medical - moderate - high VTE Device Contraindication: Treatment Not Indicated VTE Drug Contraindication: N/A - Med Ordered
[2023-10-03 11:53] LABS: Glucose, Whole Blood 108 mg/dL (60-115)
[2023-10-03 16:42] LABS: Glucose, Whole Blood 120 mg/dL (60-115)
[2023-10-03 21:04] LABS: Glucose, Whole Blood 114 mg/dL (60-115)
[2023-10-03] MEDS: levETIRAcetam Oral Soln 500 MG/5 ML 250 MG G-TUBE (21:40)
[2023-10-03] MEDS: Atorvastatin Calcium 10 MG TABLET G-TUBE (21:40)
[2023-10-04 04:00] VITALS: BP 119/62; PULSE 52; RESP 18; TEMP 36.4; O2SAT 98
[2023-10-04] MEDS: Heparin Sodium,Porcine 5,000 UNIT/ML VIAL 5000 UNIT SUBCUT (05:30)
[2023-10-04 07:28] VITALS: BP 135/62; PULSE 50; RESP 16; TEMP 36.9; O2SAT 99
[2023-10-04 07:55] LABS: Glucose, Whole Blood 97 mg/dL (60-115)
[2023-10-04] MEDS: Tamsulosin HCL 0.4 MG CAPSULE PO (08:59)
[2023-10-04] MEDS: Cholecalciferol (Vitamin D3) 25 MCG TABLET 50 MCG G-TUBE (09:00)
[2023-10-04] MEDS: lisinopriL 10 MG TABLET G-TUBE (09:00)
[2023-10-04] MEDS: Aspirin Enteric Coated 81 MG TABLET.DR PO (09:00)
[2023-10-04] MEDS: levETIRAcetam Oral Soln 500 MG/5 ML 250 MG G-TUBE (09:01)
[2023-10-04] MEDS: Finasteride 5 MG TABLET PO (09:01)
[2023-10-04] MEDS: 0.9 % Sodium Chloride Flush 3 ML SYRINGE IVFLUSH (09:01)
[2023-10-04] MEDS: amLODIPine Besylate 5 MG TABLET G-TUBE (09:01)
[2023-10-04] MEDS: Sertraline HCL 50 MG TABLET G-TUBE (09:31)
[2023-10-04] MEDS: Cyanocobalamin (Vitamin B-12) 500 MCG TABLET G-TUBE (09:31)
--- NOTE | 2023-10-04 09:51 | MHC.CM.PN ---
IMM 10/04/23, EMR REVIEWED PT ADMITTED W/SEIZURE LIKE ACTIVITY AND STARTED ON KEPPRA 10/03 AND WILL NEED EEG PRIOR TO DC, PT'S GDTR/METER TESTER POLYPHASE CONNELLIE AT BEDSIDE AND ANSWERED MOST QUESTIONS, PT LIVES W/SPOUSE AND GDTR WHO IS HIS DAILY METER TESTER POLYPHASE, PT HAS 24 HR CARE AT HOME, PT IS MAINLY BEDBOUND HOWEVER DOES TRANSFER FROM BED TO , PER GDTR PT DOES NOT HAVE HCP AT HOME AND GOAL IS FOR DC W/RESUMP OF SERVICES, OPEN TO NEW VNA. PCP VERIFIED [facility] CM MET W/PT VIA RIGHT OF WAY CLEARER TO COMPLETE A HCP, PT NAMED HIS DTR MANUEL [phone] HIS HCA AND HIS GDTR FREDA [phone] HIS ALTERNATE. ANTIC DC HOME LATER TODAY PENDING EEG, FAMILY WILL TRANSPORT
[2023-10-04 10:20] VITALS: BMI 26.8
--- NOTE | 2023-10-04 10:39 | MHC.CLN ---
RE: CONSULT PT WITH PEG TUBE AND REQUIRES TF FOR NUTRITION SUPPORT PT WITH GLUCERNA BOLUS 300ML X4 PER DAY WITH 240ML FWF Q 6 HRS PROVIDES 1200KCALS, 50G PROTEIN, 1983ML TOTAL WATER FROM FORMULA AND FLUSHES (31ML/KG) TF NOT MEETING NEEDS RECOMMEND CHANGING FORMULA GLUCERNA 250ML BOLUS X6 PER DAY WITH 120ML FWF Q 8 HRS TO PROVIDE 1500KCALS (23KCALS/KG BASED ON CMW), 63G PROTEIN (.98G/KG), 1639ML TOTAL WATER FROM FORMULA AND FLUSHES (26ML/KG) MONITOR TOLERANCE, RESIDUALS AND LYTES SEE ALSO FULL CLINICAL NUTRITION ASSESSMENT
--- NOTE | 2023-10-04 12:22 | P.DS_ITS ---
DS: Providers Provider Date of Service: 10/04/23 Date of admission: 10/03/23 10:28 Primary care physician: Unknown Physician Consults: 10/03/23 04:46 Consult to Neurology Routine Consulting Provider: [facility] Reason for consultation: seizure like activity - witnessed Has provider been notified: No DS: Diagnosis Discharge Diagnosis (1) New onset seizure: Status: Acute DS: Summary Hospital Course Hospital Course: History and physical as per admitting provider. 83-year-old male with past medical history of CVA with residual aphasia, bedbound, HTN, diabetes, BPH, status post G-tube, comes into the hospital after family noticed a seizure-like activity. Patient's family state that they were all gathered at home with a for suddenly noticed him having tonic clonic like seizure activity, this lasted about 1-2 minutes and patient was postictal immediately after. At baseline patient has significant aphasia and he does not communicate well. I am unable to obtain any review of system from the patient but his family at bedside have reported no acute changes to his health and no similar episode in the past On arrival to the ED patient hemodynamically stable Labs are significant for WBC count of 9.9, the ostium of 2.2, sodium 133, labs otherwise unremarkable UA negative, chest x-ray shows no intrathoracic abnormality Head CT shows no acute intracranial pathology, chronic changes including small vessel ischemic disease and volume loss Patient loaded with Keppra and will be admitted for further management. 83-year-old man with history of CVA and mostly nonverbal treated for new onset seizure activity. Had tonic clonic seizure with family. He does have a history of CVA and volume loss from dementia and this may have contributed to the seizure. He was seen evaluated by Neurology recommended starting Keppra 250 mg twice daily. He also had EEG. Patient lives with family, discussed with patient's daughter and granddaughter. Patient has been hemodynamically stable and safe to discharge home. Hypokalemia. Repleted History of CVA. Continue aspirin and statin History of BPH. Continue finasteride Diabetes mellitus type 2. Continue home medications Hypertension. Continue home medications Time Attestation Discharge coordination time: Greater than 30 minutes Quality: Safe Use of Opioids Does Pt have an Active Cancer Diagnosis on the Problem List?: No Quality: Stroke Does the patient have a stroke diagnosis?: No Physical Exam Vital Signs: Vital Signs: Last Vital Signs Temp 98.5 F 10/04/23 07:28 Pulse 50 10/04/23 07:28 Resp 16 10/04/23 07:28 BP 135/62 10/04/23 07:28 Pulse Ox 99 10/04/23 07:28 O2 Del Method Room Air 10/04/23 07:28 O2 Flow Rate 1.5 10/03/23 23:37 BMI result Body Mass Index 26.8 Appearing in no acute distress lung sounds are clear to auscultation heart regular rate rhythm, clear S1, S2 positive bowel sounds, abdomen is soft, nontender neuro patient is alert, confused Mostly bedbound DS: Data Data Completed and Pending Completed studies during hospitalization [Text1]: Procedures Insertion of Feeding Device into Stomach, Via Natural or Artificial Opening Endoscopic (07/02/22) Introduction of Other Thrombolytic into Peripheral Vein, Percutaneous Approach (07/02/22) Labs on day of discharge: Laboratory Results - last 24 hr 10/03/23 10/03/23 10/04/23 16:33 20:24 07:34 POC Glucose 120 H 114 97 Discharge Plan Discharge Anticipated Discharge Date/Time: 10/04/23 12:16 Patient Disposition: Home Health Service Discharge Diagnosis: Seizure Discharge Medications: New levetiracetam 500 mg/5 mL (5 mL) Solution 250 mg G-tube BID Qty: 200 0RF Continued cyanocobalamin (vitamin B-12) 500 mcg tablet, sublingual 500 mcg sublingual DAILY 90 Days Qty: 90 1RF cholecalciferol (vitamin D3) 50 mcg (2,000 unit) capsule 50 mcg PO DAILY Qty: 90 0RF finasteride 5 mg tablet 5 mg PO DAILY lisinopril 10 mg tablet 10 mg PO DAILY insulin asp prt-insulin aspart [Novolog Mix 70-30FlexPen U-100] 100 unit/mL (70-30) Insulin Pen 13 unit SUBCUT DAILY Novolin 70-30 FlexPen U-100 100 unit/mL (70-30) Insulin Pen 10 unit SUBCUT BEDTIME sertraline 50 mg tablet 50 mg PO DAILY tamsulosin 0.4 mg capsule 0.4 mg PO DAILY aspirin [Adult Aspirin Regimen] 81 mg tablet,delayed release (DR/EC) 81 mg PO DAILY hydrochlorothiazide 25 mg tablet 25 mg PO DAILY 90 Days Qty: 90 2RF amlodipine 2.5 mg tablet 2.5 mg PO DAILY 90 Days Qty: 90 2RF (DME) lancets 28 gauge misc See Rx Instructions Not Applicable TID Qty: 100 Rx Instructions: As directed (DME) blood sugar diagnostic Strip See Rx Instructions Not Applicable TID Qty: 10 Rx Instructions: As directed atorvastatin 10 mg tablet 10 mg PO DAILY (DME) FreeStyle Kristine 2 Springer Misc See Rx Instructions .ROUTE .MEDSUPPLY Qty: 1 0RF Rx Instructions: As directed (DME) FreeStyle Kristine 2 Sensor Kit See Rx Instructions .ROUTE .MEDSUPPLY Qty: 2 11RF Rx Instructions: As directed every 2 weeks (DME) blood-glucose meter [FreeStyle Lite Meter] Kit See Rx Instructions .ROUTE Rx Instructions: As directed (DME) FreeStyle Lite Strips Strip See Rx Instructions .ROUTE Rx Instructions: As directed (DME) lancets [FreeStyle Lancets] 28 gauge misc See Rx Instructions .ROUTE Rx Instructions: As directed Discharge Orders: Discharge Order (Routine); Ordered 10/04/23 Ordered By: Hailey Metzger Diet: Advance to usual diet Activity on Discharge: As tolerated Stand Alone Forms: Patient Portal Discharge page Care Plan Goals: You have been started on a new medication called Keppra 250 mg twice Daily for seizures Health Concerns: Seizure, new onset Plan of Treatment: Follow-up with primary care provider as needed Take all medications as prescribed Assessment: See discharge summary
[2023-10-04 12:45] LABS: Glucose, Whole Blood 103 mg/dL (60-115)
== END 2023-10-04 13:16 | disposition home or self-care (01) | DRG 101 ==
LOC: HO.ED 10-03 02:09 → HO.EDOVER 10-03 04:52 → HO.IMC 10-03 05:00
PROVIDERS: Admitting Provider Internal Medicine; Emergency Provider Emergency Medicine; PCP Internal Medicine; Visit Provider Nurse Practitioner Acute Care
DX: R56.9 Unspecified convulsions (principal); E87.1 Hypo-osmolality and hyponatremia; E11.42 Type 2 diabetes mellitus with diabetic polyneuropathy; I10 Essential (primary) hypertension; N40.0 Benign prostatic hyperplasia without lower urinary tract symptoms; F01.50 Vascular dementia, unspecified severity, without behavioral disturbance, psychotic disturbance, mood disturbance, and anxiety; E87.6 Hypokalemia; Z74.01 Bed confinement status; Z93.1 Gastrostomy status; I69.320 Aphasia following cerebral infarction; Z79.4 Long term (current) use of insulin; Z79.82 Long term (current) use of aspirin; Z79.899 Other long term (current) drug therapy
CPT/HCPCS: 36415; 70450; 71045; 80048; 80053; 80076; 81003; 82947; 83690; 83735; 84100; 84484; 85025; 93005; 95816; 99222; 99285; J1644; J1953; J3475; J3480

== ENCOUNTER → 2023-10-03 04:46 | Outpatient (BNV) | payer MEDICARE, MEDICAID, SELFPAY | PROVIDERS: Admitting Provider Internal Medicine; Emergency Provider Emergency Medicine; Visit Provider Internal Medicine | DX: R56.9 Unspecified convulsions (principal) | CPT/HCPCS: 99223; 99239; 99499 ==

== ENCOUNTER 2024-04-19 12:13 | Outpatient (REF) | payer MEDICARE, MEDICAID, SELFPAY ==
[2024-04-19 14:01] VITALS: BP 181/89; PULSE 68; RESP 16; TEMP 36.3; O2SAT 96; BMI 21.8
== END 2024-04-19 12:14 | disposition home or self-care (01) ==
LOC: HO.MS 12:13
PROVIDERS: PCP Internal Medicine; Visit Provider Internal Medicine Gastroenterology
PROC: (CPT 43762; principal; 2024-04-19 14:00)
DX: Z53.21 Procedure and treatment not carried out due to patient leaving prior to being seen by health care provider (principal); Z43.1 Encounter for attention to gastrostomy

== ENCOUNTER 2024-12-06 12:48 | Outpatient (REF) | payer MEDICARE, MEDICAID, SELFPAY ==
[2024-12-06 14:04] VITALS: BP 205/98; PULSE 67; RESP 16; O2SAT 95; BMI 21.1
--- OUTSIDE RECORDS SUMMARY | 2024-12-06 14:59 | XMS_ITS ---
Author Organization [facility] Address [address] [place] [address] Care Team Providers Care Central Lab Technician Name Role Phone Mariia Sullivan MD Primary Care Provider Unavaildominguez e Clayton Alvares Jr Unavailable THEA RICH MD Unavailable Unavailable REASON FOR VISIT HOLE IN G-TUBE Encounters Encounter Location Date Provider Diagnosis [facility] [address] [place] [address] 11/28/2024 Clayton Alvares Jr PLAN OF TREATMENT No Information
--- OUTSIDE RECORDS SUMMARY | 2024-12-06 14:59 | XMS_ITS | Patient Health Record ---
Author Organization [facility] Address [address] [place] [address] Care Team Providers Care Theatrical Rigger Name Role Phone Mariia Sullivan MD Primary Care Provider Unavaildominguez e Clayton Alvares Jr Unavailable [phone] THEA RICH MD Unavailable Unavailable ALLERGIES No Known Allergies REASON FOR REFERRAL No Information MEDICATIONS Medication SIG (Take, Route, Frequency, Duration) Notes Start Date End Date Status amLODIPine Besylate 2.5 MG Oral for 90 Active Atorvastatin Calcium 10 MG Oral for 90 Active Tamsulosin HCl 0.4 MG TAKE 1 CAPSULE BY MOUTH DAILY. TAKE 30 MINS AFTER SAME MEAL EVERY DAY. Oral for 90 Active Vitamin B-12 500 MCG TAKE 1 TABLET BY MO UTH EVERY DAY Oral for 30 Active FreeStyle Lancets - USE TO TEST BLOOD FINNEY GAR 3 TIMES DAILY for 90 Active Vitamin B 12 500 MCG 1 tablet Orally Onc e a day for 30 day(s) Active hydroCHLOROthiazide 25 MG TAKE 1 TABLET BY MOUTH EVERY DAY Oral for 90 Active Vitamin D-3 25 MCG (1000 UT) 1 capsule O rally Once a day for 30 day(s) Active Finasteride 5 MG 1 tablet Orally Once a day for 30 day(s) Active Lisinopril 10 MG 1 tablet Orally Once a day for 30 day(s) Active Aspirin Low Dose 81 MG TAKE 1 TABLET BY MOUTH EVERY DAY Oral for 90 Active Sertraline HCl 50 MG Oral for 90 Active NovoLOG FlexPen 100 UNIT/ML as directed Subcutaneous Active IMMUNIZATIONS Vaccine Route Administration Date Status Comme nts Influenza Unknown 10/08/2022 Administered SOCIAL HISTORY Tobacco Use: Social History Observation Description Date Details (start date - stop date) Never Smoker NA - NA Sex Assigned At : Social History Observation Description Sex Assigned At Unknown Tobacco Use/Smoking Question Answer Notes Patient is a nonsmoker Alcohol Screen Question Answer Notes Did you have a drink containing alcohol in the p ast year? 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) Active confirmed [id number] Encounters Encounter Location Date Provider Diagnosis [facility] [address] [place] [id number] 04/19/2024 Clayton Alvares Jr Gastrostomy malfunction K94.23 [facility] [address] [place] [id number] 12/06/2024 Clayton Alvares Jr [facility] [address] [place] [phone] 04/17/2024 Clayton Alvares Jr [facility] [address] [place] [phone] 11/28/2024 Clayton Alvares Jr ASSESSMENTS Encounter Date Diagnosis Assessment Notes Treatment Notes Treatment Clinical Notes 04/19/2024 Gastrostomy malfunction (ICD-10 - K94.23) PLAN OF TREATMENT No Information Insurance Providers Payer Name Payer Address Payer Phone Subscriber Number Group Number Insured Name Patient Relationship to Insured Coverage Start Date Coverage End Date MEDICARE OF [place] [address] [place] [id number] CHAD BAXTER Self - patient is the insured MEDICAID OF [facility] [address] [place] [address] [id number] CHAD BAXTER Self - patient is the insured MEDICAL (GENERAL) HISTORY Medical History History ICD Code CVA with aphasia and dysphagia Diabetes mellitus type 2 Hypertension Hyperlipidemia Heart murmur Surgical History Surgery Date(Month/Year) EGD/PEG placement 06/29
--- OUTSIDE RECORDS SUMMARY | 2024-12-06 14:59 | XMS_ITS ---
Author Organization [facility] Address [address] [place] [address] Care Team Providers Care Ice Cream Vault Worker Name Role Phone Mariia Sullivan MD Primary Care Provider Unavaildominguez e Clayton Alvares Jr Unavailable THEA RICH MD Unavailable Unavailable REASON FOR VISIT z43.1 encounter for attention to gastrostomy tube Encounters Encounter Location Date Provider Diagnosis [facility] [address] [facility] [place] [id number] 12/06/2024 Clayton Alvares Jr PLAN OF TREATMENT No Information
--- OUTSIDE RECORDS SUMMARY | 2024-12-06 15:00 | XMS_ITS | Clinical Summary ---
Author Organization [facility] [address] [facility] Address [address] [place] [address] Phone Care Team Providers Care Brush Filler Hand Name Role Phone Mariia Sullivan MD Primary Care Provider Allergies No known active allergies Medications Medication Sig Dispensed Refills Start Date End Date Status amLODIPine (NORVASC) 2.5 mg tablet Take 1 Tablet by mouth at bedtime. 04/24/2024 Active sertraline (ZOLOFT) 50 mg tablet Take 1 Tablet by mouth at bedtime. 04/24/2024 Active lisinopriL (PRINIVIL,ZESTRI L) 10 mg tablet Take 1 Tablet by mouth at bedtime. 04/24/2024 Active levETIRAcetam (KEPPRA) 100 mg/mL solution Take 2.5 mL by mouth 2 times daily. 01/07/2024 Active cyanocobalamin (VITAMIN B-12) 500 mcg tablet Take 1 tablet (500 mcg total) by mouth 1 (one) time each day. 08/23/2023 Active FREESTYLE LANCETS MISC Use to test blood sugar three times daily 08/23/2023 Active blood sugar diagnostic (FreeStyle Lite Strips) test strip USE TO TEST 3 TIMES DAILY 08/23/2023 Active cholecalciferol (VITAMIN D-3) 50 mcg (2,000 unit) capsule Take by mouth daily. Active atorvastatin (LIPITOR) 10 mg tablet TAKE 1 TABLET BY MOUTH EVERYDAY AT BEDTIME 90 tablet 1 12/01/2024 Active aspirin 81 mg EC tablet TAKE 1 TABLET BY MOUTH EVERY DAY 90 tablet 1 12/02/2024 Active finasteride (PROSCAR) 5 mg tablet TAKE 1 TABLET BY MOUTH EVERY DAY 90 tablet 1 12/04/2024 Active tamsulosin (FLOMAX) 0.4 mg 24 hr capsule TAKE 1 CAPSULE BY MOUTH DAILY. TAKE 30 MINS AFTER SAME MEAL EVERY DAY. 90 capsule 1 12/04/2024 Active tamsulosin (FLOMAX) 0.4 mg 24 hr capsule Take 1 Capsule by mouth daily. Take 30 mins after same meal every day. 04/24/2024 12/04/2024 Discontinued aspirin 81 mg EC tablet Take 1 tablet (81 mg total) by mouth 1 (one) time each day. 04/24/2024 12/02/2024 Discontinued atorvastatin (LIPITOR) 10 mg tablet Take 1 Tablet by mouth at bedtime. 04/24/2024 12/01/2024 Discontinued finasteride (PROSCAR) 5 mg tablet Take 1 tablet (5 mg total) by mouth 1 (one) time each day. 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 He underwent a chest CT scan in January 2022 which was requested by his PCP. The ascending aorta was noted to measure 4.3 cm. The patient should continue yearly monitoring with an echocardiogram or chest CT scan. Urinary incontinence 03/25/2021 Hemiparesis affecting left side as late effect o f stroke 07/22/2016 Microcytosis 07/22/2016 BPH (benign prostatic hyperplasia) 07/30/2014 HTN (hypertension) 07/30/2014 Hyperlipidemia 07/30/2014 Overview (10/03/2024): L Insomnia 07/30/2014 Major depression 07/30/2014 Type II diabetes mellitus with renal manifestati ons 07/30/2014 Microscopic hematuria 07/28/2014 Encounters Date Type Department Care Team Description 10/19/2024 Telephone Adult Medicine [address] [phone] Rashmi Mcneil LPN Fitting for DME (Fsxed form from [facility]) 10/06/2024 Telephone Adult Medicine [address] [phone] Rashmi Mcneil LPN Fitting for DME 10/04/2024 4:00 PM EST Office Visit Adult Medicine [address] [phone] Mariia Sullivan MD 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 (CMS/HCC) (Primary Dx); B12 deficiency; Primary hypertension; Recurrent major depressive disorder, in remission (CMS/HCC); Incontinence of feces, unspecified fecal incontinence type; Urinary incontinence, unspecified type; Other hyperlipidemia; Moderate dementia without behavioral disturbance, psychotic disturbance, mood disturbance, or anxiety, unspecified dementia type (CMS/HCC); Type 2 diabetes mellitus with diabetic microalbuminuria, without long-term current use of insulin (CMS/HCC) from Last 3 Months Immunizations Name Administration Dates Next Due Influenza trivalent, 0.5mL ( Fluad) 65yo and older 10/04/2024,08/23/2023,07/21/2022,08/13,08/23/2017,07/22/2016,08/06/2015 ,09/24/2014 Influenza trivalent, with pr eservative (Fluzone; Afluria) 6mo and older 10/08/2022 PPD Test 07/25/2014 Pneumococcal conjugate 13 va lent (Prevnar 13, PCV13) 2mo and older 07/22/2016 Pneumococcal polysaccharide 23 valent (Pneumovax 23) 2yo and older 08/23/2017 Td Tetanus diptheria (Tdvax) 7yo and older 12/05/2018 Surgical History Surgery Date Site/Laterality Comments EYE SURGERY PROCEDURE: HISTORICAL EYE SURGERY Medical History Medical History Date Comments Microscopic hematuria 07/28/2014 DX:Microsc opic hematuria Diabetes mellitus type 2 in obese 07/30/2014 DX:Diabetes mellitus type 2 in obese; COMMENT: dr pace HTN (hypertension) 07/30/2014 DX:HTN (hyper tension) Hyperlipidemia 07/30/2014 DX:Hyperlipidemi a BPH (benign prostatic hyperplasia) 07/30/2014 DX:BPH (benign prostatic hyperplasia); COMMENT: dr galvin Insomnia 07/30/2014 DX:Insomnia Major depression 07/30/2014 DX:Major depres marley CVA (cerebral vascular accid ent) ([facility]) 07/30/2014 DX:CVA (cerebral vascular ac cident) ([facility]) Leg pain 07/30/2014 DX:Leg pain B12 deficiency DX:B12 deficienc y LVH (left ventricular hypertrophy) DX:LVH (left ventricular hypertrophy) Diabetes mellitus type 2, uncomplicated ([facility]) 07/30/2014 DX:Diabetes mellitus type 2, uncomplicated ([facility]) Bowel incontinence 08/13/2021 DX:Bowel inco ntinence COVID-19 virus infection 09/28/2021 DX:COVI D-19 virus infection; COMMENT: 09/27/21 Presence of externally remov able percutaneous endoscopic gastrostomy (PEG) tube ([facility]) 07/21/2022 DX:Presence of externally re movable percutaneous endoscopic gastrostomy (PEG) tube ([facility]) Dysphagia 07/21/2022 DX:Dysphagia Aphasia 07/21/2022 DX:Aphasia Seizure ([facility]) 10/08/2023 DX:Seizure ([facility]) Hemiparesis affecting left s brandt as late effect of stroke ([facility]) 07/22/2016 Family History Medical History Relation Name Comments Throat cancer Father Relation Name Status Comments Father Social History Tobacco Use Types Packs/Day Years Used Date Smoking Tobacco: Never Smokeless Tobacco: Never Tobacco Cessation:Counseling Given: Not Answered Alcohol Use Standard Drinks/Week Comments No 0 (1 standard drink = 0.6 oz pur e alcohol) Housing Instability Answer Date Recorde d Are you worried that in the next 2 months you may not have stable housing? No 10/04/2024 Food Access & Nutrition Answer Date Rec orded Do you have access to a vari ety of food including fruits and vegetables? Yes 10/04/2024 Access to Healthcare Answer Date Record ed Within the last 3 months, ho w many times did you visit the emergency department for your medical care? 0 10/04/2024 Health Literacy Answer Date Recorded How often do you need to hav e someone help you when you read instructions, pamphlets, or other written material from your doctor or pharmacy? Always 10/04/2024 Caregiver: How often do you need to have someone help you when you read instructions, pamphlets, or other written material from your doctor or pharmacy? Not on file 10/04/2024 Financial Risk Answer Date Recorded How hard is it for you to pa y for the very basics like food, housing, medical care, and air conditioning / heating? Not very hard 10/04/2024 Transportation Answer Date Recorded Has the lack of transportati on kept you from meetings, work, or from getting things needed for daily living? No Has the lack of transportati on kept you from medical appointments or from getting medications? No 10/04/2024 Social Isolation Answer Date Recorded How often do you feel lonely or isolated from th ose around you? Rarely 10/04/2024 Food Risk Answer Date Recorded Within the past 12 months we worried whether our food would run out before we got money to buy more. Never true 10/04/2024 Within the past 12 months th e food we bought just didn't last and we didn't have money to get more. Never true 10/04/2024 Dependent Care Answer Date Recorded Do you need help finding or paying for care for your loved ones. For example, summer child caregiver or elderly care for an older adult? No 10/04/2024 Education Answer Date Recorded Do you think completing more education or training, like finishing a GED, going to college, or learning a trade, would be helpful for you? N/A 10/04/2024 Employment and Income Answer Date Recor ded During the last four weeks, have you been actively looking for work? No 10/04/2024 Living Situation Answer Date Recorded What is your living situation? 1 12/04/2023 Sex and Gender Information Value Date Recorded Sex Assigned at Not on file Gender Identity Not on file Sexual Orientation Not on file Job Start Date Occupation Industry Not on file Not on file Not on file Obstetrics History Last Filed Vital Signs Vital Sign Reading Time Taken Comments Blood Pressure 110/62 10/04/2024 4:00 PM EST Pulse 79 10/04/2024 4:00 PM EST Temperature 36.3 ??C (97.3 ??F) 10/04/2024 4:00 PM ES T Respiratory Rate 14 10/04/2024 4:00 PM EST Oxygen Saturation 99% 10/04/2024 4:00 PM EST Inhaled Oxygen Concentration - - Weight 61.2 kg (135 lb) 10/04/2024 4:00 PM EST Height 167.6 cm (5' 6 ) 10/04/2024 4:00 PM EST Body Mass Index 21.79 10/04/2024 4:00 PM EST Plan of Treatment Upcoming Encounters Date Type Department Care Team (Late st Contact Info) Description 02/01/2025 10:00 AM EDT Office Visit Adult Medicine [facility] [address] [place] [phone] Gifty Yang PA [address] [place] [address] Health Maintenance Due Date Last Done Comments Diabetes: Annual Foot Exam 1950 Diabetes: Annual Retina Eye Exam 1950 Zoster Vaccines (1 of 2) 1989 RSV Immunization Patients 60+ Years Old (1 - 1-dose 75+ series) 2014 Medicare Annual Wellness Visit 10/17/2022 Diabetes: Annual Urine Albumin-Creatinine Ratio (uACR) 04/14/2023 04/14/2022 COVID-19 Vaccine ( season) 2024 01/17/2022, 03/01/2021, 02/01/2021 Diabetes: Blood Sugar Control Test (HGBA1C) 04/03/2025 10/04/2024, 02/03/2024 Depression Screening 10/04/2025 10/04/2024, 04/24/20 24 Diabetes: Annual GFR (Glomerular Filtration Rate) 10/04/2025 10/04/2024, 04/06/2024, 04/06/2024 Falls Risk Assessment 10/04/2025 10/04/2024 Hypertension/CHF/CAD Annual BMP Blood Test 10/04/2025 10/04/2024, 04/06/2024, 04/06/2024 Social Influencers of Health Screening 10/04/2025 10/04/2024 DTaP,Tdap,and Td Vaccines (2 - Td or Tdap) 12/05/2028 12/05/2018 Cholesterol Screening (Lipid Panel) 10/04/2029 10/04/2024, 04/06/2024, 04/06/2024 Pneumococcal Vaccine: 65+ Years Completed 08/23/2017, 07/22/2016 Influenza Vaccine Completed 10/04/2024, , 10/08/2022, Additional history exists HIB Vaccines Aged Out No longer eligi ble based on patient's age to complete this topic HPV Vaccines Aged Out No longer eligi ble based on patient's age to complete this topic Hepatitis A Vaccines Aged Out No long er eligible based on patient's age to complete this topic Hepatitis B Vaccines Aged Out No long er eligible based on patient's age to complete this topic IPV Vaccines Aged Out No longer eligi ble based on patient's age to complete this topic MMR Vaccines Aged Out No longer eligi ble based on patient's age to complete this topic Meningococcal ACWY Vaccine Aged Out N o longer eligible based on patient's age to complete this topic RSV Immunization Patients Under 20 months Aged Out No longer eligible based on patient's age to complete this topic Varicella Vaccines Aged Out No longer eligible based on patient's age to complete this topic Procedures Procedure Name Priority Date/Time Associated Diagnosis Comments COMPREHENSIVE METABOLIC PANEL Routine 10/04/2024 4:40 PM EST Primary hypertension Type 2 diabetes mellitus with diabetic microalbuminuria, without long-term current use of insulin ([facility]) HEMOGLOBIN A1C Routine 10/04/2024 4:40 PM EST Type 2 diabetes mellitus with diabetic microalbuminuria, without long-term current use of insulin ([facility]) LIPID PANEL WITH REFLEX TO DIRECT LDL Routine 10/04/2024 4:40 PM EST Type 2 diabetes mellitus with diabetic microalbuminuria, without long-term current use of insulin ([facility]) DEPRESSION SCREENING Routine 04/24/2024 URINE ALBUMIN CREATININE RATIO Routine 04/14/2022 from Last 3 Months or Most Recently Relevant to Health Maintenance Results * (ABNORMAL) Lipid panel with reflex to direct LDL (10/04/2024 4:40 PM EST) Cholesterol 79 0 - 200 mg/dL LAB CHEMISTRY METHOD 10/04/2024 7:16 PM EST [facility] Triglycerides 39 0 - 150 mg/dL LAB CHEMISTRY METHOD 10/04/2024 7:16 PM EST [facility] HDL 39(L) >=40 mg/dL LAB CHEMISTRY METHOD 10/04/2024 7:16 PM EST [facility] LDL Calculated 32 0 - 100 mg/dL LAB CHEMISTRY METHOD 10/04/2024 7:16 PM EST [facility] VLDL Cholesterol Yuval 7.8 mg/dL LAB CHEMISTRY METHOD 10/04/2024 7:16 PM EST [facility] Non HDL Chol. (LDL+VLDL) 40 <145 mg/dL LAB CHEMISTRY METHOD 10/04/2024 7:16 PM EST [facility] Chol/HDL Ratio 2.0 0.0 - 4.4 LAB CHEMISTRY METHOD 10/04/2024 7:16 PM EST [facility] Blood Venous blood specimen / Unknown Venipuncture / Unknown 10/04/2024 4:40 PM EST 10/04/2024 4:40 PM EST Mariia Sullivan MD LAB BLOOD ORDERABLES [facility] [address] [place] [address], * Hemoglobin A1c (10/04/2024 4:40 PM EST) [facility] Hemoglobin A1C 4.6 <6.5 % LAB CHEMISTRY METHOD 10/04/2024 9:27 PM [facility] Mean Bld Glu Estim. 85 mg/dL LAB CHEMISTRY METHOD 10/04/2024 9:27 PM [facility] Blood Venous blood specimen / Unknown Venipuncture / Unknown 10/04/2024 4:40 PM EST 10/04/2024 4:40 PM EST Mariia Sullivan MD LAB BLOOD ORDERABLES [facility] [address] [place] [address], * (ABNORMAL) Comprehensive metabolic panel (10/04/2024 4:40 PM EST) [facility] Sodium 135 133 - 145 mmol/L LAB CHEMISTRY METHOD 10/04/2024 7:11 PM [facility] Potassium 4.1 3.5 - 5.5 mmol/L LAB CHEMISTRY METHOD 10/04/2024 7:11 PM [facility] Chloride 100 96 - 110 mmol/L LAB CHEMISTRY METHOD 10/04/2024 7:11 PM [facility] CO2 30 21 - 32 mmol/L LAB CHEMISTRY METHOD 10/04/2024 7:11 PM [facility] Anion Gap 5 3 - 11 LAB CHEMISTRY METHOD 10/04/2024 7:11 PM [facility] Glucose 102(H) 70 - 100 mg/dL LAB CHEMISTRY METHOD 10/04/2024 7:11 PM [facility] BUN 27(H) 5 - 25 mg/dL LAB CHEMISTRY METHOD 10/04/2024 7:11 PM [facility] Creatinine 0.56(L) 0.70 - 1.30 mg/dL LAB CHEMISTRY METHOD 10/04/2024 7:11 PM [facility] eGFR 97 >=60 mL/min/1. 73m2 LAB CHEMISTRY METHOD 10/04/2024 7:11 PM [facility] Comment:Calculation based on the??Chronic Kidney Disease Epidemiology Collaboration (CKD-EPI) equation refit??without adjustment for race. BUN/Creatinine Ratio 48.2 LAB CHEMISTRY METHOD 10/04/2024 7:11 PM [facility] Calcium 9.1 8.5 - 10.5 mg/dL LAB CHEMISTRY METHOD 10/04/2024 7:11 PM [facility] AST (SGOT) 18 10 - 42 unit/L LAB CHEMISTRY METHOD 10/04/2024 7:11 PM [facility] ALT (SGPT) 23 10 - 60 unit/L LAB CHEMISTRY METHOD 10/04/2024 7:11 PM [facility] Alkaline Phosphatase 47 42 - 121 unit/L LAB CHEMISTRY METHOD 10/04/2024 7:11 PM [facility] Total Protein 6.0 6.0 - 8.0 g/dL LAB CHEMISTRY METHOD 10/04/2024 7:11 PM [facility] Albumin 3.4 3.2 - 5.0 g/dL LAB CHEMISTRY METHOD 10/04/2024 7:11 PM [facility] Total Bilirubin 0.4 0.0 - 1.4 mg/dL LAB CHEMISTRY METHOD 10/04/2024 7:11 PM [facility] Blood Venous blood specimen / Unknown Venipuncture / Unknown 10/04/2024 4:40 PM EST 10/04/2024 4:40 PM EST Mariia Sullivan MD LAB BLOOD ORDERABLES [facility] [address] [place] [address], * Depression Screening (04/24/2024) Depression Screening abstracted Historical Provider MD SARAH Grady * Urine Albumin Creatinine Ratio (04/14/2022) Urine Albumin Creatinine Ratio abstracted Historical Provider MD SARAH Grady from Last 3 Months or Most Recently Relevant to Health Maintenance Care Teams Brush Filler Hand Relationship Specialty Start Date End Date Mariia Sullivan MD [address] [place] [address] PCP - General Internal Medicine 06/04/21
--- OUTSIDE RECORDS SUMMARY | 2024-12-06 15:00 | XMS_ITS ---
Author Organization [facility] Address [address] [place] [address] Care Team Providers Care Physical Education Department Chair Name Role Phone Mariia Sullivan MD Primary Care Provider Unavaildominguez e Clayton Alvares Jr Unavailable [phone] THEA RICH MD Unavailable Unavailable REASON FOR VISIT change peg Encounters Encounter Location Date Provider Diagnosis [facility] [address] [place], [place] [phone] 04/19/2024 Clayton Alvares Jr Gastrostomy malfunction K94.23 ASSESSMENTS Encounter Date Diagnosis Assessment Notes Treatment Notes Treatment Clinical Notes 04/19/2024 Gastrostomy malfunction (ICD-10 - K94.23) PLAN OF TREATMENT No Information
--- NOTE | 2024-12-06 22:40 | OP_ITS ---
DATE OF SERVICE: 12/06/2024 SURGEON: Clayton Alvares MD INDICATIONS: Malfunctioning G-tube. PREOPERATIVE DIAGNOSIS: POSTOPERATIVE DIAGNOSIS: PROCEDURE PERFORMED: G-tube replacement. ESTIMATED BLOOD LOSS: COMPLICATIONS: ANESTHESIA: ASSISTANTS: SPECIMENS: MEDICATIONS: None. DESCRIPTION OF PROCEDURE: A history and physical was performed. The risks and benefits of the procedure were explained to the patient and informed consent was obtained. The patient was placed in the wheelchair and tilted backward, the G-tube site was inspected. The old G-tube appeared intact. The balloon was deflated. The G-tube was removed, and a new 20-Hebrew removable G-tube was advanced through the trach into the gastric lumen, and the balloon was inflated and the external bolster was secured. A drain sponge was placed. The tube was flushed and verified to be working properly. IMPRESSION: G-tube change. RECOMMENDATION: Follow up as needed. MD LAURA Dunlap/TORRIEL / [phone]
== END 2024-12-06 12:49 | disposition home or self-care (01) ==
LOC: HO.MS 12:48
PROVIDERS: PCP Internal Medicine; Visit Provider Internal Medicine Gastroenterology
PROC: (CPT 43762; principal; 2024-12-06 14:00)
DX: K94.23 Gastrostomy malfunction (principal); Y83.3 Surgical operation with formation of external stoma as the cause of abnormal reaction of the patient, or of later complication, without mention of misadventure at the time of the procedure; Y82.9 Unspecified medical devices associated with adverse incidents
CPT/HCPCS: 43762

== ENCOUNTER 2025-04-03 17:56 | Emergency (ER) | payer MEDICARE, MEDICAID, SELFPAY ==
--- NOTE | ~2025-04-03 | XR_ITS ---
CLINICAL HISTORY: verify g tube placement --- Additional Notes or Special Instructions: it was dislod ged, new one in place 1 view abdomen Comparison: None Findings: There are several gas-filled loops of small and large bowel throughout the abdomen. Positive isotonic enteric contrast injection through a feeding gastrostomy tube shows the tube tip and balloon to be inflated in the body and antrum of the stomach. Contrast passes into the duodenum. There is mild contrast reflux the gastrostomy tube entry site. Normal stool quantity. No abnormal calcifications. No obvious pneumoperitoneum or pneumatosis. No acute fractures Impression: 1. Gas-filled nondilated loops of bowel throughout the abdomen. 2. Percutaneous gastrostomy tube tip located in the distal body of the stomach confirmed by transcatheter contrast injection. This document has been electronically signed by: Jose Cruz Seay MD on 04/03/2025 20:53:11
[2025-04-03 17:14] VITALS: BP 177/81; PULSE 63; RESP 17; TEMP 36.6; O2SAT 97
[2025-04-03 17:18] VITALS: BP 181/78; PULSE 64; O2SAT 99
[2025-04-03 17:20] VITALS: BP 186/78; PULSE 61; RESP 18; TEMP 36.3; O2SAT 97; BMI 26.7
[2025-04-03] MEDS: Lidocaine HCl Viscous 2 % 15 ML SOLUTION MUCOUS MEM (19:11)
[2025-04-03] MEDS: Diatrizoate Meglumine, Sodium 30 ML SOLUTION PO (20:37)
[2025-04-03 21:00] VITALS: BP 196/83; PULSE 57; RESP 14; TEMP 36.6; O2SAT 98
--- NOTE | 2025-04-03 21:11 | ED_ITS ---
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 It was accidentally dislodged while changing his clothing. Related Data Home Medications ?Medication ?Instructions ?Recorded ?Confirmed aspirin 81 mg tablet,delayed 81 mg PO DAILY 08/26/20 10/03/23 release (Adult Aspirin Regimen) sertraline 50 mg tablet 50 mg PO DAILY 08/26/20 10/03/23 tamsulosin 0.4 mg capsule 0.4 mg PO DAILY 08/26/20 10/03/23 blood sugar diagnostic #10 ea 05/20/21 03/03/22 lancets 28 gauge #100 ea 05/20/21 03/03/22 atorvastatin 10 mg tablet 10 mg PO DAILY 02/12/22 10/03/23 blood sugar diagnostic (FreeStyle 08/05/22 Lite Strips) blood-glucose meter (FreeStyle 08/05/22 Lite Meter kit) lancets 28 gauge (FreeStyle 08/05/22 Lancets) finasteride 5 mg tablet 5 mg PO DAILY 10/03/23 10/03/23 insulin NPH-regular 70-30 U-100 10 unit subcut BEDTIME 10/03/23 10/03/23 insulin 100 unit/mL subcutaneous pen (Novolin 70-30 FlexPen U-100 Insulin) insulin aspar prot-insulin aspart 13 unit subcut DAILY 10/03/23 10/03/23 100 unit/mL (70-30) subcutaneous pen (Novolog Mix 70-30FlexPen U-100) lisinopril 10 mg tablet 10 mg PO DAILY 10/03/23 10/03/23 Previous Rx's ?Medication ?Instructions ?Recorded amlodipine 2.5 mg tablet 2.5 mg PO DAILY 90 days #90 tabs 08/26/20 hydrochlorothiazide 25 mg tablet 25 mg PO DAILY 90 days #90 tabs 08/26/20 cyanocobalamin (vitamin B-12) 500 500 mcg sublingual DAILY 90 days 05/20/21 mcg sublingual tablet #90 tabs flash glucose scanning reader #1 ea 02/12/22 (FreeStyle Kristine 2 [place]) flash glucose sensor (FreeStyle #2 ea 02/12/22 Kristine 2 Sensor kit) cholecalciferol (vitamin D3) 50 50 mcg PO DAILY #90 caps 08/26/22 mcg (2,000 unit) capsule levetiracetam 500 mg/5 mL (5 mL) 250 mg (2.5 mL) G-tube BID #200 mL 10/04/23 oral solution Allergies Allergy/AdvReac Type Severity Reaction Status Date / Time No Known Allergies Allergy Verified 04/03/25 17:54 Review of Systems Review of Systems: Yes all other systems are reviewed and are negative Constitutional: Constitutional: Denies fatigue and Denies fever(s) Gastrointestinal: Gastrointestinal: Denies abdominal pain, Denies nausea and Denies vomiting Endocrine: Endocrine: Denies fatigue PMFSH Past Medical History Attestation statement: The following information was validated with the patient. Medical History Cerebrovascular accident CVA (cerebral vascular accident) B12 deficiency Tinea pedis of both feet BPH (benign prostatic hyperplasia) Obesity (BMI 30-39.9) Dyslipidemia Hypertension [facility] (current) use of insulin Diabetic nephropathy associated with type 2 diabetes mellitus Diabetic polyneuropathy associated with type 2 diabetes mellitus Diabetes type 2, uncontrolled Surgical History History of surgery Family History Family History Father No problems noted. Mother No problems noted. Social History Social History Household Members: Family Household Members Other:: 3 Housing: Apartment Do you presently have visiting nurse or other home services: No Alcohol intake: never Comment: family at bedside Patient Tobacco Use Status: Never used Tobacco Smoked in Last 30 Days: No e-Cigarette/Vaping Use: Never Used Second Hand Smoke Exposure: No Use of substances other than those prescribed or required for medical reasons: No Advance Directives: Yes Advance Directives on File: Yes Advance Directives Date on File: 12/22/22 Do you have a plan to hurt others: No Plan service: No Current occupational status: retired Physical Exam ED Vital Signs: Vital Signs - 24 hr 04/03/25 17:14 04/03/25 17:20 04/03/25 21:00 Temperature 97.8 F 97.4 F 97.8 F Pulse Rate 63 61 57 Respiratory Rate 17 18 14 Blood Pressure 177/81 H 186/78 H 196/83 H Pulse Oximetry 97 97 98 Oxygen Delivery Method Room Air Room Air Room Air BMI result Body Mass Index 26.7 Const Other: Alert Orientation/consciousness: oriented to person Resp Effort & Inspection: normal respiratory effort Cardio Other: Normal peripheral perfusion GI Other: Abdomen is soft, nontender non distended, G-tube tract is patent Skin Other: Warm dry no rash Neuro Other: Patient has primarily bed-bound, with generalized weakness secondary to multiple CVAs, nonverbal at baseline General: oriented to person Psych Other: Flat affect Medications Administered Discontinued Medications Generic Name Dose Route Start Last Admin Trade Name Freq PRN Reason Stop Dose Admin Diatrizoate Meglum/Diatrizoate Sod 30 ml 04/03/25 20:36 04/03/25 20:37 Diatrizoate Meglumine, Sodium 30 Ml Solution PO 04/03/25 20:37 30 ml ONCE ONE Administration Lidocaine HCl 15 ml 04/03/25 19:04 04/03/25 19:11 Lidocaine Hcl Viscous 2 % 15 Ml Solution MUCOUS MEM 04/03/25 19:05 15 ml ONCE ONE Administration Procedures Feeding Tube Replacement Type of Tube: gastrostomy Insertion Site Prior to Procedure: clean Tube Used for Reinsertion: other (new tube) [place] Tube Size (F): 18 Balloon size (mL): 10 Verification of Placement: KUB and gastrografin injection Tube Secured by: tape/dressing Patient Tolerated Procedure: well Medical Decision Making Medical Decision Making MDM Narrative: 84-year-old male with a history of diabetes, hypertension, hyperlipidemia, 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 It was accidentally dislodged while changing his clothing. Problem: G-tube dependent History: Per caregiver I have considered the following differential diagnoses: Dislodged G-tube Plan: The tract is patent, get small, he is supposed to have a 20 Korean, I am not able to put it back in place I used an 18 instead. We will verify with a KUB KUB: Impression: 1. Gas-filled nondilated loops of bowel throughout the abdomen. 2. Percutaneous gastrostomy tube tip located in the distal body of the stomach confirmed by transcatheter contrast injection. This document has been electronically signed by: Jose Cruz Seay MD on 04/03/2025 20:53:11 Discharge Plan Discharge Clinical Impression: Dislodged gastrostomy tube Patient Disposition: Home, Self-Care Additional Instructions: An 18 Korean G-tube was replaced, its proper placement was verified via x-ray. Follow up with your primary care as needed. Prescriptions: No Action cyanocobalamin (vitamin B-12) 500 mcg tablet, sublingual 500 mcg sublingual DAILY 90 Days Qty: 90 1RF cholecalciferol (vitamin D3) 50 mcg (2,000 unit) capsule 50 mcg PO DAILY Qty: 90 0RF finasteride 5 mg tablet 5 mg PO DAILY lisinopril 10 mg tablet 10 mg PO DAILY insulin asp prt-insulin aspart [Novolog Mix 70-30FlexPen U-100] 100 unit/mL (7 0-30) Insulin Pen 13 unit SUBCUT DAILY Novolin 70-30 FlexPen U-100 100 unit/mL (70-30) Insulin Pen 10 unit SUBCUT BEDTIME levetiracetam 500 mg/5 mL (5 mL) Solution 250 mg G-tube BID Qty: 200 0RF sertraline 50 mg tablet 50 mg PO DAILY tamsulosin 0.4 mg capsule 0.4 mg PO DAILY aspirin [Adult Aspirin Regimen] 81 mg tablet,delayed release (DR/EC) 81 mg PO DAILY hydrochlorothiazide 25 mg tablet 25 mg PO DAILY 90 Days Qty: 90 2RF amlodipine 2.5 mg tablet 2.5 mg PO DAILY 90 Days Qty: 90 2RF (DME) lancets 28 gauge misc See Rx Instructions Not Applicable TID Qty: 100 Rx Instructions: As directed (DME) blood sugar diagnostic Strip See Rx Instructions Not Applicable TID Qty: 10 Rx Instructions: As directed atorvastatin 10 mg tablet 10 mg PO DAILY (DME) FreeStyle Kristine 2 [place] Misc See Rx Instructions .ROUTE .MEDSUPPLY Qty: 1 0RF Rx Instructions: As directed (DME) FreeStyle Kristine 2 Sensor Kit See Rx Instructions .ROUTE .MEDSUPPLY Qty: 2 11RF Rx Instructions: As directed every 2 weeks (DME) blood-glucose meter [FreeStyle Lite Meter] Kit See Rx Instructions .ROUTE Rx Instructions: As directed (DME) FreeStyle Lite Strips Strip See Rx Instructions .ROUTE Rx Instructions: As directed (DME) lancets [FreeStyle Lancets] 28 gauge misc See Rx Instructions .ROUTE Rx Instructions: As directed Print Language: [place]an
== END 2025-04-03 21:47 | disposition home or self-care (01) ==
PROVIDERS: Emergency Provider Emergency Medicine; PCP Nurse Practitioner Pediatrics
DX: K94.29 Other complications of gastrostomy (principal); R13.10 Dysphagia, unspecified; R10.2 Pelvic and perineal pain; Z79.899 Other long term (current) drug therapy
CPT/HCPCS: 49440; 74018; 99283; 99284

== ENCOUNTER → 2025-04-03 19:55 | Outpatient (BNV) | payer MEDICARE, MEDICAID, SELFPAY | PROVIDERS: PCP Nurse Practitioner Pediatrics; Visit Provider Radiology Diagnostic Radiology | DX: R14.0 Abdominal distension (gaseous) (principal); Z93.1 Gastrostomy status | CPT/HCPCS: 74018 ==

== ENCOUNTER 2025-04-03 23:10 | Emergency (ER) | payer MEDICARE, MEDICAID, SELFPAY ==
[2025-04-03 23:23] VITALS: BP 199/93; PULSE 62; PULSE 67; RESP 16; TEMP 36.8; O2SAT 100; O2SAT 97; BMI 22.7
--- NOTE | 2025-04-04 00:08 | ED.GENADULT ---
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 Related Data Home Medications ?Medication ?Instructions ?Recorded ?Confirmed aspirin 81 mg tablet,delayed 81 mg PO DAILY 08/26/20 10/03/23 release (Adult Aspirin Regimen) sertraline 50 mg tablet 50 mg PO DAILY 08/26/20 10/03/23 tamsulosin 0.4 mg capsule 0.4 mg PO DAILY 08/26/20 10/03/23 blood sugar diagnostic #10 ea 05/20/21 03/03/22 lancets 28 gauge #100 ea 05/20/21 03/03/22 atorvastatin 10 mg tablet 10 mg PO DAILY 02/12/22 10/03/23 blood sugar diagnostic (FreeStyle 08/05/22 Lite Strips) blood-glucose meter (FreeStyle 08/05/22 Lite Meter kit) lancets 28 gauge (FreeStyle 08/05/22 Lancets) finasteride 5 mg tablet 5 mg PO DAILY 10/03/23 10/03/23 insulin NPH-regular 70-30 U-100 10 unit subcut BEDTIME 10/03/23 10/03/23 insulin 100 unit/mL subcutaneous pen (Novolin 70-30 FlexPen U-100 Insulin) insulin aspar prot-insulin aspart 13 unit subcut DAILY 10/03/23 10/03/23 100 unit/mL (70-30) subcutaneous pen (Novolog Mix 70-30FlexPen U-100) lisinopril 10 mg tablet 10 mg PO DAILY 10/03/23 10/03/23 Previous Rx's ?Medication ?Instructions ?Recorded amlodipine 2.5 mg tablet 2.5 mg PO DAILY 90 days #90 tabs 08/26/20 hydrochlorothiazide 25 mg tablet 25 mg PO DAILY 90 days #90 tabs 08/26/20 cyanocobalamin (vitamin B-12) 500 500 mcg sublingual DAILY 90 days 05/20/21 mcg sublingual tablet #90 tabs flash glucose scanning reader #1 ea 02/12/22 (FreeStyle Kristine 2 [place]) flash glucose sensor (FreeStyle #2 ea 02/12/22 Kristine 2 Sensor kit) cholecalciferol (vitamin D3) 50 50 mcg PO DAILY #90 caps 08/26/22 mcg (2,000 unit) capsule levetiracetam 500 mg/5 mL (5 mL) 250 mg (2.5 mL) G-tube BID #200 mL 10/04/23 oral solution Allergies Allergy/AdvReac Type Severity Reaction Status Date / Time No Known Allergies Allergy Verified 04/03/25 23:26 Review of Systems Review of Systems: Yes all other systems are reviewed and are negative Constitutional: Constitutional: Denies fatigue and Denies fever(s) Endocrine: Endocrine: Denies fatigue PMFSH Past Medical History Attestation statement: The following information was validated with the patient. Medical History Cerebrovascular accident CVA (cerebral vascular accident) B12 deficiency Tinea pedis of both feet BPH (benign prostatic hyperplasia) Obesity (BMI 30-39.9) Dyslipidemia Hypertension shelter (current) use of insulin Diabetic nephropathy associated with type 2 diabetes mellitus Diabetic polyneuropathy associated with type 2 diabetes mellitus Diabetes type 2, uncontrolled Surgical History History of surgery Family History Family History Father No problems noted. Mother No problems noted. Social History Social History Household Members: Family Household Members Other:: 3 Housing: Apartment Do you presently have visiting nurse or other home services: No Alcohol intake: never Comment: family at bedside Patient Tobacco Use Status: Never used Tobacco e-Cigarette/Vaping Use: Never Used Second Hand Smoke Exposure: No Advance Directives: Yes Advance Directives on File: Yes Advance Directives Date on File: 12/22/22 Do you have a plan to hurt others: No Plan service: No Current occupational status: retired Physical Exam ED Vital Signs: Vital Signs - 24 hr 04/03/25 23:23 04/04/25 00:10 Temperature 98.3 F 97.6 F Pulse Rate 67 58 Respiratory Rate 16 16 Blood Pressure 199/93 H 203/91 H Pulse Oximetry 100 97 Oxygen Delivery Method Room Air Room Air BMI result Body Mass Index 22.7 Const Other: Alert, cachectic Orientation/consciousness: oriented to person Resp Effort & Inspection: normal respiratory effort Cardio Other: Normal peripheral perfusion Skin Other: Warm dry no rash Neuro Other: Nonverbal at baseline, bilateral weakness secondary to stroke his baseline General: oriented to person Psych Other: Flat affect Medical Decision Making Medical Decision Making MDM Narrative: 84-year-old male with a history of diabetes, hypertension, hyperlipidemia, 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 Problem: Bed-bound, nonverbal, G-tube dependent History: Per caregiver I have considered the following differential diagnoses: Dysfunctional tube Plan: The patient was here earlier, or new tube was placed it was verified with the x-ray. I manipulated the tube, I was able to dislodge debris from broken up medication. I have advised that they make sure they crush the patient's medications appropriately before being administered. Discharge Plan Discharge Clinical Impression: Gastrostomy tube dysfunction Patient Disposition: Home, Self-Care Additional Instructions: The tube was lodged with medication that was not adequately crushed. Be sure to crush the medication appropriately before being administered via the G tube. Prescriptions: No Action cyanocobalamin (vitamin B-12) 500 mcg tablet, sublingual 500 mcg sublingual DAILY 90 Days Qty: 90 1RF cholecalciferol (vitamin D3) 50 mcg (2,000 unit) capsule 50 mcg PO DAILY Qty: 90 0RF finasteride 5 mg tablet 5 mg PO DAILY lisinopril 10 mg tablet 10 mg PO DAILY insulin asp prt-insulin aspart [Novolog Mix 70-30FlexPen U-100] 100 unit/mL (70-30) Insulin Pen 13 unit SUBCUT DAILY Novolin 70-30 FlexPen U-100 100 unit/mL (70-30) Insulin Pen 10 unit SUBCUT BEDTIME levetiracetam 500 mg/5 mL (5 mL) Solution 250 mg G-tube BID Qty: 200 0RF sertraline 50 mg tablet 50 mg PO DAILY tamsulosin 0.4 mg capsule 0.4 mg PO DAILY aspirin [Adult Aspirin Regimen] 81 mg tablet,delayed release (DR/EC) 81 mg PO DAILY hydrochlorothiazide 25 mg tablet 25 mg PO DAILY 90 Days Qty: 90 2RF amlodipine 2.5 mg tablet 2.5 mg PO DAILY 90 Days Qty: 90 2RF (DME) lancets 28 gauge misc See Rx Instructions Not Applicable TID Qty: 100 Rx Instructions: As directed (DME) blood sugar diagnostic Strip See Rx Instructions Not Applicable TID Qty: 10 Rx Instructions: As directed atorvastatin 10 mg tablet 10 mg PO DAILY (DME) FreeStyle Kristine 2 [place] Misc See Rx Instructions .ROUTE .MEDSUPPLY Qty: 1 0RF Rx Instructions: As directed (DME) FreeStyle Kristine 2 Sensor Kit See Rx Instructions .ROUTE .MEDSUPPLY Qty: 2 11RF Rx Instructions: As directed every 2 weeks (DME) blood-glucose meter [FreeStyle Lite Meter] Kit See Rx Instructions .ROUTE Rx Instructions: As directed (DME) FreeStyle Lite Strips Strip See Rx Instructions .ROUTE Rx Instructions: As directed (DME) lancets [FreeStyle Lancets] 28 gauge misc See Rx Instructions .ROUTE Rx Instructions: As directed Print Language: Bulgarian
[2025-04-04 00:10] VITALS: BP 203/91; PULSE 58; RESP 16; TEMP 36.4; O2SAT 97
[2025-04-04 01:53] VITALS: BP 192/85
[2025-04-04] MEDS: amLODIPine Besylate 2.5 MG TABLET G-TUBE (01:53)
[2025-04-04 01:54] VITALS: BP 192/85; PULSE 69; RESP 18; TEMP 36.6; O2SAT 97
[2025-04-04] MEDS: Finasteride 5 MG TABLET PO (01:54)
[2025-04-04] MEDS: lisinopriL 10 MG TABLET G-TUBE (01:54)
[2025-04-04 02:20] VITALS: BP 192/85; PULSE 69; RESP 18; TEMP 36.6; O2SAT 97
== END 2025-04-04 02:21 | disposition home or self-care (01) ==
PROVIDERS: Emergency Provider Emergency Medicine Emergency Medical Services
DX: K94.29 Other complications of gastrostomy (principal); R13.10 Dysphagia, unspecified; E11.9 Type 2 diabetes mellitus without complications; Z79.4 Long term (current) use of insulin; Z79.899 Other long term (current) drug therapy
CPT/HCPCS: 99283

== ENCOUNTER 2025-05-16 08:49 | Emergency (ER) | payer MEDICARE, MEDICAID, SELFPAY ==
[2025-05-16] VITALS (10 sets, daily range): BP systolic 140–200; BP diastolic 65–86; PULSE 43–61; RESP 12–20; TEMP 36.4–36.8; O2SAT 96–99; BMI 21.4
--- NOTE | ~2025-05-16 | IR_ITS ---
EXAMINATION: XR GASTROSTOMY TUBE REINSERTION CLINICAL INFORMATION: Patient requires long-term gastrostomy tube feedings for feeding intolerance. Indication: Dislodged 18 Egyptian gastrostomy tube Performing provider Genaro Blanco NP PROCEDURE SUMMARY The patient was positioned supine on the fluoroscopy table. The mid abdomen was sterilely prepped and draped. 1% lidocaine was injected subcutaneously to the pre-existing gastrostomy tube site. Lidocaine jelly was also applied. A 4 x 45 hockey-stick and stiff guidewire were utilized under fluoroscopy to navigate into the stomach. Contrast was injected confirming that we were in the stomach. The hockey-stick was removed over the wire and serial dilatation was performed utilizing an 8 F, 12 F, 18 F and 20 F dilator. A new 18 Egyptian gastrostomy tube was inserted over the wire and the balloon was filled with 10 mL of sterile water. Follow-up contrast injection showed confirmation of the tube in the mid inferior aspect of the stomach. The disc was secured to the skin manually and a split gauze dressing was applied. The patient tolerated the procedure well. MEDICATIONS: 1% lidocaine FLUOROSCOPY TIME: 1.8 IR/IR gastro tube insertion IMPRESSION: Successful reinsertion of 18 Egyptian gastrostomy tube. PLAN: Patient should return in 3 months for routine exchange unless attention is required sooner. The procedure was performed by Genaro Blanco NP and directly supervised by Mane Tsai M.D. Electronically signed by: Mane Tsai MD 05/17/2025 04:57 PM EDT
--- NOTE | 2025-05-16 09:15 | ED.GENADULT ---
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 Related Data Home Medications ?Medication ?Instructions ?Recorded ?Confirmed aspirin 81 mg tablet,delayed 81 mg PO DAILY 08/26/20 10/03/23 release (Adult Aspirin Regimen) sertraline 50 mg tablet 50 mg PO DAILY 08/26/20 10/03/23 tamsulosin 0.4 mg capsule 0.4 mg PO DAILY 08/26/20 10/03/23 blood sugar diagnostic #10 ea 05/20/21 03/03/22 lancets 28 gauge #100 ea 05/20/21 03/03/22 atorvastatin 10 mg tablet 10 mg PO DAILY 02/12/22 10/03/23 blood sugar diagnostic (FreeStyle 08/05/22 Lite Strips) blood-glucose meter (FreeStyle 08/05/22 Lite Meter kit) lancets 28 gauge (FreeStyle 08/05/22 Lancets) finasteride 5 mg tablet 5 mg PO DAILY 10/03/23 10/03/23 insulin NPH-regular 70-30 U-100 10 unit subcut BEDTIME 10/03/23 10/03/23 insulin 100 unit/mL subcutaneous pen (Novolin 70-30 FlexPen U-100 Insulin) insulin aspar prot-insulin aspart 13 unit subcut DAILY 10/03/23 10/03/23 100 unit/mL (70-30) subcutaneous pen (Novolog Mix 70-30FlexPen U-100) lisinopril 10 mg tablet 10 mg PO DAILY 10/03/23 10/03/23 Previous Rx's ?Medication ?Instructions ?Recorded amlodipine 2.5 mg tablet 2.5 mg PO DAILY 90 days #90 tabs 08/26/20 hydrochlorothiazide 25 mg tablet 25 mg PO DAILY 90 days #90 tabs 08/26/20 cyanocobalamin (vitamin B-12) 500 500 mcg sublingual DAILY 90 days 05/20/21 mcg sublingual tablet #90 tabs flash glucose scanning reader #1 ea 02/12/22 (FreeStyle Kristine 2 [place]) flash glucose sensor (FreeStyle #2 ea 02/12/22 Kristine 2 Sensor kit) cholecalciferol (vitamin D3) 50 50 mcg PO DAILY #90 caps 08/26/22 mcg (2,000 unit) capsule levetiracetam 500 mg/5 mL (5 mL) 250 mg (2.5 mL) G-tube BID #200 mL 10/04/23 oral solution Allergies Allergy/AdvReac Type Severity Reaction Status Date / Time No Known Allergies Allergy Verified 05/16/25 09:08 Review of Systems Constitutional: Constitutional: Reports as per [facility] Past Medical History Medical History Cerebrovascular accident CVA (cerebral vascular accident) B12 deficiency Tinea pedis of both feet BPH (benign prostatic hyperplasia) Obesity (BMI 30-39.9) Dyslipidemia Hypertension group home (current) use of insulin Diabetic nephropathy associated with type 2 diabetes mellitus Diabetic polyneuropathy associated with type 2 diabetes mellitus Diabetes type 2, uncontrolled Surgical History History of surgery Family History Family History Father No problems noted. Mother No problems noted. Social History Social History Household Members: Family Household Members Other:: 3 Housing: Apartment Do you presently have visiting nurse or other home services: No Alcohol intake: never Comment: family at bedside Patient Tobacco Use Status: Never used Tobacco Smoked in Last 30 Days: No e-Cigarette/Vaping Use: Never Used Second Hand Smoke Exposure: No Use of substances other than those prescribed or required for medical reasons: No Advance Directives: Yes Advance Directives on File: Yes Advance Directives Date on File: 12/22/22 service: No Current occupational status: retired Physical Exam ED Vital Signs: Vital Signs - 24 hr 05/16/25 09:07 05/16/25 10:00 05/16/25 12:39 Temperature 98.0 F 98.2 F 97.5 F Pulse Rate 61 51 52 Respiratory Rate 16 14 16 Blood Pressure 175/77 H 172/68 H 173/71 H Pulse Oximetry 96 96 96 Oxygen Delivery Method Room Air Room Air Room Air 05/16/25 14:06 05/16/25 15:25 05/16/25 15:30 Temperature 97.7 F Pulse Rate 50 52 47 L Respiratory Rate 20 16 14 Blood Pressure 187/73 H 200/74 H 190/74 H Pulse Oximetry 98 99 98 Oxygen Delivery Method Room Air Room Air Room Air 05/16/25 15:40 05/16/25 15:55 Temperature Pulse Rate 43 L 49 L Respiratory Rate 15 12 Blood Pressure 181/77 H 183/71 H Pulse Oximetry 96 96 Oxygen Delivery Method Room Air Room Air BMI result Body Mass Index 21.4 Const Other: Gen: ?Chronically ill-appearing Resp: ?No wheezing rales rhonchi no stridor moving air well Abd: ?Stoma site is clean and dry, ailyn MSK: FROM, strength 5/5 all extremities Skin: Warm, dry, intact, Neuro: ?At his baseline Medical Decision Making Medical Decision Making MDM Narrative: 09:18 patient evaluated for G-tube displacement, I attempted to replace his G-tube as soon as he arrived he has not 18 Hebrew however his stoma appears to be contracted that was in place 18 gauge your try to delay the area with a bougie and was not able to get through the tract, I am going to get in touch with the ER for replacement, there are no other concerns according to his daughter. Differential Diagnosis Differential Diagnoses: The differential diagnosis associated with the presentation includes Volvulus, bowel perforation, dehydration, failure to thrive, cellulitis Lab Data 05/16/25 11:43 Labs: Lab Results 05/16/25 05/16/25 Range/Units 11:43 14:12 WBC 5.2 (4.8-10.8) X10*3/uL RBC 5.13 (4.60-5.80) X10*6/uL Hgb 12.4 L (14.0-18.0) g/dl Hct 38.3 L (42.0-52.0) % MCV 74.7 L (80.0-98.0) fL MCH 24.2 L (27.0-33.0) pg MCHC 32.4 (31.0-36.0) g/dl RDW 14.2 (11.0-16.0) % Plt Count 171 D (160-400) X10*3/uL MPV 11.4 (9.4-12.4) fL Absolute Nucleated RBC 0.000 (0.0-0.012) X10*3/uL Nucleated RBC % (auto) 0.0 (0.0-0.2) /100WBC PT 15.6 H (10.9-12.4) SEC INR 1.4 H (0.9-1.1) POC Glucose 76 (60-115) mg/dL Discharge Plan Discharge Clinical Impression: Dislodged gastrostomy tube Patient Disposition: Home, Self-Care Additional Instructions: Evaluated with displaced G-tube this was replaced by Interventional Radiology, please resume its use keep it covered overnight so patient is not able to pull it out Prescriptions: No Action cyanocobalamin (vitamin B-12) 500 mcg tablet, sublingual 500 mcg sublingual DAILY 90 Days Qty: 90 1RF cholecalciferol (vitamin D3) 50 mcg (2,000 unit) capsule 50 mcg PO DAILY Qty: 90 0RF finasteride 5 mg tablet 5 mg PO DAILY lisinopril 10 mg tablet 10 mg PO DAILY insulin asp prt-insulin aspart [Novolog Mix 70-30FlexPen U-100] 100 unit/mL (70-30) Insulin Pen 13 unit SUBCUT DAILY Novolin 70-30 FlexPen U-100 100 unit/mL (70-30) Insulin Pen 10 unit SUBCUT BEDTIME levetiracetam 500 mg/5 mL (5 mL) Solution 250 mg G-tube BID Qty: 200 0RF sertraline 50 mg tablet 50 mg PO DAILY tamsulosin 0.4 mg capsule 0.4 mg PO DAILY aspirin [Adult Aspirin Regimen] 81 mg tablet,delayed release (DR/EC) 81 mg PO DAILY hydrochlorothiazide 25 mg tablet 25 mg PO DAILY 90 Days Qty: 90 2RF amlodipine 2.5 mg tablet 2.5 mg PO DAILY 90 Days Qty: 90 2RF (DME) lancets 28 gauge misc See Rx Instructions Not Applicable TID Qty: 100 Rx Instructions: As directed (DME) blood sugar diagnostic Strip See Rx Instructions Not Applicable TID Qty: 10 Rx Instructions: As directed atorvastatin 10 mg tablet 10 mg PO DAILY (DME) FreeStyle Kristine 2 [place] Misc See Rx Instructions .ROUTE .MEDSUPPLY Qty: 1 0RF Rx Instructions: As directed (DME) FreeStyle Kristine 2 Sensor Kit See Rx Instructions .ROUTE .MEDSUPPLY Qty: 2 11RF Rx Instructions: As directed every 2 weeks (DME) blood-glucose meter [FreeStyle Lite Meter] Kit See Rx Instructions .ROUTE Rx Instructions: As directed (DME) FreeStyle Lite Strips Strip See Rx Instructions .ROUTE Rx Instructions: As directed (DME) lancets [FreeStyle Lancets] 28 gauge misc See Rx Instructions .ROUTE Rx Instructions: As directed Print Language: Azeri
--- OUTSIDE RECORDS SUMMARY | 2025-05-16 09:40 | XMS_ITS | Clinical Summary ---
Author Organization [facility] [address] [facility] Address [address] [place] [address] Phone Care Team Providers Care Analysis Tester Name Role Phone Mariia Sullivan MD Primary Care Provider [phone] Allergies No known active allergies Medications amLODIPine (NORVASC) 2.5 mg tablet Take 1 Tablet by mouth at bedtime. 04/24/2024 Active levETIRAcetam (KEPPRA) 100 mg/mL solution Take 2.5 mL by mouth 2 times daily. 01/07/2024 Active FREESTYLE LANCETS MISC Use to test blood sugar three times daily 08/23/2023 Active blood sugar diagnostic (FreeStyle Lite Strips) test strip USE TO TEST 3 TIMES DAILY 08/23/2023 Active atorvastatin (LIPITOR) 10 mg tablet TAKE [...] EVERY DAY. 90 capsule 1 12/04/2024 Active lisinopriL (PRINIVIL,ZESTR IL) 10 mg tablet Take 1 tablet (10 mg total) by mouth at bedtime. 90 tablet 03/19/2025 Active sertraline (ZOLOFT) 50 mg tablet Take 1 tablet (50 mg total) by mouth at bedtime. 90 tablet 03/20/2025 Active Active Problems Problem Noted Date Diagnosed Date Nonrheumatic aortic valve insufficiency 02/09/20 25 B12 deficiency 08/22/2024 Microalbuminuria 12/24/2023 Seizure ([facility] V24, [facility] V28) 10/08/2023 Aphasia 07/21/2022 Dysphagia 07/21/2022 Dementia ([facility] V24, [facility] V28) 04/14/2022 Overview (08/22/2024): Failed mini-cog COVID-19 virus infection 09/28/2021 Overview (08/22/2024): 09/27/21 Bowel incontinence 08/13/2021 Ascending aortic aneurysm ([facility] V24) 05/13/20 Overview (08/22/2024): Last Assessment & Plan: The patient has a history of an ascending aortic aneurysm. He underwent a chest CT scan in January 2022 which was requested by his PCP. The ascending aorta was noted to measure 4.3 cm. The patient should continue yearly monitoring with an echocardiogram or chest CT scan. Assessment & Plan (02/08/2025 8:58 AM EDT): Patient has a history of a ascending aortic aneurysm measuring 4.3 cm on recent imaging. Has been stable dating back to 2019 as outlined above. Will continue with annual monitoring. Will update an echocardiogram to reevaluate and also reevaluate his aortic valve. 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 He will continue his current antihypertensive medication regimen as prescribed. Hyperlipidemia 07/30/2014 Overview (10/03/2024): L Assessment & Plan (02/08/2025 8:58 AM EDT): Patient has a history of hyperlipidemia. His last fasting lipid panel showed acceptable cholesterol control. He continues on medical therapy with atorvastatin as prescribed. Insomnia 07/30/2014 Major depression 07/30/2014 Type 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 ([facility] V24, [facility] V28) 07/30/2014 Microscopic hematuria 07/28/2014 Encounters Date Type Department Care Team Description 04/27/2025 Telephone Adult Medicine [address] [address] Rashmi Mcneil LPN Fitting for DME (Faxed form from [facility]) from Last 3 Months Immunizations Name Administration Dates Next Due Influenza trivalent, 0.5mL ( Fluad) 65yo and older 10/04/2024,08/23/2023,07/21/2022,08/13,08/23/2017,07/22/2016,08/06/2015 ,09/24/2014 Influenza trivalent, 0.5mL ( Fluzone High-dose) 65yo and older 08/23/2023,07/21/2022,08/13/2021,08/23,07/22/2016 Influenza trivalent, with pr eservative (Fluzone; Afluria) 6mo and older 10/08/2022,08/06/2015,09/24/2014 PPD Test 07/25/2014 Pneumococcal conjugate 13 va [...] depres marley CVA (cerebral vascular accid ent) ([facility] V24, [facility] V28) 07/30/2014 DX:CVA (cerebral vascular a ccident) ([facility]) Leg pain 07/30/2014 DX:Leg pain B12 deficiency DX:B12 deficienc y LVH (left ventricular hypertrophy) DX:LVH (left ventricular hypertrophy) Diabetes mellitus type 2, uncomplicated ([facility] V24, [facility] V28) 07/30/2014 DX:Diabetes mellitus type 2, uncomplicated ([facility]) Bowel incontinence 08/13/2021 DX:Bowel inco ntinence COVID-19 virus infection 09/28/2021 DX:COVI D-19 virus infection; COMMENT: 09/27/21 Presence of externally remov able percutaneous endoscopic gastrostomy (PEG) tube ([facility] V24, [facility] V28) 07/21/2022 DX:Presence of e xternally removable percutaneous endoscopic gastrostomy (PEG) tube ([facility]) Dysphagia 07/21/2022 DX:Dysphagia Aphasia 07/21/2022 DX:Aphasia Seizure ([facility] V24, [facility] V28) 10/08/2023 DX:Seizure ([facility]) 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 For example, child custody evaluator or elderly care for an older adult? [...] Recorded Sex Assigned at Not on file Legal Sex Male 5:36 AM EST Gender Identity Not on file Sexual Orientation Not on file Obstetrics History Last Filed Vital Signs Vital Sign Reading Time Taken Comments Blood Pressure 136/60 02/08/2025 8:23 AM EDT Pulse 64 02/08/2025 8:23 AM EDT Temperature 35.9 C (96.6 F) 02/01/2025 10:01 AM EDT Respiratory Rate 14 02/01/2025 10:01 AM EDT Oxygen Saturation 98% 02/08/2025 8:23 AM EDT Inhaled Oxygen Concentration - - Weight 61.2 kg (135 lb) 10/04/2024 4:00 PM EST Height 162.6 cm (5' 4 ) 02/01/2025 10:01 AM EDT Body Mass Index 21.79 10/04/2024 4:00 PM EST Plan of Treatment Upcoming Encounters Date Type Department Care Team (Late st Contact Info) Description 05/24/2025 11:00 AM EDT Ancillary Procedure [facility] [address] [facility] [address] [place] [address] 06/04/2025 1:15 PM EDT Office Visit Adult Medicine [address] [phone] Mariia Sullivan MD [address] [place] [id number] Health Maintenance Due Date Last Done Comments Diabetes: Annual Foot Exam 1950 Diabetes: Annual Retina Eye Exam 1950 Zoster Vaccines (1 of 2) 1958 RSV Immunization Adult Patients (1 - 1-dose 75+ series) 2014 Diabetes: Annual Urine Albumin-Creatinine Ratio (uACR) 04/14/2023 04/14/2022 COVID-19 Vaccine ( season) 2024 01/17/2022, 03/01/2021, 02/01/2021 Medicare Annual Wellness Visit 04/24/2025 04/24/2024 Influenza Vaccine (#1) 2025 , 08/23/2023, 08/23/2023, Additional history exists Diabetes: Blood Sugar Control Test (HGBA1C) 08/04/2025 02/01/2025, 10/04/2024, 02/03/2024 Depression Screening 10/04/2025 10/04/2024, 04/24/20 Falls Risk Assessment 10/04/2025 10/04/2024 Social Influencers of Health Screening 10/04/2025 10/04/2024 Diabetes: Annual GFR (Glomerular Filtration Rate) 02/01/2026 02/01/2025, 10/04/2024, 04/06/2024, Additional history exists Hypertension/CHF/CAD Annual BMP Blood Test 02/01/2026 02/01/2025, 10/04/2024, 04/06/2024, Additional history exists DTaP,Tdap,and Td Vaccines (2 - Td or Tdap) 12/05/2028 12/05/2018 Cholesterol Screening (Lipid Panel) 10/04/2029 10/04/2024, 04/06/2024, 04/06/2024 Pneumococcal Vaccine: 50+ Years Completed 08/23/2017, 07/22/2016 HIB Vaccines Aged Out No longer eligi [...] patient's age to complete this topic Meningococcal B Vaccine Aged Out No l onger eligible based on patient's age to complete this topic RSV Immunization Patients Under 20 months Aged Out No longer eligible based on patient's age to complete this topic Varicella Vaccines Aged Out No longer eligible based on patient's age to complete this topic Procedures Procedure Name Priority Date/Time Associated Diagnosis Comments COMPREHENSIVE METABOLIC PANEL Routine 02/01/2025 10:39 AM EDT Other hyperlipidemia Primary hypertension B12 deficiency Aneurysm of ascending aorta without rupture ([facility] V24) Moderate dementia without behavioral disturbance, psychotic disturbance, mood disturbance, or anxiety, unspecified dementia type ([facility] V24, [facility] V28) Microalbuminuria Type 2 diabetes mellitus with diabetic microalbuminuria, without long-term current use of insulin ([facility] V24, [facility]28) Seizure ([facility] V24, [facility] V28) HEMOGLOBIN A1C Routine 02/01/2025 10:39 AM EDT Type 2 diabetes mellitus with diabetic microalbuminuria, without long-term current use of insulin ([facility] V24, [facility] V28) LIPID PANEL WITH REFLEX TO DIRECT LDL Routine 10/04/2024 4:40 PM EST Type 2 diabetes mellitus with diabetic microalbuminuria, without long-term current use of insulin ([facility] V24, [facility] V28) DEPRESSION SCREENING Routine 04/24/2024 URINE ALBUMIN CREATININE RATIO Routine 04/14/2022 from Last 3 Months or Most Recently Relevant to Health Maintenance Results * Hemoglobin A1c (02/01/2025 10:39 AM EDT) Hemoglobin A1C 5.2 <6.5 % LAB CHEMISTRY METHOD 02/01/2025 9:22 PM EDT [facility] Mean Bld Glu Estim. 103 mg/dL LAB CHEMISTRY METHOD 02/01/2025 9:22 PM EDT [facility] Blood Venous blood specimen / Unknown Venipuncture / Unknown 02/01/2025 10:39 AM EDT 02/01/2025 10:39 AM EDT [facility] BLOOD ORDERABLES Final Re sult [facility] [address] [place] [address], * (ABNORMAL) Comprehensive metabolic panel (02/01/2025 10:39 AM EDT) Sodium 134 133 - 145 mmol/L LAB CHEMISTRY METHOD 02/01/2025 4:06 PM [facility] Potassium 4.3 3.5 - 5.5 mmol/L LAB CHEMISTRY METHOD 02/01/2025 4:06 PM [facility] Chloride 95(L) 96 - 110 mmol/L LAB CHEMISTRY METHOD 02/01/2025 4:06 PM [facility] CO2 32 21 - 32 mmol/L LAB CHEMISTRY METHOD 02/01/2025 4:06 PM [facility] Anion Gap 7 3 - 11 LAB CHEMISTRY METHOD 02/01/2025 4:06 PM [facility] Glucose 133(H) 70 - 100 mg/dL LAB CHEMISTRY METHOD 02/01/2025 4:06 PM [facility] BUN 17 5 - 25 mg/dL LAB CHEMISTRY METHOD 02/01/2025 4:06 PM [facility] Creatinine 0.60(L) 0.70 - 1.30 mg/dL LAB CHEMISTRY METHOD 02/01/2025 4:06 PM [facility] eGFR 95 >=60 mL/min/1. 73m2 LAB CHEMISTRY METHOD 02/01/2025 4:06 PM [facility] Comment:Calculation based on the Chronic Kidney Disease Epidemiology Collaboration (CKD-EPI) equation refit without adjustment for race. BUN/Creatinine Ratio 28.3 LAB CHEMISTRY METHOD 02/01/2025 4:06 PM [facility] Calcium 9.9 8.5 - 10.5 mg/dL LAB CHEMISTRY METHOD 02/01/2025 4:06 PM [facility] AST (SGOT) 21 10 - 42 unit/L LAB CHEMISTRY METHOD 02/01/2025 4:06 PM EDT [facility] ALT (SGPT) 33 10 - 60 unit/L LAB CHEMISTRY METHOD 02/01/2025 4:06 PM EDT [facility] Alkaline Phosphatase 71 42 - 121 unit/L LAB CHEMISTRY METHOD 02/01/2025 4:06 PM EDT [facility] Total Protein 7.3 6.0 - 8.0 g/dL LAB CHEMISTRY METHOD 02/01/2025 4:06 PM EDT [facility] Albumin 4.0 3.2 - 5.0 g/dL LAB CHEMISTRY METHOD 02/01/2025 4:06 PM EDT [facility] Total Bilirubin 0.6 0.0 - 1.4 mg/dL LAB CHEMISTRY METHOD 02/01/2025 4:06 PM EDT [facility] Blood Venous blood specimen / Unknown Venipuncture / Unknown 02/01/2025 10:39 AM EDT 02/01/2025 10:39 AM EDT [facility] BLOOD ORDERABLES Final Re sult [facility] [address] [place] [address], * (ABNORMAL) Lipid panel with reflex to direct LDL (10/04/2024 4:40 PM EST) Cholesterol 79 0 - 200 mg/dL LAB CHEMISTRY METHOD 10/04/2024 7:16 PM EST [facility] Triglycerides 39 0 - 150 mg/dL LAB CHEMISTRY METHOD 10/04/2024 7:16 PM EST [facility] HDL 39(L) >=40 mg/dL LAB CHEMISTRY METHOD 10/04/2024 7:16 PM EST [facility] LDL Calculated 32 0 - 100 mg/dL LAB CHEMISTRY METHOD 10/04/2024 7:16 PM EST [facility] VLDL Cholesterol Yuval 7.8 mg/dL LAB CHEMISTRY METHOD 10/04/2024 7:16 PM EST [facility] Non HDL Chol. (LDL+VLDL) 40 <145 mg/dL LAB CHEMISTRY METHOD 10/04/2024 7:16 PM EST [facility] Chol/HDL Ratio 2.0 0.0 - 4.4 LAB CHEMISTRY METHOD 10/04/2024 7:16 PM EST [facility] Blood Venous blood specimen / Unknown Venipuncture / Unknown 10/04/2024 4:40 PM EST 10/04/2024 4:40 PM EST Mariia Sullivan MD LAB BLOOD ORDERABLES Final Resul t [facility] [address] [place] [address], * Depression Screening (04/24/2024) Depression Screening abstracted Historical Provider HEALTH MAINTENANCE Final Result * Urine Albumin Creatinine Ratio (04/14/2022) Urine Albumin Creatinine Ratio abstracted Historical Provider HEALTH MAINTENANCE Final Result from Last 3 Months or Most Recently Relevant to Health Maintenance Insurance MEDICARE MEDICAID - [place] Care Teams Analysis Tester Relationship Specialty Start Date End Date Mariia Sullivan MD [address] [place] [address] PCP - General Internal Medicine 06/04/21
[2025-05-16 11:59] LABS: Hematocrit 38.3 % (42.0-52.0); Hemoglobin 12.4 g/dl (14.0-18.0); Mean Corpuscular HGB Conc 32.4 g/dl (31.0-36.0); Mean Corpuscular Hemoglobin 24.2 pg (27.0-33.0); Mean Corpuscular Volume 74.7 fL (80.0-98.0); NRBC Abs Auto 0.000 X10*3/uL (0.0-0.012); NRBC Pct Auto 0.0 /100WBC (0.0-0.2); Platelet Count 171 X10*3/uL (160-400); Red Blood Count 5.13 X10*6/uL (4.60-5.80); White Blood Count 5.2 X10*3/uL (4.8-10.8)
[2025-05-16 12:04] LABS: INTERNATIONAL NORM RATIO 1.4 (0.9-1.1); Prothrombin Time 15.6 SEC (10.9-12.4)
[2025-05-16 14:16] LABS: Glucose, Whole Blood 76 mg/dL (60-115)
== END 2025-05-16 17:07 | disposition home or self-care (01) ==
PROVIDERS: Emergency Provider Emergency Medicine
DX: K94.23 Gastrostomy malfunction (principal); E11.9 Type 2 diabetes mellitus without complications; I10 Essential (primary) hypertension; Z79.899 Other long term (current) drug therapy; Z51.81 Encounter for therapeutic drug level monitoring; Z86.73 Personal history of transient ischemic attack (TIA), and cerebral infarction without residual deficits; Z79.4 Long term (current) use of insulin
CPT/HCPCS: 36415; 49440; 49450; 82947; 85027; 85610; 99284; C1769; J2003; Q9967

== ENCOUNTER → 2025-05-16 10:18 | Outpatient (BNV) | payer MEDICARE, MEDICAID, SELFPAY | PROVIDERS: Emergency Provider Emergency Medicine | DX: Z43.1 Encounter for attention to gastrostomy (principal) | CPT/HCPCS: 43762 ==

== ENCOUNTER 2025-05-18 09:19 | Emergency (ER) | payer MEDICARE, MEDICAID, SELFPAY ==
--- NOTE | ~2025-05-18 | CT_ITS ---
EXAMINATION: CT CERVICAL SPINE WITHOUT CONTRAST CLINICAL INFORMATION: Status post fall. COMPARISON: January 26, 2020. TECHNIQUE: Contiguous axial images through the cervical spine using 3 mm collimation with bone and soft tissue algorithm. Sagittal and coronal reformatted images acquired. DLP: 317.[address] examination was performed using dose optimization techniques as appropriate, variously including the following: *Automated exposure control *Adjustment of mA and/or kV according to patient size (this includes techniques or standardized protocols for targeted exams where dose is matched to indication/reason for exam; i.e. extremities or head) *Use of iterative reconstruction technique FINDINGS: Craniocervical junction is intact with normal alignment between the occipital condyles and the lateral masses of T1. There is a grade 1 anterolisthesis at C7-T1 likely degenerative in nature. There is marginal osteophyte formation anteriorly and posteriorly from C4 to C7. Subchondral cyst formation and endplate sclerosis and decreased intervertebral disc height from C4-5 to C6-7. C1 is intact. C2 is intact. C3 is intact. C4 is intact. C5 is intact. C6 is intact. C7 is intact. No prevertebral compartment hematoma. Calcified plaques in the carotic arteries and the main branches of the aortic arch. There are secretions layering within and dependent portion of the trachea. Osteopenia versus osteoporosis. Tympanic cavities and mastoid cells are aerated. CT/CT cervical spine wo IV con IMPRESSION: Multilevel cervical spondylosis without acute fracture or trauma-related listhesis. Secretions within the trachea likely related to penetration/aspiration. Fleischner guidelines were followed. Electronically signed by: Isaiah Harden MD 05/18/2025 10:41 AM EDT
--- NOTE | ~2025-05-18 | CT_ITS ---
EXAMINATION: CT HEAD WITHOUT CONTRAST CLINICAL INFORMATION: headstrike COMPARISON: October 03, 2023. TECHNIQUE: Contiguous axial imaging was performed from the skull base to vertex without intravenous administration of contrast. This CT examination was performed using dose optimization techniques as appropriate, variously including the following: *Automated exposure control *Adjustment of mA and/or kV according to patient size (this includes techniques or standardized protocols for targeted exams where dose is matched to indication/reason for exam; i.e. extremities or head) *Use of iterative reconstruction technique DLP: 646.69 mGy-cm FINDINGS: No acute cortical disruption in the bony calvarium. Probable soft tissue contusion in the anterior midline frontal soft tissue scalp. No acute intracranial hemorrhage, mass effect, midline shift, hydrocephalus or herniation. Bilateral multifocal patchy and confluent deep periventricular white matter hypodensities involving centrum semiovale and harris radiata. Old lacunar infarcts in the basal ganglia and extracapsular. Prior vascular insult right external capsule/frontal harris radiata. Vascular calcifications in the V4 segments of the vertebral arteries, basilar artery and cavernous supraclinoid segments both ICAs. Prominence of the extra-axial CSF spaces cerebral sulci and ventricles likely central volume loss. Sellar/suprasellar region demonstrated no gross masses or hemorrhage. Craniocervical junction demonstrates normal position of the cerebellar tonsils. There is volume loss of the brainstem and to a lesser extent cerebellar folia. No air-fluid levels in the paranasal sinuses. Tympanic cavities and mastoid air cells are aerated. Vascular calcifications extracranial. Degenerative changes in the temporomandibular joints.. CT/CT head/brain wo IV con IMPRESSION: No acute fracture, bony calvarium. No acute intracranial hemorrhage. Small vessel occlusive disease. Global cerebral atrophy. Atherosclerosis disease. Electronically signed by: Isaiah Harden MD 05/18/2025 10:22 AM EDT
[2025-05-18 09:28] VITALS: BP 190/78; BP 191/81; PULSE 52; PULSE 61; RESP 18; TEMP 36.2; O2SAT 96; BMI 19.5
[2025-05-18 10:00] VITALS: BP 187/73; PULSE 53; RESP 19; TEMP 36.2; O2SAT 95
--- OUTSIDE RECORDS SUMMARY | 2025-05-18 10:40 | XMS_ITS | Clinical Summary ---
Author Organization [facility] [address] [facility] Address [address] [place] [address] Phone Care Team Providers Care Yield Clerk Name Role Phone Mariia Sullivan MD Primary Care Provider Allergies No known active allergies Medications amLODIPine [...] 25 B12 deficiency 08/22/2024 Microalbuminuria 12/24/2023 Seizure ([facility] V24, [facility] V28) 10/08/2023 Aphasia 07/21/2022 Dysphagia 07/21/2022 Dementia ([facility] V24, [facility] V28) 04/14/2022 Overview (08/22/2024): Failed mini-cog COVID-19 virus infection 09/28/2021 Overview (08/22/2024): 09/27/21 Bowel incontinence 08/13/2021 Ascending aortic aneurysm ([facility] V24) 05/13/20 Overview (08/22/2024): Last Assessment & [...] s brandt as late effect of stroke ([facility] V24, [facility] V28) 07/22/2016 Microcytosis 07/22/2016 BPH (benign prostatic [...] 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 ([facility] V24, [facility] V28) 07/30/2014 Microscopic hematuria 07/28/2014 Encounters Date Type Department Care Team Description 04/27/2025 Telephone Adult Medicine [address] [address] Rashmi Mcneil LPN Fitting for DME (Faxed form from [facility]) from Last 3 Months Immunizations Name [...] depres marley CVA (cerebral vascular accid ent) ([facility] V24, [facility] V28) 07/30/2014 DX:CVA (cerebral vascular a ccident) ([facility]) Leg pain 07/30/2014 DX:Leg pain B12 deficiency DX:B12 deficienc y LVH (left ventricular hypertrophy) DX:LVH (left ventricular hypertrophy) Diabetes mellitus type 2, uncomplicated ([facility] V24, [facility] V28) 07/30/2014 DX:Diabetes mellitus type 2, uncomplicated ([facility]) Bowel incontinence 08/13/2021 DX:Bowel inco ntinence COVID-19 virus infection 09/28/2021 DX:COVI D-19 virus infection; COMMENT: 09/27/21 Presence of externally remov able percutaneous endoscopic gastrostomy (PEG) tube ([facility] V24, [facility] V28) 07/21/2022 DX:Presence of e xternally removable percutaneous endoscopic gastrostomy (PEG) tube ([facility]) Dysphagia 07/21/2022 DX:Dysphagia Aphasia 07/21/2022 DX:Aphasia Seizure ([facility] V24, [facility] V28) 10/08/2023 DX:Seizure ([facility]) 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 For example, early childhood services coordinator or elderly care for an older adult? [...] Description 05/24/2025 11:00 AM EDT Ancillary Procedure [facility] [address] [facility] [address] [place] [address] 06/04/2025 1:15 PM EDT Office Visit Adult Medicine [address] [phone] Mariia Sullivan MD [address] [place] [id number] Health Maintenance Due Date Last Done Comments [...] deficiency Aneurysm of ascending aorta without rupture ([facility] V24) Moderate dementia without behavioral disturbance, psychotic disturbance, mood disturbance, or anxiety, unspecified dementia type ([facility] V24, [facility] V28) Microalbuminuria Type 2 diabetes mellitus with diabetic microalbuminuria, without long-term current use of insulin ([facility] V24, [facility] V28) Seizure ([facility] V24, [facility] V28) HEMOGLOBIN A1C Routine 02/01/2025 10:39 AM EDT Type 2 diabetes mellitus with diabetic microalbuminuria, without long-term current use of insulin ([facility] V24, [facility] V28) LIPID PANEL WITH REFLEX TO DIRECT LDL Routine 10/04/2024 4:40 PM EST Type 2 diabetes mellitus with diabetic microalbuminuria, without long-term current use of insulin ([facility] V24, [facility] V28) DEPRESSION SCREENING Routine 04/24/2024 URINE ALBUMIN CREATININE RATIO Routine 04/14/2022 from Last 3 Months or Most Recently Relevant to Health Maintenance Results * Hemoglobin A1c (02/01/2025 10:39 AM EDT) Hemoglobin A1C 5.2 <6.5 % LAB CHEMISTRY METHOD 02/01/2025 9:22 PM EDT [facility] Mean Bld Glu Estim. 103 mg/dL LAB CHEMISTRY METHOD 02/01/2025 9:22 PM EDT [facility] Blood Venous blood specimen / Unknown Venipuncture / Unknown 02/01/2025 10:39 AM EDT 02/01/2025 10:39 AM EDT [facility] BLOOD ORDERABLES Final Re sult [facility] [address] [place] [address], * (ABNORMAL) Comprehensive metabolic panel (02/01/2025 10:39 AM EDT) Sodium 134 133 - 145 mmol/L LAB CHEMISTRY METHOD 02/01/2025 4:06 PM [facility] Potassium 4.3 3.5 - 5.5 mmol/L LAB CHEMISTRY METHOD 02/01/2025 4:06 PM [facility] Chloride 95(L) 96 - 110 mmol/L LAB CHEMISTRY METHOD 02/01/2025 4:06 PM [facility] CO2 32 21 - 32 mmol/L LAB CHEMISTRY METHOD 02/01/2025 4:06 PM [facility] Anion Gap 7 3 - 11 LAB CHEMISTRY METHOD 02/01/2025 4:06 PM [facility] Glucose 133(H) 70 - 100 mg/dL LAB CHEMISTRY METHOD 02/01/2025 4:06 PM [facility] BUN 17 5 - 25 mg/dL LAB CHEMISTRY METHOD 02/01/2025 4:06 PM [facility] Creatinine 0.60(L) 0.70 - 1.30 mg/dL LAB CHEMISTRY METHOD 02/01/2025 4:06 PM [facility] eGFR 95 >=60 mL/min/1. 73m2 LAB CHEMISTRY METHOD 02/01/2025 4:06 PM [facility] Comment:Calculation based on the Chronic Kidney Disease Epidemiology Collaboration (CKD-EPI) equation refit without adjustment for race. BUN/Creatinine Ratio 28.3 LAB CHEMISTRY METHOD 02/01/2025 4:06 PM [facility] Calcium 9.9 8.5 - 10.5 mg/dL LAB CHEMISTRY METHOD 02/01/2025 4:06 PM [facility] AST (SGOT) 21 10 - 42 unit/L LAB CHEMISTRY METHOD 02/01/2025 4:06 PM EDT [facility] ALT (SGPT) 33 10 - 60 unit/L LAB CHEMISTRY METHOD 02/01/2025 4:06 PM EDT [facility] Alkaline Phosphatase 71 42 - 121 unit/L LAB CHEMISTRY METHOD 02/01/2025 4:06 PM EDT [facility] Total Protein 7.3 6.0 - 8.0 g/dL LAB CHEMISTRY METHOD 02/01/2025 4:06 PM EDT [facility] Albumin 4.0 3.2 - 5.0 g/dL LAB CHEMISTRY METHOD 02/01/2025 4:06 PM EDT [facility] Total Bilirubin 0.6 0.0 - 1.4 mg/dL LAB CHEMISTRY METHOD 02/01/2025 4:06 PM EDT [facility] Blood Venous blood specimen / Unknown Venipuncture / Unknown 02/01/2025 10:39 AM EDT 02/01/2025 10:39 AM EDT [facility] BLOOD ORDERABLES Final Re sult [facility] [address] [place] [address], * (ABNORMAL) Lipid panel with reflex to direct LDL (10/04/2024 4:40 PM EST) Cholesterol 79 0 - 200 mg/dL LAB CHEMISTRY METHOD 10/04/2024 7:16 PM EST [facility] Triglycerides 39 0 - 150 mg/dL LAB CHEMISTRY METHOD 10/04/2024 7:16 PM EST [facility] HDL 39(L) >=40 mg/dL LAB CHEMISTRY METHOD 10/04/2024 7:16 PM EST [facility] LDL Calculated 32 0 - 100 mg/dL LAB CHEMISTRY METHOD 10/04/2024 7:16 PM EST [facility] VLDL Cholesterol Yuval 7.8 mg/dL LAB CHEMISTRY METHOD 10/04/2024 7:16 PM EST [facility] Non HDL Chol. (LDL+VLDL) 40 <145 mg/dL LAB CHEMISTRY METHOD 10/04/2024 7:16 PM EST [facility] Chol/HDL Ratio 2.0 0.0 - 4.4 LAB CHEMISTRY METHOD 10/04/2024 7:16 PM EST [facility] Blood Venous blood specimen / Unknown Venipuncture / Unknown 10/04/2024 4:40 PM EST 10/04/2024 4:40 PM EST Mariia Sullivan MD LAB BLOOD ORDERABLES Final Resul t [facility] [address] [place] [address], * Depression Screening (04/24/2024) Depression Screening abstracted Historical Provider HEALTH MAINTENANCE Final Result * Urine Albumin Creatinine Ratio (04/14/2022) Urine Albumin Creatinine Ratio abstracted Historical Provider HEALTH MAINTENANCE Final Result from Last 3 Months or Most Recently Relevant to Health Maintenance Insurance MEDICARE MEDICAID - [place] Care Teams Yield Clerk Relationship Specialty Start Date End Date Mariia Sullivan MD [address] [place] [address] PCP - General Internal Medicine 06/04/21
--- NOTE | 2025-05-18 10:44 | ED_ITS ---
HPI - Head Injury General Chief complaint: Fall Stated complaint: Fall with head strike Time Seen by Provider: 05/18/25 09:33 Source: patient, family, EMS and old records reviewed Mode of arrival: EMS Limitations: altered mental status History of Present Illness ED Provider: JAH GRIFFIN Narrative: 84 yo male with PMH of CVA with aphasia, dysphagia has feeding tube, L sided weakness, contractures, needs family for ADLS, gait instability, family notes he is bedbound comes after put him on chair and he leaned forward and fell. no LOC has contusion on his forehead he only takes a baby aspirin. He has been at his baseline since then. Family notes no other injuries other than head. MD Complaint: head injury Onset (ago): hour(s) (1) Arrival Conditions: C-spine immobilization present Mechanism of Injury: fall Place: home Loss of Consciousness: no Location of injury: frontal Severity: mild Radiation: none Other Injuries: none Associated symptoms: denies other symptoms Related Data Home Medications ?Medication ?Instructions ?Recorded ?Confirmed aspirin 81 mg tablet,delayed 81 mg PO DAILY 08/26/20 1 12/03/22 release (Adult Aspirin Regimen) sertraline 50 mg tablet 50 mg PO DAILY 08/26/2009/09 tamsulosin 0.4 mg capsule 0.4 mg PO DAILY 08/26/20 blood sugar diagnostic #10 ea 05/20/21 03/03/22 lancets 28 gauge #100 ea 05/20/21 03/03/22 atorvastatin 10 mg tablet 10 mg PO DAILY 02/12/2209/09 blood sugar diagnostic (FreeStyle 08/05/22 Lite Strips) blood-glucose meter (FreeStyle 08/05/22 Lite Meter kit) lancets 28 gauge (FreeStyle 08/05/22 Lancets) finasteride 5 mg tablet 5 mg PO DAILY 10/03/2310/03 insulin NPH-regular 70-30 U-100 10 unit subcut BEDTIME 10/03/23 10/03/23 insulin 100 unit/mL subcutaneous pen (Novolin 70-30 FlexPen U-100 Insulin) insulin aspar prot-insulin aspart 13 unit subcut DAILY 10/03/23 10/03/23 100 unit/mL (70-30) subcutaneous pen (Novolog Mix 70-30FlexPen U-100) lisinopril 10 mg tablet 10 mg PO DAILY 10/03/2309/09 Previous Rx's ?Medication ?Instructions ?Recorded amlodipine 2.5 mg tablet 2.5 mg PO DAILY 90 days #90 tabs 08/26/20 hydrochlorothiazide 25 mg tablet 25 mg PO DAILY 90 day s #90 tabs 08/26/20 cyanocobalamin (vitamin B-12) 500 500 mcg sublingual D AILY 90 days 05/20/21 mcg sublingual tablet #90 tabs flash glucose scanning reader #1 ea 02/12/22 (FreeStyle Kristine [employer]) flash glucose sensor (FreeStyle #2 ea 02/12/22 Kristine 2 Sensor kit) cholecalciferol (vitamin D3) 50 50 mcg PO DAILY #90 ca ps 08/26/22 mcg (2,000 unit) capsule levetiracetam 500 mg/5 mL (5 mL) 250 mg (2.5 mL) G-tub e BID #200 mL 10/04/23 oral solution Allergies Allergy/AdvReac Type Severity Reaction Status Date / Time No Known Allergies Allergy Verified 05/18/25 09:30 Review of Systems Review of Systems: ROS unable to be obtained due to prior stroke and speech issues [facility] Past Medical History Attestation statement: The following information was validated with the patient. Source: old records reviewed Medical History Cerebrovascular accident CVA (cerebral vascular accident) B12 deficiency Tinea pedis of both feet BPH (benign prostatic hyperplasia) Obesity (BMI 30-39.9) Dyslipidemia Hypertension group home (current) use of insulin Diabetic nephropathy associated with type 2 diabetes mellitus Diabetic polyneuropathy associated with type 2 diabetes mellitus Diabetes type 2, uncontrolled Surgical History History of surgery Family History Family History Father No problems noted. Mother No problems noted. Social History Social History Household Members: Family Household Members Other:: 3 Housing: Apartment Do you presently have visiting nurse or other home services: No Alcohol intake: never Comment: family at bedside Patient Tobacco Use Status: Never used Tobacco e-Cigarette/Vaping Use: Never Used Second Hand Smoke Exposure: No Advance Directives: Yes Advance Directives on File: Yes Advance Directives Date on File: 12/22/22 Do you have a plan to hurt others: No Plan service: No Current occupational status: retired Physical Exam Vital Signs: Vital Signs: Last Vital Signs Temp 97.1 F 05/18/25 10:00 Pulse 53 05/18/25 10:00 Resp 19 05/18/25 10:00 BP 187/73 H 05/18/25 10:00 Pulse Ox 95 05/18/25 10:00 O2 Del Method Room Air 05/18/25 10:00 BMI result Body Mass Index 19.5 Appearance: at baseline, weak and frail appearing No acute distress. Eyes: Pupils equal, round and reactive to light. ENT: Pharynx normal. contusion to forehead but no jenkins or raccoon eyes Neck: Normal inspection. Neck supple. CVS: Normal heart rate and rhythm. Pulses normal. Respiratory: No respiratory distress. Breath sounds normal. Abdomen: Soft and nontender. feeding tube intact and in place Skin: Skin warm and dry. Normal skin color. Normal skin turgor. Extremities: No lower extremity edema. no pain or grimace with ROM of arms or legs family states he would complain Neuro: at his baselines, L sided deficits, difficult speech Medical Decision Making Medical Decision Making MDM Narrative: 84 yo male with PMH of CVA with aphasia, dysphagia has feeding tube, L sided weakness, contractures, needs family for ADLS, gait instability, not on blood thinners he has no ext pain or grimace to palpation or ROM. No trunk injury. Family tells me this is his baseline. Will need CT head/cspine for trauma. If negative give strict precautions to return. Differential Diagnosis Differential Diagnoses: The differential diagnosis associated with the presentation includes fall, head injury, cervical spine injury, contusion Admission/Observation Consideration of admission/observation: Escalation of care including admission/observation considered imaging negative at baseline stable for DC Independent Interpretation I performed an independent interpretation of an: CT Scan (no trauma) Radiology Impression Discussion of test interpretation with radiology: I have reviewed the radiologist's reading. Independent Historian Clinical information obtained from an independent historian. History obtained from or confirmed by: EMS and Other (daughter) External Record Review External record reviewed: Outpatient record Discharge Plan Discharge Clinical Impression: Head injury Qualifiers: Encounter type: initial encounter Qualified Code(s): S09.90XA - Unspecified injury of head, initial encounter Contusion Qualifiers: Encounter type: initial encounter Contusion area: head Contusion of head detail: other part of head Qualified Code(s): S00.83XA - Contusion of other part of head, initial encounter Patient Disposition: Home, Self-Care Instructions: Head Injury (ED), Contusion in Adults (ED) Additional Instructions: CT scan of head and neck no trauma no bleeding in brain. return for worsening pain, change in baseline, new areas of pain or injury can resume all of your normal medications. Prescriptions: No Action cyanocobalamin (vitamin B-12) 500 mcg tablet, sublingual 500 mcg sublingual DAILY 90 Days Qty: 90 1RF cholecalciferol (vitamin D3) 50 mcg (2,000 unit) capsule 50 mcg PO DAILY Qty: 90 0RF finasteride 5 mg tablet 5 mg PO DAILY lisinopril 10 mg tablet 10 mg PO DAILY insulin asp prt-insulin aspart [Novolog Mix 70-30FlexPen U-100] 100 unit/mL (70-30) Insulin Pen 13 unit SUBCUT DAILY Novolin 70-30 FlexPen U-100 100 unit/mL (70-30) Insulin Pen 10 unit SUBCUT BEDTIME levetiracetam 500 mg/5 mL (5 mL) Solution 250 mg G-tube BID Qty: 200 0RF sertraline 50 mg tablet 50 mg PO DAILY tamsulosin 0.4 mg capsule 0.4 mg PO DAILY aspirin [Adult Aspirin Regimen] 81 mg tablet,delayed release (DR/EC) 81 mg PO DAILY hydrochlorothiazide 25 mg tablet 25 mg PO DAILY 90 Days Qty: 90 2RF amlodipine 2.5 mg tablet 2.5 mg PO DAILY 90 Days Qty: 90 2RF (DME) lancets 28 gauge misc See Rx Instructions Not Applicable TID Qty: 100 Rx Instructions: As directed (DME) blood sugar diagnostic Strip See Rx Instructions Not Applicable TID Qty: 10 Rx Instructions: As directed atorvastatin 10 mg tablet 10 mg PO DAILY (DME) FreeStyle Kristine 2 [employer] Misc See Rx Instructions .ROUTE .MEDSUPPLY Qty: 1 0RF Rx Instructions: As directed (DME) FreeStyle Kristine 2 Sensor Kit See Rx Instructions .ROUTE .[facility] Qty: 2 11RF Rx Instructions: As directed every 2 weeks (DME) blood-glucose meter [FreeStyle Lite Meter] Kit See Rx Instructions .ROUTE Rx Instructions: As directed (DME) FreeStyle Lite Strips Strip See Rx Instructions .ROUTE Rx Instructions: As directed (DME) lancets [FreeStyle Lancets] 28 gauge misc See Rx Instructions .ROUTE Rx Instructions: As directed Print Language: Sami
[2025-05-18 10:50] VITALS: BP 175/78; PULSE 56; RESP 19; TEMP 36.1; O2SAT 96
[2025-05-18 10:59] VITALS: BP 175/78; PULSE 56; RESP 19; TEMP 36.1; O2SAT 96
== END 2025-05-18 11:12 | disposition home or self-care (01) ==
PROVIDERS: Emergency Provider Emergency Medicine
DX: S00.83XA Contusion of other part of head, initial encounter (principal); S09.90XA Unspecified injury of head, initial encounter; W07.XXXA Fall from chair, initial encounter; Y93.89 Activity, other specified; Y92.039 Unspecified place in apartment as the place of occurrence of the external cause; Y99.9 Unspecified external cause status
CPT/HCPCS: 70450; 72125; 99283; 99284

== ENCOUNTER → 2025-05-18 09:38 | Outpatient (BNV) | payer MEDICARE, MEDICAID, SELFPAY | PROVIDERS: Emergency Provider Emergency Medicine; Visit Provider Radiology Diagnostic Radiology | DX: S09.90XA Unspecified injury of head, initial encounter (principal) | CPT/HCPCS: 70450; 72125 ==

== ENCOUNTER 2025-07-29 21:22 | Emergency (ER) | payer MEDICARE, MEDICAID, SELFPAY ==
--- NOTE | ~2025-07-29 | US_ITS ---
CLINICAL HISTORY: new swelling, pt non verbal Venous duplex ultrasound left lower extremity Comparison: None provided Findings: The visualized deep veins are fully compressible with normal Doppler color flow and spectral tracings. There is subcutaneous edema from the popliteal fossa to the ankle. No popliteal cyst. IMPRESSION: 1. Negative for left lower extremity deep vein thrombosis. This document has been electronically signed by: Fermin Patel MD, PHD on 07/30/2025 03:24:04
--- NOTE | ~2025-07-29 | XR_ITS ---
CLINICAL HISTORY: cough, r o pna 1 view chest x-ray Comparison: CR/SR - XR CHEST 2 VIEWS - 10/03/23 00:36 EST Findings: Low lung volumes. Bilateral reticular opacities, interstitial edema or infiltrate versus chronic interstitial lung change. Bowel interposed under the right hemidiaphragm. Enlarged cardiac silhouette. No acute fracture. IMPRESSION: Bilateral reticular opacities, interstitial edema or infiltrate versus chronic interstitial lung change. This document has been electronically signed by: Fermin Patel MD, PHD on 07/30/2025 00:21:22
[2025-07-29 21:29] VITALS: BP 192/102; PULSE 76; O2SAT 94
[2025-07-29 21:31] VITALS: BP 175/95; PULSE 95; RESP 20; TEMP 36.9; O2SAT 94; BMI 24.4
--- OUTSIDE RECORDS SUMMARY | 2025-07-29 22:05 | XMS_ITS ---
Author Name [facility] Organization Unknown Care Team Organization Name Specialty Phone Email Start Date End Da te [facility] 06/27/2025 [facility] Mariia Sullivan Primary Care 03/15/2023 [facility] Rae, PROVIDER Primary Care 09/15/202206/08
--- OUTSIDE RECORDS SUMMARY | 2025-07-29 22:05 | XMS_ITS | Clinical Summary ---
Author Organization [facility] [address] [facility] Address [address] [place] [address] Phone Care Team Providers Care Lens Assorter Name Role Phone Mariia Sullivan MD Primary Care Provider [phone] Allergies No known active allergies Medications levETIRAcetam (KEPPRA) 100 mg/mL solution Take 2.5 mL by mouth 2 times daily. 4 Active FREESTYLE LANCETS MISC Use to test blood sugar three times daily 3 Active blood sugar diagnostic (FreeStyle Lite Strips) test strip USE TO TEST 3 TIMES DAILY 3 Active finasteride (PROSCAR) 5 mg tablet TAKE 1 TABLET BY MOUTH EVERY DAY 90 tablet 1 5 Active tamsulosin (FLOMAX) 0.4 mg 24 hr capsule Take 1 capsule (0.4 mg total) by mouth 1 (one) time each day. Capsules should be taken 30 minutes following the same meal each day. 90 capsule 1 5 Active sertraline (ZOLOFT) 50 mg tablet Take 1 tablet (50 mg total) by mouth at bedtime. 90 tablet 1 5 Active lisinopriL (PRINIVIL,ZESTR IL) 10 mg tablet Take 1 tablet (10 mg total) by mouth at bedtime. 90 tablet 1 5 Active atorvastatin (LIPITOR) 10 mg tablet Take 1 tablet (10 mg total) by mouth at bedtime. 90 tablet 1 5 Active aspirin 81 mg EC tablet Take 1 tablet (81 mg total) by mouth 1 (one) time each day. 90 tablet 1 5 Active amLODIPine (NORVASC) 2.5 mg tablet Take 1 tablet (2.5 mg total) by mouth 1 (one) time each day. at bedtime. 90 tablet 1 5 Active Active Problems Problem Noted Date Diagnosed Date Other cardiomyopathies ([facility] V24, [facility] V28 ) 07/04/2025 Assessment & Plan (07/04/2025 4:02 PM EDT): Orders: Comprehensive metabolic panel; Future [place]-lambda free light chains, quantitative; Future Immunofixation, urine; Future Nuclear cardiac amyloid study; Future Immunofixation electrophoresis, IGG, IGA, IGM; Future Pericardial effusion 07/04/2025 Assessment & Plan (07/04/2025 4:02 PM EDT): Orders: Thyroid stimulating hormone; Future DNR (do not resuscitate) 06/04/2025 Overview (06/04/2025): MOLST form completed 06/04/2025 Cardiopulmonary resuscitation - do not resuscitate Ventilation for a patient in respiratory distress - do not intubate or ventilate Transfer to hospital -transfer to hospital Dialysis - no dialysis Artificial nutrition - use artificial nutrition Artificial hydration - use artificial hydration Gastrojejunostomy tube status ([facility] V24, [facility] V28) 05/24/2025 Nonrheumatic aortic valve insufficiency 02/09/20 25 Assessment & Plan (07/04/2025 4:02 PM EDT): B12 deficiency 08/22/2024 Microalbuminuria 12/24/2023 Seizure ([facility] V24, [facility] V28) 10/08/2023 Aphasia 07/21/2022 Dysphagia 07/21/2022 Dementia ([facility] V24, [facility] V28) 04/14/2022 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 He underwent a chest CT scan in January 2022 which was requested by his PCP. The ascending aorta was noted to measure 4.3 cm. The patient should continue yearly monitoring with an echocardiogram or chest CT scan. 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 ([facility] V24, [facility] V28) 07/30/2014 Microscopic hematuria 07/28/2014 Encounters Date Type Department Care Team Description 07/04/2025 3:30 PM EDT Office Visit [facility] Cardiology [facility] [address] [facility] [address] [place] [address] Sima Jo MD Primary hypertension (Primary Dx); Nonrheumatic aortic valve insufficiency; Aneurysm of ascending aorta without rupture ([facility] V24); Other cardiomyopathies ([facility] V24, [facility] V28); Pericardial effusion 06/11/[address] [facility] [address] [facility] [address] [place] [address] Sima Jo MD 06/04/2025 1:15 PM EDT Office Visit Adult [address] [phone] Mariia Sullivan MD Type 2 diabetes mellitus with diabetic microalbuminuria, without long-term current use of insulin ([facility] V24, [facility] V28) (Primary Dx); Primary hypertension; Moderate dementia without behavioral disturbance, psychotic disturbance, mood disturbance, or anxiety, unspecified dementia type (CMS/HCC V24, CMS/HCC V28); 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 (CMS/HCC V24, CMS/HCC V28); Dysphagia, unspecified type; B12 deficiency; Gastrojejunostomy tube status ([facility] V24, [facility] V28); DNR (do not resuscitate) 05/24/2025 11:00 AM EDT Ancillary Procedure [facility] [address] [place] [address] Aneurysm of ascending aorta without rupture ([facility] V24); Aortic valve insufficiency, etiology of cardiac valve disease unspecified; Nonrheumatic aortic valve insufficiency from Last 3 Months Immunizations Name Administration [...] Medical History Date Comments Microscopic hematuria 07/28/2014 HTN (hypertension) 07/30/2014 Hyperlipidemia 07/30/2014 BPH (benign prostatic hyperplasia) 07/30/2014 Insomnia 07/30/2014 Major depression 07/30/2014 B12 deficiency LVH (left ventricular hypertrophy) Bowel incontinence 08/13/2021 COVID-19 virus infection 09/28/2021 : 09/27 Presence of externally remov able percutaneous endoscopic gastrostomy (PEG) tube ([facility] V24, [facility] V28) 07/21/2022 G tube Dysphagia 07/21/2022 Aphasia 07/21/2022 Seizure ([facility] V24, [facility] V28) 10/08/2023 Hemiparesis affecting left s brandt as late effect of stroke ([facility] V24, [facility] V28) 07/22/2016 Ascending aortic aneurysm ([facility] V24) 05/13/2021 The patient has a history of an ascending aortic aneurysm. He underwent a chest CT scan in January 2022 which was requested by his PCP. The ascending aorta was noted to measure 4.3 cm. The patient should continue yearly monitoring with an echocardiogram or chest CT scan. Urinary incontinence 03/25/2021 Type 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 ([facility]24, [facility] V28) 07/30/2014 Microalbuminuria 12/24/2023 Dementia ([facility] V24, [facility] V28) 04/14/2022 Failed mini-cog Family History Medical History Relation Name Comments [...] Record ed Within the last 3 months, ruthie diggs many times did you visit the emergency [...] care for your loved ones. For example, children teacher or elderly care for an older adult? [...] Sign Reading Time Taken Comments Blood Pressure 130/70 07/04/2025 3:23 PM EDT Pulse 76 07/04/2025 3:23 PM EDT Temperature 36.2 C (97.2 F) 06/04/2025 1:08 PM EDT Respiratory Rate 14 06/04/2025 1:08 PM EDT Oxygen Saturation 98% 07/04/2025 3:23 PM EDT Inhaled Oxygen Concentration - - Weight 74.8 kg (165 lb) 05/24/2025 12:07 PM EDT Height 165.1 cm (5' 5 ) 07/04/2025 3:23 PM EDT Body Mass Index 28.32 05/24/2025 12:07 PM EDT Plan of Treatment Upcoming Encounters Date Type Department Care Team (Late st Contact Info) Description 10/08/2025 9:45 AM EST Office Visit Adult Medicine [facility] [address] [place], [place] [phone] Gifty Yang PA [address] [place], [place] 10/22/2025 11:00 AM EST Ancillary Procedure [facility] - [address] [place] [address] Health Maintenance Due Date Last Done Comments Diabetes: Annual Foot Exam 1950 Diabetes: Annual Retina Eye Exam 1950 Zoster Vaccines (1 of 2) 1958 RSV Immunization Adult Patients (1 - 1-dose 75+ series) 2014 Depression Screening 11/08/2024 10/04/2024, 04/24/20 Medicare Annual Wellness Visit 04/24/2025 04/24/2024 COVID-19 Vaccine ( season) 2025 01/17/2022, 03/01/2021, 02/01/2021 Influenza Vaccine (#1) 2025 , 08/23/2023, 08/23/2023, Additional history exists Falls Risk Assessment 10/04/2025 10/04/2024 Social Influencers of Health Screening 10/04/2025 10/04/2024 Diabetes: Blood Sugar Control Test (HGBA1C) 12/05/2025 06/04/2025, 02/01/2025, 10/04/2024, Additional history exists Hypertension/CHF/CAD Annual BMP Blood Test 06/04/2026 06/04/2025, 02/01/2025, 10/04/2024, Additional history exists DTaP,Tdap,and Td Vaccines (2 [...] Procedure Name Priority Date/Time Associated Diagnosis Comments ECG 12-LEAD Routine 07/04/2025 3:38 PM EDT Primary hypertension HEMOGLOBIN A1C Routine 06/04/2025 1:51 PM EDT Type 2 diabetes mellitus with diabetic microalbuminuria, without long-term current use of insulin (CMS/HCC V24, CMS/HCC V28) BASIC METABOLIC PANEL Routine 06/04/2025 1:51 PM EDT Primary hypertension TRANSTHORACIC ECHOCARDIOGRAM (TTE) COMPLETE Routine 05/24/2025 12:11 PM EDT Aneurysm of ascending aorta without rupture ([facility]/HCC V24) Aortic valve insufficiency, etiology of cardiac valve disease unspecified Nonrheumatic aortic valve insufficiency LIPID PANEL WITH REFLEX TO DIRECT LDL Routine 10/04/2024 4:40 PM EST Type 2 diabetes mellitus with diabetic microalbuminuria, without long-term current use of insulin (CMS/HCC V24, CMS/HCC V28) HM DEPRESSION SCREENING Routine 04/24/2024 from Last 3 Months or Most Recently Relevant to Health Maintenance Results * ECG 12 lead (07/04/2025 3:38 PM EDT) Ventricular Rate ECG 73 BPM GEMUSE Atrial Rate 73 BPM GEMUSE P-R Interval 212 ms GEMUSE QRS Duration 156 ms GEMUSE Q-T Interval 442 ms GEMUSE QTc 486 ms GEMUSE P Wave Campbell 82 degrees GEMUSE R Campbell 13 degrees GEMUSE T Campbell -136 degrees GEMUSE ECG Interpretation Sinus rhythm with 1st degree A-V block Left bundle branch block Abnormal ECG No previous ECGs available Confirmed by SIMA JO ([id number]) on 07/17/2025 8:57:53 AM GEMUSE 07/04/2025 3:38 PM EDT 07/17/2025 8:57 AM EDT Sima Jo MD ECG ORDERABLES Final Result Performing Organization Address City/[facility]/ZIP Co de Phone Number GEMUSE * Hemoglobin A1c (06/04/2025 1:51 PM EDT) [facility] Hemoglobin A1C 5.1 <6.5 % LAB CHEMISTRY METHOD 06/04/2025 9:[address] [facility] Mean Bld Glu Estim. 100 mg/dL LAB CHEMISTRY METHOD 06/04/2025 9:[address] [facility] Blood Venous blood specimen / Unknown Venipuncture / Unknown 06/04/2025 1:51 PM EDT 06/04/2025 1:51 PM EDT Mariia Sullivan MD LAB BLOOD ORDERABLES Final Resul t Performing Organization Address [facility] Co de Phone Number [facility] [address] [place] [address], * (ABNORMAL) Basic metabolic panel (06/04/2025 1:51 PM EDT) [facility] Sodium 134 133 - 145 mmol/L LAB CHEMISTRY METHOD 06/04/2025 4:[address] [facility] Potassium 3.3(L) 3.5 - 5.5 mmol/L LAB CHEMISTRY METHOD 06/04/2025 4:[address] [facility] Chloride 100 96 - 110 mmol/L LAB CHEMISTRY METHOD 06/04/2025 4:57 PM [facility] CO2 29 21 - 32 mmol/L LAB CHEMISTRY METHOD 06/04/2025 4:57 PM [facility] Anion Gap 5 3 - 11 LAB CHEMISTRY METHOD 06/04/2025 4:57 PM [facility] Glucose 114(H) 70 - 100 mg/dL LAB CHEMISTRY METHOD 06/04/2025 4:57 PM [facility] BUN 27(H) 5 - 25 mg/dL LAB CHEMISTRY METHOD 06/04/2025 4:57 PM [facility] Creatinine 0.50(L) 0.70 - 1.30 mg/dL LAB CHEMISTRY METHOD 06/04/2025 4:57 PM [facility] eGFR 99 >=60 mL/min/1. 73m2 LAB CHEMISTRY METHOD 06/04/2025 4:57 PM [facility] Comment:Calculation based on the Chronic Kidney Disease Epidemiology Collaboration (CKD-EPI) equation refit without adjustment for race. BUN/Creatinine Ratio 54.0 LAB CHEMISTRY METHOD 06/04/2025 4:57 PM [facility] Calcium 8.8 8.5 - 10.5 mg/dL LAB CHEMISTRY METHOD 06/04/2025 4:57 PM [facility] Blood Venous blood specimen / Unknown Venipuncture / Unknown 06/04/2025 1:51 PM EDT 06/04/2025 1:51 PM EDT us Mariia Sullivan MD LAB BLOOD ORDERABLES Final Resul t [facility] [address] [place] [address], [place] [phone] * (ABNORMAL) TRANSTHORACIC ECHOCARDIOGRAM (TTE) COMPLETE (05/24/2025 12:11 PM EDT) AV Mean Gradient 3 mmHg CV PACS Ao VTI 26.7 cm CV PACS AV Peak Joo 1.3 m/s CV PACS AV Peak Gradient 7 mmHg CV PACS AV Area Continuity Equation 1.8 cm2 CV PACS AV Area Peak Velocity 1.9 cm2 CV PACS LVOT Diameter 2.1 cm CV PACS LVOT Mean Grad 1 mmHg CV PACS LVOT Peak VTI 13.9 cm CV PACS LVOT Mean Joo 0.5 m/s CV PACS LVOT Peak Joo 0.7 m/s CV PACS LVOT Peak Gradient 2 mmHg CV PACS MV E' Tissue Velocity Lateral 5 cm/s CV PACS MV E' Tissue Velocity Septal 4 cm/s CV PACS LVOT Area 3.5 cm2 CV PACS LVOT Stroke Volume 48 mL CV PACS MV Deceleration [place]wsley 1.3 m/s2 CV PACS E Wave Deceleration Time 323(A) 119 - 242 ms CV PACS MV PHT 94 ms CV PACS MV Peak A Joo 0.80 m/s CV PACS MV Peak E Joo 0.40 m/s CV PACS MV Area PHT 2.3 cm2 CV PACS RV S' 10 cm/s CV PACS TAPSE 18 mm CV PACS TR Peak Velocity 2.20 m/s CV PACS TR Peak Gradient 20 mmHg CV PACS E/E' Ratio Septal 10 CV PACS E/E' Ratio Averaged 9 CV PACS LVOT:AV VTI Index 0.52 CV PACS LVOT flow 173 mL/s CV PACS AV Velocity Ratio 0.54 CV PACS E/A Ratio 0.5 0.8 - 2.0 CV PACS E/E' Ratio Lateral 8 CV PACS BSA 1.84 m2 CV PACS LVOT Stroke Index 27 mL/m2 CV PACS XOCHITL Index (VTI) 1.00 cm2/m2 CV PACS XOCHITL Index (Pk Joo) 1.06 cm2/m2 CV PACS LVIDD 3.4(A) 4.2 - 5.8 cm CV PACS LVIDD Index 1.89 cm/m2 CV PACS LVPWD 1.2(A) 0.6 - 1.0 cm CV PACS IVSD 1.2(A) 0.6 - 1.0 cm CV PACS LV Mass 2D 130 96 - 200 g CV PACS LV Mass Index 2D 72 50 - 102 g/m2 CV PACS Relative Wall Thickness ratio 0.71(A) 0.24 - 0.42 CV PACS LVOT Cardiac Output 0.0 L/min CV PACS LVOT Cardiac Index 0.0 L/min/m2 CV PACS RV Free Wall Peak S' 10 cm/s CV PACS AV Area 2D 1.9 cm2 CV PACS XOCHITL Index (2D) 1.06 cm2/m2 CV PACS AV Area Index 1.0 CV PACS LVIDS 2.5 2.5 - 4.0 cm CV PACS LVIDS Index 1.39 cm/m2 CV PACS FS 26 % CV PACS Aortic Root 4.0 cm CV PACS Aortic Root Index 2.22 cm/m2 CV PACS Anatomical Region Laterality Modality Ultrasound Addenda Addendum by Sima Jo MD on 07/04/2025 3:50 PM EDT Technically difficult study. Left ventricle cavity size is normal. Left ventricular systolic function is low normal with an ejection fraction of 50-55%. There are no obvious regional LV wall motion abnormalities, on limited views. Left ventricle mild concentric hypertrophy. Right Ventricle: Right ventricle was not well visualized. Right ventricle cavity appears grossly normal in size. Systolic function is normal. RV S' 10 cm/sec. Normal TAPSE (> 17 mm), measuring 18 mm. Aortic Valve: There is mild-moderate regurgitation. Aorta: The aortic root is mildly dilated (4.0 cm). Ascending aorta was not well visualized. Pericardium: There is a small pericardial effusion. There is no echocardiographic evidence of tamponade. Left Ventricle Left ventricle was not well visualized. Left ventricle cavity size is normal. There is mild concentric hypertrophy. Systolic function is low normal with an ejection fraction of 50-55% in very limited views. There are no obvious regional LV wall motion abnormalities, on limited views. Indeterminate diastolic function. Right Ventricle Right ventricle was not well visualized. Right ventricle cavity appears grossly normal in size. Systolic function is normal. RV S' 10 cm/sec. Normal TAPSE (> 17 mm), measuring 18 mm. Left Atrium Left atrium cavity size is normal. Right Atrium Right atrium was not well visualized. IVC/SVC Inferior vena cava was not well visualized. Mitral Valve The leaflets are mildly thickened. There is mild annular calcification. There is mild regurgitation. There is no evidence of mitral valve stenosis. Tricuspid Valve The tricuspid valve was not well visualized. There is trace regurgitation. Aortic Valve The aortic valve was not well visualized. Number of aortic valve cusps cannot be determined. There is mild-moderate regurgitation. There is no evidence of aortic valve stenosis. Pulmonic Valve The pulmonic valve was not well visualized. Ascending Aorta The aortic root is mildly dilated (4.0 cm). Ascending aorta was not well visualized. Pericardium There is an anterior fat pad. There is a small pericardial effusion. There is no echocardiographic evidence of tamponade. Study Details Overall the study quality was technically difficult. Unable to administer contrast. Study was difficult due to: poor endocardial visualization, patient body habitus, low parasternal window, procedure performed with the patient in a sitting position and poor acoustic windows. Very limited mobility. Laura Chong NP CV ECHO PROCEDURES Edited R esult - Final * (ABNORMAL) Lipid panel with reflex to direct LDL (10/04/2024 4:40 PM EST) Cholesterol 79 0 - 200 mg/dL LAB CHEMISTRY METHOD 10/04/2024 7:16 PM [facility] Triglycerides 39 0 - 150 mg/dL LAB CHEMISTRY METHOD 10/04/2024 7:16 PM [facility] HDL 39(L) >=40 mg/dL LAB CHEMISTRY METHOD 10/04/2024 7:16 PM [facility] LDL Calculated 32 0 - 100 mg/dL LAB CHEMISTRY METHOD 10/04/2024 7:16 PM [facility] VLDL Cholesterol Yuval 7.8 mg/dL LAB CHEMISTRY METHOD 10/04/2024 7:16 PM [facility] Non HDL Chol. (LDL+VLDL) 40 <145 mg/dL LAB CHEMISTRY METHOD 10/04/2024 7:16 PM [facility] Chol/HDL Ratio 2.0 0.0 - 4.4 LAB CHEMISTRY METHOD 10/04/2024 7:16 PM [facility] Blood Venous blood specimen / Unknown Venipuncture / Unknown 10/04/2024 4:40 PM EST 10/04/2024 4:40 PM EST us Mariia Sullivan MD LAB BLOOD ORDERABLES Final Resul t [facility] ([facility]) [facility] [address] [place] [address], [place] [phone] * Depression Screening (04/24/2024) [facility] Depression Screening abstracted us Historical Provider HEALTH MAINTENANCE Final Result from Last 3 Months or Most Recently Relevant to Health Maintenance Insurance MEDICARE [place]ICAID [place] Advance Directives * No CPR/Do Not Intubate (Latest Code Status on File) Date Activated Date Inactivated Comments 06/04/2025 1:25 PM This code stat us was ascertained in the following way: Code status discussion: discussion with patient To update the patient's code status, place a code status order. Do not modify or discontinue any currently active code status orders. Care Teams Lens Assorter Relationship Specialty Start Date End Date Mariia Sullivan MD [address] [place] [phone] PCP - General Internal Medicine 06/04/21
[2025-07-29 22:20] LABS: Hematocrit 36.8 % (42.0-52.0); Hemoglobin 12.3 g/dl (14.0-18.0); Imm Gran Abs Auto 0.02 X10*3/uL (0.00-0.03); Imm Gran Pct Auto 0.3 % (0.0-0.4); Lymphocytes Absolute Auto 0.8 X10*3/uL (1.2-4.9); MANUAL DIFF FLAG NO; Mean Corpuscular HGB Conc 33.4 g/dl (31.0-36.0); Mean Corpuscular Hemoglobin 24.1 pg (27.0-33.0); Mean Corpuscular Volume 72.2 fL (80.0-98.0); NRBC Abs Auto 0.000 X10*3/uL (0.0-0.012); NRBC Pct Auto 0.0 /100WBC (0.0-0.2); Platelet Count 166 X10*3/uL (160-400); Red Blood Count 5.10 X10*6/uL (4.60-5.80); White Blood Count 6.6 X10*3/uL (4.8-10.8)
[2025-07-29 22:33] LABS: Alanine Aminotransferase 22 U/L (0-40); Albumin Level 3.0 g/dL (3.5-5.0); Alkaline Phosphatase 51 U/L (39-117); Anion Gap 8 (12-20); Aspartate Amino Transferase 30 U/L (5-37); Blood Urea Nitrogen 28 mg/dL (9-16); Calcium 8.5 mg/dL (8.4-10.2); Carbon Dioxide 30 mmol/L (22-29); Chloride 96 mmol/L (96-108); Creatinine Clr Calc Pharmacy 88.8; Estimated Glomerular Filt Rate > 60; Potassium 3.2 mmol/L (3.3-5.1); Sodium 131 mmol/L (135-145); Total Protein 5.7 g/dL (6.5-8.0)
--- NOTE | 2025-07-29 23:26 | ED.GENADULT ---
HPI - General Adult General Chief complaint: Extremity Injury, Lower Stated complaint: L foot edema rash spreading x2 days Time Seen by Provider: 07/29/25 22:59 Source: family and EMS Mode of arrival: EMS Limitations: other (Patient is bed-bound and nonverbal at baseline) History of Present Illness ED Provider: Dr. Li Arenas HPI narrative: Patient comes to emergency room via ambulance from home. Patient's daughter who is the healthcare proxy is at bedside. For last couple of days, patient has been having worsening coughing, no chills. However, the main reason that they brought him in is because the patient developed a petechial rash in bilateral lower extremities. Patient does not seem bothered by it. Related Data Home Medications ?Medication ?Instructions ?Recorded ?Confirmed aspirin 81 mg tablet,delayed 81 mg PO DAILY 08/26/20 10/03/23 release (Adult Aspirin Regimen) sertraline 50 mg tablet 50 mg PO DAILY 08/26/20 10/03/23 tamsulosin 0.4 mg capsule 0.4 mg PO DAILY 08/26/20 10/03/23 blood sugar diagnostic #10 ea 05/20/21 03/03/22 lancets 28 gauge #100 ea 05/20/21 03/03/22 atorvastatin 10 mg tablet 10 mg PO DAILY 02/12/22 10/03/23 blood sugar diagnostic (FreeStyle 08/05/22 Lite Strips) blood-glucose meter (FreeStyle 08/05/22 Lite Meter kit) lancets 28 gauge (FreeStyle 08/05/22 Lancets) finasteride 5 mg tablet 5 mg PO DAILY 10/03/23 10/03/23 insulin NPH-regular 70-30 U-100 10 unit subcut BEDTIME 10/03/23 10/03/23 insulin 100 unit/mL subcutaneous pen (Novolin 70-30 FlexPen U-100 Insulin) insulin aspar prot-insulin aspart 13 unit subcut DAILY 10/03/23 10/03/23 100 unit/mL (70-30) subcutaneous pen (Novolog Mix 70-30FlexPen U-100) lisinopril 10 mg tablet 10 mg PO DAILY 10/03/23 10/03/23 Previous Rx's ?Medication ?Instructions ?Recorded amlodipine 2.5 mg tablet 2.5 mg PO DAILY 90 days #90 tabs 08/26/20 hydrochlorothiazide 25 mg tablet 25 mg PO DAILY 90 days #90 tabs 08/26/20 cyanocobalamin (vitamin B-12) 500 500 mcg sublingual DAILY 90 days 05/20/21 mcg sublingual tablet #90 tabs flash glucose scanning reader #1 ea 02/12/22 (FreeStyle Kristine 2 [place]) flash glucose sensor (FreeStyle #2 ea 02/12/22 Kristine 2 Sensor kit) cholecalciferol (vitamin D3) 50 50 mcg PO DAILY #90 caps 08/26/22 mcg (2,000 unit) capsule levetiracetam 500 mg/5 mL (5 mL) 250 mg (2.5 mL) G-tube BID #200 mL 10/04/23 oral solution doxycycline hyclate 100 mg tablet 100 mg feeding tube BID #13 tabs 07/30/25 prednisone 50 mg tablet 50 mg PO DAILY #5 tabs 07/30/25 Allergies Allergy/AdvReac Type Severity Reaction Status Date / Time No Known Allergies Allergy Verified 07/29/25 21:32 Review of Systems Review of Systems: Per healthcare proxy: Cough for couple of days and new onset petechial rash in lower extremities which seems to be asymptomatic. 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 Mother No problems noted. Social History Social History Household Members: Family Household Members Other:: 3 Housing: Apartment Do you presently have visiting nurse or other home services: No Alcohol intake: never Comment: family at bedside Patient Tobacco Use Status: Never used Tobacco e-Cigarette/Vaping Use: Never Used Second Hand Smoke Exposure: No Advance Directives: Yes Advance Directives on File: Yes Advance Directives Date on File: 12/22/22 service: No Current occupational status: retired Physical Exam ED Exam Exam: Appearance: Alert. No acute distress Eyes: Pupils equal, round and reactive to light. ENT: Pharynx normal. Neck: Normal inspection. Neck supple. No lymph nodes noted. No crepitus CVS: Normal heart rate and rhythm. Pulses normal. Normal S1 and S2, oxygen saturation 94% on room air Respiratory: No respiratory distress. Breath sounds normal. No Wheezing. No rales Abdomen: Soft and nontender. No rigidity. No distention. Skin: Skin warm and dry. Patient has nonblanching petechial rash in bilateral lower extremities Extremities: No lower extremity edema. No Lacerations. No Rash Neuro: History of CVA, unable to participating cranial nerve assessment Psych: calm Vital Signs: Vital Signs - 24 hr 07/29/25 21:31 07/30/25 00:57 Temperature 98.5 F Pulse Rate 95 84 Respiratory Rate 20 16 Blood Pressure 175/95 H 175/89 H Pulse Oximetry 94 94 Oxygen Delivery Method Room Air Room Air BMI result Body Mass Index 24.4 Course Course Course Narrative: Patient complaining of new onset of petechial rash, seems to be asymptomatic . Patient's daughter complaining that the patient has a cough a couple of days. No fever to their knowledge. Patient's labs and imaging pending. Medications Administered Discontinued Medications Generic Name Dose Route Start Last Admin Trade Name Freq PRN Reason Stop Dose Admin Doxycycline Monohydrate 100 mg 07/30/25 00:25 07/30/25 00:54 Doxycycline Monohydrate 100 Mg Capsule G-TUBE 07/30/25 00:26 100 mg ONCE ONE Administration Potassium Chloride 20 meq 07/29/25 23:18 07/29/25 23:44 Potassium Chloride Packet 20 Meq Packet PO 07/29/25 23:19 20 meq ONCE ONE Administration Prednisolone Sodium Phosphate 60 mg 07/29/25 23:23 07/29/25 23:45 Prednisolone Sodium Phosphate 15 Mg/5 Ml Solution G-TUBE 07/29/25 23:24 60 mg NOW STA Administration Medical Decision Making Medical Decision Making [facility] Narrative: My interpretation of labs: No significant abnormality in patient's hematology, chemistry shows potassium of 3.2, repleted via G-tube, sodium of 131 which patient has had before. Normal LFTs Chest x-ray: Bilateral reticular opacities, interstitial edema or infiltrate versus chronic interstitial lung change. Given patient's cough and symptoms, we will empirically treat with antibiotics, patient received the 1st dose of doxycycline here in the emergency room. Serology: Tested negative for influenza and COVID Ultrasound of left lower extremity: Negative for DVT, reviewed by me. Radiology report pending, sign-out given to my colleague Dr. Abraham. Overall, very low suspicion for DVT I discussed the above-mentioned with the patient's healthcare proxy. Also, I discussed with the patient that the rash may be a viral exanthem versus vasculitis, patient received the 1st dose of prednisone here in the emergency room. Differential Diagnosis Differential Diagnoses: The differential diagnosis associated with the presentation includes (Viral exanthem, COVID, vasculitis) Admission/Observation Consideration of admission/observation: Escalation of care including admission/observation considered (Given patient's age and presentation, observation was considered) Lab Data MDM Lab Attestation statement: I reviewed the patient's lab results. 07/29/25 22:15 07/29/25 22:15 Labs: Lab Results 07/29/25 07/29/25 Range/Units 22:15 23:31 WBC 6.6 (4.8-10.8) X10*3/uL RBC 5.10 (4.60-5.80) X10*6/uL Hgb 12.3 L (14.0-18.0) g/dl Hct 36.8 L (42.0-52.0) % MCV 72.2 L (80.0-98.0) fL MCH 24.1 L (27.0-33.0) pg MCHC 33.4 (31.0-36.0) g/dl RDW 14.0 (11.0-16.0) % Plt Count 166 (160-400) X10*3/uL MPV 10.4 (9.4-12.4) fL Immature Gran % (Auto) 0.3 (0.0-0.4) % Neut % (Auto) 74.3 H (45-73) % Lymph % (Auto) 11.5 L (20-40) % [place] % (Auto) 10.3 (2-11) % Eos % (Auto) 3.0 (0-4) % Baso % (Auto) 0.6 (0-2) % Lymph # (Auto) 0.8 L (1.2-4.9) X10*3/uL [place] # (Auto) 0.7 (0.1-1.2) X10*3/uL Eos # (Auto) 0.2 (0.0-0.4) X10*3/uL Baso # (Auto) 0.0 (0.0-0.2) X10*3/uL Abs Immat Gran (auto) 0.02 (0.00-0.03) X10*3/uL Absolute Neuts (auto) 4.9 (2.0-8.3) x10*3/uL Absolute Nucleated RBC 0.000 (0.0-0.012) X10*3/uL Nucleated RBC % (auto) 0.0 (0.0-0.2) /100WBC PT 16.2 H (10.9-12.4) SEC INR 1.4 H (0.9-1.1) Sodium 131 L (135-145) mmol/L Potassium 3.2 L (3.3-5.1) mmol/L Chloride 96 (96-108) mmol/L Carbon Dioxide 30 H (22-29) mmol/L Anion Gap 8 L (12-20) BUN 28 H (9-16) mg/dL Creatinine 0.50 (0.5-1.4) mg/dL Estim Creat Clear Calc 88.8 Estimated GFR > 60 Random Glucose 137 H (60-115) mg/dL Calcium 8.5 D (8.4-10.2) mg/dL Total Bilirubin 0.4 (0.0-1.0) mg/dL AST 30 (5-37) U/L ALT 22 (0-40) U/L Alkaline Phosphatase 51 (39-117) U/L Total Protein 5.7 L (6.5-8.0) g/dL Albumin 3.0 L (3.5-5.0) g/dL COVID-19 (MARIAN) Negative (Negative) COVID-19 Clin Com See Note Influenza Type A (VIRIDIANA) Negative (Negative) Influenza Type B (VIRIDIANA) Negative (Negative) Influenza A & B Note See Note Independent Interpretation I performed an independent interpretation of an: Plain X-Ray and Ultrasound Radiology Impression Discussion of test interpretation with radiology: I have reviewed the radiologist's reading. Radiologist Impression: Low lung volumes. Bilateral reticular opacities, interstitial edema or infiltrate versus chronic interstitial lung change. Bowel interposed under the right hemidiaphragm. Enlarged cardiac silhouette. No acute fracture. IMPRESSION: Bilateral reticular opacities, interstitial edema or infiltrate versus chronic interstitial lung change. Independent Historian Clinical information obtained from an independent historian. History obtained from or confirmed by: Other Critical Care Time Critical Care Time Critical Care Time: Yes Total Critical Care Time: 35 Attestation: I have personally provided critical care time. Time includes review of lab data, radiology results, discussion with consultants, and monitoring for potential decompensation. Intervention performed as documented. Discharge Plan Discharge Clinical Impression: Pneumonia, Vasculitis Patient Disposition: Home, Self-Care Instructions: Community Acquired Pneumonia (ED) Additional Instructions: Please follow-up with your primary care physician tomorrow. If you have any worsening or new symptoms, please return to the emergency room or call 911 Prescriptions: New doxycycline hyclate 100 mg tablet 100 mg feeding tube BID Qty: 13 0RF prednisone 50 mg tablet 50 mg PO DAILY Qty: 5 0RF No Action cyanocobalamin (vitamin B-12) 500 mcg tablet, sublingual 500 mcg sublingual DAILY 90 Days Qty: 90 1RF cholecalciferol (vitamin D3) 50 mcg (2,000 unit) capsule 50 mcg PO DAILY Qty: 90 0RF finasteride 5 mg tablet 5 mg PO DAILY lisinopril 10 mg tablet 10 mg PO DAILY insulin asp prt-insulin aspart [Novolog Mix 70-30FlexPen U-100] 100 unit/mL (70-30) Insulin Pen 13 unit SUBCUT DAILY Novolin 70-30 FlexPen U-100 100 unit/mL (70-30) Insulin Pen 10 unit SUBCUT BEDTIME levetiracetam 500 mg/5 mL (5 mL) Solution 250 mg G-tube BID Qty: 200 0RF sertraline 50 mg tablet 50 mg PO DAILY tamsulosin 0.4 mg capsule 0.4 mg PO DAILY aspirin [Adult Aspirin Regimen] 81 mg tablet,delayed release (DR/EC) 81 mg PO DAILY hydrochlorothiazide 25 mg tablet 25 mg PO DAILY 90 Days Qty: 90 2RF amlodipine 2.5 mg tablet 2.5 mg PO DAILY 90 Days Qty: 90 2RF (DME) lancets 28 gauge misc See Rx Instructions Not Applicable TID Qty: 100 Rx Instructions: As directed (DME) blood sugar diagnostic Strip See Rx Instructions Not Applicable TID Qty: 10 Rx Instructions: As directed atorvastatin 10 mg tablet 10 mg PO DAILY (DME) FreeStyle Kristine 2 [place] Misc See Rx Instructions .ROUTE .MEDSUPPLY Qty: 1 0RF Rx Instructions: As directed (DME) FreeStyle Kristine 2 Sensor Kit See Rx Instructions .ROUTE .MEDSUPPLY Qty: 2 11RF Rx Instructions: As directed every 2 weeks (DME) blood-glucose meter [FreeStyle Lite Meter] Kit See Rx Instructions .ROUTE Rx Instructions: As directed (DME) FreeStyle Lite Strips Strip See Rx Instructions .ROUTE Rx Instructions: As directed (DME) lancets [FreeStyle Lancets] 28 gauge misc See Rx Instructions .ROUTE Rx Instructions: As directed Print Language: Swedish
[2025-07-29] MEDS: Potassium Chloride Packet 20 MEQ PACKET PO (23:44)
[2025-07-29] MEDS: prednisoLONE sodium phosphate 15 MG/5 ML SOLUTION 60 MG G-TUBE (23:45)
[2025-07-29 23:49] LABS: INTERNATIONAL NORM RATIO 1.4 (0.9-1.1); Prothrombin Time 16.2 SEC (10.9-12.4)
[2025-07-30 00:13] LABS: IDNOW Serial# 16C4AD1C; Influenza B2 Negative (Negative)
[2025-07-30 00:14] LABS: COVID-19 Test Negative (Negative); IDNOW Serial# 152EDE1D
[2025-07-30 00:57] VITALS: BP 175/89; PULSE 84; RESP 16; O2SAT 94
[2025-07-30 04:04] VITALS: BP 149/91; PULSE 84; RESP 21; TEMP 36.9; O2SAT 96
[2025-07-30 04:15] VITALS: BP 149/91; PULSE 84; RESP 21; TEMP 36.9; O2SAT 96
== END 2025-07-30 04:20 | disposition home or self-care (01) ==
PROVIDERS: Emergency Provider Emergency Medicine
DX: J18.9 Pneumonia, unspecified organism (principal); I77.6 Arteritis, unspecified; R23.3 Spontaneous ecchymoses; I10 Essential (primary) hypertension; E11.9 Type 2 diabetes mellitus without complications; Z86.73 Personal history of transient ischemic attack (TIA), and cerebral infarction without residual deficits; Z79.899 Other long term (current) drug therapy
CPT/HCPCS: 36415; 71045; 80053; 85025; 85610; 87502; 87635; 93971; 99283; 99284

== ENCOUNTER → 2025-07-29 23:18 | Outpatient (BNV) | payer MEDICARE, MEDICAID, SELFPAY | PROVIDERS: Emergency Provider Emergency Medicine; Visit Provider General Practice | DX: R05.9 Cough, unspecified (principal) | CPT/HCPCS: 71045 ==

== ENCOUNTER → 2025-07-30 00:01 | Outpatient (BNV) | payer MEDICARE, MEDICAID, SELFPAY | PROVIDERS: Emergency Provider Emergency Medicine; Visit Provider General Practice | DX: R22.42 Localized swelling, mass and lump, left lower limb (principal) | CPT/HCPCS: 93971 ==

== ENCOUNTER 2025-08-09 15:18 | Emergency (ER) | payer MEDICARE, MEDICAID, SELFPAY ==
[2025-08-09 15:33] VITALS: BP 184/103; BP 200/101; PULSE 89; PULSE 96; RESP 20; TEMP 37.2; O2SAT 95; O2SAT 96; BMI 18.7
--- NOTE | 2025-08-09 15:45 | ECG_ITS ---
Test Reason : SEIZURE Blood Pressure : */* mmHG Vent. Rate : 91 BPM Atrial Rate : 91 BPM P-R Int : 202 ms QRS Dur : 156 ms QT Int : 418 ms P-R-T Axes : 9 -4 195 degrees QTcB Int : 514 ms Normal sinus rhythm Left bundle branch block Abnormal ECG When compared with ECG of 02-Oct-2023 23:48, Premature atrial complexes are no longer Present QRS duration has increased T wave inversion more evident in Lateral leads Referred By: Lizet Enriquez Electronically Signed By: KATHLEEN FRANCES
--- NOTE | 2025-08-09 16:44 | ED.SEIZURE ---
HPI - Seizure General Chief Complaint: Seizure Stated Complaint: SZ,HAS HX PER EMS Time Seen by Provider: 08/09/25 16:08 History of Present Illness ED Provider: Brandyn Contreras MD HPI Narrative: 85-year-old male noncontributory to history due to stroke baseline encephalopathy. 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 Returned to baseline. They report the patient has had at least 2 seizures before. No trauma sustained or fall Seizure History: No Related Data Home Medications ?Medication ?Instructions ?Recorded ?Confirmed aspirin 81 mg tablet,delayed 81 mg PO DAILY 08/26/20 10/03/23 release (Adult Aspirin Regimen) sertraline 50 mg tablet 50 mg PO DAILY 08/26/20 10/03/23 tamsulosin 0.4 mg capsule 0.4 mg PO DAILY 08/26/20 10/03/23 blood sugar diagnostic #10 ea 05/20/21 03/03/22 lancets 28 gauge #100 ea 05/20/21 03/03/22 atorvastatin 10 mg tablet 10 mg PO DAILY 02/12/22 10/03/23 blood sugar diagnostic (FreeStyle 08/05/22 Lite Strips) blood-glucose meter (FreeStyle 08/05/22 Lite Meter kit) lancets 28 gauge (FreeStyle 08/05/22 Lancets) finasteride 5 mg tablet 5 mg PO DAILY 10/03/23 10/03/23 insulin NPH-regular 70-30 U-100 10 unit subcut BEDTIME 10/03/23 10/03/23 insulin 100 unit/mL subcutaneous pen (Novolin 70-30 FlexPen U-100 Insulin) insulin aspar prot-insulin aspart 13 unit subcut DAILY 10/03/23 10/03/23 100 unit/mL (70-30) subcutaneous pen (Novolog Mix 70-30FlexPen U-100) lisinopril 10 mg tablet 10 mg PO DAILY 10/03/23 10/03/23 Previous Rx's ?Medication ?Instructions ?Recorded amlodipine 2.5 mg tablet 2.5 mg PO DAILY 90 days #90 tabs 08/26/20 hydrochlorothiazide 25 mg tablet 25 mg PO DAILY 90 days #90 tabs 08/26/20 cyanocobalamin (vitamin B-12) 500 500 mcg sublingual DAILY 90 days 05/20/21 mcg sublingual tablet #90 tabs flash glucose scanning reader #1 ea 02/12/22 (FreeStyle Kristine 2 [place]) flash glucose sensor (FreeStyle #2 ea 02/12/22 Kristine 2 Sensor kit) cholecalciferol (vitamin D3) 50 50 mcg PO DAILY #90 caps 08/26/22 mcg (2,000 unit) capsule levetiracetam 500 mg/5 mL (5 mL) 250 mg (2.5 mL) G-tube BID #200 mL 10/04/23 oral solution doxycycline hyclate 100 mg tablet 100 mg feeding tube BID #13 tabs 07/30/25 prednisone 50 mg tablet 50 mg PO DAILY #5 tabs 07/30/25 potassium chloride 40 mEq/15 mL 40 meq (15 mL) PO DAILY 3 days #45 08/09/25 oral liquid mL Allergies Allergy/AdvReac Type Severity Reaction Status Date / Time No Known Allergies Allergy Verified 08/09/25 15:38 [facility] Past Medical History Medical History Cerebrovascular accident CVA (cerebral vascular accident) B12 deficiency Tinea pedis of both feet BPH (benign prostatic hyperplasia) Obesity (BMI 30-39.9) Dyslipidemia Hypertension 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 Mother No problems noted. Social History Social History Household Members: Family Household Members Other:: 3 Housing: Apartment Do you presently have visiting nurse or other home services: No Alcohol intake: never Comment: family at bedside Patient Tobacco Use Status: Never used Tobacco e-Cigarette/Vaping Use: Never Used Second Hand Smoke Exposure: No Advance Directives: Yes Advance Directives on File: Yes Advance Directives Date on File: 12/22/22 Do you have a plan to hurt others: No Plan service: No Current occupational status: retired Physical Exam Exam: Exam: EXAM: Gen: Eyes closed but easily responds to verbal stimuli. Does not appear distress. He is contracted and thin chronically ill-appearing Head: Atraumatic Eyes: Anicteric, Normal conjunctiva. ENT: Moist mucosa, no pallor. ?Edentulous no bleeding Neck: Supple. Skin: ?No observable rash or bruising on exposed or examined skin. Various staged arm ecchymosis looks chronic Respiratory: Breathing comfortably, No distress.Clear to auscultation bilaterally, symmetric chest expansion, No wheeze, rales, ronchi. Cardiovascular: Regular rate and rhythm. No murmurs or rub. Well perfused periphery, warm extremities. No edema. ? Abdominal: No focal tenderness. Soft, no objective distension. No palpable masses or obvious organomegaly. ?No guarding, no rebound tenderness or other peritoneal findings. : No flank tenderness. Neuro: Contracted. Makes good eye connection. Psych: Calm. Cooperative. MSK: No grossly visible deformity. Vital signs: See flowsheet Vital Signs: Vital Signs: Last Vital Signs Temp 98 F 08/09/25 18:46 Pulse 89 08/09/25 18:46 Resp 16 08/09/25 18:46 BP 151/84 H 08/09/25 18:46 Pulse Ox 96 08/09/25 18:46 O2 Del Method Room Air 08/09/25 18:46 BMI result Body Mass Index 18.7 Medications Administered Discontinued Medications Generic Name Dose Route Start Last Admin Trade Name Freq PRN Reason Stop Dose Admin Levetiracetam 500 mg 08/09/25 16:46 08/09/25 17:04 Levetiracetam 500 Mg Tablet G-TUBE 08/09/25 16:47 500 mg ONCE ONE Administration Potassium Chloride 40 meq 08/09/25 17:46 08/09/25 18:00 Potassium Chloride Packet 20 Meq Packet PO 08/09/25 17:47 40 meq ONCE ONE Administration Medical Decision Making Medical Decision Making MDM Narrative: Medical Decision Making: [age] male with a single convulsive episode. During ED course no subsequent convulsive episode. Big back to baseline. Probably breakthrough seizure. I will give the patient 500 mg of Keppra through the gastric tube here. Potassium low 3.0 magnesium 1.9. We will replete potassium and sent home on prescription. Preliminary Favored Differential Diagnosis: Breakthrough seizure, electrolyte derangement, among additional considered etiologies Testing Interpreted Independently: ?See below for details Radiology or Lab testing Results Reviewed: ?See below for details Consults: ?See below for details Independent Historians/External Chart Reviews: ?See below for details Social Determinants of Health Impacting MDM/Planning: ?See below for details Lab Data MDM Lab Attestation statement: I reviewed the patient's lab results. 08/09/25 16:54 08/09/25 16:54 Labs: Lab Results 08/09/25 Range/Units 16:54 WBC 10.5 (4.8-10.8) X10*3/uL RBC 5.79 (4.60-5.80) X10*6/uL Hgb 13.8 L (14.0-18.0) g/dl Hct 41.1 L (42.0-52.0) % MCV 71.0 L (80.0-98.0) fL MCH 23.8 L (27.0-33.0) pg MCHC 33.6 (31.0-36.0) g/dl RDW 14.3 (11.0-16.0) % Plt Count 179 (160-400) X10*3/uL MPV 10.1 (9.4-12.4) fL Immature Gran % (Auto) 0.5 H (0.0-0.4) % Neut % (Auto) 83.0 H (45-73) % Lymph % (Auto) 8.8 L (20-40) % [place] % (Auto) 6.6 (2-11) % Eos % (Auto) 0.8 (0-4) % Baso % (Auto) 0.3 (0-2) % Lymph # (Auto) 0.9 L (1.2-4.9) X10*3/uL [place] # (Auto) 0.7 (0.1-1.2) X10*3/uL Eos # (Auto) 0.1 (0.0-0.4) X10*3/uL Baso # (Auto) 0.0 (0.0-0.2) X10*3/uL Abs Immat Gran (auto) 0.05 H (0.00-0.03) X10*3/uL Absolute Neuts (auto) 8.7 H (2.0-8.3) x10*3/uL Absolute Nucleated RBC 0.000 (0.0-0.012) X10*3/uL Nucleated RBC % (auto) 0.0 (0.0-0.2) /100WBC PT 16.0 H (10.9-12.4) SEC INR 1.4 H (0.9-1.1) Sodium 134 L (135-145) mmol/L Potassium 3.0 L (3.3-5.1) mmol/L Chloride 98 (96-108) mmol/L Carbon Dioxide 29 (22-29) mmol/L Anion Gap 10 L (12-20) BUN 23 H (9-16) mg/dL Creatinine 0.51 (0.5-1.4) mg/dL Estim Creat Clear Calc 86.7 Estimated GFR > 60 Random Glucose 150 H (60-115) mg/dL Lactic Acid 1.6 (0.5-2.0) mmol/L Calcium 8.2 L (8.4-10.2) mg/dL Magnesium 1.9 (1.6-2.6) mg/dL Total Bilirubin 0.5 (0.0-1.0) mg/dL AST 29 (5-37) U/L ALT 22 (0-40) U/L Alkaline Phosphatase 45 (39-117) U/L Troponin I High Sens 11.9 D (<3.5-35.0) ng/L Total Protein 5.8 L (6.5-8.0) g/dL Albumin 3.1 L (3.5-5.0) g/dL Discharge Plan Discharge Clinical Impression: Seizure Patient Disposition: Home, Self-Care Instructions: Epilepsy in Older Adults (ED) Additional Instructions: The patient was found to be with low potassium. We started repletion here in the emergency department but over the next several days but he will need to take supplementation. In the emergency department he was given an additional dose of the antiseizure medicine he is on Keppra for a total of 500 mg while in the emergency department. We strongly recommend the patient or family called the primary neurologist to discuss the breakthrough seizure in the possibility of changing medication or increasing or changing doses. Prescriptions: New potassium chloride 40 mEq/15 mL liquid 40 meq PO DAILY 3 Days Qty: 45 0RF No Action cyanocobalamin (vitamin B-12) 500 mcg tablet, sublingual 500 mcg sublingual DAILY 90 Days Qty: 90 1RF cholecalciferol (vitamin D3) 50 mcg (2,000 unit) capsule 50 mcg PO DAILY Qty: 90 0RF finasteride 5 mg tablet 5 mg PO DAILY lisinopril 10 mg tablet 10 mg PO DAILY insulin asp prt-insulin aspart [Novolog Mix 70-30FlexPen U-100] 100 unit/mL (70-30) Insulin Pen 13 unit SUBCUT DAILY Novolin 70-30 FlexPen U-100 100 unit/mL (70-30) Insulin Pen 10 unit SUBCUT BEDTIME levetiracetam 500 mg/5 mL (5 mL) Solution 250 mg G-tube BID Qty: 200 0RF doxycycline hyclate 100 mg tablet 100 mg feeding tube BID Qty: 13 0RF prednisone 50 mg tablet 50 mg PO DAILY Qty: 5 0RF sertraline 50 mg tablet 50 mg PO DAILY tamsulosin 0.4 mg capsule 0.4 mg PO DAILY aspirin [Adult Aspirin Regimen] 81 mg tablet,delayed release (DR/EC) 81 mg PO DAILY hydrochlorothiazide 25 mg tablet 25 mg PO DAILY 90 Days Qty: 90 2RF amlodipine 2.5 mg tablet 2.5 mg PO DAILY 90 Days Qty: 90 2RF (DME) lancets 28 gauge misc See Rx Instructions Not Applicable TID Qty: 100 Rx Instructions: As directed (DME) blood sugar diagnostic Strip See Rx Instructions Not Applicable TID Qty: 10 Rx Instructions: As directed atorvastatin 10 mg tablet 10 mg PO DAILY (DME) FreeStyle Kristine 2 [place] Misc See Rx Instructions .ROUTE .MEDSUPPLY Qty: 1 0RF Rx Instructions: As directed (DME) FreeStyle Kristine 2 Sensor Kit See Rx Instructions .ROUTE .MEDSUPPLY Qty: 2 11RF Rx Instructions: As directed every 2 weeks (DME) blood-glucose meter [FreeStyle Lite Meter] Kit See Rx Instructions .ROUTE Rx Instructions: As directed (DME) FreeStyle Lite Strips Strip See Rx Instructions .ROUTE Rx Instructions: As directed (DME) lancets [FreeStyle Lancets] 28 gauge misc See Rx Instructions .ROUTE Rx Instructions: As directed Interventions: ED Discharge Assessment Last Done: 08/09/25 18:46 Discharge Date/Time: 08/09/25 18:46 Print Language: Malay
--- OUTSIDE RECORDS SUMMARY | 2025-08-09 16:51 | XMS_ITS | Encounter Summary ---
Author Organization [facility] [place] [address] Care Team Providers Care Human Resources Director Name Role Phone Mariia Sullivan MD Primary Care Provider [phone] Reason for Visit * Reason Onset Date Comments Fitting for DME 08/03/2025 Encounter Details Date Type Department Care Team (Late st Contact Info) Description 08/03/2025 Telephone Adult Medicine [facility] [address], [place] [phone] Mariia Sullivan MD [address] [place], [place] Social History Tobacco Use Types Packs/Day Years Used Date Smoking Tobacco: Never Smokeless Tobacco: Never Alcohol Use Standard Drinks/Week Comments No 0 [...] care for your loved ones. For example, manager child or elderly care for an older adult? [...] Date Recorded What is your living situation? Unrecognized valu e 10/04/2024 Sex and Gender Information Value Date Recorded Sex Assigned at Not on file Legal Sex Male 5:36 AM EST Gender Identity Not on file Sexual Orientation Not on file documented as of this encounter Progress Notes * Ciera Hughes - 08/09/2025 1:32 PM EDT Granddaughter is calling again and she has faxed this today, again to the [facility] area. * Abdirahman Hough MA - 08/07/2025 12:53 PM EDT This has not been received at this time. * Marilynn Merritt - 08/07/2025 9:34 AM EDT Patients granddaughter is calling on the status of this request, she will have info faxed over again to [phone] * Navarro Aguilera - 08/03/2025 1:13 PM EDT Call from Grand daughter stating that pharmacy has sent over g tube supplies and boost request multiple times now and hasn't received a response , would like us to confirm if we have it or if we can advise the pharmacy [facility] documented in this encounter Plan of Treatment Upcoming Encounters Date Type Department Care Team (Late st Contact Info) Description 10/08/2025 9:45 AM EST Office Visit Adult Medicine [address] [phone] Gifty Yang PA [address] [place], [place] 10/22/2025 11:00 AM EST Ancillary Procedure [facility] - [address] [place] [address] documented as of this encounter Visit Diagnoses Not on filedocumented in this encounter Additional Health Concerns Assessment Noted Time PHQ-9 Depression Total Score: 2 10/04/20 24 4:07 AM EST documented as of this encounter Care Teams Human Resources Director Relationship Specialty Start Date End Date Mariia Sullivan MD [address] [place] [address] PCP - General Internal Medicine 06/04/21 documented as of this encounter
--- OUTSIDE RECORDS SUMMARY | 2025-08-09 16:51 | XMS_ITS | Clinical Summary ---
Author Organization [facility] [address] [facility] Address [address] [place] [address] Phone Care Team Providers Care Electric Welder Name Role Phone Mairia Sullivan MD Primary Care Provider [phone] Allergies No known active allergies Medications levETIRAcetam [...] Problem Noted Date Diagnosed Date Other cardiomyopathies (CMS/HCC V24, CMS/HCC V28 ) 07/04/2025 Assessment & Plan (08/01/2025 8:00 AM EDT): The patient was noted to have a low normal left ventricular systolic function with a left ventricular ejection fraction of 50 to 55% on his recent echocardiogram from May 2025. The patient also had evidence of LVH and a small pericardial effusion. These echocardiographic findings are suggestive of an underlying infiltrative cardiomyopathy. Will order laboratory testing to rule out a plasma cell disorder that could cause AL amyloidosis. Will also order a cardiac PYP scan to rule out TTR amyloidosis. Orders: Comprehensive metabolic panel; Future [place]-lambda free light chains, quantitative; Future Immunofixation, urine; Future Nuclear cardiac amyloid study; Future Immunofixation electrophoresis, IGG, IGA, IGM; Future Pericardial effusion 07/04/2025 Assessment & Plan (08/01/2025 8:00 AM EDT): The patient was noted to have a small pericardial effusion on his recent echocardiogram. Will order appropriate workup to rule out the presence of an infiltrative cardiomyopathy. Will also order TSH level to rule out hypothyroidism. Orders: Thyroid stimulating hormone; Future DNR (do not resuscitate) 06/04/2025 Overview (06/04/2025): MOLST form completed 06/04/2025 Cardiopulmonary resuscitation - do not resuscitate Ventilation for a patient in respiratory distress - do not intubate or ventilate Transfer to hospital -transfer to hospital Dialysis - no dialysis Artificial nutrition - use artificial nutrition Artificial hydration - use artificial hydration Gastrojejunostomy tube status ([facility] V24, [facility] V28) 05/24/2025 Nonrheumatic aortic valve insufficiency 02/09/20 Assessment & Plan (08/01/2025 8:00 AM EDT): The patient was found to have mild to moderate AI on his recent echocardiogram from May 2025. The patient should undergo a follow-up echocardiogram in 1 year B12 deficiency 08/22/2024 Microalbuminuria 12/24/2023 Seizure ([facility] V24, [facility] V28) 10/08/2023 Aphasia 07/21/2022 Dysphagia 07/21/2022 Dementia ([facility] V24, [facility] V28) 04/14/2022 Overview (08/22/2024): Failed mini-cog COVID-19 virus infection 09/28/2021 Overview (08/22/2024): 09/27/21 Bowel incontinence 08/13/2021 Ascending aortic aneurysm ([facility] V24) 05/13/20 Overview (05/24/2025): The patient has a history of an ascending aortic aneurysm. He underwent a chest CT scan in January 2022 which was requested by his PCP. The ascending aorta was noted to measure 4.3 cm. The patient should continue yearly monitoring with an echocardiogram or chest CT scan. Assessment & Plan (08/01/2025 8:00 AM EDT): The patient has a history of a mild dilation of the aortic root at 4.0 cm. The patient should undergo a follow-up echocardiogram for reevaluation in 1 year. Assessment & Plan (02/08/2025 8:58 AM EDT): [...] s brandt as late effect of stroke ([facility] V24, [facility] V28) 07/22/2016 Microcytosis 07/22/2016 BPH (benign prostatic hyperplasia) 07/30/2014 HTN (hypertension) 07/30/2014 Assessment & Plan (08/01/2025 8:00 AM EDT): The patient has a history of arterial hypertension. The patient's blood pressure today was noted to be well controlled. We'll continue the current antihypertensive medication regimen. 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 ([facility] V24, [facility] V28) 07/30/2014 Microscopic hematuria 07/28/2014 Encounters Date Type Department Care Team Description 08/03/2025 Telephone Adult Medicine [address] [place] [address] Mariia Sullivan MD 07/04/2025 3:30 PM EDT Office Visit [facility] [address] [facility] [address] [place] [address] Sima Jo MD Primary hypertension (Primary Dx); Nonrheumatic aortic valve insufficiency; Aneurysm of ascending aorta without rupture ([facility] V24); Other cardiomyopathies ([facility] V24, [facility] V28); Pericardial effusion 06/11/2025 Telephone [facility] - [facility] [address] [facility] [address] [place] [address] Sima Jo MD 06/04/2025 1:15 PM EDT Office Visit [id number] [place] [phone] Mariia Sullivan MD Type 2 diabetes mellitus with diabetic microalbuminuria, without long-term current use of insulin ([facility] V24, [facility] V28) (Primary Dx); Primary hypertension; Moderate dementia without behavioral disturbance, psychotic disturbance, mood disturbance, or anxiety, unspecified dementia type ([facility] V24, [facility] V28); 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 ([facility] V24, [facility] V28); Dysphagia, unspecified type; B12 deficiency; Gastrojejunostomy tube status ([facility] V24, [facility] V28); DNR (do not resuscitate) 05/24/2025 11:00 AM EDT Ancillary Procedure [facility] [address] [place] [address] Aneurysm of ascending aorta without rupture ([facility] V24); Aortic valve insufficiency, etiology of cardiac valve disease unspecified; Nonrheumatic aortic valve insufficiency from Last 3 Months Immunizations Immunization Administration Dates Next Due Influenza trivalent, 0.5mL [...] remov able percutaneous endoscopic gastrostomy (PEG) tube ([facility] V24, [facility] V28) 07/21/2022 G tube Dysphagia 07/21/2022 Aphasia 07/21/2022 Seizure ([facility] V24, [facility] V28) 10/08/2023 Hemiparesis affecting left s brandt as late effect of stroke ([facility] V24, [facility] V28) 07/22/2016 Ascending aortic aneurysm ([facility] V24) 05/13/2021 The patient has a history of an ascending aortic aneurysm. He underwent a chest CT scan in January 2022 which was requested by his PCP. The ascending aorta was noted to measure 4.3 cm. The patient should continue yearly monitoring with an echocardiogram or chest CT scan. Urinary incontinence 03/25/2021 Type 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 ([facility] V24, [facility] V28) 07/30/2014 Microalbuminuria 12/24/2023 Dementia ([facility] V24, [facility] V28) 04/14/2022 Failed mini-cog Family History Medical [...] for your loved ones. For example, child nutrition manager or elderly care for an older adult? [...] 9:45 AM EST Office Visit Adult Medicine [facility] [address], [place] [phone] Gifty Yang PA [address], [place] 10/22/2025 11:00 AM EST Ancillary Procedure [facility] - [facility] [address] [facility] [address] [place] [address] Health Maintenance Due Date Last Done Comments Diabetes: Annual Foot Exam 1950 Diabetes: Annual Retina Eye Exam 1950 Zoster Vaccines (1 of 2) 1958 RSV Immunization Adult Patients (1 - 1-dose 75+ series) 2014 Depression Screening 11/08/2024 10/04/2024, 04/24/20 Medicare Annual Wellness Visit 04/24/2025 04/24/2024 COVID-19 Vaccine ( - season) 2025 01/17/2022, 03/01/2021, 02/01/2021 Influenza Vaccine (#1) 2025 4, 08/23/2023, 08/23/2023, Additional history exists Falls Risk [...] microalbuminuria, without long-term current use of insulin ([facility] V24, [facility] V28) BASIC METABOLIC PANEL Routine 06/04/2025 1:51 PM EDT Primary hypertension TRANSTHORACIC ECHOCARDIOGRAM (TTE) COMPLETE Routine 05/24/2025 12:11 PM EDT Aneurysm of ascending aorta without rupture ([facility] V24) Aortic valve insufficiency, etiology of cardiac valve disease unspecified Nonrheumatic aortic valve insufficiency LIPID PANEL WITH REFLEX TO DIRECT LDL Routine 10/04/2024 4:40 PM EST Type 2 diabetes mellitus with diabetic microalbuminuria, without long-term current use of insulin ([facility] V24, [facility] V28) HM DEPRESSION SCREENING Routine 04/24/2024 from Last 3 Months or Most Recently Relevant to Health Maintenance Results * ECG 12 lead (07/04/2025 3:38 PM EDT) Ventricular Rate ECG 73 BPM GEMUSE Atrial Rate 73 BPM GEMUSE P-R Interval 212 ms GEMUSE QRS Duration 156 ms GEMUSE Q-T Interval 442 ms GEMUSE QTc 486 ms GEMUSE P Wave [place] 82 degrees GEMUSE R [place] 13 degrees GEMUSE T [place] -136 degrees GEMUSE ECG Interpretation Sinus rhythm with 1st degree A-V block Left bundle branch block Abnormal ECG No previous ECGs available Confirmed by SIMA JO ([id number]) on 07/17/2025 8:57:53 AM GEMUSE 07/04/2025 3:38 PM EDT 07/17/2025 8:57 AM EDT us Sima Jo MD ECG ORDERABLES Final Result GEMUSE * Hemoglobin A1c (06/04/2025 1:51 PM EDT) Hemoglobin A1C 5.1 <6.5 % LAB CHEMISTRY METHOD 06/04/2025 9:49 PM EDT [facility] Mean Bld Glu Estim. 100 mg/dL LAB CHEMISTRY METHOD 06/04/2025 9:49 PM EDT [facility] Blood Venous blood specimen / Unknown Venipuncture / Unknown 06/04/2025 1:51 PM EDT 06/04/2025 1:51 PM EDT us Mariia Sullivan MD LAB BLOOD ORDERABLES Final Resul t [facility] [address] [place] [address], [place] [phone] * (ABNORMAL) Basic metabolic panel (06/04/2025 1:51 PM EDT) Sodium 134 133 - 145 mmol/L LAB CHEMISTRY METHOD 06/04/2025 4:57 PM [facility] Potassium 3.3(L) 3.5 - 5.5 mmol/L LAB CHEMISTRY METHOD 06/04/2025 4:57 PM [facility] Chloride 100 96 - 110 mmol/L LAB CHEMISTRY METHOD 06/04/2025 4:57 PM [facility] CO2 29 21 - 32 mmol/L LAB CHEMISTRY METHOD 06/04/2025 4:57 PM [facility] Anion Gap 5 3 - 11 LAB CHEMISTRY METHOD 06/04/2025 4:57 PM [facility] Glucose 114(H) 70 - 100 mg/dL LAB CHEMISTRY METHOD 06/04/2025 4:57 PM [facility] BUN 27(H) 5 - 25 mg/dL LAB CHEMISTRY METHOD 06/04/2025 4:57 PM [facility] Creatinine 0.50(L) 0.70 - 1.30 mg/dL LAB CHEMISTRY METHOD 06/04/2025 4:57 PM [facility] eGFR 99 >=60 mL/min/1. 73m2 LAB CHEMISTRY METHOD 06/04/2025 4:57 PM [facility] Comment:Calculation based on the Chronic Kidney Disease Epidemiology Collaboration (CKD-EPI) equation refit without adjustment for race. BUN/Creatinine Ratio 54.0 LAB CHEMISTRY METHOD 06/04/2025 4:57 PM EDT [facility] Calcium 8.8 8.5 - 10.5 mg/dL LAB CHEMISTRY METHOD 06/04/2025 4:57 PM EDT [facility] Blood Venous blood specimen / Unknown Venipuncture / Unknown 06/04/2025 1:51 PM EDT 06/04/2025 1:51 PM EDT us Mariia Sullivan MD LAB BLOOD ORDERABLES Final Resul t [facility] [address] [place] [address], [place] [phone] * (ABNORMAL) TRANSTHORACIC ECHOCARDIOGRAM (TTE) COMPLETE (05/24/2025 [...] Volume 48 mL CV PACS MV Deceleration [place] 1.3 m/s2 CV PACS E Wave Deceleration [...] LAB CHEMISTRY METHOD 10/04/2024 7:16 PM EST [facility] Triglycerides 39 0 - 150 mg/dL LAB CHEMISTRY METHOD 10/04/2024 7:16 PM [facility] HDL 39(L) >=40 mg/dL LAB CHEMISTRY METHOD 10/04/2024 7:16 PM EST [facility] LDL Calculated 32 0 - 100 mg/dL LAB CHEMISTRY METHOD 10/04/2024 7:16 PM EST [facility] VLDL Cholesterol Yuval 7.8 mg/dL LAB CHEMISTRY METHOD 10/04/2024 7:16 PM EST [facility] Non HDL Chol. (LDL+VLDL) 40 <145 mg/dL LAB CHEMISTRY METHOD 10/04/2024 7:16 PM [facility] Chol/HDL Ratio 2.0 0.0 - 4.4 LAB CHEMISTRY METHOD 10/04/2024 7:16 PM EST [facility] Blood Venous blood specimen / Unknown Venipuncture / Unknown 10/04/2024 4:40 PM EST 10/04/2024 4:40 PM EST Mariia Sullivan MD LAB BLOOD ORDERABLES Final Resul t [facility] [address] [place] [address], * Depression Screening (04/24/2024) Pathologist [facility] Depression Screening abstracted us Historical Provider HEALTH [...] currently active code status orders. Care Teams Electric Welder Relationship Specialty Start Date End Date Mariia Sullivan MD [address] [place] [address] PCP - General Internal Medicine 06/04/21
[2025-08-09 17:03] LABS: MANUAL DIFF FLAG NO
[2025-08-09 17:10] LABS: Hematocrit 41.1 % (42.0-52.0); Hemoglobin 13.8 g/dl (14.0-18.0); Imm Gran Abs Auto 0.05 X10*3/uL (0.00-0.03); Imm Gran Pct Auto 0.5 % (0.0-0.4); Lymphocytes Absolute Auto 0.9 X10*3/uL (1.2-4.9); Mean Corpuscular HGB Conc 33.6 g/dl (31.0-36.0); Mean Corpuscular Hemoglobin 23.8 pg (27.0-33.0); Mean Corpuscular Volume 71.0 fL (80.0-98.0); NRBC Abs Auto 0.000 X10*3/uL (0.0-0.012); NRBC Pct Auto 0.0 /100WBC (0.0-0.2); Platelet Count 179 X10*3/uL (160-400); Red Blood Count 5.79 X10*6/uL (4.60-5.80); White Blood Count 10.5 X10*3/uL (4.8-10.8)
[2025-08-09 17:16] LABS: INTERNATIONAL NORM RATIO 1.4 (0.9-1.1); Prothrombin Time 16.0 SEC (10.9-12.4)
[2025-08-09 17:21] LABS: Alanine Aminotransferase 22 U/L (0-40); Albumin Level 3.1 g/dL (3.5-5.0); Alkaline Phosphatase 45 U/L (39-117); Anion Gap 10 (12-20); Aspartate Amino Transferase 29 U/L (5-37); Blood Urea Nitrogen 23 mg/dL (9-16); Calcium 8.2 mg/dL (8.4-10.2); Carbon Dioxide 29 mmol/L (22-29); Chloride 98 mmol/L (96-108); Creatinine Clr Calc Pharmacy 86.7; Estimated Glomerular Filt Rate > 60; Magnesium 1.9 mg/dL (1.6-2.6); Potassium 3.0 mmol/L (3.3-5.1); Sodium 134 mmol/L (135-145); Total Protein 5.8 g/dL (6.5-8.0)
[2025-08-09 17:29] LABS: Troponin-I High Sensitivity 11.9 ng/L (<3.5-35.0)
[2025-08-09 18:00] VITALS: BP 151/84; PULSE 89; RESP 16; TEMP 36.6; O2SAT 96
[2025-08-09] MEDS: Potassium Chloride Packet 20 MEQ PACKET 40 MEQ PO (18:00)
[2025-08-09 18:46] VITALS: BP 151/84; PULSE 89; RESP 16; TEMP 36.6; O2SAT 96
== END 2025-08-09 18:46 | disposition home or self-care (01) ==
PROVIDERS: Physician Assistant Medical; Emergency Provider Emergency Medicine
DX: G40.909 Epilepsy, unspecified, not intractable, without status epilepticus (principal); E11.9 Type 2 diabetes mellitus without complications; I10 Essential (primary) hypertension; Z79.899 Other long term (current) drug therapy; Z86.73 Personal history of transient ischemic attack (TIA), and cerebral infarction without residual deficits
CPT/HCPCS: 36415; 80053; 83605; 83735; 84484; 85025; 85610; 93005; 99283; 99284

== ENCOUNTER → 2025-08-09 15:45 | Outpatient (BNV) | payer MEDICARE, MEDICAID, SELFPAY | PROVIDERS: Emergency Provider Emergency Medicine; Visit Provider Internal Medicine | DX: I44.7 Left bundle-branch block, unspecified (principal) | CPT/HCPCS: 93010 ==

== ENCOUNTER 2025-08-16 14:49 | Outpatient (AMB) | payer MEDICARE, MEDICAID, SELFPAY ==
--- NOTE | 2025-08-16 15:06 | A.OFFVIS_ITS ---
Intake Visit Reasons: cerebrovascular accident Allergies No Known Allergies Allergy (Verified 08/16/25 15:12) Medication List - Last Reconciled 08/16/25 by Rula Negron CNP amlodipine 2.5 mg PO DAILY 90 days aspirin (Adult Aspirin Regimen) 81 mg PO DAILY atorvastatin 10 mg PO DAILY blood sugar diagnostic As directed blood sugar diagnostic (FreeStyle Lite Strips) As directed blood-glucose meter (FreeStyle Lite Meter kit) As directed cholecalciferol (vitamin D3) 50 mcg PO DAILY cyanocobalamin (vitamin B-12) 500 mcg sublingual DAILY 90 days doxycycline hyclate 100 mg feeding tube BID finasteride 5 mg PO DAILY flash glucose scanning reader ([employer] Kristine 2 [place]) As directed flash glucose sensor (FreeStyle Kristine 2 Sensor kit) As directed every 2 weeks hydrochlorothiazide 25 mg PO DAILY 90 days insulin asp prt-insulin aspart 100 unit/mL (70-30) (Novolog Mix 70-30FlexPen U- 100) 13 units subcut DAILY insulin NPH and regular human 100 unit/mL (70-30) (Novolin 70-30 FlexPen U-100 Insulin) 10 units subcut BEDTIME lancets As directed lancets (FreeStyle Lancets) As directed levetiracetam mg PO BID lisinopril 10 mg PO DAILY potassium chloride 40 mEq (15 mL) PO DAILY 3 days prednisone 50 mg PO DAILY sertraline 50 mg PO DAILY tamsulosin 0.4 mg PO DAILY HPI Comments Details: 85-year-old man with HTN, DM, severe atherothrombotic type ischemic cerebral vasculopathy, and severe brain degeneration resulting in severe cognitive and physical compromise, was seen at [facility] [place] Oct with a seizure. He was mostly nonverbal. He was living with family and they were caring for him. He had seizure on 08/09/2025 and was brought to [facility]. He was found to have low potassium and given replacement along with additional 500mg of Keppra. He was taking levetiracetam 250mg twice a day, no missed doses. He had G-tube. Sleep was okay. Mood was okay. No behavioral concerns. 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 Mother No problems noted. Social History Household Members: Family Household Members Other:: 3 Housing: Apartment Do you presently have visiting nurse or other home services: No Alcohol intake: never Comment: family at bedside Patient Tobacco Use Status: Never used Tobacco e-Cigarette/Vaping Use: Never Used Second Hand Smoke Exposure: No Advance Directives Date on File: 12/22/22 service: No Current occupational status: retired Review of Systems Const Denies chills, Denies daytime sleepiness, Denies difficulty sleeping, Denies f atigue, Denies fever(s), Denies frequent falls, Denies headache(s), Denies increased appetite, Denies poor appetite, Denies snoring, Reports weakness, Denies weight gain and Denies weight loss Eyes Denies loss of vision ENT Reports dysphagia, Denies vertigo, Denies dizziness and Denies headache(s) Card Denies chest pain at rest, Denies chest pain with activity, Denies syncope, Denies leg edema and Denies palpitations Resp Denies snoring GI Denies constipation, Reports dysphagia, Denies heartburn, Denies diarrhea and Denies nausea Denies urinary frequency, Denies urinary incontinence and Denies urinary urgency Musc Reports abnormal gait (balance difficulty), Denies numbness and Denies tingling Skin/Breast Denies dry skin and Denies rash Neuro Reports abnormal gait (balance difficulty), Denies vertigo, Denies dizziness, Denies syncope, Denies frequent falls, Denies headache(s), Reports lack of coordination, Denies loss of vision, Reports memory loss, Denies numbness, Denies restless legs, Denies seizure-like activity, Denies tingling, Denies paresthesias, Denies tremor(s) and Reports weakness Psych Denies anxiety, Reports depression, Denies auditory hallucinations, Reports memory loss, Denies visual hallucinations and Denies suicidal ideation Endo Denies fatigue and Denies palpitations Physical Exam Const Other: General Appearance:? normal, in no acute distress. Skin:? no rashes, no significant birthmarks. Heart:? S1, S2 normal, no murmurs. Lungs:? clear anteriorly and posteriorly. Extremities:? no edema. Psych:? alert, cooperative with exam. Neuro Other: Mental Status:?Awake and alert, gestures, not in distress, no word output Cranial Nerves:?Pupils are equal, round and reactive to light. External occular muscles are intact. Visual quiroga are full. Face is symmetrical. Facial sensations are normal. Tongue is midline. Palate elevates symmetrically. Shoulder shrugging is normal. Hearing to bedside conversation is normal. Motor Examination:?DTRs absent. Left hemiparesis. Sensory Exam:?....? Gait Exam: In wheelchair. Extrapyramidal System:?No tremor, rigidity with normal facial expressions.? Pronator Drift:?Not present.? Involuntary Movements:?No tremors seen.? Speech:?Normal.? Results Reviewed Results Reviewed: Laboratory Tests 08/09/25 16:54 WBC 10.5 RBC 5.79 Hgb 13.8 L Hct 41.1 L MCV 71.0 L MCH 23.8 L MCHC 33.6 RDW 14.3 Plt Count 179 MPV 10.1 Sodium 134 L Potassium 3.0 L Chloride 98 Carbon Dioxide 29 Anion Gap 10 L BUN 23 H Creatinine 0.51 Estim Creat Clear Calc 86.7 Estimated GFR > 60 Random Glucose 150 H Lactic Acid 1.6 Calcium 8.2 L Magnesium 1.9 Total Bilirubin 0.5 AST 29 ALT 22 Alkaline Phosphatase 45 Total Protein 5.[address] brain at [facility] 05/2025: No acute fracture, bony calvarium. No acute intracranial hemorrhage. Small vessel occlusive disease. Global cerebral atrophy. Atherosclerosis disease. CT brain WO at [facility] in Sep 2023: mod to severe diff atrophy, mod to sev MVD EEG at [facility] in 2022: Mild gen slowing. Assessment & Plan Assessment & Plan (1) Seizure disorder: Code(s): G40.909 - Epilepsy, unspecified, not intractable, without status epilepticus Category: Medical Plan: Labs and CT scan reviewed. Continue levetiracetam solution 100mg/mL 2.5mL twice a day. Family was advised to contact the office if seizure happened, or new or worsening symptoms. (2) Multifactorial dementia: Code(s): F03.90 - Unspecified dementia, unspecified severity, without behavioral disturbance, psychotic disturbance, mood disturbance, and anxiety Category: Medical (3) Severe dementia: Code(s): F03.C0 - Unspecified dementia, severe, without behavioral disturbance, psychotic disturbance, mood disturbance, and anxiety Category: Medical Qualifiers: Dementia type: unspecified type Dementia behavioral or psychological symptom: unspecified whether behavioral, psychotic, or mood disturbance or anxiety Qualified Code(s): F03.C0 - Unspecified dementia, severe, without behavioral disturbance, psychotic disturbance, mood disturbance, and anxiety (4) Aphasia: Code(s): R47.01 - Aphasia Category: Medical (5) Left hemiparesis: Code(s): G81.94 - Hemiplegia, unspecified affecting left nondominant side Category: Medical Plan . Coding Level of Care Code Est Pt Level 4 (83958) Diagnoses Seizure disorder G40.909 Multifactorial dementia F03.90 Severe dementia, unspecified dementia type, unspecified whether behavioral, psychotic, or mood disturbance or anxiety F03.C0 Dementia type: unspecified type Dementia behavioral or psychological symptom: unspecified whether behavioral, psychotic, or mood disturbance or anxiety Aphasia R47.01 Left hemiparesis G81.94
== END 2025-08-16 15:20 | disposition home or self-care (01) ==
LOC: HO.HSM 14:49
PROVIDERS: Visit Provider Registered Nurse
DX: G40.909 Epilepsy, unspecified, not intractable, without status epilepticus (principal); F03.90 Unspecified dementia, unspecified severity, without behavioral disturbance, psychotic disturbance, mood disturbance, and anxiety; F03.C0 Unspecified dementia, severe, without behavioral disturbance, psychotic disturbance, mood disturbance, and anxiety; R47.01 Aphasia; G81.94 Hemiplegia, unspecified affecting left nondominant side
CPT/HCPCS: 99214

== ENCOUNTER → 2025-08-16 14:49 | Outpatient (BNVA) | payer MEDICARE, MEDICAID, SELFPAY | PROVIDERS: Visit Provider Registered Nurse | DX: G40.909 Epilepsy, unspecified, not intractable, without status epilepticus (principal); G81.94 Hemiplegia, unspecified affecting left nondominant side; R47.01 Aphasia; F03.90 Unspecified dementia, unspecified severity, without behavioral disturbance, psychotic disturbance, mood disturbance, and anxiety; F03.C0 Unspecified dementia, severe, without behavioral disturbance, psychotic disturbance, mood disturbance, and anxiety; Z79.82 Long term (current) use of aspirin; I10 Essential (primary) hypertension; E11.65 Type 2 diabetes mellitus with hyperglycemia; Z79.4 Long term (current) use of insulin | CPT/HCPCS: 99212 ==